=== PATIENT | male | born 1965 | race Caucasian/White ===

== ENCOUNTER 2023-01-21 17:49 | Inpatient (IN) | payer OTHER, SELFPAY ==
--- NOTE | ~2023-01-21 | CT_ITS ---
EXAMINATION: CT HEAD WITHOUT CONTRAST CLINICAL INFORMATION: ECT w/u. History of head trauma/TBI. COMPARISON: None. TECHNIQUE: Contiguous axial imaging was performed from the skull base to vertex without intravenous administration of contrast. This CT examination was performed using dose optimization techniques as appropriate, variously including the following: *Automated exposure control *Adjustment of mA and/or kV according to patient size (this includes techniques or standardized protocols for targeted exams where dose is matched to indication/reason for exam; i.e. extremities or head) *Use of iterative reconstruction technique DLP: 733 mGy-cm. FINDINGS: There is no intracranial hemorrhage, extra-axial collection, mass effect, or territorial infarction. The ventricles are normal in size without hydrocephalus. Mild nonspecific hypoattenuation is seen within the cerebral white matter. No significant encephalomalacia is seen. There is moderate paranasal sinus mucosal thickening. The mastoid air cells are clear. CT/CT head/brain wo IV con IMPRESSION: No acute intracranial abnormality. Mild nonspecific hypoattenuation in the cerebral white matter.
--- NOTE | ~2023-01-21 | XR_ITS ---
EXAMINATION: XR CHEST CLINICAL INFORMATION: Hypoxia. COMPARISON: None available. TECHNIQUE: 2 views of the chest were obtained. FINDINGS: There is some diminished vascularity seen about the apices which may be related to some degree of emphysematous change. There is a density seen overlying the posterior aspect of the left 7th rib. This is of uncertain significance and it is difficult to tell whether it lies within a rib or within the lung. CT or oblique views of the chest could further evaluate this if clinically indicated. Heart normal size. No evidence of pulmonary edema. No pleural effusion is appreciated. There is calcification of the anterior longitudinal ligament within the lower thoracic spine. XR/XR chest 2V IMPRESSION: No acute parenchymal disease. Question left lung density as described above.
[2023-01-21 18:00] VITALS: BP 132/90; PULSE 108; RESP 18; TEMP 36.4; O2SAT 99
--- NOTE | 2023-01-21 18:53 | HO.PM.IMCN ---
History of Present Illness Data of Consult Service Date: 01/21/23 Primary Care Provider: Benedict Santana MD [facility] Reason for consult: Admission H&P Pt is a 57-year-old male with a PMH significant for COPD, HTN, TBI, bipolar disorder, PTSD, and multiple concussions who is seen for psych admission history and physical. Patient was admitted to [facility] for the past 7 days and noted there to be hypertensive, started on amlodipine 10 mg. Patient currently has no acute medical complaints. Denies chest pain/pressure, palpitations. No shortness of breath, cough. Denies headache, changes to vision. No fever, chills, nausea, vomiting, abdominal pain. No changes to bowel or bladder habits. Review of Systems Review of Systems: Patient has no acute complaints Yes all other systems are reviewed and are negative [facility] Medical History (Updated 01/23/23 @ 00:51 by Nicholas Ruff) Alcohol use disorder TBI (traumatic brain injury) Social History Household Members: None Housing: Homeless Do you presently have visiting nurse or other home services: No Patient Tobacco Use Status: Current everyday Tobacco user Tobacco use type: Cigarette Cigarette Packs Per Day: 1.5 Cigarettes Per Day: 30.0 Smoked in Last 30 Days: Yes Patient Interested in Nicotine Replacement: Yes Patient Given Instructions on How to Stop Smoking: No Second Hand Smoke Exposure: No Use of substances other than those prescribed or required for medical reasons: Yes Substance Use Type: Crack/Cocaine and Marijuana Substance Use Frequency: Occasionally Last Used Substance: Days (ago) Last Used Substance Other:: 7 days Currently Displaying Signs/Symptoms of Drug Intoxication Withdrawal: No Any prior treatment program specific to substance use: No Have you been hit, kicked, punched, or otherwise hurt by someone within the past year? If so, by whom?: No Do you feel safe in your current relationship?: No Current Relationship Is there a partner from a previous relationship who is making you feel unsafe now?: No Are you made to feel afraid or neglected: No Spiritual Healthcare Practices: Pt denies Rastafari Healthcare Practices: Pt denies Cultural Healthcare Practices: Pt denies Advance Directives: No Advance Directives Information Provided: No Do you have thoughts of harming others: None Do you have a plan to hurt others: No Plan Recently lost weight without trying: No How much weight loss: Not applicable Eating poorly because of decreased appetite: No Nutrition screen score: 0 Nutrition Risks: No Nutritional Risk Poor oral hygiene: No Meds Allergies Allergy/AdvReac Type Severity Reaction Status Date / Time No Known Allergies Allergy Verified 01/21/23 17:56 Active Medications: Current Medications Acetaminophen (Acetaminophen 325 Mg Tablet) 650 mg PO Q6H PRN PRN Reason: Headache/Pain Mild Scale (1-3) Al Hydroxide/Mg Hydroxide (Magnesium Hydrox/Alum Hydrox 30 Ml Oral.Susp) 30 ml PO Q6H PRN PRN Reason: Heartburn/Nausea Hydroxyzine HCl (Hydroxyzine Hcl 25 Mg Tablet) 25 mg PO Q6H PRN PRN Reason: Anxiety Magnesium Hydroxide (Milk Of Magnesia 30 Ml Oral.Susp) 30 ml PO DAILY PRN PRN Reason: Constipation Nicotine Polacrilex (Nicotine Polacrilex 2 Mg Gum) 4 mg BUCCAL Q2H PRN PRN Reason: Nicotine Cravings Trazodone HCl (Trazodone Hcl 50 Mg Tablet) 50 mg PO BEDTIME MRX1 PRN PRN Reason: Insomnia Home Medications Medication Instructions Recorded Confirmed Last Taken Type albuterol sulfate 90 mcg/actuation 2 puff inhalation Q4H PRN dyspnea 01/21/23 01/21/23 Unknown History aerosol inhaler (Ventolin HFA) aripiprazole 10 mg tablet 1 tab PO BEDTIME 01/21/23 01/21/23 Unknown History budesonide 160 mcg-glycopyr 9 2 puff inhalation BID 01/21/23 01/21/23 Unknown History mcg-formot 4.8 mcg/actuation HFA inhaler (Breztri Aerosphere) hydroxyzine pamoate 50 mg capsule 1 cap PO Q6H PRN anxiety 01/21/23 01/21/23 Unknown History ibuprofen 800 mg tablet 1 tab PO TID PRN pain 01/21/23 01/21/23 Unknown History omeprazole 20 mg capsule,delayed 1 cap PO QAM 01/21/23 01/21/23 Unknown History release quetiapine 200 mg tablet 1 tab PO BEDTIME 01/21/23 01/21/23 Unknown History quetiapine 25 mg tablet 1 tab PO BID PRN insomnia 01/21/23 01/21/23 Unknown History sertraline 100 mg tablet 1 tab PO DAILY 01/21/23 01/21/23 Unknown History trazodone 50 mg tablet 1 tab PO BEDTIME insomnia 01/21/23 01/21/23 Unknown History Physical Exam Vital Signs and Narrative: General: AOx3, no acute distress Resp: CTA bilaterally CVS: S1, S2, RRR GI: +BS, NT, no distention Skin: No rash Neuro: Cranial nerves II-XII grossly intact. Motor grossly intact. Extremities: No edema Psych: Appropriate affect Results Labs 01/22/23 07:36 01/22/23 07:36 Assessment and Plan (1) Routine history and physical examination of adult: Status: Acute Plan Pt is a 57-year-old male with a PMH significant for COPD, HTN, TBI, bipolar disorder, PTSD, and multiple concussions who is seen for psych admission history and physical. Patient was admitted to [facility] for the past 7 days and noted there to be hypertensive, started on amlodipine 10 mg. Patient currently has no acute medical complaints. COPD Continue home inhaler prn HTN Continue amlodipine Thank you for allowing us participate in the care of this patient. Signing off at this time. Please let us know if there are any acute concerns or questions. Time Spent With Patient Time: Total time managing care of this patient today ____ minutes.
--- NOTE | 2023-01-21 19:26 | PC.ADMIT ---
Brody was admitted to [facility] at 1800 from [facility] on a CV for treatment of SI, bipolar I.?Precipitants of admission include intentional overdose on 60 tabs of 25 mg pills of seroquel along with drinking vodka. Per pt report ?I took the pills then called 911 and told them they had a chance, and then I started drinking?. Pt began laughing after stating this and said ?if i was meant to go I would have and if I didn?t then I wasn?t?. Patient endorses drinking ? gallon of vodka a day since late 2018 after passing of daughter? ?$8.95 a day since she . I don't buy the good stuff but it gets the job done?. Patient was medically admitted to [facility] for approximately a week. Patient received phenobarbital while there for alcohol withdrawal. Patient was closely monitored as well with EKGs q2 hours to monitor post Overdose. Prolonged QTC was noted, with the last being 471.? Patient reported recent stressors to include loss of his parents unexpectedly, recent homelessness and loss of daughter in 2018 by suicide. Patient reported that he has attempted suicide 4 times since his daughters . Reportedly he attempted to hang himself using a tree, but the branch broke. Declined to elaborate on other attempts. Reports multiple inpatient admissions, most recent including [facility] ?a few weeks ago?. During the admission interview pt is A & Ox4. Patients Mood is irritable with congruent Affect. Patient currently denies SI/HI/AH. Pt endorsed seeing ?shadows? occasionally. Patient reports that if he is discharged he does not know what would happen, but feels safe in the patient. Thought Process linear and organized. Reports ?whenever I go I always just go and sign myself out with a 3 day notice. I don?t want to do that this time?. Reported appetite and sleep have been appropriate. MOSS positive for cocaine and marijuana. Reported ?I will do a line here and there?. Endorsed ?taking a hit off a blunt every now and then. Can?t do it much because of my COPD?. Recently started on amlodipine at [facility] for high blood pressure. Upon arrival pt had BP of 132/90 and a HR of 108. Reported a Hx of seizures, but he reported the last one was greater than 7 years ago. Pt has COPD and reported that he uses his ventolin inhaler about every 4 hours. No acute distress noted or reported. 15 minute safety checks initiated. Pt declined flu vaccine. Reported to be a 1.5 pack a day cigarette smoker.
[2023-01-21] MEDS: Cyclobenzaprine HCl 5 MG TABLET PO (21:00)
[2023-01-21] MEDS: QUEtiapine Fumarate 200 MG TABLET PO (21:01)
[2023-01-21] MEDS: Ibuprofen 800 MG TABLET PO (21:01)
[2023-01-21] MEDS: hydrOXYzine HCL 50 MG TABLET PO (21:01)
[2023-01-21] MEDS: Albuterol Sulfate 90 MCG 8 GM INHALER 2 PUFF INHALE (21:14)
[2023-01-22 07:52] LABS: Basophils Percent Auto 0.6 % (0-2); Eosinophils Absolute Auto 0.3 X10*3/uL (0.0-0.4); Eosinophils Percent Auto 5.2 % (0-4); Hemoglobin 15.4 g/dl (14.0-18.0); Imm Gran Abs Auto 0.02 X10*3/uL (0.00-0.03); Imm Gran Pct Auto 0.3 % (0.0-0.4); Lymphocytes Absolute Auto 2.3 X10*3/uL (1.2-4.9); Lymphocytes Percent Auto 34.2 % (20-40); MANUAL DIFF FLAG NO; Mean Corpuscular HGB Conc 34.2 g/dl (31.0-36.0); Mean Corpuscular Hemoglobin 32.5 pg (27.0-33.0); Mean Corpuscular Volume 94.9 fL (80.0-98.0); Mean Platelet Volume 9.7 fL (9.4-12.4); Monocytes Absolute Auto 0.8 X10*3/uL (0.1-1.2); Monocytes Percent Auto 11.7 % (2-11); Neutrophils Absolute Auto 3.2 x10*3/uL (2.0-8.3); Platelet Count 184 X10*3/uL (160-400); Red Blood Count 4.74 X10*6/uL (4.60-5.80); Red Cell Distribution Width 13.2 % (11.0-16.0); White Blood Count 6.6 X10*3/uL (4.8-10.8)
[2023-01-22 08:18] LABS: Estimated Average Glucose 103 mg/dL; Hemoglobin A1c % 5.2 %
[2023-01-22 08:30] LABS: Alanine Aminotransferase 33 U/L (0-40); Albumin Level 4.1 g/dL (3.5-5.0); Alkaline Phosphatase 75 U/L (39-117); Anion Gap 11 (12-20); Aspartate Amino Transferase 21 U/L (5-37); Bilirubin Direct 0.2 mg/dL (0.0-0.5); Bilirubin Total 0.6 mg/dL (0.0-1.0); Blood Urea Nitrogen 17 mg/dL (9-16); Calcium 9.6 mg/dL (8.4-10.2); Carbon Dioxide 24 mmol/L (22-29); Chloride 111 mmol/L (96-108); Cholesterol 214 mg/dL; Estimated Glomerular Filt Rate > 60; Glucose Fasting 95 mg/dL (60-99); HDL Cholesterol 43 mg/dL; LDL Cholesterol Calculated 146 mg/dl; Sodium 142 mmol/L (135-145); Total Protein 6.6 g/dL (6.5-8.0); Triglycerides 126 mg/dL
[2023-01-22 08:59] LABS: Folate 14.2 ng/mL (> or = 4.0); Free T4 (Free Thyroxine) 0.84 ng/dL (0.71-1.85); Thyroid Stimulating Hormone 1.78 uIU/mL (0.32-4.0); Vitamin B12 366 pg/mL (200-900)
[2023-01-22 09:00] VITALS: BP 132/82; PULSE 90; TEMP 36.3; O2SAT 98
[2023-01-22] MEDS: Nicotine 21 MG PATCH.TD24 TRANSDERMA (09:44)
[2023-01-22] MEDS: Albuterol Sulfate 90 MCG 8 GM INHALER 2 PUFF INHALE ×2 (09:44→22:28)
[2023-01-22] MEDS: Omeprazole 20 MG CAPSULE.DR PO (09:44)
[2023-01-22] MEDS: Sertraline HCL 100 MG TABLET PO (09:44)
[2023-01-22] MEDS: Ibuprofen 800 MG TABLET PO ×2 (11:12→19:25)
[2023-01-22] MEDS: Cyclobenzaprine HCl 5 MG TABLET PO ×2 (11:13→18:52)
[2023-01-22] MEDS: hydrOXYzine HCL 50 MG TABLET PO (13:50)
--- NOTE | 2023-01-22 18:47 | HO.PSYADMNOT ---
HPI Date of Service: 01/22/23 Chief Complaint: Unspecified Bipolar D/O HPI Narrative: pt was admitted to [facility] after overdosing on 60 tabs of seroquel while intoxicated. he was in a public place, drank the alcohol and took the pills, and immediately called 911. he reported homelessness, lack of treaters, of his daughter by suicide several years ago, lack of social supports, lack of help from psych meds as stressors. he reports a history of bipolar disorder, talking of my vito, which he says he used to manage through excessive exercise when he was younger - working out, running marathons. he describes his manic episodes as lasting 3-4 days and those being followed by depressive periods that might last a week or two. he reports the most recent suicida attempt was his 6th in 16 weeks, that he was at [facility] twice in the past 6 weeks. he goes in, gets detoxed, discharges, starts drinking again and attempts to overdose, then goes back in the hospital. he states he still has SI and plans to and intends to kill himself after discharge. he has given up any confidence in medications. MD broaches ECT and educates him about it; he is open to receiving literature on the subject. he presents with a fair amount of braggadocio and [id number] attitude, challenging MD to discharge him. attempts are made to establish rapport through a non-directive approach and emphasizing that pt has the control and the power to make decisions and chart his course. hopefully, despite his continued insistence that he is going to kill himself, he also spoke positively about help from talking to others as well as an interest in finding a therapist at discharge. Past Psychiatric History: hosps: 8-9 SA: 8-9 SIB: denies no outpt ptoviders although reports long h/o mental healthcare and medications mgmt. reports being taken to group home as often as to the hospital when the police are called. Medical Evaluation Reviewed: Yes [facility] Medical History (Updated 01/23/23 @ 00:51 by Nicholas Ruff) Alcohol use disorder TBI (traumatic brain injury) Family History: daughter - completed suicide around [id number], reported Dx of bipolar disorder 5 sibs - no mental health concerns parents - no mental health concerns Social History: 5 kids, one daughter suicided in [id number] period. homeless, unemployed. history of incarceration. Substance History: alcohol - reports half gallon of vodka daily in the recent past cannabis - occasional cocaine - occasional denies use of opioids, stimulants, benzos, other. declines SA Tx. Trauma History: indicates in the affirmative but states that's all he'll say about it Diagnostics Vital Signs (24Hr): Vital Signs - 24 hr 01/22/23 09:00 Temperature 97.3 F Pulse Rate 90 Blood Pressure 132/82 Pulse Oximetry 98 Oxygen Delivery Method Room Air Labs 01/22/23 07:36 01/22/23 07:36 Labs: Laboratory Results - last 48 hr 01/22/23 01/22/23 01/22/23 07:36 07:36 07:36 WBC 6.6 RBC 4.74 Hgb 15.4 Hct 45.0 MCV 94.9 MCH 32.5 MCHC 34.2 RDW 13.2 Plt Count 184 MPV 9.7 Immature Gran % (Auto) 0.3 Neut % (Auto) 48.0 Lymph % (Auto) 34.2 [place] % (Auto) 11.7 H Eos % (Auto) 5.2 H Baso % (Auto) 0.6 Lymph # (Auto) 2.3 [place] # (Auto) 0.8 Eos # (Auto) 0.3 Baso # (Auto) 0.0 Abs Immat Gran (auto) 0.02 Absolute Neuts (auto) 3.2 Absolute Nucleated RBC 0.000 Nucleated RBC % (auto) 0.0 Sodium 142 Potassium 4.0 Chloride 111 H Carbon Dioxide 24 Anion Gap 11 L BUN 17 H Creatinine 0.91 Estim Creat Clear Calc TNP Estimated GFR > 60 Fasting Glucose 95 Estimat Average Glucose 103 Hemoglobin A1c % 5.2 Calcium 9.6 Total Bilirubin 0.6 Direct Bilirubin 0.2 AST 21 ALT 33 Alkaline Phosphatase 75 Total Protein 6.6 Albumin 4.1 Triglycerides 126 Cholesterol 214 LDL Cholesterol, Calc 146 HDL Cholesterol 43 Vitamin B12 366 Folate 14.2 TSH 1.78 Free T4 0.84 Meds/Allergies Meds Home Medications Medication Instructions Recorded Confirmed Type albuterol sulfate 90 mcg/actuation 2 puff inhalation Q4H PRN dyspnea 01/21/23 01/21/23 History aerosol inhaler (Ventolin HFA) aripiprazole 10 mg tablet 1 tab PO BEDTIME 01/21/23 01/21/23 History budesonide 160 mcg-glycopyr 9 2 puff inhalation BID 01/21/23 01/21/23 History mcg-formot 4.8 mcg/actuation HFA inhaler (Breztri Aerosphere) hydroxyzine pamoate 50 mg capsule 1 cap PO Q6H PRN anxiety 01/21/23 01/21/23 History ibuprofen 800 mg tablet 1 tab PO TID PRN pain 01/21/23 01/21/23 History omeprazole 20 mg capsule,delayed 1 cap PO QAM 01/21/23 01/21/23 History release quetiapine 200 mg tablet 1 tab PO BEDTIME 01/21/23 01/21/23 History quetiapine 25 mg tablet 1 tab PO BID PRN insomnia 01/21/23 01/21/23 History sertraline 100 mg tablet 1 tab PO DAILY 01/21/23 01/21/23 History trazodone 50 mg tablet 1 tab PO BEDTIME insomnia 01/21/23 01/21/23 History Allergies Allergies Allergy/AdvReac Type Severity Reaction Status Date / Time No Known Allergies Allergy Verified 01/21/23 17:56 Mental Status Exam Mental Status Exam Narrative: calm, cooperative. no PMA/PMR. voluble, boisterous. incr rate, amount, loudness of speech. thoughts linear to circumstantial. affect full range, hyper-intense, non-labile. mood i keep to myself. francis depressed, pissed i'm stuck in this place (he would prefer to discharge so he can go kill himself, per his report). endorses SI, denies HI/AVH. Assessment & Plan Assessment & Plan (1) COPD (chronic obstructive pulmonary disease): Status: Acute Code(s): J44.9 - Chronic obstructive pulmonary disease, unspecified (2) HTN (hypertension): Status: Acute Code(s): I10 - Essential (primary) hypertension (3) PTSD (post-traumatic stress disorder): Status: Acute Code(s): F43.10 - Post-traumatic stress disorder, unspecified (4) Alcohol use disorder: Status: Acute Code(s): F10.90 - Alcohol use, unspecified, uncomplicated (5) TBI (traumatic brain injury): Status: Acute Code(s): S06.9XAA - Unspecified intracranial injury with loss of consciousness status unknown, initial encounter Plan pt expressing lack of motivation for recovery and treatment, especially with medications. he was educated re ECT for Tx refractory depression. he is willing to receive further education on the subject and MD will discuss with him again tomorrow. build rapport, listen (pt identified h/o treaters' not listening to him as something which led to his disengagement). continue prior meds for now. increase seroquel at HS per pt request for insomnia. ativan per CIWA for alcohol withdrawal Patient educated on: diagnosis, medication risk/benefits, substance abuse and medical condition Reason for continued inpatient stay Substantial Risk for: harm to self, inability to function and rapid decompensation Statement Statement: I have reviewed the history and physical and performed a pertinent examination on my patient. No changes have occurred unless specified. If the History and Physical was not performed prior to admission, the Hospitalist's service will be consulted for completing the admission physical. Time Spent With Patient Time: Total time managing care of this patient today __55__ minutes.
[2023-01-22 20:25] VITALS: BP 128/85; PULSE 94; RESP 18; TEMP 36.5; O2SAT 96
[2023-01-22] MEDS: QUEtiapine Fumarate 300 MG TABLET PO (22:28)
[2023-01-23] MEDS: Nicotine 21 MG PATCH.TD24 TRANSDERMA (08:55)
[2023-01-23] MEDS: Cyclobenzaprine HCl 5 MG TABLET PO ×2 (08:55→13:45)
[2023-01-23] MEDS: Omeprazole 20 MG CAPSULE.DR PO (08:55)
[2023-01-23] MEDS: Ibuprofen 800 MG TABLET PO ×2 (08:55→20:21)
[2023-01-23] MEDS: Sertraline HCL 100 MG TABLET PO (08:55)
[2023-01-23 09:00] VITALS: BP 142/88; PULSE 96; TEMP 36; O2SAT 97
[2023-01-23] MEDS: hydrOXYzine HCL 50 MG TABLET PO (13:47)
--- NOTE | 2023-01-23 16:50 | P.PNPSI_ITS ---
Subjective Subjective Date of Service: 01/23/23 Reason For Visit: Unspecified Bipolar D/O Interim History: calm, cooperative. states he has had no change in his mod since yesterday. endorses SI. asks for HS seroquel to be reduced to 250, which is done. per staff, pleasant but flat and guarded. pacing the unit for exercise. taking meds, eating, sleeping. Mental Status Exam Mental Status Exam Narrative: calm, cooperative. no PMA/PMR. nml rate, amount, loudness of speech. thoughts linear. affect full range, normo-intense, non-labile. mood same. endorses SI, denies HI/AVH. Diagnostics Vital Signs (24Hr): Vital Signs - 24 hr 01/22/23 20:25 01/23/23 09:00 Temperature 97.7 F 96.8 F Pulse Rate 94 96 Respiratory Rate 18 Blood Pressure 128/85 142/88 H Pulse Oximetry 96 97 Oxygen Delivery Method Room Air Room Air Labs 01/22/23 07:36 01/22/23 07:36 Labs: Laboratory Results - last 48 hr 01/22/23 01/22/23 01/22/23 07:36 07:36 07:36 WBC 6.6 RBC 4.74 Hgb 15.4 Hct 45.0 MCV 94.9 MCH 32.5 MCHC 34.2 RDW 13.2 Plt Count 184 MPV 9.7 Immature Gran % (Auto) 0.3 Neut % (Auto) 48.0 Lymph % (Auto) 34.2 [place] % (Auto) 11.7 H Eos % (Auto) 5.2 H Baso % (Auto) 0.6 Lymph # (Auto) 2.3 [place] # (Auto) 0.8 Eos # (Auto) 0.3 Baso # (Auto) 0.0 Abs Immat Gran (auto) 0.02 Absolute Neuts (auto) 3.2 Absolute Nucleated RBC 0.000 Nucleated RBC % (auto) 0.0 Sodium 142 Potassium 4.0 Chloride 111 H Carbon Dioxide 24 Anion Gap 11 L BUN 17 H Creatinine 0.91 Estim Creat Clear Calc TNP Estimated GFR > 60 Fasting Glucose 95 Estimat Average Glucose 103 Hemoglobin A1c % 5.2 Calcium 9.6 Total Bilirubin 0.6 Direct Bilirubin 0.2 AST 21 ALT 33 Alkaline Phosphatase 75 Total Protein 6.6 Albumin 4.1 Triglycerides 126 Cholesterol 214 LDL Cholesterol, Calc 146 HDL Cholesterol 43 Vitamin B12 366 Folate 14.2 TSH 1.78 Free T4 0.84 Medications Medications Current Medications Al Hydroxide/Mg Hydroxide (Magnesium Hydrox/Alum Hydrox 30 Ml Oral.Susp) 30 ml PO Q6H PRN PRN Reason: Heartburn/Nausea Albuterol Sulfate (Albuterol Sulfate 90 Mcg 8 Gm Inhaler) 2 puff INHALE Q4H PRN PRN Reason: dyspnea Last Admin: 01/22/23 22:28 Dose: 2 puff Cyclobenzaprine HCl (Cyclobenzaprine Hcl 10 Mg Tablet) 10 mg PO TID PRN PRN Reason: back pain Hydroxyzine HCl (Hydroxyzine Hcl 50 Mg Tablet) 50 mg PO Q6H PRN PRN Reason: anxiety Last Admin: 01/23/23 13:47 Dose: 50 mg Ibuprofen (Ibuprofen 800 Mg Tablet) 800 mg PO Q8H PRN PRN Reason: mild pain (1-3) Last Admin: 01/23/23 08:55 Dose: 800 mg Magnesium Hydroxide (Milk Of Magnesia 30 Ml Oral.Susp) 30 ml PO DAILY PRN PRN Reason: Constipation Nicotine (Nicotine 21 Mg Patch.Td24) 21 mg TRANSDERMA DAILY [facility] Last Admin: 01/23/23 08:55 Dose: 21 mg Non-Formulary Medication (Ihazxyflyn-Puleccri-Brfzydhvlz [Breztri Aerosphere]) 2 puff INHALE BID [facility] Omeprazole (Omeprazole 20 Mg Capsule.Dr) 20 mg PO DAILY@0630 [facility] Last Admin: 01/23/23 08:55 Dose: 20 mg Quetiapine Fumarate (Quetiapine Fumarate 25 Mg Tablet) 25 mg PO BID PRN PRN Reason: insomnia Quetiapine Fumarate (Quetiapine Fumarate 50 Mg Tablet) 250 mg PO BEDTIME [facility] Sertraline HCl (Sertraline Hcl 100 Mg Tablet) 100 mg PO DAILY [facility] Last Admin: 01/23/23 08:55 Dose: 100 mg Trazodone HCl (Trazodone Hcl 50 Mg Tablet) 50 mg PO BEDTIME MRX1 PRN PRN Reason: Insomnia Trazodone HCl (Trazodone Hcl 50 Mg Tablet) 50 mg PO BEDTIME [facility] Last Admin: 01/22/23 22:29 Dose: Not Given Allergies Allergies Allergy/AdvReac Type Severity Reaction Status Date / Time No Known Allergies Allergy Verified 01/21/23 17:56 Assessment & Plan Assessment & Plan (1) Routine history and physical examination of adult: Status: Acute Code(s): Z00.00 - Encounter for general adult medical examination without abnormal findings (2) TBI (traumatic brain injury): Status: Acute Code(s): S06.9XAA - Unspecified intracranial injury with loss of consciousness status unknown, initial encounter (3) Alcohol use disorder: Status: Acute Code(s): F10.90 - Alcohol use, unspecified, uncomplicated (4) PTSD (post-traumatic stress disorder): Status: Acute Code(s): F43.10 - Post-traumatic stress disorder, unspecified Plan 01/22: pt expressing lack of motivation for recovery and treatment, especially with medications.? he was educated re ECT for Tx refractory depression.? he is willing to receive further education on the subject and MD will discuss with him again tomorrow. build rapport, listen (pt identified h/o treaters' not listening to him as something which led to his disengagement). continue prior meds for now.? increase seroquel at HS per pt request for insomnia. ativan per CIWA for alcohol withdrawal. 01/23: pt reports he received ECT education and is mulling it over. asks for HS seroquel to be decreased to 250, which is done. asks for flexeril to be increased to 10 TID PRN, which is done. reports no change in mood or SI. Reason for contiued inpatient stay Substantial Risk for: harm to self, inability to function and rapid decompensation Time Spent With Patient Time: Total time managing care of this patient today ____ minutes.
[2023-01-23 20:14] VITALS: BP 129/96; PULSE 83; RESP 18; TEMP 36.2; O2SAT 97
[2023-01-23] MEDS: traZODone HCL 50 MG TABLET PO (20:21)
[2023-01-23] MEDS: Cyclobenzaprine HCl 10 MG TABLET PO (20:21)
[2023-01-23] MEDS: Albuterol Sulfate 90 MCG 8 GM INHALER 2 PUFF INHALE (20:22)
[2023-01-24 06:00] VITALS: BP 138/96; PULSE 86; TEMP 36.2; O2SAT 98
[2023-01-24] MEDS: Cyclobenzaprine HCl 10 MG TABLET PO ×3 (09:16→22:10)
[2023-01-24] MEDS: Albuterol Sulfate 90 MCG 8 GM INHALER 2 PUFF INHALE ×2 (09:16→22:11)
[2023-01-24] MEDS: Omeprazole 20 MG CAPSULE.DR PO (09:17)
[2023-01-24] MEDS: Ibuprofen 800 MG TABLET PO ×2 (09:17→17:32)
[2023-01-24] MEDS: Sertraline HCL 100 MG TABLET PO (09:17)
[2023-01-24] MEDS: Nicotine 21 MG PATCH.TD24 TRANSDERMA (09:23)
[2023-01-24] MEDS: Sertraline HCL 50 MG TABLET PO (11:31)
--- NOTE | 2023-01-24 15:10 | HO.PSYCHPN ---
Subjective Subjective Date of Service: 01/24/23 Reason For Visit: Unspecified Bipolar D/O Interim History: calm, cooperative. pacing the halls. slept well last night. reports h/o several seizures in his life. c/o ongoing depression, asks to increase zoloft to 150 mg daily. agrees to DC trazodone for the sake of simplicity. looking forward to meeting with SW to discuss options. per staff, quiet, isolative, withdrawn. considering [facility] for aftercare. pleasant. Mental Status Exam Mental Status Exam Narrative: calm, cooperative. no PMA/PMR. nml rate, amount, loudness of speech. thoughts linear. affect full range, normo-intense, non-labile. mood same. endorses SI, denies HI/AVH. Diagnostics Vital Signs (24Hr): Vital Signs - 24 hr 01/23/23 20:14 01/24/23 06:00 Temperature 97.2 F 97.2 F Pulse Rate 83 86 Respiratory Rate 18 Blood Pressure 129/96 H 138/96 H Pulse Oximetry 97 98 Oxygen Delivery Method Room Air Room Air Labs 01/22/23 07:36 01/22/23 07:36 Medications Medications Current Medications Al Hydroxide/Mg Hydroxide (Magnesium Hydrox/Alum Hydrox 30 Ml Oral.Susp) 30 ml PO Q6H PRN PRN Reason: Heartburn/Nausea Albuterol Sulfate (Albuterol Sulfate 90 Mcg 8 Gm Inhaler) 2 puff INHALE Q4H PRN PRN Reason: dyspnea Last Admin: 01/24/23 09:16 Dose: 2 puff Cyclobenzaprine HCl (Cyclobenzaprine Hcl 10 Mg Tablet) 10 mg PO TID PRN PRN Reason: back pain Last Admin: 01/24/23 09:16 Dose: 10 mg Hydroxyzine HCl (Hydroxyzine Hcl 50 Mg Tablet) 50 mg PO Q6H PRN PRN Reason: anxiety Last Admin: 01/23/23 13:47 Dose: 50 mg Ibuprofen (Ibuprofen 800 Mg Tablet) 800 mg PO Q8H PRN PRN Reason: mild pain (1-3) Last Admin: 01/24/23 09:17 Dose: 800 mg Magnesium Hydroxide (Milk Of Magnesia 30 Ml Oral.Susp) 30 ml PO DAILY PRN PRN Reason: Constipation Nicotine (Nicotine 21 Mg Patch.Td24) 21 mg TRANSDERMA DAILY [facility] Last Admin: 01/24/23 09:23 Dose: 21 mg Non-Formulary Medication (Axpkzlfvbi-Wncioudb-Xtpqacbkvc [Breztri Aerosphere]) 2 puff INHALE BID [facility] Omeprazole (Omeprazole 20 Mg Capsule.Dr) 20 mg PO DAILY@0630 [facility] Last Admin: 01/24/23 09:17 Dose: 20 mg Quetiapine Fumarate (Quetiapine Fumarate 25 Mg Tablet) 25 mg PO BID PRN PRN Reason: insomnia Quetiapine Fumarate 200 mg/ (Quetiapine Fumarate 50 mg) 250 mg PO BEDTIME [facility] Last Admin: 01/23/23 20:29 Dose: 250 mg Sertraline HCl (Sertraline Hcl 50 Mg Tablet) 150 mg PO DAILY [facility] Trazodone HCl (Trazodone Hcl 50 Mg Tablet) 50 mg PO BEDTIME PRN PRN Reason: Insomnia Allergies Allergies Allergy/AdvReac Type Severity Reaction Status Date / Time No Known Allergies Allergy Verified 01/21/23 17:56 Assessment & Plan Assessment & Plan (1) Routine history and physical examination of adult: Status: Acute Code(s): Z00.00 - Encounter for general adult medical examination without abnormal findings (2) TBI (traumatic brain injury): Status: Acute Code(s): S06.9XAA - Unspecified intracranial injury with loss of consciousness status unknown, initial encounter (3) Alcohol use disorder: Status: Acute Code(s): F10.90 - Alcohol use, unspecified, uncomplicated (4) PTSD (post-traumatic stress disorder): Status: Acute Code(s): F43.10 - Post-traumatic stress disorder, unspecified Plan 01/22: pt expressing lack of motivation for recovery and treatment, especially with medications.? he was educated re ECT for Tx refractory depression.? he is willing to receive further education on the subject and MD will discuss with him again tomorrow. build rapport, listen (pt identified h/o treaters' not listening to him as something which led to his disengagement). continue prior meds for now.? increase seroquel at HS per pt request for insomnia. ativan per CIWA for alcohol withdrawal. 01/23: pt reports he received ECT education and is mulling it over. asks for HS seroquel to be decreased to 250, which is done. asks for flexeril to be increased to 10 TID PRN, which is done. reports no change in mood or SI. 01/24: no change in mood or SI per pt. however, he is making hopeful statements and was noted to have expressed an interest in therapy after discharge. increase zoloft to 150 mg daily per pt request. states ECT is not for him. Reason for contiued inpatient stay Substantial Risk for: harm to self, inability to function and rapid decompensation Time Spent With Patient Time: Total time managing care of this patient today __25__ minutes.
[2023-01-24 22:08] VITALS: BP 161/96; PULSE 69; RESP 18; TEMP 36.3; O2SAT 97
[2023-01-25 06:00] VITALS: BP 144/78; PULSE 74; RESP 18; TEMP 36.6; O2SAT 98
[2023-01-25] MEDS: Nicotine 21 MG PATCH.TD24 TRANSDERMA (09:15)
[2023-01-25] MEDS: Sertraline HCL 50 MG TABLET 150 MG PO (09:16)
[2023-01-25] MEDS: Omeprazole 20 MG CAPSULE.DR PO (09:16)
[2023-01-25] MEDS: Ibuprofen 800 MG TABLET PO ×2 (09:16→20:11)
[2023-01-25] MEDS: Cyclobenzaprine HCl 10 MG TABLET PO ×3 (09:16→20:10)
--- NOTE | 2023-01-25 13:49 | P.PNPSI_ITS ---
Subjective Subjective Date of Service: 01/25/23 Reason For Visit: Unspecified Bipolar D/O Interim History: Met with patient; discussed in team Patient reports he remains depressed. He has off and on suicidal thinking but says it has lessened. However he says he does not trust himself to remain safe off the unit; he shared he has had 5 attempts in the past 16 weeks.. Patient reports tolerating recent increase in Zoloft without side effects. Discussed diagnosis; Discussed ECT and patient ask questions and said he is more open to considering. Patient shared about his history and that his daughter committed suicide and that she had bipolar disorder. Patient reports history of migraine and would like Imitrex p.r.n.; ticket writer reviewed medication prescriptions and sees the patient is prescribed this medication which was ordered Mental Status Exam Mental Status Exam Narrative: calm, cooperative. no PMA/PMR. nml rate, amount, loudness of speech. thoughts linear. affect full range, normo-intense, non-labile. mood same. endorses SI, denies HI/AVH. Diagnostics Vital Signs (24Hr): Vital Signs - 24 hr 01/24/23 22:08 01/25/23 06:00 Temperature 97.4 F 97.8 F Pulse Rate 69 74 Respiratory Rate 18 18 Blood Pressure 161/96 H 144/78 H Pulse Oximetry 97 98 Oxygen Delivery Method Room Air Room Air Labs 01/22/23 07:36 01/22/23 07:36 Medications Medications Current Medications Al Hydroxide/Mg Hydroxide (Magnesium Hydrox/Alum Hydrox 30 Ml Oral.Susp) 30 ml PO Q6H PRN PRN Reason: Heartburn/Nausea Albuterol Sulfate (Albuterol Sulfate 90 Mcg 8 Gm Inhaler) 2 puff INHALE Q4H PRN PRN Reason: dyspnea Last Admin: 01/24/23 22:11 Dose: 2 puff Cyclobenzaprine HCl (Cyclobenzaprine Hcl 10 Mg Tablet) 10 mg PO TID PRN PRN Reason: back pain Last Admin: 01/25/23 09:16 Dose: 10 mg Hydroxyzine HCl (Hydroxyzine Hcl 50 Mg Tablet) 50 mg PO Q6H PRN PRN Reason: anxiety Last Admin: 01/23/23 13:47 Dose: 50 mg Ibuprofen (Ibuprofen 800 Mg Tablet) 800 mg PO Q8H PRN PRN Reason: mild pain (1-3) Last Admin: 01/25/23 09:16 Dose: 800 mg Magnesium Hydroxide (Milk Of Magnesia 30 Ml Oral.Susp) 30 ml PO DAILY PRN PRN Reason: Constipation Nicotine (Nicotine 21 Mg Patch.Td24) 21 mg TRANSDERMA DAILY [facility] Last Admin: 01/25/23 09:15 Dose: 21 mg Non-Formulary Medication (Yivrvijuiv-Uyzcjevg-Novesslegf [Breztri Aerosphere]) 2 puff INHALE BID [facility] Omeprazole (Omeprazole 20 Mg Capsule.Dr) 20 mg PO DAILY@0630 [facility] Last Admin: 01/25/23 09:16 Dose: 20 mg Quetiapine Fumarate (Quetiapine Fumarate 25 Mg Tablet) 25 mg PO BID PRN PRN Reason: insomnia Quetiapine Fumarate 200 mg/ (Quetiapine Fumarate 50 mg) 250 mg PO BEDTIME [facility] Last Admin: 01/24/23 22:09 Dose: 250 mg Sertraline HCl (Sertraline Hcl 50 Mg Tablet) 150 mg PO DAILY [facility] Last Admin: 01/25/23 09:16 Dose: 150 mg Trazodone HCl (Trazodone Hcl 50 Mg Tablet) 50 mg PO BEDTIME PRN PRN Reason: Insomnia Allergies Allergies Allergy/AdvReac Type Severity Reaction Status Date / Time No Known Allergies Allergy Verified 01/21/23 17:56 Assessment & Plan Assessment & Plan (1) Routine history and physical examination of adult: Status: Acute Code(s): Z00.00 - Encounter for general adult medical examination without abnormal findings (2) TBI (traumatic brain injury): Status: Acute Code(s): S06.9XAA - Unspecified intracranial injury with loss of consciousness status unknown, initial encounter (3) Alcohol use disorder: Status: Acute Code(s): F10.90 - Alcohol use, unspecified, uncomplicated (4) PTSD (post-traumatic stress disorder): Status: Acute Code(s): F43.10 - Post-traumatic stress disorder, unspecified Plan 01/22: pt expressing lack of motivation for recovery and treatment, especially with medications.? he was educated re ECT for Tx refractory depression.? he is willing to receive further education on the subject and MD will discuss with him again tomorrow. build rapport, listen (pt identified h/o treaters' not listening to him as something which led to his disengagement). continue prior meds for now.? increase seroquel at HS per pt request for insomnia. ativan per CIWA for alcohol withdrawal. 01/23: pt reports he received ECT education and is mulling it over. asks for HS seroquel to be decreased to 250, which is done. asks for flexeril to be increased to 10 TID PRN, which is done. reports no change in mood or SI. 01/24: no change in mood or SI per pt. however, he is making hopeful statements and was noted to have expressed an interest in therapy after discharge. increase zoloft to 150 mg daily per pt request. states ECT is not for him. 01/25 continue current treatment plan; patient still depressed with intermittent SI. Again discussed ECT and patient says he is more open to considering it. He will follow up with Dr. Ruff Patient educated on: diagnosis, medication risk/benefits, substance abuse and ECT Informed Consent: understands Reason for contiued inpatient stay Substantial Risk for: harm to self and rapid decompensation Time Spent With Patient Time: Total time managing care of this patient today ____ minutes.
[2023-01-25 20:56] VITALS: BP 153/99; PULSE 81; RESP 16; TEMP 36.6; O2SAT 97
[2023-01-25] MEDS: Albuterol Sulfate 90 MCG 8 GM INHALER 2 PUFF INHALE (22:16)
--- NOTE | 2023-01-26 | ECG_ITS ---
Test Reason : ect clearence Blood Pressure : / mmHG Vent. Rate : 069 BPM Atrial Rate : 069 BPM P-R Int : 202 ms QRS Dur : 098 ms QT Int : 418 ms P-R-T Axes : 060 -30 013 degrees QTc Int : 447 ms Normal sinus rhythm with sinus arrhythmia Left axis deviation Inferior infarct , age undetermined Abnormal ECG No previous ECGs available Referred By: Nicholas Ruff Electronically Signed By:JOSE M GUILLEN MD
[2023-01-26] MEDS: Omeprazole 20 MG CAPSULE.DR PO (08:28)
[2023-01-26] MEDS: Sertraline HCL 50 MG TABLET 150 MG PO (08:28)
[2023-01-26] MEDS: Nicotine 21 MG PATCH.TD24 TRANSDERMA (08:29)
[2023-01-26] MEDS: Albuterol Sulfate 90 MCG 8 GM INHALER 2 PUFF INHALE ×2 (08:37→22:32)
[2023-01-26] MEDS: Ibuprofen 800 MG TABLET PO ×2 (08:37→21:25)
[2023-01-26 09:10] VITALS: BP 119/72; PULSE 83; RESP 16; TEMP 36.4; O2SAT 94
--- NOTE | 2023-01-26 12:45 | P.PNPSI_ITS ---
Subjective Subjective Date of Service: 01/26/23 Reason For Visit: Unspecified Bipolar D/O Interim History: calm, cooperative. states nothing has changed between my ears. depression and SI continue. despite that assertion, he apparently has once again become more open to conversation about ECT. amenable to discuss with Dr. Dillard, have EKG, have exam by hospitalist. per staff, calm, attending groups. 4/10 anx/dep in the morning yesterday, no SI/HI. pacing ( exercising ). chatty. eves c/o anx/dep/ slept well. Mental Status Exam Mental Status Exam Narrative: calm, cooperative. no PMA/PMR. nml rate, amount, loudness of speech. thoughts linear. affect full range, normo-intense, non-labile. mood same. endorses SI, denies HI/AVH. Diagnostics Vital Signs (24Hr): Vital Signs - 24 hr 01/25/23 20:56 01/26/23 09:10 Temperature 97.9 F 97.5 F Pulse Rate 81 83 Respiratory Rate 16 16 Blood Pressure 153/99 H 119/72 Pulse Oximetry 97 94 Oxygen Delivery Method Room Air Room Air Labs 01/22/23 07:36 01/22/23 07:36 Medications Medications Current Medications Al Hydroxide/Mg Hydroxide (Magnesium Hydrox/Alum Hydrox 30 Ml Oral.Susp) 30 ml PO Q6H PRN PRN Reason: Heartburn/Nausea Albuterol Sulfate (Albuterol Sulfate 90 Mcg 8 Gm Inhaler) 2 puff INHALE Q4H PRN PRN Reason: dyspnea Last Admin: 01/26/23 08:37 Dose: 2 puff Cyclobenzaprine HCl (Cyclobenzaprine Hcl 10 Mg Tablet) 10 mg PO TID PRN PRN Reason: back pain Last Admin: 01/25/23 20:10 Dose: 10 mg Hydroxyzine HCl (Hydroxyzine Hcl 50 Mg Tablet) 50 mg PO Q6H PRN PRN Reason: anxiety Last Admin: 01/23/23 13:47 Dose: 50 mg Ibuprofen (Ibuprofen 800 Mg Tablet) 800 mg PO Q8H PRN PRN Reason: mild pain (1-3) Last Admin: 01/26/23 08:37 Dose: 800 mg Magnesium Hydroxide (Milk Of Magnesia 30 Ml Oral.Susp) 30 ml PO DAILY PRN PRN Reason: Constipation Nicotine (Nicotine 21 Mg Patch.Td24) 21 mg TRANSDERMA DAILY [facility] Last Admin: 01/26/23 08:29 Dose: 21 mg Non-Formulary Medication (Hlbhhorpdc-Fwycbjik-Ngsdpcuqfv [Breztri Aerosphere]) 2 puff INHALE BID [facility] Omeprazole (Omeprazole 20 Mg Capsule.Dr) 20 mg PO DAILY@0630 [facility] Last Admin: 01/26/23 08:28 Dose: 20 mg Quetiapine Fumarate (Quetiapine Fumarate 25 Mg Tablet) 25 mg PO BID PRN PRN Reason: insomnia Quetiapine Fumarate 200 mg/ (Quetiapine Fumarate 50 mg) 250 mg PO BEDTIME [facility] Last Admin: 01/25/23 22:15 Dose: 250 mg Sertraline HCl (Sertraline Hcl 50 Mg Tablet) 150 mg PO DAILY [facility] Last Admin: 01/26/23 08:28 Dose: 150 mg Sumatriptan Succinate (Sumatriptan Succinate 100 Mg Tablet) 100 mg PO DAILY PRN PRN Reason: Migraine Headache Trazodone HCl (Trazodone Hcl 50 Mg Tablet) 50 mg PO BEDTIME PRN PRN Reason: Insomnia Allergies Allergies Allergy/AdvReac Type Severity Reaction Status Date / Time No Known Allergies Allergy Verified 01/21/23 17:56 Assessment & Plan Assessment & Plan (1) Routine history and physical examination of adult: Status: Acute Code(s): Z00.00 - Encounter for general adult medical examination without abnormal findings (2) TBI (traumatic brain injury): Status: Acute Code(s): S06.9XAA - Unspecified intracranial injury with loss of consciousness status unknown, initial encounter (3) Alcohol use disorder: Status: Acute Code(s): F10.90 - Alcohol use, unspecified, uncomplicated (4) PTSD (post-traumatic stress disorder): Status: Acute Code(s): F43.10 - Post-traumatic stress disorder, unspecified Plan 01/22: pt expressing lack of motivation for recovery and treatment, especially with medications.? he was educated re ECT for Tx refractory depression.? he is willing to receive further education on the subject and MD will discuss with him again tomorrow. build rapport, listen (pt identified h/o treaters' not listening to him as something which led to his disengagement). continue prior meds for now.? increase seroquel at HS per pt request for insomnia. ativan per CIWA for alcohol withdrawal. 01/23: pt reports he received ECT education and is mulling it over. asks for HS seroquel to be decreased to 250, which is done. asks for flexeril to be increased to 10 TID PRN, which is done. reports no change in mood or SI. 01/24: no change in mood or SI per pt. however, he is making hopeful statements and was noted to have expressed an interest in therapy after discharge. increase zoloft to 150 mg daily per pt request. states ECT is not for him. 01/25 continue current treatment plan; patient still depressed with intermittent SI. Again discussed ECT and patient says he is more open to considering it. He will follow up with Dr. Ruff. 01/26: consults placed for chidi, hospitalist, and EKG in preparation for potential ECT. otherwise continue current mgmt. Reason for contiued inpatient stay Substantial Risk for: harm to self, inability to function and rapid decompensation Time Spent With Patient Time: Total time managing care of this patient today _25___ minutes.
[2023-01-26] MEDS: QUEtiapine Fumarate 25 MG TABLET PO (13:36)
[2023-01-26] MEDS: Cyclobenzaprine HCl 10 MG TABLET PO ×2 (13:36→21:26)
[2023-01-26 20:33] VITALS: BP 139/84; PULSE 74; RESP 16; TEMP 36.3; O2SAT 97
[2023-01-26] MEDS: traZODone HCL 50 MG TABLET PO (22:33)
[2023-01-27 08:08] VITALS: BP 143/86; PULSE 96; RESP 16; TEMP 36.4; O2SAT 97
[2023-01-27] MEDS: Albuterol Sulfate 90 MCG 8 GM INHALER 2 PUFF INHALE ×2 (08:19→22:22)
[2023-01-27] MEDS: Nicotine 21 MG PATCH.TD24 TRANSDERMA (08:19)
[2023-01-27] MEDS: Ibuprofen 800 MG TABLET PO ×2 (08:20→19:34)
[2023-01-27] MEDS: Omeprazole 20 MG CAPSULE.DR PO (08:20)
[2023-01-27] MEDS: Sertraline HCL 50 MG TABLET 150 MG PO (08:20)
[2023-01-27] MEDS: Cyclobenzaprine HCl 10 MG TABLET PO ×3 (08:21→19:33)
--- NOTE | 2023-01-27 10:35 | ECG_ITS ---
Test Reason : PRE ECT Blood Pressure : / mmHG Vent. Rate : 075 BPM Atrial Rate : 075 BPM P-R Int : 210 ms QRS Dur : 102 ms QT Int : 412 ms P-R-T Axes : 069 -30 030 degrees QTc Int : 460 ms Sinus rhythm with marked sinus arrhythmia with 1st degree A-V block Left axis deviation Inferior infarct (cited on or before 26-JAN-2023) Abnormal ECG When compared with ECG of 26-JAN-2023 14:06, No significant change was found Referred By: Archie Dillard Electronically Signed By:JOSE M GUILLEN MD
--- NOTE | 2023-01-27 15:54 | HO.PSYCHPN ---
Subjective Subjective Date of Service: 01/27/23 Reason For Visit: Unspecified Bipolar D/O Interim History: remains interested in ECT. stable. discussed with chidi as well as medical support specialist. per staff, dep/anx 6-7. attending groups, pacing the unit. racing thoughts. happy with his care here. sleeping 4-[address] ordered. Mental Status Exam Mental Status Exam Narrative: calm, cooperative. no PMA/PMR. nml rate, amount, loudness of speech. thoughts linear. affect full range, normo-intense, non-labile. mood same. endorses SI, denies HI/AVH. Diagnostics Vital Signs (24Hr): Vital Signs - 24 hr 01/26/23 20:33 01/27/23 08:08 Temperature 97.4 F 97.6 F Pulse Rate 74 96 Respiratory Rate 16 16 Blood Pressure 139/84 143/86 H Pulse Oximetry 97 97 Oxygen Delivery Method Room Air Room Air Labs 01/22/23 07:36 01/22/23 07:36 Medications Medications Current Medications Acetaminophen (Acetaminophen 325 Mg Tablet) 650 mg PO Q6H PRN PRN Reason: mild pain (1-3) Al Hydroxide/Mg Hydroxide (Magnesium Hydrox/Alum Hydrox 30 Ml Oral.Susp) 30 ml PO Q6H PRN PRN Reason: Heartburn/Nausea Albuterol Sulfate (Albuterol Sulfate 90 Mcg 8 Gm Inhaler) 2 puff INHALE Q4H PRN PRN Reason: dyspnea Last Admin: 01/27/23 08:19 Dose: 2 puff Cyclobenzaprine HCl (Cyclobenzaprine Hcl 10 Mg Tablet) 10 mg PO TID PRN PRN Reason: back pain Last Admin: 01/27/23 15:13 Dose: 10 mg Hydroxyzine HCl (Hydroxyzine Hcl 50 Mg Tablet) 50 mg PO Q6H PRN PRN Reason: anxiety Last Admin: 01/23/23 13:47 Dose: 50 mg Ibuprofen (Ibuprofen 800 Mg Tablet) 800 mg PO Q8H PRN PRN Reason: moderate pain (4-6) Magnesium Hydroxide (Milk Of Magnesia 30 Ml Oral.Susp) 30 ml PO DAILY PRN PRN Reason: Constipation Nicotine (Nicotine 21 Mg Patch.Td24) 21 mg TRANSDERMA DAILY [facility] Last Admin: 01/27/23 08:19 Dose: 21 mg Non-Formulary Medication (Dktvbifxqj-Hyctmbxa-Qaozumdmyw [Breztri Aerosphere]) 2 puff INHALE BID [facility] Omeprazole (Omeprazole 20 Mg Capsule.Dr) 20 mg PO DAILY@0630 [facility] Last Admin: 01/27/23 08:20 Dose: 20 mg Quetiapine Fumarate (Quetiapine Fumarate 25 Mg Tablet) 25 mg PO BID PRN PRN Reason: insomnia Last Admin: 01/26/23 13:36 Dose: 25 mg Quetiapine Fumarate 200 mg/ (Quetiapine Fumarate 50 mg) 250 mg PO BEDTIME [facility] Last Admin: 01/26/23 22:32 Dose: 250 mg Sertraline HCl (Sertraline Hcl 50 Mg Tablet) 150 mg PO DAILY [facility] Last Admin: 01/27/23 08:20 Dose: 150 mg Sumatriptan Succinate (Sumatriptan Succinate 100 Mg Tablet) 100 mg PO DAILY PRN PRN Reason: Migraine Headache Trazodone HCl (Trazodone Hcl 50 Mg Tablet) 50 mg PO BEDTIME PRN PRN Reason: Insomnia Last Admin: 01/26/23 22:33 Dose: 50 mg Allergies Allergies Allergy/AdvReac Type Severity Reaction Status Date / Time No Known Allergies Allergy Verified 01/21/23 17:56 Assessment & Plan Assessment & Plan (1) Routine history and physical examination of adult: Status: Acute Code(s): Z00.00 - Encounter for general adult medical examination without abnormal findings (2) TBI (traumatic brain injury): Status: Acute Code(s): S06.9XAA - Unspecified intracranial injury with loss of consciousness status unknown, initial encounter (3) Alcohol use disorder: Status: Acute Code(s): F10.90 - Alcohol use, unspecified, uncomplicated (4) PTSD (post-traumatic stress disorder): Status: Acute Code(s): F43.10 - Post-traumatic stress disorder, unspecified Plan 01/22: pt expressing lack of motivation for recovery and treatment, especially with medications.? he was educated re ECT for Tx refractory depression.? he is willing to receive further education on the subject and MD will discuss with him again tomorrow. build rapport, listen (pt identified h/o treaters' not listening to him as something which led to his disengagement). continue prior meds for now.? increase seroquel at HS per pt request for insomnia. ativan per CIWA for alcohol withdrawal. 01/23: pt reports he received ECT education and is mulling it over. asks for HS seroquel to be decreased to 250, which is done. asks for flexeril to be increased to 10 TID PRN, which is done. reports no change in mood or SI. 01/24: no change in mood or SI per pt. however, he is making hopeful statements and was noted to have expressed an interest in therapy after discharge. increase zoloft to 150 mg daily per pt request. states ECT is not for him. 01/25 continue current treatment plan; patient still depressed with intermittent SI. Again discussed ECT and patient says he is more open to considering it. He will follow up with Dr. Ruff. 01/26: consults placed for chidi, hospitalist, and EKG in preparation for potential ECT. otherwise continue current mgmt. 01/27: head CT ordered. awaiting consults from hospitalist and ECT provider. continue current mgmt. Reason for contiued inpatient stay Substantial Risk for: harm to self, inability to function and rapid decompensation Time Spent With Patient Time: Total time managing care of this patient today _35___ minutes.
--- NOTE | 2023-01-27 15:59 | P.CONHOSP_ITS ---
History of Present Illness Data of Consult Service Date: 01/27/23 Primary Care Provider: Benedict Santana MD [facility] Reason for consult: ECT Clearance Pt is a 57-year-old male with a PMH significant for COPD, HTN, TBI, bipolar disorder, PTSD, and multiple concussions who is seen by medical for ECT clearance. This will be patient's 1st ECT procedure. Pt has a history of TBI and a couple of seizures with the last being in 2017. Pt also has a hx of COPD, but not in acute exacerbation. Denies SOB. Patient denies a PMH of cerebral hemorrhage or stroke, CAD, space-occupying intracranial lesion, or bleeding or otherwise unstable vascular aneurysm, or problems with anesthesia. EKG negative for acute ischemia and prolonged QTc. Patient denies chest pain/pressure, SOB, dizziness or lightheadedness. No abdominal pain, hematochezia, melena. No fever, chills, nausea, vomiting. Denies headache, changes to vision. Patient received a CT of head earlier today, results pending, psychiatry to f/u with results. Review of Systems Review of Systems: Denies chest pain/pressure, palpitations No SOB, dizziness or lightheadedness No abdominal pain, hematochezia, melena No fever, chills, nausea, vomiting Denies headache, changes to vision. Yes all other systems are reviewed and are negative [facility] Medical History Alcohol use disorder TBI (traumatic brain injury) Social History Household Members: None Housing: Homeless Do you presently have visiting nurse or other home services: No Patient Tobacco Use Status: Current everyday Tobacco user Tobacco use type: Cigarette Cigarette Packs Per Day: 1.5 Cigarettes Per Day: 30.0 Smoked in Last 30 Days: Yes Patient Interested in Nicotine Replacement: Yes Patient Given Instructions on How to Stop Smoking: No Second Hand Smoke Exposure: No Use of substances other than those prescribed or required for medical reasons: Yes Substance Use Type: Crack/Cocaine and Marijuana Substance Use Frequency: Occasionally Last Used Substance: Days (ago) Last Used Substance Other:: 7 days Currently Displaying Signs/Symptoms of Drug Intoxication Withdrawal: No Any prior treatment program specific to substance use: No Have you been hit, kicked, punched, or otherwise hurt by someone within the past year? If so, by whom?: No Do you feel safe in your current relationship?: No Current Relationship Is there a partner from a previous relationship who is making you feel unsafe now?: No Are you made to feel afraid or neglected: No Spiritual Healthcare Practices: Pt denies Druze Healthcare Practices: Pt denies Cultural Healthcare Practices: Pt denies Advance Directives: No Advance Directives Information Provided: No Do you have thoughts of harming others: None Do you have a plan to hurt others: No Plan Recently lost weight without trying: No How much weight loss: Not applicable Eating poorly because of decreased appetite: No Nutrition screen score: 0 Nutrition Risks: No Nutritional Risk Poor oral hygiene: No service: Yes Sexual orientation: Straight/Heterosexual Meds Allergies Allergy/AdvReac Type Severity Reaction Status Date / Time No Known Allergies Allergy Verified 01/21/23 17:56 Active Medications: Current Medications Acetaminophen (Acetaminophen 325 Mg Tablet) 650 mg PO Q6H PRN PRN Reason: mild pain (1-3) Al Hydroxide/Mg Hydroxide (Magnesium Hydrox/Alum Hydrox 30 Ml Oral.Susp) 30 ml PO Q6H PRN PRN Reason: Heartburn/Nausea Albuterol Sulfate (Albuterol Sulfate 90 Mcg 8 Gm Inhaler) 2 puff INHALE Q4H PRN PRN Reason: dyspnea Last Admin: 01/27/23 08:19 Dose: 2 puff Cyclobenzaprine HCl (Cyclobenzaprine Hcl 10 Mg Tablet) 10 mg PO TID PRN PRN Reason: back pain Last Admin: 01/27/23 15:13 Dose: 10 mg Hydroxyzine HCl (Hydroxyzine Hcl 50 Mg Tablet) 50 mg PO Q6H PRN PRN Reason: anxiety Last Admin: 01/23/23 13:47 Dose: 50 mg Ibuprofen (Ibuprofen 800 Mg Tablet) 800 mg PO Q8H PRN PRN Reason: moderate pain (4-6) Magnesium Hydroxide (Milk Of Magnesia 30 Ml Oral.Susp) 30 ml PO DAILY PRN PRN Reason: Constipation Nicotine (Nicotine 21 Mg Patch.Td24) 21 mg TRANSDERMA DAILY SHREYA Last Admin: 01/27/23 08:19 Dose: 21 mg Non-Formulary Medication (Ykaeaaaxma-Aqgzsvep-Twncnfqmbj [Breztri Aerosphere]) 2 puff INHALE BID SHREYA Omeprazole (Omeprazole 20 Mg Capsule.Dr) 20 mg PO DAILY@0630 [facility] Last Admin: 01/27/23 08:20 Dose: 20 mg Quetiapine Fumarate (Quetiapine Fumarate 25 Mg Tablet) 25 mg PO BID PRN PRN Reason: insomnia Last Admin: 01/26/23 13:36 Dose: 25 mg Quetiapine Fumarate 200 mg/ (Quetiapine Fumarate 50 mg) 250 mg PO BEDTIME [facility] Last Admin: 01/26/23 22:32 Dose: 250 mg Sertraline HCl (Sertraline Hcl 50 Mg Tablet) 150 mg PO DAILY [facility] Last Admin: 01/27/23 08:20 Dose: 150 mg Sumatriptan Succinate (Sumatriptan Succinate 100 Mg Tablet) 100 mg PO DAILY PRN PRN Reason: Migraine Headache Trazodone HCl (Trazodone Hcl 50 Mg Tablet) 50 mg PO BEDTIME PRN PRN Reason: Insomnia Last Admin: 01/26/23 22:33 Dose: 50 mg Home Medications Medication Instructions Recorded Confirmed Last Taken Type albuterol sulfate 90 mcg/actuation 2 puff inhalation Q4H PRN dyspnea 01/21/23 01/21/23 Unknown History aerosol inhaler (Ventolin HFA) aripiprazole 10 mg tablet 1 tab PO BEDTIME 01/21/23 01/21/23 Unknown History budesonide 160 mcg-glycopyr 9 2 puff inhalation BID 01/21/23 01/21/23 Unknown History mcg-formot 4.8 mcg/actuation HFA inhaler (Breztri Aerosphere) hydroxyzine pamoate 50 mg capsule 1 cap PO Q6H PRN anxiety 01/21/23 01/21/23 Unknown History ibuprofen 800 mg tablet 1 tab PO TID PRN pain 01/21/23 01/21/23 Unknown History omeprazole 20 mg capsule,delayed 1 cap PO QAM 01/21/23 01/21/23 Unknown History release quetiapine 200 mg tablet 1 tab PO BEDTIME 01/21/23 01/21/23 Unknown History quetiapine 25 mg tablet 1 tab PO BID PRN insomnia 01/21/23 01/21/23 Unknown History sertraline 100 mg tablet 1 tab PO DAILY 01/21/23 01/21/23 Unknown History trazodone 50 mg tablet 1 tab PO BEDTIME insomnia 01/21/23 01/21/23 Unknown History Physical Exam Vital Signs and Narrative: Vital Signs: Last Vital Signs Temp 97.6 F 01/27/23 08:08 Pulse 96 01/27/23 08:08 Resp 16 01/27/23 08:08 BP 143/86 H 01/27/23 08:08 Pulse Ox 97 01/27/23 08:08 O2 Del Method 01/27/23 08:08 General: AOx3, no acute distress Resp: CTA bilaterally CVS: S1, S2, RRR GI: +BS, NT, no distention Skin: No rash Neuro: Cranial nerves II-XII grossly intact bilaterally. Motor grossly intact bilaterally Extremities: No edema Psych: Appropriate affect Results Labs 01/22/23 07:36 01/22/23 07:36 Assessment and Plan (1) Pre-op evaluation: Status: Acute Plan Pt is a 57-year-old male with a PMH significant for COPD, HTN, TBI, bipolar disorder, PTSD, and multiple concussions who is seen by medical for ECT clearance. ECT clearance CT of head not yet read, psychiatry to f/u with results There are no obvious medical contraindications to the planned procedure based on exam diagnostics, and pt history Thank you for allowing us to participate in the care of this patient. Sign off at this time. Please let us know if there are any acute questions or concerns. ? Time Spent With Patient Time: Total time managing care of this patient today ____ minutes.
[2023-01-27 18:00] VITALS: BP 135/85; PULSE 71; RESP 18; TEMP 36.3; O2SAT 96
[2023-01-27] MEDS: traZODone HCL 50 MG TABLET PO (22:23)
--- NOTE | 2023-01-27 22:59 | HO.ECTCONS ---
History of Present Illness General Data Date of Service: 01/27/23 Reason for consult: ECT evaluation Requesting provider: Nichoals Ruff History of Present Illness The patient is a 57-year-old male admitted to the psychiatric unit status post treatment for a significant Seroquel overdose. Patient has a history of bipolar disorder since adolescents unable to take lithium has had a particularly difficult time since the start of COVID. Patient has also been intermittently alcohol dependent he was sober he states for over 10 years but has been drinking daily excessively and has now been through detox. The patient has had a number of suicide attempts over the past number of weeks has been at [facility] on 2 occasions and [facility]. He has a clear history of vito and most recently has had next more extensive depressive episodes. He has been somewhat disconnected with his family another trigger has been homelessness lack of treating providers and of 1 of his daughters by suicide couple of years ago. Patient used to have [facility] providers. He has had trials of lithium Seroquel Abilify he was unable to fill in the prescribed past a prescription for Latuda Failed trial of sertraline Past Psychiatric History/Medication Trials: See above [facility] Medical History Alcohol use disorder TBI (traumatic brain injury) Narrative: Abnormalities noted on EKG Family History: daughter - completed suicide around [id number], reported Dx of bipolar disorder 5 sibs - no mental health concerns parents - no mental health concerns Social History: 5 kids, one daughter suicided in [id number] period. homeless, unemployed. history of incarceration. 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 he states He did have DM management for many years Substance History: History of alcohol dependence with periods of sobriety Trauma History: indicates in the affirmative but states that's all he'll say about it Meds/Allergies Meds Home Medications Medication Instructions Recorded Confirmed Type albuterol sulfate 90 mcg/actuation 2 puff inhalation Q4H PRN dyspnea 01/21/23 01/21/23 History aerosol inhaler (Ventolin HFA) aripiprazole 10 mg tablet 1 tab PO BEDTIME 01/21/23 01/21/23 History budesonide 160 mcg-glycopyr 9 2 puff inhalation BID 01/21/23 01/21/23 History mcg-formot 4.8 mcg/actuation HFA inhaler (Breztri Aerosphere) hydroxyzine pamoate 50 mg capsule 1 cap PO Q6H PRN anxiety 01/21/23 01/21/23 History ibuprofen 800 mg tablet 1 tab PO TID PRN pain 01/21/23 01/21/23 History omeprazole 20 mg capsule,delayed 1 cap PO QAM 01/21/23 01/21/23 History release quetiapine 200 mg tablet 1 tab PO BEDTIME 01/21/23 01/21/23 History quetiapine 25 mg tablet 1 tab PO BID PRN insomnia 01/21/23 01/21/23 History sertraline 100 mg tablet 1 tab PO DAILY 01/21/23 01/21/23 History trazodone 50 mg tablet 1 tab PO BEDTIME insomnia 01/21/23 01/21/23 History Allergies Allergies Allergy/AdvReac Type Severity Reaction Status Date / Time No Known Allergies Allergy Verified 01/21/23 17:56 Mental Status Exam Mental Status Exam Patient Appearance: Appropriate Patient Orientation: Person, Place, Time and Situation Level of Consciousness: Awake and Appropriate Patient Behavior: Appropriate Behavior Comments: Patient was engaged in the conversation curious asking questions Mood Description: Depressed and Blunted Affect Description: Appropriate and Constricted Patient Cognition Impaired: No Ability to Follow Directions: Good Speech Pattern: Clear Memory Description: Intact Hallucinations: None Delusions: Not Present Thought Process: Intact and Goal Oriented Thought Content: positive for Goal Oriented, positive for Preoccupation, positive for Suicidal Ideation (Denies in this setting) and negative for Homicidal Ideation Depressive Symptoms: Increased Anxiety, Increased Irritability, Hopelessness, Increased Fatigue, Loss of Energy and Difficulty Concentrating Judgement: Good Judgement and Insight: He is asking for help and asking for services able to take information regarding ECT literature reviewed handout given Assessment & Plan Assessment & Plan (1) PTSD (post-traumatic stress disorder): Status: Acute Code(s): F43.10 - Post-traumatic stress disorder, unspecified (2) Bipolar 1 disorder, depressed, severe: Status: Acute Code(s): F31.4 - Bipolar disorder, current episode depressed, severe, without psychotic features (3) Alcohol use disorder: Status: Acute Code(s): F10.90 - Alcohol use, unspecified, uncomplicated (4) HTN (hypertension): Status: Acute Code(s): I10 - Essential (primary) hypertension (5) COPD (chronic obstructive pulmonary disease): Status: Acute Code(s): J44.9 - Chronic obstructive pulmonary disease, unspecified Plan The patient has a history of severe bipolar depression complicated by alcohol use. Given suicidality status post recent overdose family history of impulsive suicidality ECT would be a reasonable choice at this time indication bipolar depression not responding to multiple hospitalizations with a commitment to sobriety would consider Vivitrol and given patient's lack of response to Seroquel would strongly urge a trial of Latuda. [place] would be significantly indicated in this situation however patient states he has had an allergic reaction the past an excellent medication for impulsive suicidality in the context of bipolar disorder. Medical consult reviewed and EKG reviewed with Cardiology they did not feel need for cardiology consult at this time patient with no acute cardiac symptoms no chest pain risks benefits alternatives reviewed patient with seem to be good ECT candidate but will need close follow-up head CT scan reviewed no acute process no areas of encephalomalacia or subdural EKG reviewed case reviewed with hospitalist service Total time managing care of this patient today __50__ minutes. Patient educated on: diagnosis, ECT and medical condition Informed Consent: understands
[2023-01-28 06:00] VITALS: BP 130/79; PULSE 88; RESP 20; TEMP 36.8; O2SAT 94
[2023-01-28] MEDS: Omeprazole 20 MG CAPSULE.DR PO (08:32)
[2023-01-28] MEDS: Nicotine 21 MG PATCH.TD24 TRANSDERMA (09:24)
[2023-01-28] MEDS: Cyclobenzaprine HCl 10 MG TABLET PO ×3 (09:25→19:37)
[2023-01-28] MEDS: Sertraline HCL 50 MG TABLET 150 MG PO (09:25)
[2023-01-28] MEDS: Ibuprofen 800 MG TABLET PO ×2 (09:26→19:38)
[2023-01-28] MEDS: Albuterol Sulfate 90 MCG 8 GM INHALER 2 PUFF INHALE ×2 (09:26→22:37)
[2023-01-28] MEDS: Acetaminophen 325 MG TABLET 650 MG PO (14:09)
[2023-01-28] MEDS: QUEtiapine Fumarate 25 MG TABLET PO (14:10)
--- NOTE | 2023-01-28 14:37 | P.PNPSI_ITS ---
Subjective Subjective Date of Service: 01/28/23 Reason For Visit: Unspecified Bipolar D/O Interim History: calm, cooperative. reviewed notes by chidi and hospitalist with pt, as well as head CT results. planning to start ECT tuesday. per staff, anx, dep, visible, pacing. head CT not concerning for ECT purposes. slept well. Mental Status Exam Mental Status Exam Narrative: calm, cooperative. no PMA/PMR. nml rate, amount, loudness of speech. thoughts linear. affect full range, normo-intense, non-labile. no SI/HI/AVH expressed. Diagnostics Vital Signs (24Hr): Vital Signs - 24 hr 01/27/23 18:00 01/28/23 06:00 Temperature 97.3 F 98.2 F Pulse Rate 71 88 Respiratory Rate 18 20 Blood Pressure 135/85 130/79 Pulse Oximetry 96 94 Oxygen Delivery Method Room Air Room Air Labs 01/22/23 07:36 01/22/23 07:36 Imaging Radiology Impressions: ITS Impressions Head CT 01/27/23 14:07 IMPRESSION: No acute intracranial abnormality. Mild nonspecific hypoattenuation in the cerebral white matter. Medications Medications Current Medications Acetaminophen (Acetaminophen 325 Mg Tablet) 650 mg PO Q6H PRN PRN Reason: mild pain (1-3) Last Admin: 01/28/23 14:09 Dose: 650 mg Al Hydroxide/Mg Hydroxide (Magnesium Hydrox/Alum Hydrox 30 Ml Oral.Susp) 30 ml PO Q6H PRN PRN Reason: Heartburn/Nausea Albuterol Sulfate (Albuterol Sulfate 90 Mcg 8 Gm Inhaler) 2 puff INHALE Q4H PRN PRN Reason: dyspnea Last Admin: 01/28/23 09:26 Dose: 2 puff Cyclobenzaprine HCl (Cyclobenzaprine Hcl 10 Mg Tablet) 10 mg PO TID PRN PRN Reason: back pain Last Admin: 01/28/23 14:09 Dose: 10 mg Hydroxyzine HCl (Hydroxyzine Hcl 50 Mg Tablet) 50 mg PO Q6H PRN PRN Reason: anxiety Last Admin: 01/23/23 13:47 Dose: 50 mg Ibuprofen (Ibuprofen 800 Mg Tablet) 800 mg PO Q8H PRN PRN Reason: moderate pain (4-6) Last Admin: 01/28/23 09:26 Dose: 800 mg Magnesium Hydroxide (Milk Of Magnesia 30 Ml Oral.Susp) 30 ml PO DAILY PRN PRN Reason: Constipation Nicotine (Nicotine 21 Mg Patch.Td24) 21 mg TRANSDERMA DAILY [facility] Last Admin: 01/28/23 09:24 Dose: 21 mg Non-Formulary Medication (Ksbebavolo-Vvsrfura-Mwvfobmowr [Breztri Aerosphere]) 2 puff INHALE BID [facility] Omeprazole (Omeprazole 20 Mg Capsule.Dr) 20 mg PO DAILY [facility] Quetiapine Fumarate (Quetiapine Fumarate 25 Mg Tablet) 25 mg PO BID PRN PRN Reason: insomnia Last Admin: 01/28/23 14:10 Dose: 25 mg Quetiapine Fumarate 200 mg/ (Quetiapine Fumarate 50 mg) 250 mg PO BEDTIME [facility] Last Admin: 01/27/23 22:23 Dose: 250 mg Sertraline HCl (Sertraline Hcl 50 Mg Tablet) 150 mg PO DAILY [facility] Last Admin: 01/28/23 09:25 Dose: 150 mg Sumatriptan Succinate (Sumatriptan Succinate 100 Mg Tablet) 100 mg PO DAILY PRN PRN Reason: Migraine Headache Trazodone HCl (Trazodone Hcl 50 Mg Tablet) 50 mg PO BEDTIME PRN PRN Reason: Insomnia Last Admin: 01/27/23 22:23 Dose: 50 mg Allergies Allergies Allergy/AdvReac Type Severity Reaction Status Date / Time No Known Allergies Allergy Verified 01/21/23 17:56 Assessment & Plan Assessment & Plan (1) PTSD (post-traumatic stress disorder): Status: Acute Code(s): F43.10 - Post-traumatic stress disorder, unspecified (2) Bipolar 1 disorder, depressed, severe: Status: Acute Code(s): F31.4 - Bipolar disorder, current episode depressed, severe, without psychotic features (3) Alcohol use disorder: Status: Acute Code(s): F10.90 - Alcohol use, unspecified, uncomplicated (4) HTN (hypertension): Status: Acute Code(s): I10 - Essential (primary) hypertension (5) COPD (chronic obstructive pulmonary disease): Status: Acute Code(s): J44.9 - Chronic obstructive pulmonary disease, unspecified Plan per chidi ECT consult: The patient has a history of severe bipolar depression complicated by alcohol use. Given suicidality status post recent overdose family history of impulsive suicidality ECT would be a reasonable choice at this time indication bipolar depression not responding to multiple hospitalizations with a commitment to sobriety would consider Vivitrol and given patient's lack of response to Seroquel would strongly urge a trial of Latuda. [place] would be significantly indicated in this situation however patient states he has had an allergic reaction the past an excellent medication for im pulsive suicidality in the context of bipolar disorder. Medical consult reviewed and EKG reviewed with Cardiology they did not feel need for cardiology consult at this time patient with no acute cardiac symptoms no chest pain risks benefits alternatives reviewed patient with seem to be good ECT candidate but will need close follow-up head CT scan reviewed no acute process no areas of encephalomalacia or subdural EKG reviewed case reviewed with hospitalist service Precis: 01/22: pt expressing lack of motivation for recovery and treatment, especially with medications.? he was educated re ECT for Tx refractory depression.? he is willing to receive further education on the subject and MD will discuss with him again tomorrow. build rapport, listen (pt identified h/o treaters' not listening to him as something which led to his disengagement). continue prior meds for now.? increase seroquel at HS per pt request for insomnia. ativan per [facility] for alcohol withdrawal. 01/23: pt reports he received ECT education and is mulling it over. asks for HS seroquel to be decreased to 250, which is done. asks for flexeril to be increased to 10 TID PRN, which is done. reports no change in mood or SI. 01/24: no change in mood or SI per pt.? however, he is making hopeful statements and was noted to have expressed an interest in therapy after discharge.? increase zoloft to 150 mg daily per pt request.? states ECT is not for him. 01/25 continue current treatment plan; patient still depressed with intermittent SI.? Again discussed ECT and patient says he is more open to considering it.? He will follow up with Dr. Ruff. 01/26: consults placed for chidi, hospitalist, and EKG in preparation for potential ECT.? otherwise continue current mgmt. 32: head CT ordered.? awaiting consults from hospitalist and ECT provider.? continue current mgmt. 33: cleared by medicine and chidi for ECT, to start tuesday. stable presentation. Reason for contiued inpatient stay Substantial Risk for: harm to self, inability to function and rapid decompensation Time Spent With Patient Time: Total time managing care of this patient today _25___ minutes.
[2023-01-28 14:59] LABS: COVID-19 Test Negative (Negative); IDNOW Serial# 16C4AD1C
[2023-01-28 22:34] VITALS: BP 160/95; PULSE 68; RESP 18; TEMP 36.1; O2SAT 96
[2023-01-28] MEDS: traZODone HCL 50 MG TABLET PO (22:36)
[2023-01-29] MEDS: Omeprazole 20 MG CAPSULE.DR PO (08:17)
[2023-01-29] MEDS: Albuterol Sulfate 90 MCG 8 GM INHALER 2 PUFF INHALE ×2 (08:17→22:50)
[2023-01-29] MEDS: Cyclobenzaprine HCl 10 MG TABLET PO ×3 (08:17→21:12)
[2023-01-29] MEDS: Lurasidone HCl 20 MG TABLET PO (08:17)
[2023-01-29] MEDS: Nicotine 21 MG PATCH.TD24 TRANSDERMA (08:17)
[2023-01-29] MEDS: Sertraline HCL 50 MG TABLET 150 MG PO (08:18)
[2023-01-29] MEDS: Ibuprofen 800 MG TABLET PO ×2 (08:18→21:12)
[2023-01-29 09:34] VITALS: BP 125/72; PULSE 84; RESP 18; TEMP 36.5; O2SAT 95
--- NOTE | 2023-01-29 13:01 | HO.PSYCHPN ---
Subjective Subjective Date of Service: 01/29/23 Reason For Visit: Unspecified Bipolar D/O Subjective Notes: Conditional Voluntary Interim History: Patient describes a long history of bipolar disorder with 1st hospitalization he thinks around 2005 to describes a history of 2 other significant suicide attempts be sides his recent Seroquel overdose. This includes an attempt by hanging in other significant overdose attempt. The patient had been in regular treatment up until the past couple years including with the [facility] and [facility]. He has had trials lithium which she states I caused a rash, Lamictal, Depakote which were not effective for the depressive symptoms. He had been involved with [facility] and the [facility] in the past for psychiatric care. Had recently failed trial of Seroquel and Abilify. His started on Latuda. He states he has been safe in this setting but fearful suicide if he were not in a safe setting Medication Compliance: Yes Attending Groups: Intermittent Review of Systems Acute medical concerns: No Medical Review of Systems: unchanged Mental Status Exam Mental Status Exam Patient Appearance: Well Grooomed Patient Orientation: Person, Place, Time and Situation Level of Consciousness: Awake and Appropriate Patient Behavior: Appropriate Mood Description: Depressed and Blunted Affect Description: Appropriate, Constricted and Sad Patient Cognition Impaired: No Ability to Follow Directions: Good Speech Pattern: Clear Memory Description: Intact Hallucinations: None Delusions: Not Present Thought Process: Intact and Goal Oriented Thought Content: positive for Goal Oriented, positive for Preoccupation, positive for Suicidal Ideation (Denies active SI in the setting) and negative for Homicidal Ideation Depressive Symptoms: Increased Anxiety, Increased Irritability, Hopelessness, Increased Fatigue, Loss of Energy and Difficulty Concentrating Judgement: Fair Judgement and Insight: Describes significant hopelessness helplessness he is asking for help Diagnostics Vital Signs (24Hr): Vital Signs - 24 hr 01/28/23 22:34 01/29/23 09:34 Temperature 97.0 F 97.7 F Pulse Rate 68 84 Respiratory Rate 18 18 Blood Pressure 160/95 H 125/72 Pulse Oximetry 96 95 Oxygen Delivery Method Room Air Room Air Labs 01/22/23 07:36 01/22/23 07:36 Labs: Laboratory Results - last 48 hr 01/28/23 14:10 COVID-19 ([facility]INDER) Negative COVID-19 Clin Com See Note Imaging Radiology Impressions: ITS Impressions Head CT 01/27/23 14:07 IMPRESSION: No acute intracranial abnormality. Mild nonspecific hypoattenuation in the cerebral white matter. Medications Medications Current Medications Acetaminophen (Acetaminophen 325 Mg Tablet) 650 mg PO Q6H PRN PRN Reason: mild pain (1-3) Last Admin: 01/28/23 14:09 Dose: 650 mg Al Hydroxide/Mg Hydroxide (Magnesium Hydrox/Alum Hydrox 30 Ml Oral.Susp) 30 ml PO Q6H PRN PRN Reason: Heartburn/Nausea Albuterol Sulfate (Albuterol Sulfate 90 Mcg 8 Gm Inhaler) 2 puff INHALE Q4H PRN PRN Reason: dyspnea Last Admin: 01/29/23 08:17 Dose: 2 puff Cyclobenzaprine HCl (Cyclobenzaprine Hcl 10 Mg Tablet) 10 mg PO TID PRN PRN Reason: back pain Last Admin: 01/29/23 08:17 Dose: 10 mg Hydroxyzine HCl (Hydroxyzine Hcl 50 Mg Tablet) 50 mg PO Q6H PRN PRN Reason: anxiety Last Admin: 01/23/23 13:47 Dose: 50 mg Ibuprofen (Ibuprofen 800 Mg Tablet) 800 mg PO Q8H PRN PRN Reason: moderate pain (4-6) Last Admin: 01/29/23 08:18 Dose: 800 mg Lurasidone HCl (Lurasidone Hcl 20 Mg Tablet) 20 mg PO DAILY [facility] Last Admin: 01/29/23 08:17 Dose: 20 mg Magnesium Hydroxide (Milk Of Magnesia 30 Ml Oral.Susp) 30 ml PO DAILY PRN PRN Reason: Constipation Nicotine (Nicotine 21 Mg Patch.Td24) 21 mg TRANSDERMA DAILY [facility] Last Admin: 01/29/23 08:17 Dose: 21 mg Non-Formulary Medication (Olpnqnapyq-Iaeqlubb-Dceachqkyt [Breztri Aerosphere]) 2 puff INHALE BID [facility] Omeprazole (Omeprazole 20 Mg Capsule.Dr) 20 mg PO DAILY [facility] Last Admin: 01/29/23 08:17 Dose: 20 mg Quetiapine Fumarate (Quetiapine Fumarate 25 Mg Tablet) 25 mg PO BID PRN PRN Reason: insomnia Last Admin: 01/28/23 14:10 Dose: 25 mg Quetiapine Fumarate 200 mg/ (Quetiapine Fumarate 50 mg) 250 mg PO BEDTIME [facility] Last Admin: 01/28/23 22:36 Dose: 250 mg Sertraline HCl (Sertraline Hcl 50 Mg Tablet) 150 mg PO DAILY [facility] Last Admin: 01/29/23 08:18 Dose: 150 mg Sumatriptan Succinate (Sumatriptan Succinate 100 Mg Tablet) 100 mg PO DAILY PRN PRN Reason: Migraine Headache Trazodone HCl (Trazodone Hcl 50 Mg Tablet) 50 mg PO BEDTIME PRN PRN Reason: Insomnia Last Admin: 01/28/23 22:36 Dose: 50 mg Allergies Allergies Allergy/AdvReac Type Severity Reaction Status Date / Time No Known Allergies Allergy Verified 01/21/23 17:56 Assessment & Plan Assessment & Plan (1) PTSD (post-traumatic stress disorder): Status: Acute Code(s): F43.10 - Post-traumatic stress disorder, unspecified (2) Bipolar 1 disorder, depressed, severe: Status: Acute Code(s): F31.4 - Bipolar disorder, current episode depressed, severe, without psychotic features (3) Alcohol use disorder: Status: Acute Code(s): F10.90 - Alcohol use, unspecified, uncomplicated (4) HTN (hypertension): Status: Acute Code(s): I10 - Essential (primary) hypertension (5) COPD (chronic obstructive pulmonary disease): Status: Acute Code(s): J44.9 - Chronic obstructive pulmonary disease, unspecified Plan per chidi ECT consult: The patient has a history of severe bipolar depression complicated by alcohol use. Given suicidality status post recent overdose family history of impulsive suicidality ECT would be a reasonable choice at this time indication bipolar depression not responding to multiple hospitalizations with a commitment to sobriety would consider Vivitrol and given patient's lack of response to Seroquel would strongly urge a trial of Latuda. [place] would be significantly indicated in this situation however patient states he has had an allergic reaction the past an excellent medication for impulsive suicidality in the context of bipolar disorder. Medical consult reviewed and EKG reviewed with Cardiology they did not feel need for cardiology consult at this time patient with no acute cardiac symptoms no chest pain risks benefits alternatives reviewed patient with seem to be good ECT candidate but will need close follow-up head CT scan reviewed no acute process no areas of encephalomalacia or subdural EKG reviewed case reviewed with hospitalist service Precis: 01/22: pt expressing lack of motivation for recovery and treatment, especially with medications.? he was educated re ECT for Tx refractory depression.? he is willing to receive further education on the subject and MD will discuss with him again tomorrow. build rapport, listen (pt identified h/o treaters' not listening to him as something which led to his disengagement). continue prior meds for now.? increase seroquel at HS per pt request for insomnia. ativan per [facility] for alcohol withdrawal. 01/23: pt reports he received ECT education and is mulling it over. asks for HS seroquel to be decreased to 250, which is done. asks for flexeril to be increased to 10 TID PRN, which is done. reports no change in mood or SI. 01/24: no change in mood or SI per pt.? however, he is making hopeful statements and was noted to have expressed an interest in therapy after discharge.? increase zoloft to 150 mg daily per pt request.? states ECT is not for him. 01/25 continue current treatment plan; patient still depressed with intermittent SI.? Again discussed ECT and patient says he is more open to considering it.? He will follow up with Dr. Ruff. 01/26: consults placed for chidi, hospitalist, and EKG in preparation for potential ECT.? otherwise continue current mgmt. 01/27: head CT ordered.? awaiting consults from hospitalist and ECT provider.? continue current mgmt. 01/28: cleared by medicine and chidi for ECT, to start tuesday. stable presentation. 01/29/2023 Patient started on Latuda for bipolar depression. ECT currently hold would certainly be a treatment option given patient's multiple recent psychiatric hospitalizations and significant suicide attempt would consider naltrexone/Vivitrol Reason for contiued inpatient stay Substantial Risk for: harm to self Time Spent With Patient Time: Total time managing care of this patient today ____ minutes.
[2023-01-29] MEDS: Acetaminophen 325 MG TABLET 650 MG PO (14:31)
[2023-01-29] MEDS: QUEtiapine Fumarate 25 MG TABLET PO ×2 (14:31→22:50)
[2023-01-29 21:12] VITALS: BP 161/89; PULSE 64; RESP 18; TEMP 36.2; O2SAT 97
[2023-01-29] MEDS: traZODone HCL 50 MG TABLET PO (22:50)
[2023-01-30] MEDS: Nicotine 21 MG PATCH.TD24 TRANSDERMA (08:52)
[2023-01-30] MEDS: Acetaminophen 325 MG TABLET 650 MG PO ×2 (08:52→14:06)
[2023-01-30] MEDS: Sertraline HCL 50 MG TABLET 150 MG PO (08:53)
[2023-01-30] MEDS: Albuterol Sulfate 90 MCG 8 GM INHALER 2 PUFF INHALE ×2 (08:53→22:28)
[2023-01-30] MEDS: Omeprazole 20 MG CAPSULE.DR PO (08:53)
[2023-01-30] MEDS: Cyclobenzaprine HCl 10 MG TABLET PO ×3 (08:53→20:42)
[2023-01-30] MEDS: Lurasidone HCl 20 MG TABLET PO (08:53)
[2023-01-30 09:19] VITALS: BP 137/88; PULSE 98; RESP 18; TEMP 37.1; O2SAT 97
[2023-01-30] MEDS: SUMAtriptan succinate 100 MG TABLET PO (20:42)
[2023-01-30] MEDS: Ibuprofen 800 MG TABLET PO (20:43)
[2023-01-30 21:04] VITALS: BP 146/96; PULSE 71; RESP 16; TEMP 36.6; O2SAT 96
[2023-01-30] MEDS: traZODone HCL 50 MG TABLET PO (22:28)
[2023-01-30] MEDS: QUEtiapine Fumarate 25 MG TABLET PO (22:28)
--- NOTE | 2023-01-30 23:31 | P.PNPSI_ITS ---
Subjective Subjective Date of Service: 01/30/23 Reason For Visit: Unspecified Bipolar D/O Subjective Notes: Conditional Voluntary Healthcare Proxy: No Guardianship: No Interim History: Patient tolerating current medication trial aware that his insurance was not in favor of ECT at this time has started Latuda trial no complaints of side effects Medication Compliance: Yes Mental Status Exam Mental Status Exam Patient Appearance: Well Grooomed Patient Orientation: Person, Place, Time and Situation Level of Consciousness: Awake and Appropriate Patient Behavior: Appropriate Mood Description: Depressed and Blunted Affect Description: Appropriate, Constricted and Sad Patient Cognition Impaired: No Ability to Follow Directions: Good Speech Pattern: Clear Memory Description: Intact Hallucinations: None Delusions: Not Present Thought Process: Intact and Goal Oriented Thought Content: positive for Goal Oriented, positive for Preoccupation, positive for Suicidal Ideation (Denies active SI in the setting) and negative for Homicidal Ideation Depressive Symptoms: Increased Anxiety, Increased Irritability, Hopelessness, Increased Fatigue, Loss of Energy and Difficulty Concentrating Judgement: Fair Judgement and Insight: Describes significant hopelessness helplessness he is asking for help Diagnostics Vital Signs (24Hr): Vital Signs - 24 hr 01/30/23 09:19 01/30/23 21:04 Temperature 98.8 F 97.9 F Pulse Rate 98 71 Respiratory Rate 18 16 Blood Pressure 137/88 146/96 H Pulse Oximetry 97 96 Oxygen Delivery Method Room Air Room Air Labs 01/22/23 07:36 01/22/23 07:36 Imaging Radiology Impressions: ITS Impressions Head CT 01/27/23 14:07 IMPRESSION: No acute intracranial abnormality. Mild nonspecific hypoattenuation in the cerebral white matter. Medications Medications Current Medications Acetaminophen (Acetaminophen 325 Mg Tablet) 650 mg PO Q6H PRN PRN Reason: mild pain (1-3) Last Admin: 01/30/23 14:06 Dose: 650 mg Al Hydroxide/Mg Hydroxide (Magnesium Hydrox/Alum Hydrox 30 Ml Oral.Susp) 30 ml PO Q6H PRN PRN Reason: Heartburn/Nausea Albuterol Sulfate (Albuterol Sulfate 90 Mcg 8 Gm Inhaler) 2 puff INHALE Q4H PRN PRN Reason: dyspnea Last Admin: 01/30/23 22:28 Dose: 2 puff Cyclobenzaprine HCl (Cyclobenzaprine Hcl 10 Mg Tablet) 10 mg PO TID PRN PRN Reason: back pain Last Admin: 01/30/23 20:42 Dose: 10 mg Hydroxyzine HCl (Hydroxyzine Hcl 50 Mg Tablet) 50 mg PO Q6H PRN PRN Reason: anxiety Last Admin: 01/23/23 13:47 Dose: 50 mg Ibuprofen (Ibuprofen 800 Mg Tablet) 800 mg PO Q8H PRN PRN Reason: moderate pain (4-6) Last Admin: 01/30/23 20:43 Dose: 800 mg Lurasidone HCl (Lurasidone Hcl 20 Mg Tablet) 20 mg PO DAILY [facility] Last Admin: 01/30/23 08:53 Dose: 20 mg Magnesium Hydroxide (Milk Of Magnesia 30 Ml Oral.Susp) 30 ml PO DAILY PRN PRN Reason: Constipation Nicotine (Nicotine 21 Mg Patch.Td24) 21 mg TRANSDERMA DAILY [facility] Last Admin: 01/30/23 08:52 Dose: 21 mg Non-Formulary Medication (Xnaxrpypvs-Upjfjyrl-Gbpffilgjs [Breztri Aerosphere]) 2 puff INHALE BID [facility] Omeprazole (Omeprazole 20 Mg Capsule.Dr) 20 mg PO DAILY [facility] Last Admin: 01/30/23 08:53 Dose: 20 mg Quetiapine Fumarate (Quetiapine Fumarate 25 Mg Tablet) 25 mg PO BID PRN PRN Reason: insomnia Last Admin: 01/30/23 22:28 Dose: 25 mg Quetiapine Fumarate 200 mg/ (Quetiapine Fumarate 50 mg) 250 mg PO BEDTIME [facility] Last Admin: 01/30/23 22:27 Dose: 250 mg Sertraline HCl (Sertraline Hcl 50 Mg Tablet) 150 mg PO DAILY [facility] Last Admin: 01/30/23 08:53 Dose: 150 mg Sumatriptan Succinate (Sumatriptan Succinate 100 Mg Tablet) 100 mg PO DAILY PRN PRN Reason: Migraine Headache Last Admin: 01/30/23 20:42 Dose: 100 mg Trazodone HCl (Trazodone Hcl 50 Mg Tablet) 50 mg PO BEDTIME PRN PRN Reason: Insomnia Last Admin: 01/30/23 22:28 Dose: 50 mg Allergies Allergies Allergy/AdvReac Type Severity Reaction Status Date / Time No Known Allergies Allergy Verified 01/21/23 17:56 Assessment & Plan Assessment & Plan (1) PTSD (post-traumatic stress disorder): Status: Acute Code(s): F43.10 - Post-traumatic stress disorder, unspecified (2) Bipolar 1 disorder, depressed, severe: Status: Acute Code(s): F31.4 - Bipolar disorder, current episode depressed, severe, without psychotic features (3) Alcohol use disorder: Status: Acute Code(s): F10.90 - Alcohol use, unspecified, uncomplicated (4) HTN (hypertension): Status: Acute Code(s): I10 - Essential (primary) hypertension (5) COPD (chronic obstructive pulmonary disease): Status: Acute Code(s): J44.9 - Chronic obstructive pulmonary disease, unspecified Plan per chidi ECT consult: The patient has a history of severe bipolar de pression complicated by alcohol use. Given suicidality status post recent overdose family history of impulsive suicidality ECT would be a reasonable choice at this time indication bipolar depression not responding to multiple hospitalizations with a commitment to sobriety would consider Vivitrol and given patient's lack of response to Seroquel would strongly urge a trial of Latuda. [place] would be significantly indicated in this situation however patient states he has had an allergic reaction the past an excellent medication for impulsive suicidality in the context of bipolar disorder. Medical consult reviewed and EKG reviewed with Cardiology they did not feel need for cardiology consult at this time patient with no acute cardiac symptoms no chest pain risks benefits alternatives reviewed patient with seem to be good ECT candidate but will need close follow-up head CT scan reviewed no acute process no areas of encephalomalacia or subdural EKG reviewed case reviewed with hospitalist service Precis: 01/22: pt expressing lack of motivation for recovery and treatment, especially with medications.? he was educated re ECT for Tx refractory depression.? he is willing to receive further education on the subject and MD will discuss with him again tomorrow. build rapport, listen (pt identified h/o treaters' not listening to him as something which led to his disengagement). continue prior meds for now.? increase seroquel at HS per pt request for insomnia. ativan per [facility] for alcohol withdrawal. 01/23: pt reports he received ECT education and is mulling it over. asks for HS seroquel to be decreased to 250, which is done. asks for flexeril to be increased to 10 TID PRN, which is done. reports no change in mood or SI. 01/24: no change in mood or SI per pt.? however, he is making hopeful statements and was noted to have expressed an interest in therapy after discharge.? increase zoloft to 150 mg daily per pt request.? states ECT is not for him. 01/25 continue current treatment plan; patient still depressed with intermittent SI.? Again discussed ECT and patient says he is more open to considering it.? He will follow up with Dr. Ruff. 01/26: consults placed for chidi, hospitalist, and EKG in preparation for potential ECT.? otherwise continue current mgmt. 01/27: head CT ordered.? awaiting consults from hospitalist and ECT provider.? continue current mgmt. 01/28: cleared by medicine and chidi for ECT, to start tuesday. stable presentation. 01/29/2023 Patient started on Latuda for bipolar depression. ECT currently hold would certainly be a treatment option given patient's multiple recent psychiatric hospitalizations and significant suicide attempt would consider naltrexone/Vivitrol 01/30/2023 Continue Latuda monitor affects consideration of ECT patient does describe clear manic history would consider addiction consult with Josue Reason for contiued inpatient stay Substantial Risk for: harm to self Time Spent With Patient Time: Total time managing care of this patient today ____ minutes.
[2023-01-31 08:00] VITALS: BP 125/81; PULSE 77; TEMP 36.3; O2SAT 94
[2023-01-31] MEDS: Lurasidone HCl 20 MG TABLET PO (10:03)
[2023-01-31] MEDS: Sertraline HCL 50 MG TABLET 150 MG PO (10:03)
[2023-01-31] MEDS: Omeprazole 20 MG CAPSULE.DR PO (10:03)
[2023-01-31] MEDS: Cyclobenzaprine HCl 10 MG TABLET PO ×3 (10:05→20:16)
[2023-01-31] MEDS: Ibuprofen 800 MG TABLET PO ×2 (10:05→20:16)
[2023-01-31] MEDS: Nicotine 21 MG PATCH.TD24 TRANSDERMA (10:06)
[2023-01-31] MEDS: Albuterol Sulfate 90 MCG 8 GM INHALER 2 PUFF INHALE (10:07)
--- NOTE | 2023-01-31 14:36 | P.PNPSI_ITS ---
Subjective Subjective Date of Service: 01/31/23 Reason For Visit: Unspecified Bipolar D/O Interim History: calm, cooperative. informed ECT has been approved and he will start on tuesday. agreeable to increase latuda to 40 mg daily and schedule at HS. will plan to taper seroquel as latuda dosing increased. per staff, ECT canceled for this morning. pacing, listening to music. safe, pleasant. c/o insomnia 2/2 racing thoughts. taking flexeril, imitrex, ibuprofen. appeared to have slept through the NOC. Mental Status Exam Mental Status Exam Narrative: calm, cooperative. no PMA/PMR. nml rate, amount, loudness of speech. thoughts linear. affect constricted, normo-intense, non-labile. no SI/HI/AVH expressed. Diagnostics Vital Signs (24Hr): Vital Signs - 24 hr 01/30/23 21:04 01/31/23 08:00 Temperature 97.9 F 97.3 F Pulse Rate 71 77 Respiratory Rate 16 Blood Pressure 146/96 H 125/81 Pulse Oximetry 96 94 Oxygen Delivery Method Room Air Room Air Labs 01/22/23 07:36 01/22/23 07:36 Imaging Radiology Impressions: ITS Impressions Head CT 01/27/23 14:07 IMPRESSION: No acute intracranial abnormality. Mild nonspecific hypoattenuation in the cerebral white matter. Medications Medications Current Medications Acetaminophen (Acetaminophen 325 Mg Tablet) 650 mg PO Q6H PRN PRN Reason: mild pain (1-3) Last Admin: 01/30/23 14:06 Dose: 650 mg Al Hydroxide/Mg Hydroxide (Magnesium Hydrox/Alum Hydrox 30 Ml Oral.Susp) 30 ml PO Q6H PRN PRN Reason: Heartburn/Nausea Albuterol Sulfate (Albuterol Sulfate 90 Mcg 8 Gm Inhaler) 2 puff INHALE Q4H PRN PRN Reason: dyspnea Last Admin: 01/31/23 10:07 Dose: 2 puff Cyclobenzaprine HCl (Cyclobenzaprine Hcl 10 Mg Tablet) 10 mg PO TID PRN PRN Reason: back pain Last Admin: 01/31/23 10:05 Dose: 10 mg Hydroxyzine HCl (Hydroxyzine Hcl 50 Mg Tablet) 50 mg PO Q6H PRN PRN Reason: anxiety Last Admin: 01/23/23 13:47 Dose: 50 mg Ibuprofen (Ibuprofen 800 Mg Tablet) 800 mg PO Q8H PRN PRN Reason: moderate pain (4-6) Last Admin: 01/31/23 10:05 Dose: 800 mg Lurasidone HCl (Lurasidone Hcl 40 Mg Tablet) 40 mg PO BEDTIME [facility] Magnesium Hydroxide (Milk Of Magnesia 30 Ml Oral.Susp) 30 ml PO DAILY PRN PRN Reason: Constipation Nicotine (Nicotine 21 Mg Patch.Td24) 21 mg TRANSDERMA DAILY [facility] Last Admin: 01/31/23 10:06 Dose: 21 mg Non-Formulary Medication (Qiufgpnulp-Rewlnnel-Bgdwndbskv [Breztri Aerosphere]) 2 puff INHALE BID [facility] Omeprazole (Omeprazole 20 Mg Capsule.Dr) 20 mg PO DAILY [facility] Last Admin: 01/31/23 10:03 Dose: 20 mg Quetiapine Fumarate (Quetiapine Fumarate 25 Mg Tablet) 25 mg PO BID PRN PRN Reason: insomnia Last Admin: 01/30/23 22:28 Dose: 25 mg Quetiapine Fumarate 200 mg/ (Quetiapine Fumarate 50 mg) 250 mg PO BEDTIME [facility] Last Admin: 01/30/23 22:27 Dose: 250 mg Sertraline HCl (Sertraline Hcl 50 Mg Tablet) 150 mg PO DAILY [facility] Last Admin: 01/31/23 10:03 Dose: 150 mg Sumatriptan Succinate (Sumatriptan Succinate 100 Mg Tablet) 100 mg PO DAILY PRN PRN Reason: Migraine Headache Last Admin: 01/30/23 20:42 Dose: 100 mg Trazodone HCl (Trazodone Hcl 50 Mg Tablet) 50 mg PO BEDTIME PRN PRN Reason: Insomnia Last Admin: 01/30/23 22:28 Dose: 50 mg Allergies Allergies Allergy/AdvReac Type Severity Reaction Status Date / Time No Known Allergies Allergy Verified 01/21/23 17:56 Assessment & Plan Assessment & Plan (1) PTSD (post-traumatic stress disorder): Status: Acute Code(s): F43.10 - Post-traumatic stress disorder, unspecified (2) Bipolar 1 disorder, depressed, severe: Status: Acute Code(s): F31.4 - Bipolar disorder, current episode depressed, severe, without psychotic features (3) Alcohol use disorder: Status: Acute Code(s): F10.90 - Alcohol use, unspecified, uncomplicated (4) HTN (hypertension): Status: Acute Code(s): I10 - Essential (primary) hypertension (5) COPD (chronic obstructive pulmonary disease): Status: Acute Code(s): J44.9 - Chronic obstructive pulmonary disease, unspecified Plan per chidi ECT consult: The patient has a history of severe bipolar depression complicated by alcohol use. Given suicidality status post recent overdose family history of impulsive suicidality ECT would be a reasonable choice at this time indication bipolar depression not responding to multiple hospitalizations with a commitment to sobriety would consider Vivitrol and given patient's lack of response to Seroquel would strongly urge a trial of Latuda. [place] would be significantly indicated in this situation however patient states he has had an allergic reaction the past an excellent medication for impulsive suicidality in the context of bipolar disorder. Medical consult reviewed and EKG reviewed with Cardiology they did not feel need for cardiology consult at this time patient with no acute cardiac symptoms no chest pain risks benefits alternatives reviewed patient with seem to be good ECT candidate but will need close follow-up head CT scan reviewed no acute process no areas of encephalomalacia or subdural EKG reviewed case reviewed with hospitalist service Precis: 01/22: pt expressing lack of motivation for recovery and treatment, especially with medications.? he was educated re ECT for Tx refractory depression.? he is willing to receive further education on the subject and MD will discuss with him again tomorrow. build rapport, listen (pt identified h/o treaters' not listening to him as something which led to his disengagement). continue prior meds for now.? increase seroquel at HS per pt request for insomnia. ativan per [facility] for alcohol withdrawal. 01/23: pt reports he received ECT education and is mulling it over. asks for HS seroquel to be decreased to 250, which is done. asks for flexeril to be increased to 10 TID PRN, which is done. reports no change in mood or SI. 01/24: no change in mood or SI per pt.? however, he is making hopeful statements and was noted to have expressed an interest in therapy after discharge.? increase zoloft to 150 mg daily per pt request.? states ECT is not for him. 01/25 continue current treatment plan; patient still depressed with intermittent SI.? Again discussed ECT and patient says he is more open to considering it.? He will follow up with Dr. Ruff. 01/26: consults placed for chidi, hospitalist, and EKG in preparation for potential ECT.? otherwise continue current mgmt. 01/27: head CT ordered.? awaiting consults from hospitalist and ECT provider.? continue current mgmt. 01/28: cleared by medicine and chidi for ECT, to start tuesday. stable presentation. 01/29/2023 Patient started on Latuda for bipolar depression. ECT currently hold would certainly be a treatment option given patient's multiple recent psychiatric hospitalizations and significant suicide attempt would consider naltrexone/Vivitrol 01/30/2023 Continue Latuda monitor affects consideration of ECT patient does describe clear manic history would consider addiction consult with Vivitrol 01/31: increase latuda to 40 mg and change to HS. planning to taper seroquel, but insomnia continues, per report. ECT approved, now planning for wed. Reason for contiued inpatient stay Substantial Risk for: harm to self, inability to function and rapid dec ompensation Time Spent With Patient Time: Total time managing care of this patient today __25__ minutes.
[2023-01-31] MEDS: Acetaminophen 325 MG TABLET 650 MG PO (15:34)
[2023-01-31 20:20] VITALS: BP 146/90; PULSE 77; RESP 18; TEMP 36.2; O2SAT 95
[2023-01-31] MEDS: Lurasidone HCl 40 MG TABLET PO (22:33)
[2023-01-31] MEDS: hydrOXYzine HCL 50 MG TABLET PO (22:33)
[2023-01-31] MEDS: traZODone HCL 50 MG TABLET PO (22:34)
[2023-02-01 08:00] VITALS: BP 142/95; PULSE 85; RESP 18; TEMP 36.6; O2SAT 96
[2023-02-01] MEDS: Omeprazole 20 MG CAPSULE.DR PO (09:11)
[2023-02-01] MEDS: Cyclobenzaprine HCl 10 MG TABLET PO ×2 (09:12→16:58)
[2023-02-01] MEDS: Ibuprofen 800 MG TABLET PO ×2 (09:12→20:21)
[2023-02-01] MEDS: Sertraline HCL 50 MG TABLET 150 MG PO (09:13)
[2023-02-01] MEDS: Albuterol Sulfate 90 MCG 8 GM INHALER 2 PUFF INHALE ×2 (09:14→21:58)
[2023-02-01] MEDS: Nicotine 21 MG PATCH.TD24 TRANSDERMA (09:21)
[2023-02-01 10:34] VITALS: BP 138/90
--- NOTE | 2023-02-01 15:30 | P.PNPSI_ITS ---
Subjective Subjective Date of Service: 02/01/23 Reason For Visit: Unspecified Bipolar D/O Interim History: calm, cooperative. feeling things are going well, denies SI. planning for ECT tomorrow. has tried lidocaine patch without success. amenable to addiction consult. per staff, pleasant. sad re missing ECT yesterday. hopeful now. safe, no issues. Mental Status Exam Mental Status Exam Narrative: calm, cooperative. no PMA/PMR. nml rate, amount, loudness of speech. thoughts linear. affect constricted, normo-intense, non-labile. no SI. no HI/AVH expressed. Diagnostics Vital Signs (24Hr): Vital Signs - 24 hr 01/31/23 20:20 02/01/23 08:00 02/01/23 10:34 Temperature 97.2 F 97.8 F Pulse Rate 77 85 Respiratory Rate 18 18 Blood Pressure 146/90 H 142/95 H 138/90 H Pulse Oximetry 95 96 Oxygen Delivery Method Room Air Room Air Labs 01/22/23 07:36 01/22/23 07:36 Imaging Radiology Impressions: ITS Impressions Head CT 01/27/23 14:07 IMPRESSION: No acute intracranial abnormality. Mild nonspecific hypoattenuation in the cerebral white matter. Medications Medications Current Medications Acetaminophen (Acetaminophen 325 Mg Tablet) 650 mg PO Q6H PRN PRN Reason: mild pain (1-3) Last Admin: 01/31/23 15:34 Dose: 650 mg Al Hydroxide/Mg Hydroxide (Magnesium Hydrox/Alum Hydrox 30 Ml Oral.Susp) 30 ml PO Q6H PRN PRN Reason: Heartburn/Nausea Albuterol Sulfate (Albuterol Sulfate 90 Mcg 8 Gm Inhaler) 2 puff INHALE Q4H PRN PRN Reason: dyspnea Last Admin: 02/01/23 09:14 Dose: 2 puff Cyclobenzaprine HCl (Cyclobenzaprine Hcl 10 Mg Tablet) 10 mg PO TID PRN PRN Reason: back pain Last Admin: 02/01/23 09:12 Dose: 10 mg Hydroxyzine HCl (Hydroxyzine Hcl 50 Mg Tablet) 50 mg PO Q6H PRN PRN Reason: anxiety Last Admin: 01/31/23 22:33 Dose: 50 mg Ibuprofen (Ibuprofen 800 Mg Tablet) 800 mg PO Q8H PRN PRN Reason: moderate pain (4-6) Last Admin: 02/01/23 09:12 Dose: 800 mg Lurasidone HCl (Lurasidone Hcl 40 Mg Tablet) 40 mg PO BEDTIME [facility] Last Admin: 01/31/23 22:33 Dose: 40 mg Magnesium Hydroxide (Milk Of Magnesia 30 Ml Oral.Susp) 30 ml PO DAILY PRN PRN Reason: Constipation Nicotine (Nicotine 21 Mg Patch.Td24) 21 mg TRANSDERMA DAILY [facility] Last Admin: 02/01/23 09:21 Dose: 21 mg Non-Formulary Medication (Dqznlpjvzo-Sdytzhtp-Brqnmzswsb [Breztri Aerosphere]) 2 puff INHALE BID [facility] Omeprazole (Omeprazole 20 Mg Capsule.Dr) 20 mg PO DAILY [facility] Last Admin: 02/01/23 09:11 Dose: 20 mg Quetiapine Fumarate (Quetiapine Fumarate 200 Mg Tablet) 200 mg PO BEDTIME [facility] Quetiapine Fumarate (Quetiapine Fumarate 25 Mg Tablet) 25 mg PO BID PRN PRN Reason: insomnia Last Admin: 01/30/23 22:28 Dose: 25 mg Sertraline HCl (Sertraline Hcl 50 Mg Tablet) 150 mg PO DAILY [facility] Last Admin: 02/01/23 09:13 Dose: 150 mg Sumatriptan Succinate (Sumatriptan Succinate 100 Mg Tablet) 100 mg PO DAILY PRN PRN Reason: Migraine Headache Last Admin: 01/30/23 20:42 Dose: 100 mg Trazodone HCl (Trazodone Hcl 50 Mg Tablet) 50 mg PO BEDTIME PRN PRN Reason: Insomnia Last Admin: 01/31/23 22:34 Dose: 50 mg Allergies Allergies Allergy/AdvReac Type Severity Reaction Status Date / Time No Known Allergies Allergy Verified 01/21/23 17:56 Assessment & Plan Assessment & Plan (1) PTSD (post-traumatic stress disorder): Status: Acute Code(s): F43.10 - Post-traumatic stress disorder, unspecified (2) Bipolar 1 disorder, depressed, severe: Status: Acute Code(s): F31.4 - Bipolar disorder, current episode depressed, severe, without psychotic features (3) Alcohol use disorder: Status: Acute Code(s): F10.90 - Alcohol use, unspecified, uncomplicated (4) HTN (hypertension): Status: Acute Code(s): I10 - Essential (primary) hypertension (5) COPD (chronic obstructive pulmonary disease): Status: Acute Code(s): J44.9 - Chronic obstructive pulmonary disease, unspecified Plan per chidi ECT consult: The patient has a history of severe bipolar depression complicated by alcohol use. Given suicidality status post recent overdose family history of impulsive suicidality ECT would be a reasonable choice at this time indication bipolar depression not responding to multiple hospitalizations with a commitment to sobriety would consider Vivitrol and given patient's lack of response to Seroquel would strongly urge a trial of Latuda. [place] would be significantly indicated in this situation however patient states he has had an allergic reaction the past an excellent medication for impulsive suicidality in the context of bipolar disorder. Medical consult reviewed and EKG reviewed with Cardiology they did not feel need for cardiology consult at this time patient with no acute cardiac symptoms no chest pain risks benefits alternatives reviewed patient with seem to be good ECT candidate but will need close follow-up head CT scan reviewed no acute process no areas of encephalomalacia or subdural EKG reviewed case reviewed with hospitalist service Precis: 01/22: pt expressing lack of motivation for recovery and treatment, especially with medications.? he was educated re ECT for Tx refractory depression.? he is willing to receive further education on the subject and MD will discuss with him again tomorrow. build rapport, listen (pt identified h/o treaters' not listening to him as something which led to his disengagement). continue prior meds for now.? increase seroquel at HS per pt request for insomnia. ativan per [facility] for alcohol withdrawal. 01/23: pt reports he received ECT education and is mulling it over. asks for HS seroquel to be decreased to 250, which is done. asks for flexeril to be increased to 10 TID PRN, which is done. reports no change in mood or SI. 01/24: no change in mood or SI per pt.? however, he is making hopeful statements and was noted to have expressed an interest in therapy after discharge.? increase zoloft to 150 mg daily per pt request.? states ECT is not for him. 01/25 continue current treatment plan; patient still depressed with intermittent SI.? Again discussed ECT and patient says he is more open to considering it.? He will follow up with Dr. Ruff. 01/26: consults placed for chidi, hospitalist, and EKG in preparation for potential ECT.? otherwise continue current mgmt. 01/27: head CT ordered.? awaiting consults from hospitalist and ECT provider.? continue current mgmt. 01/28: cleared by medicine and chidi for ECT, to start tuesday. stable presentation. 01/29/2023 Patient started on Latuda for bipolar depression. ECT currently hold would certainly be a treatment option given patient's multiple recent psychiatric hospitalizations and significant suicide attempt would consider naltrexone /Vivitrol 01/30/2023 Continue Latuda monitor affects consideration of ECT patient does describe clear manic history would consider addiction consult with Vivitrol 01/31: increase latuda to 40 mg and change to HS. planning to taper seroquel, but insomnia continues, per report. ECT approved, now planning for . 02/01: decrease HS seroquel to 200 - pt states he slept well last night. otherwise no change in regimen ECT tomorrow. Reason for contiued inpatient stay Substantial Risk for: harm to self, inability to function and rapid deco mpensation Time Spent With Patient Time: Total time managing care of this patient today __25__ minutes.
[2023-02-01] MEDS: Acetaminophen 325 MG TABLET 650 MG PO (16:58)
[2023-02-01 20:00] VITALS: BP 156/92; PULSE 70; RESP 16; TEMP 36.6; O2SAT 98
[2023-02-01] MEDS: QUEtiapine Fumarate 200 MG TABLET PO (21:53)
[2023-02-01] MEDS: Lurasidone HCl 40 MG TABLET PO (21:53)
[2023-02-01] MEDS: hydrOXYzine HCL 50 MG TABLET PO (21:53)
[2023-02-01] MEDS: QUEtiapine Fumarate 25 MG TABLET PO (21:53)
[2023-02-01] MEDS: traZODone HCL 50 MG TABLET PO (21:54)
[2023-02-02] VITALS (11 sets, daily range): BP systolic 104–130; BP diastolic 70–108; PULSE 75–103; RESP 16–18; TEMP 36.3–36.7; O2SAT 94–97
--- NOTE | 2023-02-02 07:32 | MHC.SHP ---
Pre-Procedural Eval Section A Date of Service: 02/02/23 The patient is an INPATIENT: Yes Changes since office visit: Yes Changes in Medication and Yes Patient answered all questions; No Cold of Flu in the past 2 weeks and No New Medical Problems The History & Physical has been completed within 30 days and I have reviewed it.: Yes Section B Chief Complaint: Unspecified Bipolar D/O Allergies: Allergies Allergy/AdvReac Type Severity Reaction Status Date / Time lithium Allergy Rash Verified 02/02/23 07:00 Plan I have reviewed the history and physical and performed a pertinent physical examination on my patient. No changes have occurred unless specified. Time Spent With Patient Time: Total time managing care of this patient today ____ minutes.
--- NOTE | 2023-02-02 08:16 | HO.ANESPROP2 ---
[facility] Active Problems Active Problems: All Active Problems (Updated 01/28/23 @ 13:44 by Archie Dillard MD) Bipolar 1 disorder, depressed, severe (Acute) Pre-op evaluation (Acute) TBI (traumatic brain injury) (Acute) Alcohol use disorder (Acute) PTSD (post-traumatic stress disorder) (Acute) Routine history and physical examination of adult (Acute) COPD (chronic obstructive pulmonary disease) (Acute) HTN (hypertension) (Acute) Past Medical History Medical History Alcohol use disorder TBI (traumatic brain injury) Family History Family history of problems with anesthesia: No Surgical History History of Problems with Anesthesia: No Social History Social History Household Members: None Housing: Homeless Do you presently have visiting nurse or other home services: No Patient Tobacco Use Status: Current everyday Tobacco user Tobacco use type: Cigarette Cigarette Packs Per Day: 1.5 Cigarettes Per Day: 30.0 Smoked in Last 30 Days: Yes Patient Interested in Nicotine Replacement: Yes Patient Given Instructions on How to Stop Smoking: No Second Hand Smoke Exposure: No Use of substances other than those prescribed or required for medical reasons: Yes Substance Use Type: Crack/Cocaine and Marijuana Substance Use Frequency: Occasionally Last Used Substance: Days (ago) Last Used Substance Other:: 7 days Currently Displaying Signs/Symptoms of Drug Intoxication Withdrawal: No Any prior treatment program specific to substance use: No Have you been hit, kicked, punched, or otherwise hurt by someone within the past year? If so, by whom?: No Do you feel safe in your current relationship?: No Current Relationship Is there a partner from a previous relationship who is making you feel unsafe now?: No Are you made to feel afraid or neglected: No Spiritual Healthcare Practices: Pt denies Rastafarian Healthcare Practices: Pt denies Cultural Healthcare Practices: Pt denies Advance Directives: No Advance Directives Information Provided: No Do you have thoughts of harming others: None Do you have a plan to hurt others: No Plan Recently lost weight without trying: No How much weight loss: Not applicable Eating poorly because of decreased appetite: No Nutrition screen score: 0 Nutrition Risks: No Nutritional Risk Poor oral hygiene: No service: Yes Sexual orientation: Straight/Heterosexual Meds Allergies Allergy/AdvReac Type Severity Reaction Status Date / Time lithium Allergy Rash Verified 02/02/23 07:00 Active Medications: Current Medications Acetaminophen (Acetaminophen 325 Mg Tablet) 650 mg PO Q6H PRN PRN Reason: mild pain (1-3) Last Admin: 02/01/23 16:58 Dose: 650 mg Al Hydroxide/Mg Hydroxide (Magnesium Hydrox/Alum Hydrox 30 Ml Oral.Susp) 30 ml PO Q6H PRN PRN Reason: Heartburn/Nausea Albuterol Sulfate (Albuterol Sulfate 90 Mcg 8 Gm Inhaler) 2 puff INHALE Q4H PRN PRN Reason: dyspnea Last Admin: 02/01/23 21:58 Dose: 2 puff Cyclobenzaprine HCl (Cyclobenzaprine Hcl 10 Mg Tablet) 10 mg PO TID PRN PRN Reason: back pain Last Admin: 02/01/23 16:58 Dose: 10 mg Hydroxyzine HCl (Hydroxyzine Hcl 50 Mg Tablet) 50 mg PO Q6H PRN PRN Reason: anxiety Last Admin: 02/01/23 21:53 Dose: 50 mg Ibuprofen (Ibuprofen 800 Mg Tablet) 800 mg PO Q8H PRN PRN Reason: moderate pain (4-6) Last Admin: 02/01/23 20:21 Dose: 800 mg Lurasidone HCl (Lurasidone Hcl 40 Mg Tablet) 40 mg PO BEDTIME [facility] Last Admin: 02/01/23 21:53 Dose: 40 mg Magnesium Hydroxide (Milk Of Magnesia 30 Ml Oral.Susp) 30 ml PO DAILY PRN PRN Reason: Constipation Nicotine (Nicotine 21 Mg Patch.Td24) 21 mg TRANSDERMA DAILY [facility] [place] Last Admin: 02/01/23 09:21 Dose: 21 mg Non-Formulary Medication (Ytztznhvka-Yisewtpo-Amwoakyrdb [Breztri Aerosphere]) 2 puff INHALE BID [facility] Omeprazole (Omeprazole 20 Mg Capsule.Dr) 20 mg PO DAILY [facility] [place] Last Admin: 02/01/23 09:11 Dose: 20 mg Quetiapine Fumarate (Quetiapine Fumarate 200 Mg Tablet) 200 mg PO BEDTIME [facility] [place] Last Admin: 02/01/23 21:53 Dose: 200 mg Quetiapine Fumarate (Quetiapine Fumarate 25 Mg Tablet) 25 mg PO BID PRN PRN Reason: insomnia Last Admin: 02/01/23 21:53 Dose: 25 mg Sertraline HCl (Sertraline Hcl 50 Mg Tablet) 150 mg PO DAILY [facility] Last Admin: 02/01/23 09:13 Dose: 150 mg Sumatriptan Succinate (Sumatriptan Succinate 100 Mg Tablet) 100 mg PO DAILY PRN PRN Reason: Migraine Headache Last Admin: 01/30/23 20:42 Dose: 100 mg Trazodone HCl (Trazodone Hcl 50 Mg Tablet) 50 mg PO BEDTIME PRN PRN Reason: Insomnia Last Admin: 02/01/23 21:54 Dose: 50 mg Home Medications Medication Instructions Recorded Confirmed Last Taken Type albuterol sulfate 90 mcg/actuation 2 puff inhalation Q4H PRN dyspnea 01/21/23 01/21/23 Unknown History aerosol inhaler (Ventolin HFA) aripiprazole 10 mg tablet 1 tab PO BEDTIME 01/21/23 01/21/23 Unknown History budesonide 160 mcg-glycopyr 9 2 puff inhalation BID 01/21/23 01/21/23 Unknown History mcg-formot 4.8 mcg/actuation HFA inhaler (Breztri Aerosphere) hydroxyzine pamoate 50 mg capsule 1 cap PO Q6H PRN anxiety 01/21/23 01/21/23 Unknown History ibuprofen 800 mg tablet 1 tab PO TID PRN pain 01/21/23 01/21/23 Unknown History omeprazole 20 mg capsule,delayed 1 cap PO QAM 01/21/23 01/21/23 Unknown History release quetiapine 200 mg tablet 1 tab PO BEDTIME 01/21/23 01/21/23 Unknown History quetiapine 25 mg tablet 1 tab PO BID PRN insomnia 01/21/23 01/21/23 Unknown History sertraline 100 mg tablet 1 tab PO DAILY 01/21/23 01/21/23 Unknown History trazodone 50 mg tablet 1 tab PO BEDTIME insomnia 01/21/23 01/21/23 Unknown History Exam Exam Date and Time: February 02, [id number] Height,Weight and Vital Signs: Height 5 ft 10 in Weight 107.048 kg Last Vital Signs Temp 97.6 F 02/02/23 06:39 Pulse 79 02/02/23 06:39 Resp 18 02/02/23 06:39 BP 123/86 02/02/23 06:39 Pulse Ox 95 02/02/23 06:39 O2 Del Method 02/02/23 06:39 Pertinent Lab Results Pertinent Lab Results: Laboratory Tests 01/22/23 01/22/23 01/22/23 07:36 07:36 07:36 WBC 6.6 RBC 4.74 Hgb 15.4 Hct 45.0 MCV 94.9 MCH 32.5 MCHC 34.2 RDW 13.2 Plt Count 184 MPV 9.7 Immature Gran % (Auto) 0.3 Neut % (Auto) 48.0 Lymph % (Auto) 34.2 Mathews % (Auto) 11.7 H Eos % (Auto) 5.2 H Baso % (Auto) 0.6 Lymph # (Auto) 2.3 Mathews # (Auto) 0.8 Eos # (Auto) 0.3 Baso # (Auto) 0.0 Abs Immat Gran (auto) 0.02 Absolute Neuts (auto) 3.2 Absolute Nucleated RBC 0.000 Nucleated RBC % (auto) 0.0 Sodium 142 Potassium 4.0 Chloride 111 H Carbon Dioxide 24 Anion Gap 11 L BUN 17 H Creatinine 0.91 Estim Creat Clear Calc TNP Estimated GFR > 60 Fasting Glucose 95 Estimat Average Glucose 103 Hemoglobin A1c % 5.2 Calcium 9.6 Total Bilirubin 0.6 Direct Bilirubin 0.2 AST 21 ALT 33 Alkaline Phosphatase 75 Total Protein 6.6 Albumin 4.1 Triglycerides 126 Cholesterol 214 LDL Cholesterol, Calc 146 HDL Cholesterol 43 Vitamin B12 366 Folate 14.2 TSH 1.78 Free T4 0.84 COVID-19 (NARINDER) COVID-Tryouts Com 01/28/23 14:10 WBC RBC Hgb Hct MCV MCH MCHC RDW Plt Count MPV Immature Gran % (Auto) Neut % (Auto) Lymph % (Auto) Mathews % (Auto) Eos % (Auto) Baso % (Auto) Lymph # (Auto) Mathews # (Auto) Eos # (Auto) Baso # (Auto) Abs Immat Gran (auto) Absolute Neuts (auto) Absolute Nucleated RBC Nucleated RBC % (auto) Sodium Potassium Chloride Carbon Dioxide Anion Gap BUN Creatinine Estim Creat Clear Calc Estimated GFR Fasting Glucose Estimat Average Glucose Hemoglobin A1c % Calcium Total Bilirubin Direct Bilirubin AST ALT Alkaline Phosphatase Total Protein Albumin Triglycerides Cholesterol LDL Cholesterol, Calc HDL Cholesterol Vitamin B12 Folate TSH Free T4 COVID-19 (NARINDER) Negative COVID-19 Clin Com See Note Airway Mallampati Class: II TM Dist: >3cm Neck ROM: Full Heart: RRR Lungs: CTA Assessment and Plan Final Anesthetic Review Family History of Problems with Anesthesia: No History of Problems with Anesthesia: No ASA Class: III Final Preanesthetic Review: Meds/Allgs Chart Reviewed, Consent Obtained/Reviewed and Anes Risks/Benef Reviewed Patient Risk: Low Procedure Risk: Low Anesthetic Plan Anesthetic Plan: GA Disposition: Standard PACU
[2023-02-02] MEDS: LORazepam 2 MG/ML VIAL 1 MG IVPUSH (08:18)
--- NOTE | 2023-02-02 08:18 | HO.ECTPROC ---
ECT Procedure Note Diagnosis/Treatment Date of Service: 02/02/23 Diagnosis: Bipolar disorder Current Treatment Number: 1 Treatment: Series Interval Clinical Notes: pt gave informed consent depressed anxious hopeless helpless Time: Total time managing care of this patient today ____ minutes. ECT Settings Device: THYMATRON DGx Electrode Placement: Right Unilateral Program/Pulse Width: 0.25 Energy Percent: 100 Seizure Duration By EEG (in seconds): 27 Medications Administration General Anesthetic: Etomidate (16) Muscle Relaxant: Succinylcholine (100) Ancillary Medications Analgesics: Torodol - Pre ECT (30) Anti-emetics: Zofran - Pre ECT Miscillaneous Medications: Propofol (30) and Other (lorazepam 1mg post for agitation) Airway Management Airway Management: LMA (post procedure) and Bag Mask Ventilation Treatment Recommendations Electrode Placement: Right Unilateral Program/Pulse Width: 0.50 Energy Percent: 100 Notes: had period of desaturation needed lma inc succ 120 mg Pt Tolerated Procedure w/o Issue: No
[2023-02-02] MEDS: Nicotine 21 MG PATCH.TD24 TRANSDERMA (09:13)
[2023-02-02] MEDS: Albuterol Sulfate 90 MCG 8 GM INHALER 2 PUFF INHALE ×2 (09:13→22:21)
[2023-02-02] MEDS: Omeprazole 20 MG CAPSULE.DR PO (09:14)
[2023-02-02] MEDS: SUMAtriptan succinate 100 MG TABLET PO (09:14)
[2023-02-02] MEDS: Cyclobenzaprine HCl 10 MG TABLET PO ×3 (09:14→21:09)
[2023-02-02] MEDS: Sertraline HCL 50 MG TABLET 150 MG PO (09:14)
--- NOTE | 2023-02-02 09:46 | HO.POSTANES ---
Post Anesthesia Evaluation Post Anesthesia Evaluation Vital Signs: Vital Signs Temp Pulse Resp BP Pulse Ox O2 Del Method O2 Flow Rate 02/02/23 09:27 98.0 F 101 H 123/81 94 Room Air 02/02/23 09:26 98.0 F 101 H 18 123/81 94 02/02/23 08:57 97.6 F 94 18 112/76 95 Room Air 02/02/23 08:40 100 16 130/90 H 96 Room Air 02/02/23 08:35 96 17 109/73 97 Nasal Cannula with ETCO2 2 02/02/23 08:30 99 17 104/70 97 Nasal Cannula with ETCO2 2 02/02/23 08:25 97.3 F 103 H 16 127/108 H 97 Nasal Cannula with ETCO2 2 02/02/23 06:39 97.6 F 79 18 123/86 95 Room Air 02/02/23 06:16 97.8 F 98 122/77 02/02/23 06:00 97.8 F 98 16 122/77 97 Room Air Anesthesia: General Mental Status: Awake Pain Control: Satisfactory Nausea/Vomiting: None Hydration: Adequate Anesthesia-Related Issues: No Anes. Related Issues
[2023-02-02] MEDS: QUEtiapine Fumarate 25 MG TABLET PO ×2 (09:53→22:24)
--- NOTE | 2023-02-02 15:16 | P.PNPSI_ITS ---
Subjective Subjective Date of Service: 02/02/23 Reason For Visit: Unspecified Bipolar D/O Interim History: calm, cooperative. resting after ECT. feels it went well, describes process to MD. no complaints or requests. per staff, quiet, isolative. 10 anx, 6 dep. no SI. no AVH. slept well. ECT completed. Mental Status Exam Mental Status Exam Narrative: calm, cooperative. no PMA/PMR. nml rate, amount, loudness of speech. thoughts linear. affect constricted, normo-intense, non-labile. no SI. no HI/AVH expressed. Diagnostics Vital Signs (24Hr): Vital Signs - 24 hr 02/01/23 20:00 02/02/23 06:00 02/02/23 06:16 Temperature 98 F 97.8 F 97.8 F Pulse Rate 70 98 98 Respiratory Rate 16 16 Blood Pressure 156/92 H 122/77 122/77 Pulse Oximetry 98 97 Oxygen Delivery Method Room Air Room Air Oxygen Flow Rate 02/02/23 06:39 02/02/23 08:25 02/02/23 08:30 Temperature 97.6 F 97.3 F Pulse Rate 79 103 H 99 Respiratory Rate 18 16 17 Blood Pressure 123/86 127/108 H 104/70 Pulse Oximetry 95 97 97 Oxygen Delivery Method Room Air Nasal Cannula with ETCO2 Nasal Cannula with ETCO2 Oxygen Flow Rate 2 2 02/02/23 08:35 02/02/23 08:40 02/02/23 08:57 Temperature 97.6 F Pulse Rate 96 100 94 Respiratory Rate 17 16 18 Blood Pressure 109/73 130/90 H 112/76 Pulse Oximetry 97 96 95 Oxygen Delivery Method Nasal Cannula with ETCO2 Room Air Room Air Oxygen Flow Rate 2 02/02/23 09:26 02/02/23 09:27 Temperature 98.0 F 98.0 F Pulse Rate 101 H 101 H Respiratory Rate 18 Blood Pressure 123/81 123/81 Pulse Oximetry 94 94 Oxygen Delivery Method Room Air Oxygen Flow Rate Labs 01/22/23 07:36 01/22/23 07:36 Imaging Radiology Impressions: ITS Impressions Head CT 01/27/23 14:07 IMPRESSION: No acute intracranial abnormality. Mild nonspecific hypoattenuation in the cerebral white matter. Medications Medications Current Medications Acetaminophen (Acetaminophen 325 Mg Tablet) 650 mg PO Q6H PRN PRN Reason: mild pain (1-3) Last Admin: 02/01/23 16:58 Dose: 650 mg Al Hydroxide/Mg Hydroxide (Magnesium Hydrox/Alum Hydrox 30 Ml Oral.Susp) 30 ml PO Q6H PRN PRN Reason: Heartburn/Nausea Albuterol Sulfate (Albuterol Sulfate 90 Mcg 8 Gm Inhaler) 2 puff INHALE Q4H PRN PRN Reason: dyspnea Last Admin: 02/02/23 09:13 Dose: 2 puff Cyclobenzaprine HCl (Cyclobenzaprine Hcl 10 Mg Tablet) 10 mg PO TID PRN PRN Reason: back pain Last Admin: 02/02/23 09:14 Dose: 10 mg Hydroxyzine HCl (Hydroxyzine Hcl 50 Mg Tablet) 50 mg PO Q6H PRN PRN Reason: anxiety Last Admin: 02/01/23 21:53 Dose: 50 mg Ibuprofen (Ibuprofen 800 Mg Tablet) 800 mg PO Q8H PRN PRN Reason: moderate pain (4-6) Last Admin: 02/01/23 20:21 Dose: 800 mg Lurasidone HCl (Lurasidone Hcl 40 Mg Tablet) 40 mg PO BEDTIME [facility] Last Admin: 02/01/23 21:53 Dose: 40 mg Magnesium Hydroxide (Milk Of Magnesia 30 Ml Oral.Susp) 30 ml PO DAILY PRN PRN Reason: Constipation Nicotine (Nicotine 21 Mg Patch.Td24) 21 mg TRANSDERMA DAILY [facility] Last Admin: 02/02/23 09:13 Dose: 21 mg Non-Formulary Medication (Bauqewabnu-Lruefscf-Zxgxhyqicm [Breztri Aerosphere]) 2 puff INHALE BID [facility] Omeprazole (Omeprazole 20 Mg Capsule.Dr) 20 mg PO DAILY [facility] Last Admin: 02/02/23 09:14 Dose: 20 mg Quetiapine Fumarate (Quetiapine Fumarate 200 Mg Tablet) 200 mg PO BEDTIME [facility] Last Admin: 02/01/23 21:53 Dose: 200 mg Quetiapine Fumarate (Quetiapine Fumarate 25 Mg Tablet) 25 mg PO BID PRN PRN Reason: insomnia Last Admin: 02/02/23 09:53 Dose: 25 mg Sertraline HCl (Sertraline Hcl 50 Mg Tablet) 150 mg PO DAILY [facility] Last Admin: 02/02/23 09:14 Dose: 150 mg Sumatriptan Succinate (Sumatriptan Succinate 100 Mg Tablet) 100 mg PO DAILY PRN PRN Reason: Migraine Headache Last Admin: 02/02/23 09:14 Dose: 100 mg Trazodone HCl (Trazodone Hcl 50 Mg Tablet) 50 mg PO BEDTIME PRN PRN Reason: Insomnia Last Admin: 02/01/23 21:54 Dose: 50 mg Allergies Allergies Allergy/AdvReac Type Severity Reaction Status Date / Time lithium Allergy Rash Verified 02/02/23 07:00 Assessment & Plan Assessment & Plan (1) PTSD (post-traumatic stress disorder): Status: Acute Code(s): F43.10 - Post-traumatic stress disorder, unspecified (2) Bipolar 1 disorder, depressed, severe: Status: Acute Code(s): F31.4 - Bipolar disorder, current episode depressed, severe, without psychotic features (3) Alcohol use disorder: Status: Acute Code(s): F10.90 - Alcohol use, unspecified, uncomplicated (4) HTN (hypertension): Status: Acute Code(s): I10 - Essential (primary) hypertension (5) COPD (chronic obstructive pulmonary disease): Status: Acute Code(s): J44.9 - Chronic obstructive pulmonary disease, unspecified Plan per chidi ECT consult:? The patient has a history of severe bipolar depression complicated by alcohol use.? Given suicidality status post recent overdose family history of impulsive suicidality ECT would be a reasonable c hoice at this time indication bipolar depression not responding to multiple hospitalizations with a commitment to sobriety would consider Vivitrol and given patient's lack of response to Seroquel would strongly urge a trial of Latuda.? [place] would be significantly indicated in this situation however patient states he has had an allergic reaction the past an excellent medication for impulsive suicidality in the context of bipolar disorder.? Medical consult reviewed and EKG reviewed with Cardiology they did not feel need for cardiology consult at this time patient with no acute cardiac symptoms no chest pain risks benefits alternatives reviewed patient with seem to be good ECT candidate but will need close follow-up head CT scan reviewed no acute process no areas of encephalomalacia or subdural EKG reviewed case reviewed with hospitalist service Precis: 01/22: pt expressing lack of motivation for recovery and treatment, especially with medications.? he was educated re ECT for Tx refractory depression.? he is willing to receive further education on the subject and MD will discuss with him again tomorrow. build rapport, listen (pt identified h/o treaters' not listening to him as so mething which led to his disengagement). continue prior meds for now.? increase seroquel at HS per pt request for insomnia. ativan per [facility] for alcohol withdrawal. 01/23: pt reports he received ECT education and is mulling it over. asks for HS seroquel to be decreased to 250, which is done. asks for flexeril to be increased to 10 TID PRN, which is done. reports no change in mood or SI. 01/24: no change in mood or SI per pt.? however, he is making hopeful statements and was noted to have expressed an interest in therapy after discharge.? increase zoloft to 150 mg daily per pt request.? states ECT is not for him. 01/25 continue current treatment plan; patient still depressed with intermittent SI.? Again discussed ECT and patient says he is more open to considering it.? He will follow up with Dr. Ruff. 01/26: consults placed for chidi, hospitalist, and EKG in preparation for potential ECT.? otherwise continue current mgmt. 01/27: head CT ordered.? awaiting consults from hospitalist and ECT provider.? continue current mgmt. 01/28: cleared by medicine and chidi for ECT, to start tuesday.? stable presentation. 01/29/2023 Patient started on Latuda for bipolar depression.? ECT currently hold would certainly be a treatment option given patient's multiple recent psychiatric hospitalizations and significant suicide attempt would consider naltrexone/Vivitrol 01/30/2023 Continue Latuda monitor affects consideration of ECT patient does describe clear manic history would consider addiction consult with Vivitrol 01/31:? increase latuda to 40 mg and change to HS.? planning to taper seroquel, b ut insomnia continues, per report.? ECT approved, now planning for . 02/01:? decrease HS seroquel to 200 - pt states he slept well last night.? otherwise no change in regimen? ECT tomorrow. 02/02: ECT went well, no complaints. continue current mgmt. T/C increasing latuda and decreasing seroquel depending on how pt sleeps tonight. Reason for contiued inpatient stay Substantial Risk for: harm to self, inability to function and rapid d ecompensation Time Spent With Patient Time: Total time managing care of this patient today __25__ minutes.
[2023-02-02] MEDS: Acetaminophen 325 MG TABLET 650 MG PO (17:14)
[2023-02-02] MEDS: Ibuprofen 800 MG TABLET PO (21:09)
[2023-02-02] MEDS: Lurasidone HCl 40 MG TABLET PO (22:22)
[2023-02-02] MEDS: QUEtiapine Fumarate 200 MG TABLET PO (22:23)
[2023-02-02] MEDS: hydrOXYzine HCL 50 MG TABLET PO (22:24)
[2023-02-02] MEDS: traZODone HCL 50 MG TABLET PO (22:24)
[2023-02-03] MEDS: Nicotine 21 MG PATCH.TD24 TRANSDERMA (08:42)
[2023-02-03] MEDS: Cyclobenzaprine HCl 10 MG TABLET PO (08:43)
[2023-02-03] MEDS: Omeprazole 20 MG CAPSULE.DR PO (08:43)
[2023-02-03] MEDS: Acetaminophen 325 MG TABLET 650 MG PO (08:43)
[2023-02-03] MEDS: Sertraline HCL 50 MG TABLET 150 MG PO (08:43)
[2023-02-03] MEDS: Albuterol Sulfate 90 MCG 8 GM INHALER 2 PUFF INHALE ×2 (08:43→21:05)
[2023-02-03 09:21] VITALS: BP 108/70; PULSE 91; RESP 16; TEMP 36.7; O2SAT 97
[2023-02-03 09:49] VITALS: BMI 34.7
--- NOTE | 2023-02-03 12:43 | P.EN_ITS ---
Event Note Date of Service: 02/03/23 Event Note: Addiction consult Please see auditing coder note dated 02/03/23 Time Spent With Patient Time: Total time managing care of this patient today ____ minutes.
--- NOTE | 2023-02-03 12:43 | PM.EVENT ---
Event Note Date of Service: 02/03/23 Event Note: Addiction consult Please see tank truck operator note dated 02/03/23 Time Spent With Patient Time: Total time managing care of this patient today ____ minutes.
--- NOTE | 2023-02-03 14:06 | HO.PSYCHPN ---
Subjective Subjective Date of Service: 02/03/23 Reason For Visit: Unspecified Bipolar D/O Interim History: calm, cooperative. sleeping well past 2 nights. ready to taper seroquel and titrate latuda. planning for ECT tomorrow. no questions or complaints. per staff, pleasant, social. pacing. ECT went well yesterday. watching TV eves. meds and meals compliant. slept well. anx/dep continue, abated from admission. Mental Status Exam Mental Status Exam Narrative: calm, cooperative. no PMA/PMR. nml rate, amount, loudness of speech. thoughts linear. affect constricted, normo-intense, non-labile. no SI. no HI/AVH expressed. Diagnostics Vital Signs (24Hr): Vital Signs - 24 hr 02/02/23 20:15 02/03/23 09:21 Temperature 98.1 F Pulse Rate 75 91 Respiratory Rate 18 16 Blood Pressure 130/88 108/70 Pulse Oximetry 94 97 Oxygen Delivery Method Room Air Room Air BMI result Body Mass Index 34.7 Labs 01/22/23 07:36 01/22/23 07:36 Imaging Radiology Impressions: ITS Impressions Head CT 01/27/23 14:07 IMPRESSION: No acute intracranial abnormality. Mild nonspecific hypoattenuation in the cerebral white matter. Medications Medications Current Medications Acetaminophen (Acetaminophen 325 Mg Tablet) 650 mg PO Q6H PRN PRN Reason: mild pain (1-3) Last Admin: 02/03/23 08:43 Dose: 650 mg Al Hydroxide/Mg Hydroxide (Magnesium Hydrox/Alum Hydrox 30 Ml Oral.Susp) 30 ml PO Q6H PRN PRN Reason: Heartburn/Nausea Albuterol Sulfate (Albuterol Sulfate 90 Mcg 8 Gm Inhaler) 2 puff INHALE Q4H PRN PRN Reason: dyspnea Last Admin: 02/03/23 08:43 Dose: 2 puff Cyclobenzaprine HCl (Cyclobenzaprine Hcl 10 Mg Tablet) 10 mg PO TID PRN PRN Reason: back pain Last Admin: 02/03/23 08:43 Dose: 10 mg Hydroxyzine HCl (Hydroxyzine Hcl 50 Mg Tablet) 50 mg PO Q6H PRN PRN Reason: anxiety Last Admin: 02/02/23 22:24 Dose: 50 mg Ibuprofen (Ibuprofen 800 Mg Tablet) 800 mg PO Q8H PRN PRN Reason: moderate pain (4-6) Last Admin: 02/02/23 21:09 Dose: 800 mg Lurasidone HCl (Lurasidone Hcl 20 Mg Tablet) 60 mg PO BEDTIME [facility] Magnesium Hydroxide (Milk Of Magnesia 30 Ml Oral.Susp) 30 ml PO DAILY PRN PRN Reason: Constipation Nicotine (Nicotine 21 Mg Patch.Td24) 21 mg TRANSDERMA DAILY [facility] Last Admin: 02/03/23 08:42 Dose: 21 mg Non-Formulary Medication (Whuuihqlsr-Qrxzkhzd-Wuqugvnoay [Breztri Aerosphere]) 2 puff INHALE BID [facility] Omeprazole (Omeprazole 20 Mg Capsule.Dr) 20 mg PO DAILY [facility] Last Admin: 02/03/23 08:43 Dose: 20 mg Quetiapine Fumarate (Quetiapine Fumarate 50 Mg Tablet) 150 mg PO BEDTIME [facility] Quetiapine Fumarate (Quetiapine Fumarate 25 Mg Tablet) 25 mg PO BID PRN PRN Reason: insomnia Last Admin: 02/02/23 22:24 Dose: 25 mg Sertraline HCl (Sertraline Hcl 50 Mg Tablet) 150 mg PO DAILY [facility] Last Admin: 02/03/23 08:43 Dose: 150 mg Sumatriptan Succinate (Sumatriptan Succinate 100 Mg Tablet) 100 mg PO DAILY PRN PRN Reason: Migraine Headache Last Admin: 02/02/23 09:14 Dose: 100 mg Trazodone HCl (Trazodone Hcl 50 Mg Tablet) 50 mg PO BEDTIME PRN PRN Reason: Insomnia Last Admin: 02/02/23 22:24 Dose: 50 mg Allergies Allergies Allergy/AdvReac Type Severity Reaction Status Date / Time lithium Allergy Rash Verified 02/02/23 07:00 Assessment & Plan Assessment & Plan (1) PTSD (post-traumatic stress disorder): Status: Acute Code(s): F43.10 - Post-traumatic stress disorder, unspecified (2) Bipolar 1 disorder, depressed, severe: Status: Acute Code(s): F31.4 - Bipolar disorder, current episode depressed, severe, without psychotic features (3) Alcohol use disorder: Status: Acute Code(s): F10.90 - Alcohol use, unspecified, uncomplicated (4) HTN (hypertension): Status: Acute Code(s): I10 - Essential (primary) hypertension (5) COPD (chronic obstructive pulmonary disease): Status: Acute Code(s): J44.9 - Chronic obstructive pulmonary disease, unspecified Plan per chidi ECT consult:? The patient has a history of severe bipolar depression complicated by alcohol use.? Given suicidality status post recent overdose family history of impulsive suicidality ECT would be a reasonable choice at this time indication bipolar depression not responding to multiple hospitalizations with a commitment to sobriety would consider Vivitrol and given patient's lack of response to Seroquel would strongly urge a trial of Latuda.? [place] would be significantly indicated in this situation however patient states he has had an allergic reaction the past an excellent medication for impulsive suicidality in the context of bipolar disorder.? Medical consult reviewed and EKG reviewed with Cardiology they did not feel need for cardiology consult at this time patient with no acute cardiac symptoms no chest pain risks benefits alternatives reviewed patient with seem to be good ECT candidate but will need close follow-up head CT scan reviewed no acute process no areas of encephalomalacia or subdural EKG reviewed case reviewed with hospitalist service Precis: 01/22: pt expressing lack of motivation for recovery and treatment, especially with medications.? he was educated re ECT for Tx refractory depression.? he is willing to receive further education on the subject and MD will discuss with him again tomorrow. build rapport, listen (pt identified h/o treaters' not listening to him as something which led to his disengagement). continue prior meds for now.? increase seroquel at HS per pt request for insomnia. ativan per [facility] for alcohol withdrawal. 01/23: pt reports he received ECT education and is mulling it over. asks for HS seroquel to be decreased to 250, which is done. asks for flexeril to be increased to 10 TID PRN, which is done. reports no change in mood or SI. 01/24: no change in mood or SI per pt.? however, he is making hopeful statements and was noted to have expressed an interest in therapy after discharge.? increase zoloft to 150 mg daily per pt request.? states ECT is not for him. 01/25 continue current treatment plan; patient still depressed with intermittent SI.? Again discussed ECT and patient says he is more open to considering it.? He will follow up with Dr. Ruff. 01/26: consults placed for chidi, hospitalist, and EKG in preparation for potential ECT.? otherwise continue current mgmt. 01/27: head CT ordered.? awaiting consults from hospitalist and ECT provider.? continue current mgmt. 01/28: cleared by medicine and chidi for ECT, to start tuesday.? stable presentation. 01/29/2023 Patient started on Latuda for bipolar depression.? ECT currently hold would certainly be a treatment option given patient's multiple recent psychiatric hospitalizations and significant suicide attempt would consider naltrexone/Vivitrol 01/30/2023 Continue Latuda monitor affects consideration of ECT patient does describe clear manic history would consider addiction consult with Vivitrol 01/31:? increase latuda to 40 mg and change to HS.? planning to taper seroquel, but insomnia continues, per report.? ECT approved, now planning for . 02/01:? decrease HS seroquel to 200 - pt states he slept well last night.? otherwise no change in regimen? ECT tomorrow. 02/02: ECT went well, no complaints. continue current mgmt. T/C increasing latuda and decreasing seroquel depending on how pt sleeps tonight. 02/03: feeling relatively well. increase HS latuda to 60 mg, decrease HS seroquel to 150 mg. ECT tomorrow. Reason for contiued inpatient stay Substantial Risk for: harm to self, inability to function and rapid decompensation Time Spent With Patient Time: Total time managing care of this patient today ____ minutes.
--- NOTE | 2023-02-03 14:20 | MHC.RECOVRN ---
Met with pt after request from KATHRYN. Pt awake, alert, easily engages in conversation. Pt reports extensive hx alcohol use, most recently had been drinking 1/2 gallon vodka daily. Pt reports hx marijuana use, denies other substances. Pt began attending AA at age 14 and currently has a sponsor. Pt has utilized AA in the past to maintain recovery, the longest period being [id number]. Pt attributes family members passing away as a precursor to returning to alcohol use. Pt has been living with family members but after a disagreement has moved out. Pt reports prior to that having lived at a sober house in [place] x 10 years. Pt is very familiar with different levels of care and knows many people in the recovery community. Discussed MELISSA, pt declines and states If I can't do it with supportive people and AA, I can't do it. Pt believes [facility] is being unstably housed and is looking for information on how to receive a subsidy. Discussed [facility] and [facility]. Pt provided with [facility] phone number to call and inquire about their services. Pt is not interested in inpatient BG treatment or returning to sober living at this time. Pt denies other questions or concerns.
[2023-02-03] MEDS: Ibuprofen 800 MG TABLET PO (18:53)
[2023-02-03 20:58] VITALS: BP 133/91; PULSE 70; RESP 18; TEMP 36.3; O2SAT 94
[2023-02-03] MEDS: QUEtiapine Fumarate 50 MG TABLET 150 MG PO (21:04)
[2023-02-03] MEDS: QUEtiapine Fumarate 25 MG TABLET PO (21:04)
[2023-02-03] MEDS: Lurasidone HCl 20 MG TABLET 60 MG PO (21:04)
[2023-02-03] MEDS: traZODone HCL 50 MG TABLET PO (21:05)
[2023-02-03] MEDS: hydrOXYzine HCL 50 MG TABLET PO (21:05)
[2023-02-04] VITALS (11 sets, daily range): BP systolic 115–164; BP diastolic 71–108; PULSE 66–108; RESP 16–20; TEMP 35.8–36.9; O2SAT 94–99
--- NOTE | 2023-02-04 06:55 | P.CONAN_ITS ---
[facility] Active Problems Active Problems: All Active Problems (Updated 01/28/23 @ 13:44 by Archie Dillard MD) Bipolar 1 disorder, depressed, severe (Acute) Pre-op evaluation (Acute) TBI (traumatic brain injury) (Acute) Alcohol use disorder (Acute) PTSD (post-traumatic stress disorder) (Acute) Routine history and physical examination of adult (Acute) COPD (chronic obstructive pulmonary disease) (Acute) HTN (hypertension) (Acute) Past Medical History Medical History Alcohol use disorder TBI (traumatic brain injury) Family History Family history of problems with anesthesia: No Surgical History History of Problems with Anesthesia: No Social History Social History Household Members: None Housing: Homeless Do you presently have visiting nurse or other home services: No Patient Tobacco Use Status: Current everyday Tobacco user Tobacco use type: Cigarette Cigarette Packs Per Day: 1.5 Cigarettes Per Day: 30.0 Smoked in Last 30 Days: Yes Patient Interested in Nicotine Replacement: Yes Patient Given Instructions on How to Stop Smoking: No Second Hand Smoke Exposure: No Use of substances other than those prescribed or required for medical reasons: Yes Substance Use Type: Crack/Cocaine and Marijuana Substance Use Frequency: Occasionally Last Used Substance: Days (ago) Last Used Substance Other:: 7 days Currently Displaying Signs/Symptoms of Drug Intoxication Withdrawal: No Any prior treatment program specific to substance use: No Have you been hit, kicked, punched, or otherwise hurt by someone within the past year? If so, by whom?: No Do you feel safe in your current relationship?: No Current Relationship Is there a partner from a previous relationship who is making you feel unsafe now?: No Are you made to feel afraid or neglected: No Spiritual Healthcare Practices: Pt denies Latter-Day Healthcare Practices: Pt denies Cultural Healthcare Practices: Pt denies Advance Directives: No Advance Directives Information Provided: No Do you have thoughts of harming others: None Do you have a plan to hurt others: No Plan Recently lost weight without trying: No How much weight loss: Not applicable Eating poorly because of decreased appetite: No Nutrition screen score: 0 Nutrition Risks: No Nutritional Risk Poor oral hygiene: No service: Yes Sexual orientation: Straight/Heterosexual Meds Allergies Allergy/AdvReac Type Severity Reaction Status Date / Time lithium Allergy Rash Verified 02/02/23 07:00 Active Medications: Current Medications Acetaminophen (Acetaminophen 325 Mg Tablet) 650 mg PO Q6H PRN PRN Reason: mild pain (1-3) Last Admin: 02/03/23 08:43 Dose: 650 mg Al Hydroxide/Mg Hydroxide (Magnesium Hydrox/Alum Hydrox 30 Ml Oral.Susp) 30 ml PO Q6H PRN PRN Reason: Heartburn/Nausea Albuterol Sulfate (Albuterol Sulfate 90 Mcg 8 Gm Inhaler) 2 puff INHALE Q4H PRN PRN Reason: dyspnea Last Admin: 02/03/23 21:05 Dose: 2 puff Cyclobenzaprine HCl (Cyclobenzaprine Hcl 10 Mg Tablet) 10 mg PO TID PRN PRN Reason: back pain Last Admin: 02/03/23 08:43 Dose: 10 mg Hydroxyzine HCl (Hydroxyzine Hcl 50 Mg Tablet) 50 mg PO Q6H PRN PRN Reason: anxiety Last Admin: 02/03/23 21:05 Dose: 50 mg Lactated Ringer's (Lr) 1,000 mls @ 50 mls/hr IVCONT .Q20H [facility]RE[facility] Ibuprofen (Ibuprofen 800 Mg Tablet) 800 mg PO Q8H PRN PRN Reason: moderate pain (4-6) Last Admin: 02/03/23 18:53 Dose: 800 mg Lurasidone HCl (Lurasidone Hcl 20 Mg Tablet) 60 mg PO BEDTIME [facility] Last Admin: 02/03/23 21:04 Dose: 60 mg Magnesium Hydroxide (Milk Of Magnesia 30 Ml Oral.Susp) 30 ml PO DAILY PRN PRN Reason: Constipation Nicotine (Nicotine 21 Mg Patch.Td24) 21 mg TRANSDERMA DAILY [facility] Last Admin: 02/03/23 08:42 Dose: 21 mg Non-Formulary Medication (Slasbulnve-Kowisnpd-Vylijosoah [Breztri Aerosphere]) 2 puff INHALE BID [facility] Omeprazole (Omeprazole 20 Mg Capsule.Dr) 20 mg PO DAILY [facility] Last Admin: 02/03/23 08:43 Dose: 20 mg Quetiapine Fumarate (Quetiapine Fumarate 50 Mg Tablet) 150 mg PO BEDTIME [facility] Last Admin: 02/03/23 21:04 Dose: 150 mg Quetiapine Fumarate (Quetiapine Fumarate 25 Mg Tablet) 25 mg PO BID PRN PRN Reason: insomnia Last Admin: 02/03/23 21:04 Dose: 25 mg Sertraline HCl (Sertraline Hcl 50 Mg Tablet) 150 mg PO DAILY [facility] Last Admin: 02/03/23 08:43 Dose: 150 mg Sumatriptan Succinate (Sumatriptan Succinate 100 Mg Tablet) 100 mg PO DAILY PRN PRN Reason: Migraine Headache Last Admin: 02/02/23 09:14 Dose: 100 mg Trazodone HCl (Trazodone Hcl 50 Mg Tablet) 50 mg PO BEDTIME PRN PRN Reason: Insomnia Last Admin: 02/03/23 21:05 Dose: 50 mg Home Medications Medication Instructions Recorded Confirmed Last Taken Type albuterol sulfate 90 mcg/actuation 2 puff inhalation Q4H PRN dyspnea 01/21/23 01/21/23 Unknown History aerosol inhaler (Ventolin HFA) aripiprazole 10 mg tablet 1 tab PO BEDTIME 01/21/23 01/21/23 Unknown History budesonide 160 mcg-glycopyr 9 2 puff inhalation BID 01/21/23 01/21/23 Unknown History mcg-formot 4.8 mcg/actuation HFA inhaler (Breztri Aerosphere) hydroxyzine pamoate 50 mg capsule 1 cap PO Q6H PRN anxiety 01/21/23 01/21/23 Unknown History ibuprofen 800 mg tablet 1 tab PO TID PRN pain 01/21/23 01/21/23 Unknown History omeprazole 20 mg capsule,delayed 1 cap PO QAM 01/21/23 01/21/23 Unknown History release quetiapine 200 mg tablet 1 tab PO BEDTIME 01/21/23 01/21/23 Unknown History quetiapine 25 mg tablet 1 tab PO BID PRN insomnia 01/21/23 01/21/23 Unknown History sertraline 100 mg tablet 1 tab PO DAILY 01/21/23 01/21/23 Unknown History trazodone 50 mg tablet 1 tab PO BEDTIME insomnia 01/21/23 01/21/23 Unknown History Exam Exam Date and Time: February 04, 2023 0656 Height,Weight and Vital Signs: Height 5 ft 10 in Weight 109.86 kg Last Vital Signs Temp 98.4 F 02/04/23 06:39 Pulse 75 02/04/23 06:39 Resp 16 02/04/23 06:39 BP 148/108 H 02/04/23 06:39 Pulse Ox 95 02/04/23 06:39 O2 Del Method 02/04/23 06:39 O2 Flow Rate 2 02/02/23 08:35 Pertinent Lab Results Pertinent Lab Results: Laboratory Tests 01/22/23 01/22/23 01/22/23 07:36 07:36 07:36 WBC 6.6 RBC 4.74 Hgb 15.4 Hct 45.0 MCV 94.9 MCH 32.5 MCHC 34.2 RDW 13.2 Plt Count 184 MPV 9.7 Immature Gran % (Auto) 0.3 Neut % (Auto) 48.0 Lymph % (Auto) 34.2 [place] % (Auto) 11.7 H Eos % (Auto) 5.2 H Baso % (Auto) 0.6 Lymph # (Auto) 2.3 [place] # (Auto) 0.8 Eos # (Auto) 0.3 Baso # (Auto) 0.0 Abs Immat Gran (auto) 0.02 Absolute Neuts (auto) 3.2 Absolute Nucleated RBC 0.000 Nucleated RBC % (auto) 0.0 Sodium 142 Potassium 4.0 Chloride 111 H Carbon Dioxide 24 Anion Gap 11 L BUN 17 H Creatinine 0.91 Estim Creat Clear Calc TNP Estimated GFR > 60 Fasting Glucose 95 Estimat Average Glucose 103 Hemoglobin A1c % 5.2 Calcium 9.6 Total Bilirubin 0.6 Direct Bilirubin 0.2 AST 21 ALT 33 Alkaline Phosphatase 75 Total Protein 6.6 Albumin 4.1 Triglycerides 126 Cholesterol 214 LDL Cholesterol, Calc 146 HDL Cholesterol 43 Vitamin B12 366 Folate 14.2 TSH 1.78 Free T4 0.84 COVID-19 ([facility]) COVID-19 Clin Com 01/28/23 14:10 WBC RBC Hgb Hct MCV MCH MCHC RDW Plt Count MPV Immature Gran % (Auto) Neut % (Auto) Lymph % (Auto) [place] % (Auto) Eos % (Auto) Baso % (Auto) Lymph # (Auto) [place] # (Auto) Eos # (Auto) Baso # (Auto) Abs Immat Gran (auto) Absolute Neuts (auto) Absolute Nucleated RBC Nucleated RBC % (auto) Sodium Potassium Chloride Carbon Dioxide Anion Gap BUN Creatinine Estim Creat Clear Calc Estimated GFR Fasting Glucose Estimat Average Glucose Hemoglobin A1c % Calcium Total Bilirubin Direct Bilirubin AST ALT Alkaline Phosphatase Total Protein Albumin Triglycerides Cholesterol LDL Cholesterol, Calc HDL Cholesterol Vitamin B12 Folate TSH Free T4 COVID-19 ([facility]INDER) Negative COVID-19 Clin Com See Note Airway Mallampati Class: II TM Dist: >3cm Neck ROM: Full Heart: rrr Lungs: cta Assessment and Plan Assessment Anesthesia Assessment: Anesthesia Plan Discussed and Chart Reviewed Final Anesthetic Review Family History of Problems with Anesthesia: No History of Problems with Anesthesia: No NPO: Yes ASA Class: III Final Preanesthetic Review: No Changes in Pt Med Stat, Meds/Allgs Chart Reviewed and Consent Obtained/Reviewed Patient Risk: Intermediate Procedure Risk: Intermediate Anesthetic Plan Anesthetic Plan: GA Disposition: Standard PACU
--- NOTE | 2023-02-04 07:47 | MHC.SHP ---
Pre-Procedural Eval Section A Date of Service: 02/04/23 The patient is an INPATIENT: Yes Changes since office visit: Yes Changes in Medication and Yes Patient answered all questions; No Cold of Flu in the past 2 weeks and No New Medical Problems The History & Physical has been completed within 30 days and I have reviewed it.: Yes Section B Chief Complaint: Unspecified Bipolar D/O Allergies: Allergies Allergy/AdvReac Type Severity Reaction Status Date / Time lithium Allergy Rash Verified 02/02/23 07:00 Plan I have reviewed the history and physical and performed a pertinent physical examination on my patient. No changes have occurred unless specified. Time Spent With Patient Time: Total time managing care of this patient today ____ minutes.
--- NOTE | 2023-02-04 07:48 | HO.ECTPROC ---
ECT Procedure Note Diagnosis/Treatment Date of Service: 02/04/23 Diagnosis: Bipolar disorder Previous ECT Date: 02/02/23 Current Treatment Number: 2 Treatment: Series Interval Clinical Notes: pt tolerated 1st treatment no complaints of side effects change to 0.5 pulse width Time: Total time managing care of this patient today ____ minutes. ECT Settings Device: THYMATRON DGx Electrode Placement: Right Unilateral Program/Pulse Width: 0.25 Energy Percent: 100 Seizure Duration By EEG (in seconds): 76 Medications Administration General Anesthetic: Etomidate (16) Muscle Relaxant: Succinylcholine (120) Ancillary Medications Analgesics: Torodol - Pre ECT (30) Anti-emetics: Zofran - Pre ECT Miscillaneous Medications: Propofol (30), Midazolam and Other (lorazepam 1mg post for agitation) Airway Management Airway Management: LMA (post procedure) Treatment Recommendations Electrode Placement: Right Unilateral Program/Pulse Width: 0.50 Energy Percent: 100 Notes: Patient did much better with LMA and increased succinylcholine 220 mg recommendation from anesthesia is to give glycopyrrolate pretreatment Pt Tolerated Procedure w/o Issue: No
[2023-02-04] MEDS: Albuterol Sulfate (0.083%) 2.5 MG/3 ML VIAL.NEB INHALE (08:33)
[2023-02-04] MEDS: Nicotine 21 MG PATCH.TD24 TRANSDERMA (09:14)
[2023-02-04] MEDS: Sertraline HCL 50 MG TABLET 150 MG PO (09:14)
[2023-02-04] MEDS: SUMAtriptan succinate 100 MG TABLET PO (09:14)
[2023-02-04] MEDS: Omeprazole 20 MG CAPSULE.DR PO (09:14)
[2023-02-04] MEDS: Cyclobenzaprine HCl 10 MG TABLET PO ×3 (09:19→20:08)
[2023-02-04] MEDS: Ibuprofen 800 MG TABLET PO ×2 (09:21→18:57)
--- NOTE | 2023-02-04 10:09 | PC.NURSE ---
Late entry 0900: Pt brought up post ECT from PACU. Alert, oriented x3, denies headache on arrival, denies dizziness or any other symptom except for chronic lower back pain.
--- NOTE | 2023-02-04 14:37 | HO.PSYCHPN ---
Subjective Subjective Date of Service: 02/04/23 Reason For Visit: Unspecified Bipolar D/O Interim History: calm, cooperative. hopeful about ECT. had second treatment today, it went well. not feeling remarkably different in mood. reports he is not thinking about SI here because it is safe but he's sure if he were to be out on the street again he would be thinking it. he likens it to smoking... no cigs here, he's not even thinking about it. but once he's out and cigs are being sold around him, he's going to be very tempted. per staff, low anx/dep. visible. listening to music. pacing. poor sleep. attending groups. denies sleep issues on eves. brighter. TV in eves. denies SI/HI. Mental Status Exam Mental Status Exam Narrative: calm, cooperative. no PMA/PMR. nml rate, amount, loudness of speech. thoughts linear. affect constricted, normo-intense, non-labile. no SI. no HI/AVH expressed. Diagnostics Vital Signs (24Hr): Vital Signs - 24 hr 02/03/23 20:58 02/04/23 06:39 02/04/23 06:20 Temperature 97.3 F 98.4 F 96.4 F L Pulse Rate 70 75 90 Respiratory Rate 18 16 18 Blood Pressure 133/91 H 148/108 H 125/84 Pulse Oximetry 94 95 96 Oxygen Delivery Method Room Air Room Air Oxygen Flow Rate 02/04/23 06:05 02/04/23 08:18 02/04/23 08:23 Temperature 96.4 F L 98.2 F Pulse Rate 90 108 H 104 H Respiratory Rate 18 19 18 Blood Pressure 125/84 164/81 H 136/82 Pulse Oximetry 96 95 96 Oxygen Delivery Method Room Air Nasal Cannula Nasal Cannula Oxygen Flow Rate 2 2 02/04/23 08:28 02/04/23 08:33 02/04/23 08:48 Temperature 98.2 F Pulse Rate 97 92 96 Respiratory Rate 18 18 18 Blood Pressure 115/89 122/71 136/82 Pulse Oximetry 95 99 96 Oxygen Delivery Method Nasal Cannula Aerosol Mask Room Air Oxygen Flow Rate 2 4 02/04/23 08:34 02/04/23 09:00 Temperature 97.9 F Pulse Rate 92 92 Respiratory Rate 16 20 Blood Pressure 136/86 Pulse Oximetry 96 Oxygen Delivery Method Room Air Oxygen Flow Rate BMI result Body Mass Index 34.7 Labs 01/22/23 07:36 01/22/23 07:36 Imaging Radiology Impressions: ITS Impressions Head CT 01/27/23 14:07 IMPRESSION: No acute intracranial abnormality. Mild nonspecific hypoattenuation in the cerebral white matter. Medications Medications Current Medications Acetaminophen (Acetaminophen 325 Mg Tablet) 650 mg PO Q6H PRN PRN Reason: mild pain (1-3) Last Admin: 02/03/23 08:43 Dose: 650 mg Al Hydroxide/Mg Hydroxide (Magnesium Hydrox/Alum Hydrox 30 Ml Oral.Susp) 30 ml PO Q6H PRN PRN Reason: Heartburn/Nausea Albuterol Sulfate (Albuterol Sulfate 90 Mcg 8 Gm Inhaler) 2 puff INHALE Q4H PRN PRN Reason: dyspnea Last Admin: 02/03/23 21:05 Dose: 2 puff Cyclobenzaprine HCl (Cyclobenzaprine Hcl 10 Mg Tablet) 10 mg PO TID PRN PRN Reason: back pain Last Admin: 02/04/23 09:19 Dose: 10 mg Hydroxyzine HCl (Hydroxyzine Hcl 50 Mg Tablet) 50 mg PO Q6H PRN PRN Reason: anxiety Last Admin: 02/03/23 21:05 Dose: 50 mg Ibuprofen (Ibuprofen 800 Mg Tablet) 800 mg PO Q8H PRN PRN Reason: moderate pain (4-6) Last Admin: 02/04/23 09:21 Dose: 800 mg Lurasidone HCl (Lurasidone Hcl 20 Mg Tablet) 60 mg PO BEDTIME [facility] Last Admin: 02/03/23 21:04 Dose: 60 mg Magnesium Hydroxide (Milk Of Magnesia 30 Ml Oral.Susp) 30 ml PO DAILY PRN PRN Reason: Constipation Nicotine (Nicotine 21 Mg Patch.Td24) 21 mg TRANSDERMA DAILY [facility] Last Admin: 02/04/23 09:14 Dose: 21 mg Non-Formulary Medication (Jqajoteaoz-Lzjpmhbj-Bkpyfhpcfn [Breztri Aerosphere]) 2 puff INHALE BID [facility] Omeprazole (Omeprazole 20 Mg Capsule.Dr) 20 mg PO DAILY [facility] Last Admin: 02/04/23 09:14 Dose: 20 mg Quetiapine Fumarate (Quetiapine Fumarate 50 Mg Tablet) 150 mg PO BEDTIME [facility] Last Admin: 02/03/23 21:04 Dose: 150 mg Quetiapine Fumarate (Quetiapine Fumarate 25 Mg Tablet) 25 mg PO BID PRN PRN Reason: insomnia Last Admin: 02/03/23 21:04 Dose: 25 mg Sertraline HCl (Sertraline Hcl 50 Mg Tablet) 150 mg PO DAILY [facility] Last Admin: 02/04/23 09:14 Dose: 150 mg Sumatriptan Succinate (Sumatriptan Succinate 100 Mg Tablet) 100 mg PO DAILY PRN PRN Reason: Migraine Headache Last Admin: 02/04/23 09:14 Dose: 100 mg Trazodone HCl (Trazodone Hcl 50 Mg Tablet) 50 mg PO BEDTIME PRN PRN Reason: Insomnia Last Admin: 02/03/23 21:05 Dose: 50 mg Allergies Allergies Allergy/AdvReac Type Severity Reaction Status Date / Time lithium Allergy Rash Verified 02/02/23 07:00 Assessment & Plan Assessment & Plan (1) PTSD (post-traumatic stress disorder): Status: Acute Code(s): F43.10 - Post-traumatic stress disorder, unspecified (2) Bipolar 1 disorder, depressed, severe: Status: Acute Code(s): F31.4 - Bipolar disorder, current episode depressed, severe, without psychotic features (3) Alcohol use disorder: Status: Acute Code(s): F10.90 - Alcohol use, unspecified, uncomplicated (4) HTN (hypertension): Status: Acute Code(s): I10 - Essential (primary) hypertension (5) COPD (chronic obstructive pulmonary disease): Status: Acute Code(s): J44.9 - Chronic obstructive pulmonary disease, unspecified Plan per chidi ECT consult:? The patient has a history of severe bipolar depression complicated by alcohol use.? Given suicidality status post recent overdose family history of impulsive suicidality ECT would be a reasonable choice at this time indication bipolar depression not responding to multiple hospitalizations with a commitment to sobriety would consider Vivitrol and given patient's lack of response to Seroquel would strongly urge a trial of Latuda.? [place] would be significantly indicated in this situation however patient states he has had an allergic reaction the past an excellent medication for impulsive suicidality in the context of bipolar disorder.? Medical consult reviewed and EKG reviewed with Cardiology they did not feel need for cardiology consult at this time patient with no acute cardiac symptoms no chest pain risks benefits alternatives reviewed patient with seem to be good ECT candidate but will need close follow-up head CT scan reviewed no acute process no areas of encephalomalacia or subdural EKG reviewed case reviewed with hospitalist service Precis: 01/22: pt expressing lack of motivation for recovery and treatment, especially with medications.? he was educated re ECT for Tx refractory depression.? he is willing to receive further education on the subject and MD will discuss with him again tomorrow. build rapport, listen (pt identified h/o treaters' not listening to him as something which led to his disengagement). continue prior meds for now.? increase seroquel at HS per pt request for insomnia. ativan per [facility] for alcohol withdrawal. 01/23: pt reports he received ECT education and is mulling it over. asks for HS seroquel to be decreased to 250, which is done. asks for flexeril to be increased to 10 TID PRN, which is done. reports no change in mood or SI. 01/24: no change in mood or SI per pt.? however, he is making hopeful statements and was noted to have expressed an interest in therapy after discharge.? increase zoloft to 150 mg daily per pt request.? states ECT is not for him. 01/25 continue current treatment plan; patient still depressed with intermittent SI.? Again discussed ECT and patient says he is more open to considering it.? He will follow up with Dr. Ruff. 01/26: consults placed for chidi, hospitalist, and EKG in preparation for potential ECT.? otherwise continue current mgmt. 01/27: head CT ordered.? awaiting consults from hospitalist and ECT provider.? continue current mgmt. 01/28: cleared by medicine and chidi for ECT, to start tuesday.? stable presentation. 01/29/2023 Patient started on Latuda for bipolar depression.? ECT currently hold would certainly be a treatment option given patient's multiple recent psychiatric hospitalizations and significant suicide attempt would consider naltrexone/Vivitrol 01/30/2023 Continue Latuda monitor affects consideration of ECT patient does describe clear manic history would consider addiction consult with Vivitrol 01/31:? increase latuda to 40 mg and change to HS.? planning to taper seroquel, but insomnia continues, per report.? ECT approved, now planning for . 02/01:? decrease HS seroquel to 200 - pt states he slept well last night.? otherwise no change in regimen? ECT tomorrow. 02/02: ECT went well, no complaints. continue current mgmt. T/C increasing latuda and decreasing seroquel depending on how pt sleeps tonight. 02/03: feeling relatively well. increase HS latuda to 60 mg, decrease HS seroquel to 150 mg. ECT tomorrow. 02/04: ECT went well, no complaints. discussing aftercare plans - halfway, [facility] services. no change to plan. ECT tuesday. Reason for contiued inpatient stay Substantial Risk for: inability to function and rapid decompensation Time Spent With Patient Time: Total time managing care of this patient today __25__ minutes.
[2023-02-04] MEDS: Acetaminophen 325 MG TABLET 650 MG PO ×2 (15:53→22:31)
[2023-02-04] MEDS: QUEtiapine Fumarate 50 MG TABLET 150 MG PO (22:30)
[2023-02-04] MEDS: Lurasidone HCl 20 MG TABLET 60 MG PO (22:30)
[2023-02-04] MEDS: QUEtiapine Fumarate 25 MG TABLET PO (22:31)
[2023-02-04] MEDS: traZODone HCL 50 MG TABLET PO (22:31)
[2023-02-04] MEDS: hydrOXYzine HCL 50 MG TABLET PO (22:32)
[2023-02-04] MEDS: Albuterol Sulfate 90 MCG 8 GM INHALER 2 PUFF INHALE (22:33)
[2023-02-05 09:04] VITALS: BP 133/86; PULSE 74; RESP 18; TEMP 36.5; O2SAT 94
[2023-02-05] MEDS: Omeprazole 20 MG CAPSULE.DR PO (09:06)
[2023-02-05] MEDS: Sertraline HCL 50 MG TABLET 150 MG PO (09:06)
[2023-02-05] MEDS: Nicotine 21 MG PATCH.TD24 TRANSDERMA (09:06)
[2023-02-05] MEDS: Cyclobenzaprine HCl 10 MG TABLET PO ×3 (09:12→20:34)
[2023-02-05] MEDS: Ibuprofen 800 MG TABLET PO ×2 (09:13→20:33)
[2023-02-05] MEDS: Albuterol Sulfate 90 MCG 8 GM INHALER 2 PUFF INHALE (10:01)
--- NOTE | 2023-02-05 10:54 | HO.PSYCHPN ---
Subjective Subjective Date of Service: 02/05/23 Reason For Visit: Unspecified Bipolar D/O Subjective Notes: Conditional Voluntary Healthcare Proxy: No Guardianship: No Medical Problems Affecting Mental Status: No Interim History: Patient was seen and discussed in rounds today. Records and plans were reviewed. He talked about his ECT treatment, 2 so far. He denies any problems or side effects from. No SI. No AVH. Eating and sleeping adequately. No changes were made today Medication Compliance: Yes Side effects from medications: No Attending Groups: Yes Review of Systems Review of Systems Yes all other systems are reviewed and are negative Diagnostics Vital Signs (24Hr): Vital Signs - 24 hr 02/04/23 18:00 02/05/23 09:04 Temperature 97.1 F 97.7 F Pulse Rate 66 74 Respiratory Rate 18 18 Blood Pressure 131/82 133/86 Pulse Oximetry 99 94 Oxygen Delivery Method Room Air Room Air BMI result Body Mass Index 34.7 Labs 01/22/23 07:36 01/22/23 07:36 Imaging Radiology Impressions: ITS Impressions Head CT 01/27/23 14:07 IMPRESSION: No acute intracranial abnormality. Mild nonspecific hypoattenuation in the cerebral white matter. Medications Medications Current Medications Acetaminophen (Acetaminophen 325 Mg Tablet) 650 mg PO Q6H PRN PRN Reason: mild pain (1-3) Last Admin: 02/04/23 22:31 Dose: 650 mg Al Hydroxide/Mg Hydroxide (Magnesium Hydrox/Alum Hydrox 30 Ml Oral.Susp) 30 ml PO Q6H PRN PRN Reason: Heartburn/Nausea Albuterol Sulfate (Albuterol Sulfate 90 Mcg 8 Gm Inhaler) 2 puff INHALE Q4H PRN PRN Reason: dyspnea Last Admin: 02/05/23 10:01 Dose: 2 puff Cyclobenzaprine HCl (Cyclobenzaprine Hcl 10 Mg Tablet) 10 mg PO TID PRN PRN Reason: back pain Last Admin: 02/05/23 09:12 Dose: 10 mg Hydroxyzine HCl (Hydroxyzine Hcl 50 Mg Tablet) 50 mg PO Q6H PRN PRN Reason: anxiety Last Admin: 02/04/23 22:32 Dose: 50 mg Ibuprofen (Ibuprofen 800 Mg Tablet) 800 mg PO Q8H PRN PRN Reason: moderate pain (4-6) Last Admin: 02/05/23 09:13 Dose: 800 mg Lurasidone HCl (Lurasidone Hcl 20 Mg Tablet) 60 mg PO BEDTIME [facility] Last Admin: 02/04/23 22:30 Dose: 60 mg Magnesium Hydroxide (Milk Of Magnesia 30 Ml Oral.Susp) 30 ml PO DAILY PRN PRN Reason: Constipation Nicotine (Nicotine 21 Mg Patch.Td24) 21 mg TRANSDERMA DAILY [facility] Last Admin: 02/05/23 09:06 Dose: 21 mg Non-Formulary Medication (Vgbhmeepbe-Tuhtyywo-Xftxpczmxc [Breztri Aerosphere]) 2 puff INHALE BID [facility] Omeprazole (Omeprazole 20 Mg Capsule.Dr) 20 mg PO DAILY [facility] Last Admin: 02/05/23 09:06 Dose: 20 mg Quetiapine Fumarate (Quetiapine Fumarate 50 Mg Tablet) 150 mg PO BEDTIME [facility] Last Admin: 02/04/23 22:30 Dose: 150 mg Quetiapine Fumarate (Quetiapine Fumarate 25 Mg Tablet) 25 mg PO BID PRN PRN Reason: insomnia Last Admin: 02/04/23 22:31 Dose: 25 mg Sertraline HCl (Sertraline Hcl 50 Mg Tablet) 150 mg PO DAILY [facility] Last Admin: 02/05/23 09:06 Dose: 150 mg Sumatriptan Succinate (Sumatriptan Succinate 100 Mg Tablet) 100 mg PO DAILY PRN PRN Reason: Migraine Headache Last Admin: 02/04/23 09:14 Dose: 100 mg Trazodone HCl (Trazodone Hcl 50 Mg Tablet) 50 mg PO BEDTIME PRN PRN Reason: Insomnia Last Admin: 02/04/23 22:31 Dose: 50 mg Allergies Allergies Allergy/AdvReac Type Severity Reaction Status Date / Time lithium Allergy Rash Verified 02/02/23 07:00 Assessment & Plan Assessment & Plan (1) PTSD (post-traumatic stress disorder): Status: Acute Code(s): F43.10 - Post-traumatic stress disorder, unspecified (2) Bipolar 1 disorder, depressed, severe: Status: Acute Code(s): F31.4 - Bipolar disorder, current episode depressed, severe, without psychotic features (3) Alcohol use disorder: Status: Acute Code(s): F10.90 - Alcohol use, unspecified, uncomplicated (4) HTN (hypertension): Status: Acute Code(s): I10 - Essential (primary) hypertension (5) COPD (chronic obstructive pulmonary disease): Status: Acute Code(s): J44.9 - Chronic obstructive pulmonary disease, unspecified Plan per chidi ECT consult:? The patient has a history of severe bipolar depression complicated by alcohol use.? Given suicidality status post recent overdose family history of impulsive suicidality ECT would be a reasonable choice at this time indication bipolar depression not responding to multiple hospitalizations with a commitment to sobriety would consider Vivitrol and given patient's lack of response to Seroquel would strongly urge a trial of Latuda.? [place] would be significantly indicated in this situation however patient states he has had an allergic reaction the past an excellent medication for impulsive suicidality in the context of bipolar disorder.? Medical consult reviewed and EKG reviewed with Cardiology they did not feel need for cardiology consult at this time patient with no acute cardiac symptoms no chest pain risks benefits alternatives reviewed patient with seem to be good ECT candidate but will need close follow-up head CT scan reviewed no acute process no areas of encephalomalacia or subdural EKG reviewed case reviewed with hospitalist service Precis: 01/22: pt expressing lack of motivation for recovery and treatment, especially with medications.? he was educated re ECT for Tx refractory depression.? he is willing to receive further education on the subject and MD will discuss with him again tomorrow. build rapport, listen (pt identified h/o treaters' not listening to him as something which led to his disengagement). continue prior meds for now.? increase seroquel at HS per pt request for insomnia. ativan per [facility] for alcohol withdrawal. 01/23: pt reports he received ECT education and is mulling it over. asks for HS seroquel to be decreased to 250, which is done. asks for flexeril to be increased to 10 TID PRN, which is done. reports no change in mood or SI. 01/24: no change in mood or SI per pt.? however, he is making hopeful statements and was noted to have expressed an interest in therapy after discharge.? increase zoloft to 150 mg daily per pt request.? states ECT is not for him. 01/25 continue current treatment plan; patient still depressed with intermittent SI.? Again discussed ECT and patient says he is more open to considering it.? He will follow up with Dr. Ruff. 01/26: consults placed for chidi, hospitalist, and EKG in preparation for potential ECT.? otherwise continue current mgmt. 01/27: head CT ordered.? awaiting consults from hospitalist and ECT provider.? continue current mgmt. 01/28: cleared by medicine and chidi for ECT, to start tuesday.? stable presentation. 01/29/2023 Patient started on Latuda for bipolar depression.? ECT currently hold would certainly be a treatment option given patient's multiple recent psychiatric hospitalizations and significant suicide attempt would consider naltrexone/Vivitrol 01/30/2023 Continue Latuda monitor affects consideration of ECT patient does describe clear manic history would consider addiction consult with Vivitrol 01/31:? increase latuda to 40 mg and change to HS.? planning to taper seroquel, but insomnia continues, per report.? ECT approved, now planning for . 02/01:? decrease HS seroquel to 200 - pt states he slept well last night.? otherwise no change in regimen? ECT tomorrow. 02/02: ECT went well, no complaints. continue current mgmt. T/C increasing latuda and decreasing seroquel depending on how pt sleeps tonight. 02/03: feeling relatively well. increase HS latuda to 60 mg, decrease HS seroquel to 150 mg. ECT tomorrow. 02/04: ECT went well, no complaints. discussing aftercare plans - assisted, H services. no change to plan. ECT tuesday. 02/05: Continue current regimen and plans. Continue ECT Patient educated on: ECT Reason for contiued inpatient stay Substantial Risk for: med/psych decompensation Time Spent With Patient Time: Total time managing care of this patient today ____ minutes.
[2023-02-05] MEDS: Acetaminophen 325 MG TABLET 650 MG PO (15:12)
[2023-02-05 20:19] VITALS: BP 138/92; PULSE 81; RESP 16; TEMP 36.6; O2SAT 97
[2023-02-05] MEDS: QUEtiapine Fumarate 50 MG TABLET 150 MG PO (20:32)
[2023-02-05] MEDS: Lurasidone HCl 20 MG TABLET 60 MG PO (20:33)
[2023-02-05] MEDS: QUEtiapine Fumarate 25 MG TABLET PO (20:34)
[2023-02-05] MEDS: hydrOXYzine HCL 50 MG TABLET PO (20:34)
[2023-02-05] MEDS: traZODone HCL 50 MG TABLET PO (20:34)
[2023-02-06 09:16] VITALS: BP 124/90; PULSE 90; RESP 20; TEMP 36.2; O2SAT 95
[2023-02-06] MEDS: Ibuprofen 800 MG TABLET PO ×2 (09:17→21:13)
[2023-02-06] MEDS: Cyclobenzaprine HCl 10 MG TABLET PO ×2 (09:17→15:38)
[2023-02-06] MEDS: Omeprazole 20 MG CAPSULE.DR PO (09:17)
[2023-02-06] MEDS: Sertraline HCL 50 MG TABLET 150 MG PO (09:17)
[2023-02-06] MEDS: Albuterol Sulfate 90 MCG 8 GM INHALER 2 PUFF INHALE ×2 (09:21→21:07)
[2023-02-06] MEDS: Nicotine 21 MG PATCH.TD24 TRANSDERMA (09:22)
--- NOTE | 2023-02-06 09:49 | HO.PSYCHPN ---
Subjective Subjective Date of Service: 02/06/23 Reason For Visit: Unspecified Bipolar D/O Subjective Notes: Conditional Voluntary Healthcare Proxy: No Guardianship: No Medical Problems Affecting Mental Status: No Interim History: Patient was seen and discussed in rounds today. Records and plans were reviewed. He has been stable and doing better. He feels the improvement and feels the ECT is helping. He continues to have anxiety of 5 and depression of 9/10. He is motivated and is hopeful about further treatment. No complaints or side effects. Eating and sleeping adequately. No changes were made today Medication Compliance: Yes Side effects from medications: No Attending Groups: Yes Review of Systems Review of Systems Yes all other systems are reviewed and are negative Diagnostics Vital Signs (24Hr): Vital Signs - 24 hr 02/05/23 09:04 02/05/23 20:19 02/06/23 09:16 Temperature 97.7 F 98 F 97.2 F Pulse Rate 74 81 90 Respiratory Rate 18 16 20 Blood Pressure 133/86 138/92 H 124/90 H Pulse Oximetry 94 97 95 Oxygen Delivery Method Room Air Room Air Room Air BMI result Body Mass Index 34.7 Labs 01/22/23 07:36 01/22/23 07:36 Imaging Radiology Impressions: ITS Impressions Head CT 01/27/23 14:07 IMPRESSION: No acute intracranial abnormality. Mild nonspecific hypoattenuation in the cerebral white matter. Medications Medications Current Medications Acetaminophen (Acetaminophen 325 Mg Tablet) 650 mg PO Q6H PRN PRN Reason: mild pain (1-3) Last Admin: 02/05/23 15:12 Dose: 650 mg Al Hydroxide/Mg Hydroxide (Magnesium Hydrox/Alum Hydrox 30 Ml Oral.Susp) 30 ml PO Q6H PRN PRN Reason: Heartburn/Nausea Albuterol Sulfate (Albuterol Sulfate 90 Mcg 8 Gm Inhaler) 2 puff INHALE Q4H PRN PRN Reason: dyspnea Last Admin: 02/06/23 09:21 Dose: 2 puff Cyclobenzaprine HCl (Cyclobenzaprine Hcl 10 Mg Tablet) 10 mg PO TID PRN PRN Reason: back pain Last Admin: 02/06/23 09:17 Dose: 10 mg Hydroxyzine HCl (Hydroxyzine Hcl 50 Mg Tablet) 50 mg PO Q6H PRN PRN Reason: anxiety Last Admin: 02/05/23 20:34 Dose: 50 mg Ibuprofen (Ibuprofen 800 Mg Tablet) 800 mg PO Q8H PRN PRN Reason: moderate pain (4-6) Last Admin: 02/06/23 09:17 Dose: 800 mg Lurasidone HCl (Lurasidone Hcl 20 Mg Tablet) 60 mg PO BEDTIME [facility] Last Admin: 02/05/23 20:33 Dose: 60 mg Magnesium Hydroxide (Milk Of Magnesia 30 Ml Oral.Susp) 30 ml PO DAILY PRN PRN Reason: Constipation Nicotine (Nicotine 21 Mg Patch.Td24) 21 mg TRANSDERMA DAILY [facility] Last Admin: 02/06/23 09:22 Dose: 21 mg Non-Formulary Medication (Slrnfebocz-Ishgpdsh-Uhegyxkdix [Breztri Aerosphere]) 2 puff INHALE BID [facility] Omeprazole (Omeprazole 20 Mg Capsule.Dr) 20 mg PO DAILY [facility] Last Admin: 02/06/23 09:17 Dose: 20 mg Quetiapine Fumarate (Quetiapine Fumarate 50 Mg Tablet) 150 mg PO BEDTIME [facility] Last Admin: 02/05/23 20:32 Dose: 150 mg Quetiapine Fumarate (Quetiapine Fumarate 25 Mg Tablet) 25 mg PO BID PRN PRN Reason: insomnia Last Admin: 02/05/23 20:34 Dose: 25 mg Sertraline HCl (Sertraline Hcl 50 Mg Tablet) 150 mg PO DAILY [facility] Last Admin: 02/06/23 09:17 Dose: 150 mg Sumatriptan Succinate (Sumatriptan Succinate 100 Mg Tablet) 100 mg PO DAILY PRN PRN Reason: Migraine Headache Last Admin: 02/04/23 09:14 Dose: 100 mg Trazodone HCl (Trazodone Hcl 50 Mg Tablet) 50 mg PO BEDTIME PRN PRN Reason: Insomnia Last Admin: 02/05/23 20:34 Dose: 50 mg Allergies Allergies Allergy/AdvReac Type Severity Reaction Status Date / Time lithium Allergy Rash Verified 02/02/23 07:00 Assessment & Plan Assessment & Plan (1) PTSD (post-traumatic stress disorder): Status: Acute Code(s): F43.10 - Post-traumatic stress disorder, unspecified (2) Bipolar 1 disorder, depressed, severe: Status: Acute Code(s): F31.4 - Bipolar disorder, current episode depressed, severe, without psychotic features (3) Alcohol use disorder: Status: Acute Code(s): F10.90 - Alcohol use, unspecified, uncomplicated (4) HTN (hypertension): Status: Acute Code(s): I10 - Essential (primary) hypertension (5) COPD (chronic obstructive pulmonary disease): Status: Acute Code(s): J44.9 - Chronic obstructive pulmonary disease, unspecified Plan per chidi ECT consult:? The patient has a history of severe bipolar depression complicated by alcohol use.? Given suicidality status post recent overdose family history of impulsive suicidality ECT would be a reasonable choice at this time indication bipolar depression not responding to multiple hospitalizations with a commitment to sobriety would consider Vivitrol and given patient's lack of response to Seroquel would strongly urge a trial of Latuda.? [place] would be significantly indicated in this situation however patient states he has had an allergic reaction the past an excellent medication for impulsive suicidality in the context of bipolar disorder.? Medical consult reviewed and EKG reviewed with Cardiology they did not feel need for cardiology consult at this time patient with no acute cardiac symptoms no chest pain risks benefits alternatives reviewed patient with seem to be good ECT candidate but will need close follow-up head CT scan reviewed no acute process no areas of encephalomalacia or subdural EKG reviewed case reviewed with hospitalist service Precis: 01/22: pt expressing lack of motivation for recovery and treatment, especially with medications.? he was educated re ECT for Tx refractory depression.? he is willing to receive further education on the subject and MD will discuss with him again tomorrow. build rapport, listen (pt identified h/o treaters' not listening to him as something which led to his disengagement). continue prior meds for now.? increase seroquel at HS per pt request for insomnia. ativan per [facility] for alcohol withdrawal. 01/23: pt reports he received ECT education and is mulling it over. asks for HS seroquel to be decreased to 250, which is done. asks for flexeril to be increased to 10 TID PRN, which is done. reports no change in mood or SI. 01/24: no change in mood or SI per pt.? however, he is making hopeful statements and was noted to have expressed an interest in therapy after discharge.? increase zoloft to 150 mg daily per pt request.? states ECT is not for him. 01/25 continue current treatment plan; patient still depressed with intermittent SI.? Again discussed ECT and patient says he is more open to considering it.? He will follow up with Dr. Ruff. 01/26: consults placed for chidi, hospitalist, and EKG in preparation for potential ECT.? otherwise continue current mgmt. 01/27: head CT ordered.? awaiting consults from hospitalist and ECT provider.? continue current mgmt. 01/28: cleared by medicine and chidi for ECT, to start tuesday.? stable presentation. 01/29/2023 Patient started on Latuda for bipolar depression.? ECT currently hold would certainly be a treatment option given patient's multiple recent psychiatric hospitalizations and significant suicide attempt would consider naltrexone/Vivitrol 01/30/2023 Continue Latuda monitor affects consideration of ECT patient does describe clear manic history would consider addiction consult with Vivitrol 01/31:? increase latuda to 40 mg and change to HS.? planning to taper seroquel, but insomnia continues, per report.? ECT approved, now planning for . 02/01:? decrease HS seroquel to 200 - pt states he slept well last night.? otherwise no change in regimen? ECT tomorrow. 02/02: ECT went well, no complaints. continue current mgmt. T/C increasing latuda and decreasing seroquel depending on how pt sleeps tonight. 02/03: feeling relatively well. increase HS latuda to 60 mg, decrease HS seroquel to 150 mg. ECT tomorrow. 02/04: ECT went well, no complaints. discussing [facility]care plans [facility], H services. no change to plan. ECT tuesday. 02/05: Continue current regimen and plans. Continue ECT Reason for contiued inpatient stay Substantial Risk for: med/psych decompensation Time Spent With Patient Time: Total time managing care of this patient today ____ minutes.
[2023-02-06] MEDS: Acetaminophen 325 MG TABLET 650 MG PO (15:38)
[2023-02-06 20:30] VITALS: BP 142/94; PULSE 68; RESP 18; TEMP 36.4; O2SAT 95
[2023-02-06] MEDS: Lurasidone HCl 20 MG TABLET 60 MG PO (21:08)
[2023-02-06] MEDS: QUEtiapine Fumarate 25 MG TABLET PO (21:08)
[2023-02-06] MEDS: hydrOXYzine HCL 50 MG TABLET PO (21:08)
[2023-02-06] MEDS: QUEtiapine Fumarate 50 MG TABLET 150 MG PO (21:08)
[2023-02-06] MEDS: traZODone HCL 50 MG TABLET PO (21:08)
[2023-02-07] VITALS (10 sets, daily range): BP systolic 130–159; BP diastolic 80–96; PULSE 0–108; RESP 14–19; TEMP 35.8–36.9; O2SAT 93–97
--- NOTE | 2023-02-07 06:58 | HO.ANESPROP2 ---
[facility] Active Problems Active Problems: All Active Problems (Updated 01/28/23 @ 13:44 by Archie Dillard MD) Bipolar 1 disorder, depressed, severe (Acute) Pre-op evaluation (Acute) TBI (traumatic brain injury) (Acute) Alcohol use disorder (Acute) PTSD (post-traumatic stress disorder) (Acute) Routine history and physical examination of adult (Acute) COPD (chronic obstructive pulmonary disease) (Acute) HTN (hypertension) (Acute) Past Medical History Medical History Alcohol use disorder TBI (traumatic brain injury) Family History Family history of problems with anesthesia: No Surgical History History of Problems with Anesthesia: No Social History Social History Household Members: None Housing: Homeless Do you presently have visiting nurse or other home services: No Patient Tobacco Use Status: Current everyday Tobacco user Tobacco use type: Cigarette Cigarette Packs Per Day: 1.5 Cigarettes Per Day: 30.0 Smoked in Last 30 Days: Yes Patient Interested in Nicotine Replacement: Yes Patient Given Instructions on How to Stop Smoking: No Second Hand Smoke Exposure: No Use of substances other than those prescribed or required for medical reasons: Yes Substance Use Type: Crack/Cocaine and Marijuana Substance Use Frequency: Occasionally Last Used Substance: Days (ago) Last Used Substance Other:: 7 days Currently Displaying Signs/Symptoms of Drug Intoxication Withdrawal: No Any prior treatment program specific to substance use: No Have you been hit, kicked, punched, or otherwise hurt by someone within the past year? If so, by whom?: No Do you feel safe in your current relationship?: No Current Relationship Is there a partner from a previous relationship who is making you feel unsafe now?: No Are you made to feel afraid or neglected: No Spiritual Healthcare Practices: Pt denies [facility] Healthcare Practices: Pt denies Cultural Healthcare Practices: Pt denies Advance Directives: No Advance Directives Information Provided: No Do you have thoughts of harming others: None Do you have a plan to hurt others: No Plan Recently lost weight without trying: No How much weight loss: Not applicable Eating poorly because of decreased appetite: No Nutrition screen score: 0 Nutrition Risks: No Nutritional Risk Poor oral hygiene: No service: Yes Sexual orientation: Straight/Heterosexual Meds Allergies Allergy/AdvReac Type Severity Reaction Status Date / Time lithium Allergy Rash Verified 02/02/23 07:00 Active Medications: Current Medications Acetaminophen (Acetaminophen 325 Mg Tablet) 650 mg PO Q6H PRN PRN Reason: mild pain (1-3) Last Admin: 02/06/23 15:38 Dose: 650 mg Al Hydroxide/Mg Hydroxide (Magnesium Hydrox/Alum Hydrox 30 Ml Oral.Susp) 30 ml PO Q6H PRN PRN Reason: Heartburn/Nausea Albuterol Sulfate (Albuterol Sulfate 90 Mcg 8 Gm Inhaler) 2 puff INHALE Q4H PRN PRN Reason: dyspnea Last Admin: 02/06/23 21:07 Dose: 2 puff Cyclobenzaprine HCl (Cyclobenzaprine Hcl 10 Mg Tablet) 10 mg PO TID PRN PRN Reason: back pain Last Admin: 02/06/23 15:38 Dose: 10 mg Hydroxyzine HCl (Hydroxyzine Hcl 50 Mg Tablet) 50 mg PO Q6H PRN PRN Reason: anxiety Last Admin: 02/06/23 21:08 Dose: 50 mg Lactated Ringer's (Lr) 1,000 mls @ 50 mls/hr IVCONT .Q20H SHREYA Ibuprofen (Ibuprofen 800 Mg Tablet) 800 mg PO Q8H PRN PRN Reason: moderate pain (4-6) Last Admin: 02/06/23 21:13 Dose: 800 mg Lurasidone HCl (Lurasidone Hcl 20 Mg Tablet) 60 mg PO BEDTIME [facility] Last Admin: 02/06/23 21:08 Dose: 60 mg Magnesium Hydroxide (Milk Of Magnesia 30 Ml Oral.Susp) 30 ml PO DAILY PRN PRN Reason: Constipation Nicotine (Nicotine 21 Mg Patch.Td24) 21 mg TRANSDERMA DAILY [facility] Last Admin: 02/06/23 09:22 Dose: 21 mg Non-Formulary Medication (Xwdfzedsst-Bgdlwswf-Gnznipehux [Breztri Aerosphere]) 2 puff INHALE BID [facility] Omeprazole (Omeprazole 20 Mg Capsule.Dr) 20 mg PO DAILY [facility] Last Admin: 02/06/23 09:17 Dose: 20 mg Quetiapine Fumarate (Quetiapine Fumarate 50 Mg Tablet) 150 mg PO BEDTIME [facility] Last Admin: 02/06/23 21:08 Dose: 150 mg Quetiapine Fumarate (Quetiapine Fumarate 25 Mg Tablet) 25 mg PO BID PRN PRN Reason: insomnia Last Admin: 02/06/23 21:08 Dose: 25 mg Sertraline HCl (Sertraline Hcl 50 Mg Tablet) 150 mg PO DAILY SHREYA Last Admin: 02/06/23 09:17 Dose: 150 mg Sumatriptan Succinate (Sumatriptan Succinate 100 Mg Tablet) 100 mg PO DAILY PRN PRN Reason: Migraine Headache Last Admin: 02/04/23 09:14 Dose: 100 mg Trazodone HCl (Trazodone Hcl 50 Mg Tablet) 50 mg PO BEDTIME PRN PRN Reason: Insomnia Last Admin: 02/06/23 21:08 Dose: 50 mg Home Medications Medication Instructions Recorded Confirmed Last Taken Type albuterol sulfate 90 mcg/actuation 2 puff inhalation Q4H PRN dyspnea 01/21/23 01/21/23 Unknown History aerosol inhaler (Ventolin HFA) aripiprazole 10 mg tablet 1 tab PO BEDTIME 01/21/23 01/21/23 Unknown History budesonide 160 mcg-glycopyr 9 2 puff inhalation BID 01/21/23 01/21/23 Unknown History mcg-formot 4.8 mcg/actuation HFA inhaler (Breztri Aerosphere) hydroxyzine pamoate 50 mg capsule 1 cap PO Q6H PRN anxiety 01/21/23 01/21/23 Unknown History ibuprofen 800 mg tablet 1 tab PO TID PRN pain 01/21/23 01/21/23 Unknown History omeprazole 20 mg capsule,delayed 1 cap PO QAM 01/21/23 01/21/23 Unknown History release quetiapine 200 mg tablet 1 tab PO BEDTIME 01/21/23 01/21/23 Unknown History quetiapine 25 mg tablet 1 tab PO BID PRN insomnia 01/21/23 01/21/23 Unknown History sertraline 100 mg tablet 1 tab PO DAILY 01/21/23 01/21/23 Unknown History trazodone 50 mg tablet 1 tab PO BEDTIME insomnia 01/21/23 01/21/23 Unknown History Exam Exam Date and Time: February 07, 2023 0658 Height,Weight and Vital Signs: Height 5 ft 10 in Weight 109.86 kg Last Vital Signs Temp 97.2 F 02/07/23 06:20 Pulse 92 02/07/23 06:20 Resp 18 02/07/23 06:20 BP 133/94 H 02/07/23 06:20 Pulse Ox 94 02/07/23 06:20 O2 Del Method 02/07/23 06:20 O2 Flow Rate 4 02/04/23 08:33 Pertinent Lab Results Pertinent Lab Results: Laboratory Tests 01/22/23 01/22/23 01/22/23 07:36 07:36 07:36 WBC 6.6 RBC 4.74 Hgb 15.4 Hct 45.0 MCV 94.9 MCH 32.5 MCHC 34.2 RDW 13.2 Plt Count 184 MPV 9.7 Immature Gran % (Auto) 0.3 Neut % (Auto) 48.0 Lymph % (Auto) 34.2 Mcmullen % (Auto) 11.7 H Eos % (Auto) 5.2 H Baso % (Auto) 0.6 Lymph # (Auto) 2.3 Mcmullen # (Auto) 0.8 Eos # (Auto) 0.3 Baso # (Auto) 0.0 Abs Immat Gran (auto) 0.02 Absolute Neuts (auto) 3.2 Absolute Nucleated RBC 0.000 Nucleated RBC % (auto) 0.0 Sodium 142 Potassium 4.0 Chloride 111 H Carbon Dioxide 24 Anion Gap 11 L BUN 17 H Creatinine 0.91 Estim Creat Clear Calc TNP Estimated GFR > 60 Fasting Glucose 95 Estimat Average Glucose 103 Hemoglobin A1c % 5.2 Calcium 9.6 Total Bilirubin 0.6 Direct Bilirubin 0.2 AST 21 ALT 33 Alkaline Phosphatase 75 Total Protein 6.6 Albumin 4.1 Triglycerides 126 Cholesterol 214 LDL Cholesterol, Calc 146 HDL Cholesterol 43 Vitamin B12 366 Folate 14.2 TSH 1.78 Free T4 0.84 COVID-19 ([facility]INDER) COVID-19 Clin Com 01/28/23 14:10 WBC RBC Hgb Hct MCV MCH MCHC RDW Plt Count MPV Immature Gran % (Auto) Neut % (Auto) Lymph % (Auto) Mcmullen % (Auto) Eos % (Auto) Baso % (Auto) Lymph # (Auto) Mcmullen # (Auto) Eos # (Auto) Baso # (Auto) Abs Immat Gran (auto) Absolute Neuts (auto) Absolute Nucleated RBC Nucleated RBC % (auto) Sodium Potassium Chloride Carbon Dioxide Anion Gap BUN Creatinine Estim Creat Clear Calc Estimated GFR Fasting Glucose Estimat Average Glucose Hemoglobin A1c % Calcium Total Bilirubin Direct Bilirubin AST ALT Alkaline Phosphatase Total Protein Albumin Triglycerides Cholesterol LDL Cholesterol, Calc HDL Cholesterol Vitamin B12 Folate TSH Free T4 COVID-19 (NARINDER) Negative COVID-19 Clin Com See Note Airway Mallampati Class: II TM Dist: >3cm Neck ROM: Full Heart: rrr Lungs: cta Assessment and Plan Assessment Anesthesia Assessment: Anesthesia Plan Discussed and Chart Reviewed Final Anesthetic Review Family History of Problems with Anesthesia: No History of Problems with Anesthesia: No NPO: Yes ASA Class: III Final Preanesthetic Review: No Changes in Pt Med Stat, Meds/Allgs Chart Reviewed and Consent Obtained/Reviewed Patient Risk: Intermediate Procedure Risk: Intermediate Anesthetic Plan Anesthetic Plan: GA Disposition: Standard PACU
--- NOTE | 2023-02-07 07:17 | MHC.SHP ---
Pre-Procedural Eval Section A Date of Service: 02/07/23 Changes since office visit: Yes Changes in Medication and Yes Patient answered all questions; No Cold of Flu in the past 2 weeks and No New Medical Problems The History & Physical has been completed within 30 days and I have reviewed it.: Yes Section B Chief Complaint: Unspecified Bipolar D/O Allergies: Allergies Allergy/AdvReac Type Severity Reaction Status Date / Time lithium Allergy Rash Verified 02/02/23 07:00 Plan I have reviewed the history and physical and performed a pertinent physical examination on my patient. No changes have occurred unless specified. Time Spent With Patient Time: Total time managing care of this patient today ____ minutes.
--- NOTE | 2023-02-07 07:49 | HO.ECTPROC ---
ECT Procedure Note Diagnosis/Treatment Date of Service: 02/07/23 Diagnosis: Bipolar disorder Previous ECT Date: 02/04/23 Current Treatment Number: 3 Treatment: Series Interval Clinical Notes: pt perhaps feeling somewhat better no gross cognitive side effects Time: Total time managing care of this patient today ____ minutes. ECT Settings Device: THYMATRON DGx Electrode Placement: Right Unilateral Program/Pulse Width: 0.25 Energy Percent: 100 Seizure Duration By EEG (in seconds): 78 Medications Administration General Anesthetic: Etomidate (16) Muscle Relaxant: Succinylcholine (120) Ancillary Medications Cardiovascular Medications: Glycopyrrolate (0.2 pre tx ) Miscillaneous Medications: Midazolam (2 mg) and Albuterol (had duoneb pre tx ) Airway Management Airway Management: LMA Treatment Recommendations No Changes Recommended: No change Notes: did better with glyco pre tx versed 2 mg post tx Pt Tolerated Procedure w/o Issue: Yes
[2023-02-07] MEDS: Nicotine 21 MG PATCH.TD24 TRANSDERMA (08:57)
[2023-02-07] MEDS: Albuterol Sulfate 90 MCG 8 GM INHALER 2 PUFF INHALE ×2 (08:58→22:13)
[2023-02-07] MEDS: Sertraline HCL 50 MG TABLET 150 MG PO (08:58)
[2023-02-07] MEDS: Ibuprofen 800 MG TABLET PO ×2 (08:59→22:14)
[2023-02-07] MEDS: Cyclobenzaprine HCl 10 MG TABLET PO ×3 (08:59→22:14)
[2023-02-07] MEDS: Omeprazole 20 MG CAPSULE.DR PO (08:59)
--- NOTE | 2023-02-07 14:51 | P.PNPSI_ITS ---
Subjective Subjective Date of Service: 02/07/23 Reason For Visit: Unspecified Bipolar D/O Interim History: calm, cooperative. ECT this morning went well. states he has been sleeping poorly, feeling OK but a bit tired today. sleeping about 4.5 hours, then up the rest of the night. amenable to increase trazodone to 150 mg QHS. per staff calm, pleasant. walking for exercise, listening to music. denies Sx. ECT this morning. restlessness last NOC. mtg with [facility] Mental Status Exam Mental Status Exam Narrative: calm, cooperative. no PMA/PMR. nml rate, amount, loudness of speech. thoughts linear. affect constricted, normo-intense, non-labile. no SI. no HI/AVH expre ssed. Diagnostics Vital Signs (24Hr): Vital Signs - 24 hr 02/06/23 20:30 02/07/23 06:05 02/07/23 06:11 Temperature 97.6 F 96.4 F L 96.4 F L Pulse Rate 68 88 88 Respiratory Rate 18 18 18 Blood Pressure 142/94 H 137/90 H 137/90 H Pulse Oximetry 95 94 94 Oxygen Delivery Method Room Air Room Air Oxygen Flow Rate 02/07/23 06:20 02/07/23 07:51 02/07/23 07:56 Temperature 97.2 F 97.5 F Pulse Rate 92 108 H 91 Respiratory Rate 18 16 18 Blood Pressure 133/94 H 140/96 H 142/90 H Pulse Oximetry 94 96 94 Oxygen Delivery Method Room Air Nasal Cannula Nasal Cannula Oxygen Flow Rate 2 2 02/07/23 08:01 02/07/23 08:06 02/07/23 08:21 Temperature 98.5 F Pulse Rate 91 0 L 89 Respiratory Rate 17 19 14 Blood Pressure 138/95 H 136/91 H 130/90 H Pulse Oximetry 95 93 97 Oxygen Delivery Method Nasal Cannula Room Air Room Air Oxygen Flow Rate 2 02/07/23 09:44 02/07/23 09:44 Temperature 98.1 F 98.1 F Pulse Rate 88 88 Respiratory Rate 18 18 Blood Pressure 149/80 H 149/80 H Pulse Oximetry 95 95 Oxygen Delivery Method Room Air Oxygen Flow Rate BMI result Body Mass Index 34.7 Labs 01/22/23 07:36 01/22/23 07:36 Imaging Radiology Impressions: ITS Impressions Head CT 01/27/23 14:07 IMPRESSION: No acute intracranial abnormality. Mild nonspecific hypoattenuation in the cerebral white matter. Medications Medications Current Medications Acetaminophen (Acetaminophen 325 Mg Tablet) 650 mg PO Q6H PRN PRN Reason: mild pain (1-3) Last Admin: 02/06/23 15:38 Dose: 650 mg Al Hydroxide/Mg Hydroxide (Magnesium Hydrox/Alum Hydrox 30 Ml Oral.Susp) 30 ml PO Q6H PRN PRN Reason: Heartburn/Nausea Albuterol Sulfate (Albuterol Sulfate 90 Mcg 8 Gm Inhaler) 2 puff INHALE Q4H PRN PRN Reason: dyspnea Last Admin: 02/07/23 08:58 Dose: 2 puff Cyclobenzaprine HCl (Cyclobenzaprine Hcl 10 Mg Tablet) 10 mg PO TID PRN PRN Reason: back pain Last Admin: 02/07/23 08:59 Dose: 10 mg Hydroxyzine HCl (Hydroxyzine Hcl 50 Mg Tablet) 50 mg PO Q6H PRN PRN Reason: anxiety Last Admin: 02/06/23 21:08 Dose: 50 mg Ibuprofen (Ibuprofen 800 Mg Tablet) 800 mg PO Q8H PRN PRN Reason: moderate pain (4-6) Last Admin: 02/07/23 08:59 Dose: 800 mg Lurasidone HCl (Lurasidone Hcl 20 Mg Tablet) 60 mg PO BEDTIME [facility] Last Admin: 02/06/23 21:08 Dose: 60 mg Magnesium Hydroxide (Milk Of Magnesia 30 Ml Oral.Susp) 30 ml PO DAILY PRN PRN Reason: Constipation Nicotine (Nicotine 21 Mg Patch.Td24) 21 mg TRANSDERMA DAILY [facility] Last Admin: 02/07/23 08:57 Dose: 21 mg Non-Formulary Medication (Qdhforycuy-Xyumzivw-Qkzrparyvn [Breztri Aerosphere]) 2 puff INHALE BID [facility] Omeprazole (Omeprazole 20 Mg Capsule.Dr) 20 mg PO DAILY [facility] Last Admin: 02/07/23 08:59 Dose: 20 mg Quetiapine Fumarate (Quetiapine Fumarate 50 Mg Tablet) 150 mg PO BEDTIME [facility] Last Admin: 02/06/23 21:08 Dose: 150 mg Quetiapine Fumarate (Quetiapine Fumarate 25 Mg Tablet) 25 mg PO BID PRN PRN Reason: insomnia Last Admin: 02/06/23 21:08 Dose: 25 mg Sertraline HCl (Sertraline Hcl 50 Mg Tablet) 150 mg PO DAILY SHREYA Last Admin: 02/07/23 08:58 Dose: 150 mg Sumatriptan Succinate (Sumatriptan Succinate 100 Mg Tablet) 100 mg PO DAILY PRN PRN Reason: Migraine Headache Last Admin: 02/04/23 09:14 Dose: 100 mg Trazodone HCl (Trazodone Hcl 50 Mg Tablet) 150 mg PO BEDTIME SHREYA Trazodone HCl (Trazodone Hcl 50 Mg Tablet) 50 mg PO BEDTIME PRN PRN Reason: Insomnia Last Admin: 02/06/23 21:08 Dose: 50 mg Allergies Allergies Allergy/AdvReac Type Severity Reaction Status Date / Time lithium Allergy Rash Verified 02/02/23 07:00 Assessment & Plan Assessment & Plan (1) PTSD (post-traumatic stress disorder): Status: Acute Code(s): F43.10 - Post-traumatic stress disorder, unspecified (2) Bipolar 1 disorder, depressed, severe: Status: Acute Code(s): F31.4 - Bipolar disorder, current episode depressed, severe, without psychotic features (3) Alcohol use disorder: Status: Acute Code(s): F10.90 - Alcohol use, unspecified, uncomplicated (4) HTN (hypertension): Status: Acute Code(s): I10 - Essential (primary) hypertension (5) COPD (chronic obstructive pulmonary disease): Status: Acute Code(s): J44.9 - Chronic obstructive pulmonary disease, unspecified Plan per chidi ECT consult:? The patient has a history of severe bipolar depression complicated by alcohol use.? Given suicidality status post recent overdose family history of impulsive suicidality ECT would be a reasonable choice at this time indication bipolar depression not responding to multiple hospitalizations with a commitment to sobriety would consider Vivitrol and given patient's lack of response to Seroquel would strongly urge a trial of Latuda.? [place] would be significantly indicated in this situation however patient states he has had an allergic reaction the past an excellent medication for impulsive suicidality in the context of bipolar disorder.? Medical consult reviewed and EKG reviewed with Cardiology they did not feel need for cardiology consult at this time patient with no acute cardiac symptoms no chest pain risks benefits alternatives reviewed patient with seem to be good ECT candidate but will need close follow-up head CT scan reviewed no acute process no areas of encephalomalacia or subdural EKG reviewed case reviewed with hospitalist service Precis: 01/22: pt expressing lack of motivation for recovery and treatment, especially with medications.? he was educated re ECT for Tx refractory depression.? he is willing to receive further education on the subject and MD will discuss with him again tomorrow. build rapport, listen (pt identified h/o treaters' not listening to him as something which led to his disengagement). continue prior meds for now.? increase seroquel at HS per pt request for insomnia. ativan per [facility] for alcohol withdrawal. 01/23: pt reports he received ECT education and is mulling it over. asks for HS seroquel to be decreased to 250, which is done. asks for flexeril to be increased to 10 TID PRN, which is done. reports no change in mood or SI. 01/24: no change in mood or SI per pt.? however, he is making hopeful statements and w as noted to have expressed an interest in therapy after discharge.? increase zoloft to 150 mg daily per pt request.? states ECT is not for him. 01/25 continue current treatment plan; patient still depressed with intermittent SI.? Again discussed ECT and patient says he is more open to considering it.? He will follow up with Dr. Ruff. 01/26: consults placed for chidi, hospitalist, and EKG in preparation for potential ECT.? otherwise continue current mgmt. 01/27: head CT ordered.? awaiting consults from hospitalist and ECT provider.? continue current mgmt. 01/28: cleared by medicine and chidi for ECT, to start tuesday.? stable presentation. 01/29/2023 Patient started on Latuda for bipolar depression.? ECT currently hold would certainly be a treatment option given patient's multiple recent psychiatric hospitalizations and significant suicide attempt would consider naltrexone/Vivitrol 01/30/2023 Continue Latuda monitor affects consideration of ECT patient does describe clear manic history would consider addiction consult with Vivitrol 01/31:? increase latuda to 40 mg and change to HS.? planning to taper seroquel, but insomnia continues, per report.? ECT approved, now planning for . 02/01:? decrease HS seroquel to 200 - pt states he slept well last night.? otherwise no change in regimen? ECT tomorrow. 02/02: ECT went well, no complaints. continue current mgmt. T/C increasing latuda and decreasing seroquel depending on how pt sleeps tonight. 02/03: feeling relatively well. increase HS latuda to 60 mg, decrease HS seroquel to 150 mg. ECT tomorrow. 02/04: ECT went well, no complaints. discussing aftercare plans - jail, [facility] services. no change to plan. ECT tuesday. 02/05: Continue current regimen and plans. Continue ECT. 02/07: schedule trazodone 100 mg QHS. increase methadone to 75 mg daily. unable to go to [facility] unable to identify a methadone clinic which could guest-dose him. looking into other CSSs, Reason for contiued inpatient stay Substantial Risk for: harm to self, inability to function and rapid decompensation Time Spent With Patient Time: Total time managing care of this patient today _20___ minutes.
[2023-02-07] MEDS: Acetaminophen 325 MG TABLET 650 MG PO (16:30)
[2023-02-07] MEDS: traZODone HCL 50 MG TABLET 150 MG PO (22:13)
[2023-02-07] MEDS: QUEtiapine Fumarate 50 MG TABLET 150 MG PO (22:13)
[2023-02-07] MEDS: hydrOXYzine HCL 50 MG TABLET PO (22:13)
[2023-02-07] MEDS: Lurasidone HCl 20 MG TABLET 60 MG PO (22:14)
[2023-02-08] MEDS: Sertraline HCL 50 MG TABLET 150 MG PO (08:50)
[2023-02-08] MEDS: Omeprazole 20 MG CAPSULE.DR PO (08:50)
[2023-02-08] MEDS: Nicotine 21 MG PATCH.TD24 TRANSDERMA (08:50)
[2023-02-08 08:57] VITALS: BP 132/73; PULSE 104; TEMP 36.2; O2SAT 95
[2023-02-08] MEDS: Ibuprofen 800 MG TABLET PO ×2 (09:02→18:27)
[2023-02-08] MEDS: Cyclobenzaprine HCl 10 MG TABLET PO ×3 (09:02→18:27)
[2023-02-08] MEDS: Albuterol Sulfate 90 MCG 8 GM INHALER 2 PUFF INHALE ×2 (10:00→20:37)
[2023-02-08] MEDS: Acetaminophen 325 MG TABLET 650 MG PO (13:59)
--- NOTE | 2023-02-08 16:11 | P.PNPSI_ITS ---
Subjective Subjective Date of Service: 02/08/23 Reason For Visit: Unspecified Bipolar D/O Interim History: calm, cooperative. discusses his work on dispo options, recent contacts with [employer]. took some time to get to sleep last night, but slept well after. will wait another night prior to continuing seroquel/latuda cross-taper. per staff, anxious and depressed. pleasant, appears brighter. ECT went well. DFA but was NOT up until 0300 last NOC. Mental Status Exam Mental Status Exam Narrative: calm, cooperative. no PMA/PMR. nml rate, amount, loudness of speech. thoughts linear. affect constricted, normo-intense, non-labile. no SI. no HI/AVH expressed. Diagnostics Vital Signs (24Hr): Vital Signs - 24 hr 02/07/23 20:55 02/08/23 08:57 Temperature 97.8 F 97.2 F Pulse Rate 61 104 H Respiratory Rate 18 Blood Pressure 159/84 H 132/73 Pulse Oximetry 96 95 Oxygen Delivery Method Room Air Room Air BMI result Body Mass Index 34.7 Labs 01/22/23 07:36 01/22/23 07:36 Imaging Radiology Impressions: ITS Impressions Head CT 01/27/23 14:07 IMPRESSION: No acute intracranial abnormality. Mild nonspecific hypoattenuation in the cerebral white matter. Medications Medications Current Medications Acetaminophen (Acetaminophen 325 Mg Tablet) 650 mg PO Q6H PRN PRN Reason: mild pain (1-3) Last Admin: 02/08/23 13:59 Dose: 650 mg Al Hydroxide/Mg Hydroxide (Magnesium Hydrox/Alum Hydrox 30 Ml Oral.Susp) 30 ml PO Q6H PRN PRN Reason: Heartburn/Nausea Albuterol Sulfate (Albuterol Sulfate 90 Mcg 8 Gm Inhaler) 2 puff INHALE Q4H PRN PRN Reason: dyspnea Last Admin: 02/08/23 10:00 Dose: 2 puff Cyclobenzaprine HCl (Cyclobenzaprine Hcl 10 Mg Tablet) 10 mg PO TID PRN PRN Reason: back pain Last Admin: 02/08/23 13:59 Dose: 10 mg Hydroxyzine HCl (Hydroxyzine Hcl 50 Mg Tablet) 50 mg PO Q6H PRN PRN Reason: anxiety Last Admin: 02/07/23 22:13 Dose: 50 mg Ibuprofen (Ibuprofen 800 Mg Tablet) 800 mg PO Q8H PRN PRN Reason: moderate pain (4-6) Last Admin: 02/08/23 09:02 Dose: 800 mg Lurasidone HCl (Lurasidone Hcl 20 Mg Tablet) 60 mg PO BEDTIME [facility] Last Admin: 02/07/23 22:14 Dose: 60 mg Magnesium Hydroxide (Milk Of Magnesia 30 Ml Oral.Susp) 30 ml PO DAILY PRN PRN Reason: Constipation Nicotine (Nicotine 21 Mg Patch.Td24) 21 mg TRANSDERMA DAILY [facility] Last Admin: 02/08/23 08:50 Dose: 21 mg Non-Formulary Medication (Qazbltfdqj-Mmytvyag-Tdothmifru [Breztri Aerosphere]) 2 puff INHALE BID [facility] Omeprazole (Omeprazole 20 Mg Capsule.Dr) 20 mg PO DAILY [facility] Last Admin: 02/08/23 08:50 Dose: 20 mg Quetiapine Fumarate (Quetiapine Fumarate 50 Mg Tablet) 150 mg PO BEDTIME [facility] Last Admin: 02/07/23 22:13 Dose: 150 mg Quetiapine Fumarate (Quetiapine Fumarate 25 Mg Tablet) 25 mg PO BID PRN PRN Reason: insomnia Last Admin: 02/06/23 21:08 Dose: 25 mg Sertraline HCl (Sertraline Hcl 50 Mg Tablet) 150 mg PO DAILY [facility] Last Admin: 02/08/23 08:50 Dose: 150 mg Sumatriptan Succinate (Sumatriptan Succinate 100 Mg Tablet) 100 mg PO DAILY PRN PRN Reason: Migraine Headache Last Admin: 02/04/23 09:14 Dose: 100 mg Trazodone HCl (Trazodone Hcl 50 Mg Tablet) 150 mg PO BEDTIME [facility] Last Admin: 02/07/23 22:13 Dose: 150 mg Trazodone HCl (Trazodone Hcl 50 Mg Tablet) 50 mg PO BEDTIME PRN PRN Reason: Insomnia Last Admin: 02/06/23 21:08 Dose: 50 mg Allergies Allergies Allergy/AdvReac Type Severity Reaction Status Date / Time lithium Allergy Rash Verified 02/02/23 07:00 Assessment & Plan Assessment & Plan (1) PTSD (post-traumatic stress disorder): Status: Acute Code(s): F43.10 - Post-traumatic stress disorder, unspecified (2) Bipolar 1 disorder, depressed, severe: Status: Acute Code(s): F31.4 - Bipolar disorder, current episode depressed, severe, without psychotic features (3) Alcohol use disorder: Status: Acute Code(s): F10.90 - Alcohol use, unspecified, uncomplicated (4) HTN (hypertension): Status: Acute Code(s): I10 - Essential (primary) hypertension (5) COPD (chronic obstructive pulmonary disease): Status: Acute Code(s): J44.9 - Chronic obstructive pulmonary disease, unspecified Plan per chidi ECT consult:? The patient has a history of severe bipolar depression complicated by alcohol use.? Given suicidality status post recent overdose family history of impulsive suicidality ECT would be a reasonable choice at this time indication bipolar depression not responding to multiple hospitalizations with a commitment to sobriety would consider Vivitrol and given patient's lack of response to Seroquel would strongly urge a trial of Latuda.? [place] would be significantly indicated in this situation however patient states he has had an allergic reaction the past an excellent medication for impulsive suicidality in the context of bipolar disorder.? Medical consult reviewed and EKG reviewed with Cardiology they did not feel need for cardiology consult at this time patient with no acute cardiac symptoms no chest pain risks benefits alternatives reviewed patient with seem to be good ECT candidate but will need close follow-up head CT scan reviewed no acute process no areas of encephalomalacia or subdural EKG reviewed case reviewed with hospitalist service Precis: 01/22: pt expressing lack of motivation for recovery and treatment, especially with medications.? he was educated re ECT for Tx refractory depression.? he is will ing to receive further education on the subject and MD will discuss with him again tomorrow. build rapport, listen (pt identified h/o treaters' not listening to him as something which led to his disengagement). continue prior meds for now.? increase seroquel at HS per pt request for insomnia. ativan per [facility] for alcohol withdrawal. 01/23: pt reports he received ECT education and is mulling it over. asks for HS seroquel to be decreased to 250, which is done. asks for flexeril to be increased to 10 TID PRN, which is done. reports no change in mood or SI. 01/24: no change in mood or SI per pt.? however, he is making hopeful statements and was noted to have expressed an interest in therapy after discharge.? increase zoloft to 150 mg daily per pt request.? states ECT is not for him. 01/25 continue current treatment plan; patient still depressed with intermittent SI.? Again discussed ECT and patient says he is more open to considering it.? He will follow up with Dr. Ruff. 01/26: consults placed for chidi, hospitalist, and EKG in preparation for potential ECT.? otherwise continue current mgmt. 01/27: head CT ordered.? awaiting consults from hospitalist and ECT provider.? continue current mgmt. 01/28: cleared by medicine and chidi for ECT, to start tuesday.? stable presentation. 01/29/2023 Patient started on Latuda for bipolar depression.? ECT currently hold would certainly be a treatment option given patient's multiple recent psychiatric hospitalizations and significant suicide attempt would consider naltrexone/Vivitrol 01/30/2023 Continue Latuda monitor affects consideration of ECT patient does describe clear manic history would consider addiction consult with Vivitrol 01/31:? increase latuda to 40 mg and change to HS.? planning to taper seroquel, but insomnia continues, per report.? ECT approved, now planning for . 02/01:? decrease HS seroquel to 200 - pt states he slept well last night.? otherwise no change in regimen? ECT tomorrow. 02/02: ECT went well, no complaints. continue current mgmt. T/C increasing latuda and decreasing seroquel depending on how pt sleeps tonight. 02/03: feeling relatively well. increase HS latuda to 60 mg, decrease HS seroquel to 150 mg. ECT tomorrow. 02/04: ECT went well, no complaints. discussing aftercare plans - penitentiary, [facility] services. no change to plan. ECT tuesday. 02/05: Continue current regimen and plans. Continue ECT. 02/07: schedule trazodone 100 mg QHS. increase methadone to 75 mg daily. [facility] unable to identify a methadone clinic which could guest-dose him. looking into other CSSs. 02/08: no change, anticipating ECT tomorrow. working on dispo plans, recently in touch with [facility]. Reason for contiued inpatient stay Substantial Risk for: harm to self, inability to function and rapid decompensation Time Spent With Patient Time: Total time managing care of this patient today __25__ minutes.
[2023-02-08] MEDS: QUEtiapine Fumarate 50 MG TABLET 150 MG PO (20:35)
[2023-02-08] MEDS: traZODone HCL 50 MG TABLET 150 MG PO (20:35)
[2023-02-08] MEDS: QUEtiapine Fumarate 25 MG TABLET PO (20:36)
[2023-02-08] MEDS: Lurasidone HCl 20 MG TABLET 60 MG PO (20:37)
[2023-02-08 20:38] VITALS: BP 123/87; PULSE 87; RESP 16; TEMP 36.5; O2SAT 95
[2023-02-09] VITALS (11 sets, daily range): BP systolic 99–164; BP diastolic 70–92; PULSE 62–116; RESP 14–19; TEMP 36.3–36.9; O2SAT 90–98
--- NOTE | 2023-02-09 07:02 | P.CONAN_ITS ---
[facility] Active Problems Active Problems: All Active Problems (Updated 01/28/23 @ 13:44 by Archie Dillard MD) Bipolar 1 disorder, depressed, severe (Acute) Pre-op evaluation (Acute) TBI (traumatic brain injury) (Acute) Alcohol use disorder (Acute) PTSD (post-traumatic stress disorder) (Acute) Routine history and physical examination of adult (Acute) COPD (chronic obstructive pulmonary disease) (Acute) HTN (hypertension) (Acute) Past Medical History Medical History Alcohol use disorder TBI (traumatic brain injury) Family History Family history of problems with anesthesia: No Surgical History History of Problems with Anesthesia: No Social History Social History Household Members: None Housing: Homeless Do you presently have visiting nurse or other home services: No Patient Tobacco Use Status: Current everyday Tobacco user Tobacco use type: Cigarette Cigarette Packs Per Day: 1.5 Cigarettes Per Day: 30.0 Smoked in Last 30 Days: Yes Patient Interested in Nicotine Replacement: Yes Patient Given Instructions on How to Stop Smoking: No Second Hand Smoke Exposure: No Use of substances other than those prescribed or required for medical reasons: Yes Substance Use Type: Crack/Cocaine and Marijuana Substance Use Frequency: Occasionally Last Used Substance: Days (ago) Last Used Substance Other:: 7 days Currently Displaying Signs/Symptoms of Drug Intoxication Withdrawal: No Any prior treatment program specific to substance use: No Have you been hit, kicked, punched, or otherwise hurt by someone within the past year? If so, by whom?: No Do you feel safe in your current relationship?: No Current Relationship Is there a partner from a previous relationship who is making you feel unsafe now?: No Are you made to feel afraid or neglected: No Spiritual Healthcare Practices: Pt denies [facility] Practices: Pt denies Cultural Healthcare Practices: Pt denies Advance Directives: No Advance Directives Information Provided: No Do you have thoughts of harming others: None Do you have a plan to hurt others: No Plan Recently lost weight without trying: No How much weight loss: Not applicable Eating poorly because of decreased appetite: No Nutrition screen score: 0 Nutrition Risks: No Nutritional Risk Poor oral hygiene: No service: Yes Sexual orientation: Straight/Heterosexual Meds Allergies Allergy/AdvReac Type Severity Reaction Status Date / Time lithium Allergy Rash Verified 02/02/23 07:00 Active Medications: Current Medications Acetaminophen (Acetaminophen 325 Mg Tablet) 650 mg PO Q6H PRN PRN Reason: mild pain (1-3) Last Admin: 02/08/23 13:59 Dose: 650 mg Al Hydroxide/Mg Hydroxide (Magnesium Hydrox/Alum Hydrox 30 Ml Oral.Susp) 30 ml PO Q6H PRN PRN Reason: Heartburn/Nausea Albuterol Sulfate (Albuterol Sulfate 90 Mcg 8 Gm Inhaler) 2 puff INHALE Q4H PRN PRN Reason: dyspnea Last Admin: 02/08/23 20:37 Dose: 2 puff Cyclobenzaprine HCl (Cyclobenzaprine Hcl 10 Mg Tablet) 10 mg PO TID PRN PRN Reason: back pain Last Admin: 02/08/23 18:27 Dose: 10 mg Hydroxyzine HCl (Hydroxyzine Hcl 50 Mg Tablet) 50 mg PO Q6H PRN PRN Reason: anxiety Last Admin: 02/07/23 22:13 Dose: 50 mg Lactated Ringer's (Lr) 1,000 mls @ 50 mls/hr IVCONT .Q20H [facility] Lactated Ringer's (Lr) 1,000 mls @ 50 mls/hr IVCONT .Q20H [facility] Ibuprofen (Ibuprofen 800 Mg Tablet) 800 mg PO Q8H PRN PRN Reason: moderate pain (4-6) Last Admin: 02/08/23 18:27 Dose: 800 mg Lurasidone HCl (Lurasidone Hcl 20 Mg Tablet) 60 mg PO BEDTIME [facility] Last Admin: 02/08/23 20:37 Dose: 60 mg Magnesium Hydroxide (Milk Of Magnesia 30 Ml Oral.Susp) 30 ml PO DAILY PRN PRN Reason: Constipation Nicotine (Nicotine 21 Mg Patch.Td24) 21 mg TRANSDERMA DAILY [facility] Last Admin: 02/08/23 08:50 Dose: 21 mg Non-Formulary Medication (Inueaqmgma-Zgfxmawk-Bffzygvwqq [Breztri Aerosphere]) 2 puff INHALE BID [facility] Omeprazole (Omeprazole 20 Mg Capsule.Dr) 20 mg PO DAILY [facility] Last Admin: 02/08/23 08:50 Dose: 20 mg Quetiapine Fumarate (Quetiapine Fumarate 50 Mg Tablet) 150 mg PO BEDTIME [facility] Last Admin: 02/08/23 20:35 Dose: 150 mg Quetiapine Fumarate (Quetiapine Fumarate 25 Mg Tablet) 25 mg PO BID PRN PRN Reason: insomnia Last Admin: 02/08/23 20:36 Dose: 25 mg Sertraline HCl (Sertraline Hcl 50 Mg Tablet) 150 mg PO DAILY [facility] Last Admin: 02/08/23 08:50 Dose: 150 mg Sumatriptan Succinate (Sumatriptan Succinate 100 Mg Tablet) 100 mg PO DAILY PRN PRN Reason: Migraine Headache Last Admin: 02/04/23 09:14 Dose: 100 mg Trazodone HCl (Trazodone Hcl 50 Mg Tablet) 150 mg PO BEDTIME [facility] Last Admin: 02/08/23 20:35 Dose: 150 mg Trazodone HCl (Trazodone Hcl 50 Mg Tablet) 50 mg PO BEDTIME PRN PRN Reason: Insomnia Last Admin: 02/06/23 21:08 Dose: 50 mg Home Medications Medication Instructions Recorded Confirmed Last Taken Type albuterol sulfate 90 mcg/actuation 2 puff inhalation Q4H PRN dyspnea 01/21/23 Unknown History aerosol inhaler (Ventolin HFA) aripiprazole 10 mg tablet 1 tab PO BEDTIME 01/21/23 01/21/23 Unknown History budesonide 160 mcg-glycopyr 9 2 puff inhalation BID 01/21/23 01/21/23 Unknown History mcg-formot 4.8 mcg/actuation HFA inhaler (Breztri Aerosphere) hydroxyzine pamoate 50 mg capsule 1 cap PO Q6H PRN anxiety 01/21/23 01/21/23 Unknown History ibuprofen 800 mg tablet 1 tab PO TID PRN pain 01/21/23 01/21/23 Unknown History omeprazole 20 mg capsule,delayed 1 cap PO QAM 01/21/23 01/21/23 Unknown History release quetiapine 200 mg tablet 1 tab PO BEDTIME 01/21/23 01/21/23 Unknown History quetiapine 25 mg tablet 1 tab PO BID PRN insomnia 01/21/23 01/21/23 Unknown History sertraline 100 mg tablet 1 tab PO DAILY 01/21/23 01/21/23 Unknown History trazodone 50 mg tablet 1 tab PO BEDTIME insomnia 01/21/23 01/21/23 Unknown History Exam Exam Date and Time: February 09, 2023 0702 Height,Weight and Vital Signs: Height 5 ft 10 in Weight 109.86 kg Last Vital Signs Temp 97.4 F 02/09/23 06:30 Pulse 62 02/09/23 06:44 Resp 18 02/09/23 06:44 BP 134/89 02/09/23 06:30 Pulse Ox 95 02/09/23 06:30 O2 Del Method 02/09/23 06:30 O2 Flow Rate 2 02/07/23 08:01 Pertinent Lab Results Pertinent Lab Results: Laboratory Tests 01/22/23 01/22/23 01/22/23 07:36 07:36 07:36 WBC 6.6 RBC 4.74 Hgb 15.4 Hct 45.0 MCV 94.9 MCH 32.5 MCHC 34.2 RDW 13.2 Plt Count 184 MPV 9.7 Immature Gran % (Auto) 0.3 Neut % (Auto) 48.0 Lymph % (Auto) 34.2 [place] % (Auto) 11.7 H Eos % (Auto) 5.2 H Baso % (Auto) 0.6 Lymph # (Auto) 2.3 [place] # (Auto) 0.8 Eos # (Auto) 0.3 Baso # (Auto) 0.0 Abs Immat Gran (auto) 0.02 Absolute Neuts (auto) 3.2 Absolute Nucleated RBC 0.000 Nucleated RBC % (auto) 0.0 Sodium 142 Potassium 4.0 Chloride 111 H Carbon Dioxide 24 Anion Gap 11 L BUN 17 H Creatinine 0.91 Estim Creat Clear Calc TNP Estimated GFR > 60 Fasting Glucose 95 Estimat Average Glucose 103 Hemoglobin A1c % 5.2 Calcium 9.6 Total Bilirubin 0.6 Direct Bilirubin 0.2 AST 21 ALT 33 Alkaline Phosphatase 75 Total Protein 6.6 Albumin 4.1 Triglycerides 126 Cholesterol 214 LDL Cholesterol, Calc 146 HDL Cholesterol 43 Vitamin B12 366 Folate 14.2 TSH 1.78 Free T4 0.84 COVID-19 ([facility]) COVID-19 Clin Com 01/28/23 14:10 WBC RBC Hgb Hct MCV MCH MCHC RDW Plt Count MPV Immature Gran % (Auto) Neut % (Auto) Lymph % (Auto) [place] % (Auto) Eos % (Auto) Baso % (Auto) Lymph # (Auto) [place] # (Auto) Eos # (Auto) Baso # (Auto) Abs Immat Gran (auto) Absolute Neuts (auto) Absolute Nucleated RBC Nucleated RBC % (auto) Sodium Potassium Chloride Carbon Dioxide Anion Gap BUN Creatinine Estim Creat Clear Calc Estimated GFR Fasting Glucose Estimat Average Glucose Hemoglobin A1c % Calcium Total Bilirubin Direct Bilirubin AST ALT Alkaline Phosphatase Total Protein Albumin Triglycerides Cholesterol LDL Cholesterol, Calc HDL Cholesterol Vitamin B12 Folate TSH Free T4 COVID-19 ([facility]ARINDER) Negative COVID-19 Clin Com See Note Airway Mallampati Class: III TM Dist: >3cm Neck ROM: Full Heart: rrr Lungs: receiving neb treatment slight wheeze left base Assessment and Plan Assessment Anesthesia Assessment: Anesthesia Plan Discussed and Chart Reviewed Final Anesthetic Review Family History of Problems with Anesthesia: No History of Problems with Anesthesia: No NPO: Yes ASA Class: III Final Preanesthetic Review: No Changes in Pt Med Stat, Meds/Allgs Chart Reviewed and Consent Obtained/Reviewed Patient Risk: Intermediate Procedure Risk: Intermediate Anesthetic Plan Anesthetic Plan: GA Disposition: Standard PACU
--- NOTE | 2023-02-09 07:44 | MHC.SHP ---
Pre-Procedural Eval Section A Date of Service: 02/09/23 The patient is an INPATIENT: Yes Changes since office visit: No Cold of Flu in the past 2 weeks, No New Medical Problems, No Changes in Medication and No Patient answered all questions The History & Physical has been completed within 30 days and I have reviewed it.: Yes Section B Chief Complaint: Unspecified Bipolar D/O Allergies: Allergies Allergy/AdvReac Type Severity Reaction Status Date / Time lithium Allergy Rash Verified 02/02/23 07:00 Plan I have reviewed the history and physical and performed a pertinent physical examination on my patient. No changes have occurred unless specified. Time Spent With Patient Time: Total time managing care of this patient today ____ minutes.
--- NOTE | 2023-02-09 07:44 | HO.ECTPROC ---
ECT Procedure Note Diagnosis/Treatment Date of Service: 02/09/23 Diagnosis: Bipolar disorder Previous ECT Date: 02/07/23 Current Treatment Number: 4 Treatment: Series Interval Clinical Notes: The patient reported some improvement of dysphoria, still depressive due to several losses and stressors but feeling hopeful. No side effects with previous ECT. Time: Total time managing care of this patient today _30___ minutes. ECT Settings Device: THYMATRON DGx Electrode Placement: Right Unilateral Program/Pulse Width: 0.25 Energy Percent: 100 Seizure Duration By EEG (in seconds): 97 By Motor Observation (in seconds): 25 Medications Administration General Anesthetic: Etomidate (16) Muscle Relaxant: Succinylcholine (120) Ancillary Medications Analgesics: Torodol - Pre ECT Anti-emetics: Zofran - Pre ECT Cardiovascular Medications: Glycopyrrolate (0.2 pre-ECT) Miscillaneous Medications: Midazolam (2 mg post ECT) Airway Management Airway Management: LMA Treatment Recommendations No Changes Recommended: No change Pt Tolerated Procedure w/o Issue: Yes
[2023-02-09] MEDS: Albuterol Sulfate 90 MCG 8 GM INHALER 2 PUFF INHALE ×2 (09:19→21:56)
[2023-02-09] MEDS: Ibuprofen 800 MG TABLET PO ×2 (09:20→22:00)
[2023-02-09] MEDS: Omeprazole 20 MG CAPSULE.DR PO (09:20)
[2023-02-09] MEDS: Nicotine 21 MG PATCH.TD24 TRANSDERMA (09:20)
[2023-02-09] MEDS: Sertraline HCL 50 MG TABLET 150 MG PO (09:20)
[2023-02-09] MEDS: SUMAtriptan succinate 100 MG TABLET PO (09:26)
--- NOTE | 2023-02-09 15:13 | HO.PSYCHPN ---
Subjective Subjective Date of Service: 02/09/23 Reason For Visit: Unspecified Bipolar D/O Interim History: calm, cooperative. ECT went well, no LANZA or cramps. optimistic, hopeful. agreeable to continue seroquel taper, going from 150 to 100 tonight. continue latuda 60 mg QHS. Mental Status Exam Mental Status Exam Narrative: calm, cooperative. no PMA/PMR. nml rate, amount, loudness of speech. thoughts linear. affect more flexible, normo-intense, non-labile. no SI. no HI/AVH expressed. Diagnostics Vital Signs (24Hr): Vital Signs - 24 hr 02/08/23 20:38 02/09/23 05:51 02/09/23 06:30 Temperature 97.7 F 97.4 F 97.4 F Pulse Rate 87 81 62 Respiratory Rate 16 16 18 Blood Pressure 123/87 99/70 134/89 Pulse Oximetry 95 94 95 Oxygen Delivery Method Room Air Room Air Oxygen Flow Rate 02/09/23 06:44 02/09/23 08:08 02/09/23 08:13 Temperature 97.5 F Pulse Rate 62 104 H 116 H Respiratory Rate 18 17 19 Blood Pressure 132/81 139/75 Pulse Oximetry 95 93 Oxygen Delivery Method Nasal Cannula Nasal Cannula Oxygen Flow Rate 2 2 02/09/23 08:18 02/09/23 08:23 02/09/23 08:38 Temperature 97.5 F Pulse Rate 113 H 111 H 103 H Respiratory Rate 14 19 18 Blood Pressure 133/80 143/83 H 113/74 Pulse Oximetry 96 90 L 95 Oxygen Delivery Method Nasal Cannula Room Air Room Air Oxygen Flow Rate 2 02/09/23 08:59 02/09/23 10:26 Temperature 98.5 F 98.1 F Pulse Rate 102 H 80 Respiratory Rate 18 18 Blood Pressure 138/92 H 138/92 H Pulse Oximetry 98 98 Oxygen Delivery Method Room Air Oxygen Flow Rate BMI result Body Mass Index 34.7 Labs 01/22/23 07:36 01/22/23 07:36 Imaging Radiology Impressions: ITS Impressions Head CT 01/27/23 14:07 IMPRESSION: No acute intracranial abnormality. Mild nonspecific hypoattenuation in the cerebral white matter. Medications Medications Current Medications Acetaminophen (Acetaminophen 325 Mg Tablet) 650 mg PO Q6H PRN PRN Reason: mild pain (1-3) Last Admin: 02/08/23 13:59 Dose: 650 mg Al Hydroxide/Mg Hydroxide (Magnesium Hydrox/Alum Hydrox 30 Ml Oral.Susp) 30 ml PO Q6H PRN PRN Reason: Heartburn/Nausea Albuterol Sulfate (Albuterol Sulfate 90 Mcg 8 Gm Inhaler) 2 puff INHALE Q4H PRN PRN Reason: dyspnea Last Admin: 02/09/23 09:19 Dose: 2 puff Cyclobenzaprine HCl (Cyclobenzaprine Hcl 10 Mg Tablet) 10 mg PO TID PRN PRN Reason: back pain Last Admin: 02/08/23 18:27 Dose: 10 mg Hydroxyzine HCl (Hydroxyzine Hcl 50 Mg Tablet) 50 mg PO Q6H PRN PRN Reason: anxiety Last Admin: 02/07/23 22:13 Dose: 50 mg Ibuprofen (Ibuprofen 800 Mg Tablet) 800 mg PO Q8H PRN PRN Reason: moderate pain (4-6) Last Admin: 02/09/23 09:20 Dose: 800 mg Lurasidone HCl (Lurasidone Hcl 20 Mg Tablet) 60 mg PO BEDTIME [facility] Last Admin: 02/08/23 20:37 Dose: 60 mg Magnesium Hydroxide (Milk Of Magnesia 30 Ml Oral.Susp) 30 ml PO DAILY PRN PRN Reason: Constipation Nicotine (Nicotine 21 Mg Patch.Td24) 21 mg TRANSDERMA DAILY [facility] Last Admin: 02/09/23 09:20 Dose: 21 mg Non-Formulary Medication (Wgckkcrjhh-Kmjksqwx-Misnjyfjrg [Breztri Aerosphere]) 2 puff INHALE BID [facility] Omeprazole (Omeprazole 20 Mg Capsule.Dr) 20 mg PO DAILY [facility] Last Admin: 02/09/23 09:20 Dose: 20 mg Quetiapine Fumarate (Quetiapine Fumarate 100 Mg Tablet) 100 mg PO BEDTIME [facility] Quetiapine Fumarate (Quetiapine Fumarate 25 Mg Tablet) 25 mg PO BID PRN PRN Reason: insomnia Last Admin: 02/08/23 20:36 Dose: 25 mg Sertraline HCl (Sertraline Hcl 50 Mg Tablet) 150 mg PO DAILY [facility] Last Admin: 02/09/23 09:20 Dose: 150 mg Sumatriptan Succinate (Sumatriptan Succinate 100 Mg Tablet) 100 mg PO DAILY PRN PRN Reason: Migraine Headache Last Admin: 03/15/23 09:26 Dose: 100 mg Trazodone HCl (Trazodone Hcl 50 Mg Tablet) 150 mg PO BEDTIME [facility] Last Admin: 02/08/23 20:35 Dose: 150 mg Trazodone HCl (Trazodone Hcl 50 Mg Tablet) 50 mg PO BEDTIME PRN PRN Reason: Insomnia Last Admin: 02/06/23 21:08 Dose: 50 mg Allergies Allergies Allergy/AdvReac Type Severity Reaction Status Date / Time lithium Allergy Rash Verified 02/02/23 07:00 Assessment & Plan Assessment & Plan (1) PTSD (post-traumatic stress disorder): Status: Acute Code(s): F43.10 - Post-traumatic stress disorder, unspecified (2) Bipolar 1 disorder, depressed, severe: Status: Acute Code(s): F31.4 - Bipolar disorder, current episode depressed, severe, without psychotic features (3) Alcohol use disorder: Status: Acute Code(s): F10.90 - Alcohol use, unspecified, uncomplicated (4) HTN (hypertension): Status: Acute Code(s): I10 - Essential (primary) hypertension (5) COPD (chronic obstructive pulmonary disease): Status: Acute Code(s): J44.9 - Chronic obstructive pulmonary disease, unspecified Plan per chidi ECT consult:? The patient has a history of severe bipolar depression complicated by alcohol use.? Given suicidality status post recent overdose family history of impulsive suicidality ECT would be a reasonable choice at this time indication bipolar depression not responding to multiple hospitalizations with a commitment to sobriety would consider Vivitrol and given patient's lack of response to Seroquel would strongly urge a trial of Latuda.? [place] would be significantly indicated in this situation however patient states he has had an allergic reaction the past an excellent medication for impulsive suicidality in the context of bipolar disorder.? Medical consult reviewed and EKG reviewed with Cardiology they did not feel need for cardiology consult at this time patient with no acute cardiac symptoms no chest pain risks benefits alternatives reviewed patient with seem to be good ECT candidate but will need close follow-up head CT scan reviewed no acute process no areas of encephalomalacia or subdural EKG reviewed case reviewed with hospitalist service Precis: 01/22: pt expressing lack of motivation for recovery and treatment, especially with medications.? he was educated re ECT for Tx refractory depression.? he is willing to receive further education on the subject and MD will discuss with him again tomorrow. build rapport, listen (pt identified h/o treaters' not listening to him as something which led to his disengagement). continue prior meds for now.? increase seroquel at HS per pt request for insomnia. ativan per CIWA for alcohol withdrawal. 01/23: pt reports he received ECT education and is mulling it over. asks for HS seroquel to be decreased to 250, which is done. asks for flexeril to be increased to 10 TID PRN, which is done. reports no change in mood or SI. 01/24: no change in mood or SI per pt.? however, he is making hopeful statements and was noted to have expressed an interest in therapy after discharge.? increase zoloft to 150 mg daily per pt request.? states ECT is not for him. 01/25 continue current treatment plan; patient still depressed with intermittent SI.? Again discussed ECT and patient says he is more open to considering it.? He will follow up with Dr. Ruff. 01/26: consults placed for chidi, hospitalist, and EKG in preparation for potential ECT.? otherwise continue current mgmt. 01/27: head CT ordered.? awaiting consults from hospitalist and ECT provider.? continue current mgmt. 01/28: cleared by medicine and chidi for ECT, to start tuesday.? stable presentation. 01/29/2023 Patient started on Latuda for bipolar depression.? ECT currently hold would certainly be a treatment option given patient's multiple recent psychiatric hospitalizations and significant suicide attempt would consider naltrexone/Vivitrol 01/30/2023 Continue Latuda monitor affects consideration of ECT patient does describe clear manic history would consider addiction consult with Vivitrol 01/31:? increase latuda to 40 mg and change to HS.? planning to taper seroquel, but insomnia continues, per report.? ECT approved, now planning for . 02/01:? decrease HS seroquel to 200 - pt states he slept well last night.? otherwise no change in regimen? ECT tomorrow. 02/02:? ECT went well, no complaints.? continue current mgmt.? T/C increasing latuda and decreasing seroquel depending on how pt sleeps tonight. 02/03:? feeling relatively well.? increase HS latuda to 60 mg, decrease HS seroquel to 150 mg.? ECT tomorrow. 02/04:? ECT went well, no complaints.? discussing aftercare plans - group home, [facility]H services.? no change to plan.? ECT tuesday. 02/05: Continue current regimen and plans.? Continue ECT. 02/07: schedule trazodone 100 mg QHS.? increase methadone to 75 mg daily.? [facility] unable to identify a methadone clinic which could guest-dose him.? looking into other CSSs. 02/08: no change, anticipating ECT tomorrow.? working on dispo plans, recently in touch with [employer]. 02/09: no side effects from ECT, mood remains improved. decrease HS seroquel to 100 mg, otherwise continue current mgmt. Reason for contiued inpatient stay Substantial Risk for: harm to self, inability to function and rapid decompensation Time Spent With Patient Time: Total time managing care of this patient today __20__ minutes.
[2023-02-09] MEDS: traZODone HCL 50 MG TABLET 150 MG PO (21:58)
[2023-02-09] MEDS: QUEtiapine Fumarate 100 MG TABLET PO (21:59)
[2023-02-09] MEDS: traZODone HCL 50 MG TABLET PO (21:59)
[2023-02-09] MEDS: Lurasidone HCl 20 MG TABLET 60 MG PO (21:59)
[2023-02-09] MEDS: QUEtiapine Fumarate 25 MG TABLET PO (22:00)
[2023-02-09] MEDS: hydrOXYzine HCL 50 MG TABLET PO (22:01)
[2023-02-09] MEDS: Cyclobenzaprine HCl 10 MG TABLET PO (22:01)
[2023-02-10 07:00] VITALS: BMI 35.1
[2023-02-10] MEDS: Albuterol Sulfate 90 MCG 8 GM INHALER 2 PUFF INHALE ×3 (08:37→20:34)
[2023-02-10] MEDS: Sertraline HCL 50 MG TABLET 150 MG PO (08:38)
[2023-02-10] MEDS: Omeprazole 20 MG CAPSULE.DR PO (08:38)
[2023-02-10] MEDS: Ibuprofen 800 MG TABLET PO ×2 (08:40→20:35)
[2023-02-10] MEDS: Cyclobenzaprine HCl 10 MG TABLET PO (08:40)
[2023-02-10] MEDS: Nicotine 21 MG PATCH.TD24 TRANSDERMA (09:02)
[2023-02-10 10:27] VITALS: BP 116/72; PULSE 104; RESP 20; TEMP 36.6; O2SAT 93
--- NOTE | 2023-02-10 13:45 | P.PNPSI_ITS ---
Subjective Subjective Date of Service: 02/10/23 Reason For Visit: Unspecified Bipolar D/O Interim History: calm, cooperative. no complaints. prefers to continue current regimen for tonight rather than decrease seroquel again. he took a lot of trazodone last night to be sure he fell asleep and he is a bit groggy this morning. ECT in the morning. per staff, sleeping, social. working on dispo plans with [employer]. Mental Status Exam Mental Status Exam Narrative: calm, cooperative. no PMA/PMR. nml rate, amount, loudness of speech. thoughts linear. affect more flexible, normo-intense, non-labile. no SI/HI/AVH expressed. Diagnostics Vital Signs (24Hr): Vital Signs - 24 hr 02/09/23 22:05 02/10/23 10:27 Temperature 97.6 F 97.8 F Pulse Rate 73 104 H Respiratory Rate 20 Blood Pressure 164/92 H 116/72 Pulse Oximetry 97 93 Oxygen Delivery Method Room Air Room Air BMI result Body Mass Index 35.1 Labs 01/22/23 07:36 01/22/23 07:36 Imaging Radiology Impressions: ITS Impressions Head CT 01/27/23 14:07 IMPRESSION: No acute intracranial abnormality. Mild nonspecific hypoattenuation in the cerebral white matter. Medications Medications Current Medications Acetaminophen (Acetaminophen 325 Mg Tablet) 650 mg PO Q6H PRN PRN Reason: mild pain (1-3) Last Admin: 02/08/23 13:59 Dose: 650 mg Al Hydroxide/Mg Hydroxide (Magnesium Hydrox/Alum Hydrox 30 Ml Oral.Susp) 30 ml PO Q6H PRN PRN Reason: Heartburn/Nausea Albuterol Sulfate (Albuterol Sulfate 90 Mcg 8 Gm Inhaler) 2 puff INHALE Q4H PRN PRN Reason: dyspnea Last Admin: 02/10/23 08:37 Dose: 2 puff Cyclobenzaprine HCl (Cyclobenzaprine Hcl 10 Mg Tablet) 10 mg PO TID PRN PRN Reason: back pain Last Admin: 02/10/23 08:40 Dose: 10 mg Hydroxyzine HCl (Hydroxyzine Hcl 50 Mg Tablet) 50 mg PO Q6H PRN PRN Reason: anxiety Last Admin: 02/09/23 22:01 Dose: 50 mg Ibuprofen (Ibuprofen 800 Mg Tablet) 800 mg PO Q8H PRN PRN Reason: moderate pain (4-6) Last Admin: 02/10/23 08:40 Dose: 800 mg Lurasidone HCl (Lurasidone Hcl 20 Mg Tablet) 60 mg PO BEDTIME [facility] Last Admin: 02/09/23 21:59 Dose: 60 mg Magnesium Hydroxide (Milk Of Magnesia 30 Ml Oral.Susp) 30 ml PO DAILY PRN PRN Reason: Constipation Nicotine (Nicotine 21 Mg Patch.Td24) 21 mg TRANSDERMA DAILY [facility] Last Admin: 02/10/23 09:02 Dose: 21 mg Non-Formulary Medication (Dythynogvt-Nlmcrbkh-Ahsxqihfgz [Breztri Aerosphere]) 2 puff INHALE BID [facility] Omeprazole (Omeprazole 20 Mg Capsule.Dr) 20 mg PO DAILY [facility] Last Admin: 02/10/23 08:38 Dose: 20 mg Quetiapine Fumarate (Quetiapine Fumarate 100 Mg Tablet) 100 mg PO BEDTIME [facility] Last Admin: 02/09/23 21:59 Dose: 100 mg Quetiapine Fumarate (Quetiapine Fumarate 25 Mg Tablet) 25 mg PO BID PRN PRN Reason: insomnia Last Admin: 02/09/23 22:00 Dose: 25 mg Sertraline HCl (Sertraline Hcl 50 Mg Tablet) 150 mg PO DAILY [facility] Last Admin: 02/10/23 08:38 Dose: 150 mg Sumatriptan Succinate (Sumatriptan Succinate 100 Mg Tablet) 100 mg PO DAILY PRN PRN Reason: Migraine Headache Last Admin: 02/09/23 09:26 Dose: 100 mg Trazodone HCl (Trazodone Hcl 50 Mg Tablet) 150 mg PO BEDTIME [facility] Last Admin: 02/09/23 21:58 Dose: 150 mg Trazodone HCl (Trazodone Hcl 50 Mg Tablet) 50 mg PO BEDTIME PRN PRN Reason: Insomnia Last Admin: 02/09/23 21:59 Dose: 50 mg Allergies Allergies Allergy/AdvReac Type Severity Reaction Status Date / Time lithium Allergy Rash Verified 02/02/23 07:00 Assessment & Plan Assessment & Plan (1) PTSD (post-traumatic stress disorder): Status: Acute Code(s): F43.10 - Post-traumatic stress disorder, unspecified (2) Bipolar 1 disorder, depressed, severe: Status: Acute Code(s): F31.4 - Bipolar disorder, current episode depressed, severe, without psychotic features (3) Alcohol use disorder: Status: Acute Code(s): F10.90 - Alcohol use, unspecified, uncomplicated (4) HTN (hypertension): Status: Acute Code(s): I10 - Essential (primary) hypertension (5) COPD (chronic obstructive pulmonary disease): Status: Acute Code(s): J44.9 - Chronic obstructive pulmonary disease, unspecified Plan per chidi ECT consult:? The patient has a history of severe bipolar depression complicated by alcohol use.? Given suicidality status post recent overdose family history of impulsive suicidality ECT would be a reasonable choice at this time indication bipolar depression not responding to multiple hospitalizations with a commitment to sobriety would consider Vivitrol and given patient's lack of response to Seroquel would strongly urge a trial of Latuda.? [place] would be significantly indicated in this situation however patient states he has had an allergic reaction the past an excellent medication for impulsive suicidality in the context of bipolar disorder.? Medical consult reviewed and EKG reviewed with Cardiology they did not feel need for cardiology consult at this time patient with no acute cardiac symptoms no chest pain risks benefits alternatives reviewed patient with seem to be good ECT candidate but will need close follow-up head CT scan reviewed no acute process no areas of encephalomalacia or subdural EKG reviewed case reviewed with hospitalist service Precis: 01/22: pt expressing lack of motivation for recovery and treatment, especially with medications.? he was educated re ECT for Tx refractory depression.? he is willing to receive further education on the subject and MD will discuss with him again tomorrow. build rapport, listen (pt identified h/o treaters' not listening to him as something which led to his disengagement). continue prior meds for now.? increase seroquel at HS per pt request for insomnia. ativan per CIWA for alcohol withdrawal. 01/23: pt reports he received ECT education and is mulling it over. asks for HS seroquel to be decreased to 250, which is done. asks for flexeril to be increased to 10 TID PRN, which is done. reports no change in mood or SI. 01/24: no change in mood or SI per pt.? however, he is making hopeful statements and was noted to have expressed an interest in therapy after discharge.? increase zoloft to 150 mg daily per pt request.? states ECT is not for him. 01/25 continue current treatment plan; patient still depressed with intermittent SI.? Again discussed ECT and patient says he is more open to considering it.? He will follow up with Dr. Ruff. 01/26: consults placed for chidi, hospitalist, and EKG in preparation for potential ECT.? otherwise continue current mgmt. 01/27: head CT ordered.? awaiting consults from hospitalist and ECT provider.? continue current mgmt. 01/28: cleared by medicine and chidi for ECT, to start tuesday.? stable presentation. 01/29/2023 Patient started on Latuda for bipolar depression.? ECT currently hold would certainly be a treatment option given patient's multiple recent psychiatric hospitalizations and significant suicide attempt would consider naltrexone/Vivitrol 01/30/2023 Continue Latuda monitor affects consideration of ECT patient does describe clear manic history would consider addiction consult with Vivitrol 01/31:? increase latuda to 40 mg and change to HS.? planning to taper seroquel, but insomnia continues, per report.? ECT approved, now planning for . 02/01:? decrease HS seroquel to 200 - pt states he slept well last night.? otherwise no change in regimen? ECT tomorrow. 02/02:? ECT went well, no complaints.? continue current mgmt.? T/C increasing l atuda and decreasing seroquel depending on how pt sleeps tonight. 02/03:? feeling relatively well.? increase HS latuda to 60 mg, decrease HS seroquel to 150 mg.? ECT tomorrow. 02/04:? ECT went well, no complaints.? discussing aftercare plans - fdc, [facility] services.? no change to plan.? ECT tuesday. 02/05: Continue current regimen and plans.? Continue ECT. 02/07: schedule trazodone 100 mg QHS.? increase methadone to 75 mg daily.? [facility] unable to identify a methadone clinic which could guest-dose him.? looking into other CSSs. 02/08: no change, anticipating ECT tomorrow.? working on dispo plans, recently in touch with [employer]. 02/09: no side effects from ECT, mood remains improved. decrease HS seroquel to 100 mg, otherwise continue current mgmt. 02/10: stable. continue current regimen through ECT tomorrow. planning to continue seroquel taper over w/e. Reason for contiued inpatient stay Substantial Risk for: inability to function and rapid decompensation Time Spent With Patient Time: Total time managing care of this patient today __25__ minutes.
[2023-02-10] MEDS: Lurasidone HCl 20 MG TABLET 60 MG PO (20:34)
[2023-02-10] MEDS: QUEtiapine Fumarate 25 MG TABLET PO (20:35)
[2023-02-10] MEDS: traZODone HCL 50 MG TABLET PO (20:35)
[2023-02-10] MEDS: traZODone HCL 50 MG TABLET 150 MG PO (20:35)
[2023-02-10] MEDS: QUEtiapine Fumarate 100 MG TABLET PO (20:36)
[2023-02-10 20:40] VITALS: BP 155/79; PULSE 77; TEMP 36.4; O2SAT 97
[2023-02-11] VITALS (10 sets, daily range): BP systolic 121–158; BP diastolic 81–95; PULSE 60–104; RESP 16–18; TEMP 36.2–37.3; O2SAT 90–96
[2023-02-11] MEDS: Albuterol Sulfate 90 MCG 8 GM INHALER 2 PUFF INHALE ×3 (05:49→22:31)
--- NOTE | 2023-02-11 06:32 | PC.NURSE ---
hx of Breztri inhaler. not available from [facility] pharmacy. utilizing inhaler prn albuterol frequently.
[2023-02-11] MEDS: Albuterol Sulfate (0.083%) 2.5 MG/3 ML VIAL.NEB INHALE (08:40)
[2023-02-11] MEDS: Lactated Ringers 1,000 ML 50 ML IVCONT (08:58)
--- NOTE | 2023-02-11 10:27 | MHC.SHP ---
Pre-Procedural Eval Section A Date of Service: 02/11/23 Changes since office visit: Yes Changes in Medication and Yes Patient answered all questions; No Cold of Flu in the past 2 weeks and No New Medical Problems The History & Physical has been completed within 30 days and I have reviewed it.: Yes Section B Chief Complaint: Unspecified Bipolar D/O Allergies: Allergies Allergy/AdvReac Type Severity Reaction Status Date / Time lithium Allergy Rash Verified 02/02/23 07:00 Plan I have reviewed the history and physical and performed a pertinent physical examination on my patient. No changes have occurred unless specified. Time Spent With Patient Time: Total time managing care of this patient today ____ minutes.
--- NOTE | 2023-02-11 10:28 | HO.ECTPROC ---
ECT Procedure Note Diagnosis/Treatment Date of Service: 02/11/23 Diagnosis: Bipolar disorder Previous ECT Date: 02/09/23 Current Treatment Number: 5 Treatment: Series Interval Clinical Notes: PT FEELING BETTER NO C/O SIDE EFFECTS Time: Total time managing care of this patient today ____ minutes. ECT Settings Device: THYMATRON DGx Program/Pulse Width: 0.25 Energy Percent: 80 Seizure Duration By EEG (in seconds): 49 Medications Administration General Anesthetic: Etomidate (16) and Propofol Muscle Relaxant: Succinylcholine (120) Ancillary Medications Analgesics: Torodol - Pre ECT Anti-emetics: Zofran - Pre ECT Cardiovascular Medications: Glycopyrrolate (0.2 PRETX ) Miscillaneous Medications: Propofol and Midazolam Airway Management Airway Management: LMA Treatment Recommendations No Changes Recommended: No change Notes: LMA REQUIRED UPDRAFT X2
--- NOTE | 2023-02-11 10:35 | P.CONAN_ITS ---
FORMERLY [facility], 1928–1983 Active Problems Active Problems: All Active Problems (Updated 01/28/23 @ 13:44 by Archie Dillard MD) Bipolar 1 disorder, depressed, severe (Acute) Pre-op evaluation (Acute) TBI (traumatic brain injury) (Acute) Alcohol use disorder (Acute) PTSD (post-traumatic stress disorder) (Acute) Routine history and physical examination of adult (Acute) COPD (chronic obstructive pulmonary disease) (Acute) HTN (hypertension) (Acute) Past Medical History Medical History Alcohol use disorder TBI (traumatic brain injury) Family History Family history of problems with anesthesia: No Surgical History History of Problems with Anesthesia: No Social History Social History Household Members: None Housing: Homeless Do you presently have visiting nurse or other home services: No Patient Tobacco Use Status: Current everyday Tobacco user Tobacco use type: Cigarette Cigarette Packs Per Day: 1.5 Cigarettes Per Day: 30.0 Smoked in Last 30 Days: Yes Patient Interested in Nicotine Replacement: Yes Patient Given Instructions on How to Stop Smoking: No Second Hand Smoke Exposure: No Use of substances other than those prescribed or required for medical reasons: Yes Substance Use Type: Crack/Cocaine and Marijuana Substance Use Frequency: Occasionally Last Used Substance: Days (ago) Last Used Substance Other:: 7 days Currently Displaying Signs/Symptoms of Drug Intoxication Withdrawal: No Any prior treatment program specific to substance use: No Have you been hit, kicked, punched, or otherwise hurt by someone within the past year? If so, by whom?: No Do you feel safe in your current relationship?: No Current Relationship Is there a partner from a previous relationship who is making you feel unsafe now?: No Are you made to feel afraid or neglected: No Spiritual Healthcare Practices: Pt denies L[employer] Day Healthcare Practices: Pt denies Cultural Healthcare Practices: Pt denies Advance Directives: No Advance Directives Information Provided: No Do you have thoughts of harming others: None Do you have a plan to hurt others: No Plan Recently lost weight without trying: No How much weight loss: Not applicable Eating poorly because of decreased appetite: No Nutrition screen score: 0 Nutrition Risks: No Nutritional Risk Poor oral hygiene: No service: Yes Sexual orientation: Straight/Heterosexual Meds Allergies Allergy/AdvReac Type Severity Reaction Status Date / Time lithium Allergy Rash Verified 02/02/23 07:00 Active Medications: Current Medications Acetaminophen (Acetaminophen 325 Mg Tablet) 650 mg PO Q6H PRN PRN Reason: mild pain (1-3) Last Admin: 02/08/23 13:59 Dose: 650 mg Al Hydroxide/Mg Hydroxide (Magnesium Hydrox/Alum Hydrox 30 Ml Oral.Susp) 30 ml PO Q6H PRN PRN Reason: Heartburn/Nausea Albuterol Sulfate (Albuterol Sulfate 90 Mcg 8 Gm Inhaler) 2 puff INHALE Q4H PRN PRN Reason: dyspnea Last Admin: 02/11/23 05:49 Dose: 2 puff Cyclobenzaprine HCl (Cyclobenzaprine Hcl 10 Mg Tablet) 10 mg PO TID PRN PRN Reason: back pain Last Admin: 02/10/23 08:40 Dose: 10 mg Hydroxyzine HCl (Hydroxyzine Hcl 50 Mg Tablet) 50 mg PO Q6H PRN PRN Reason: anxiety Last Admin: 02/09/23 22:01 Dose: 50 mg Lactated Ringer's (Lr) 1,000 mls @ 50 mls/hr IVCONT .Q20H SHREYA Last Admin: 02/11/23 08:58 Dose: 50 mls/hr Ibuprofen (Ibuprofen 800 Mg Tablet) 800 mg PO Q8H PRN PRN Reason: moderate pain (4-6) Last Admin: 02/10/23 20:35 Dose: 800 mg Lurasidone HCl (Lurasidone Hcl 20 Mg Tablet) 60 mg PO BEDTIME [facility] Last Admin: 02/10/23 20:34 Dose: 60 mg Magnesium Hydroxide (Milk Of Magnesia 30 Ml Oral.Susp) 30 ml PO DAILY PRN PRN Reason: Constipation Nicotine (Nicotine 21 Mg Patch.Td24) 21 mg TRANSDERMA DAILY [facility] Last Admin: 02/10/23 09:02 Dose: 21 mg Non-Formulary Medication (Onkcdtrybh-Ycfqrmuf-Rcjptntqlx [Breztri Aerosphere]) 2 puff INHALE BID [facility] Omeprazole (Omeprazole 20 Mg Capsule.Dr) 20 mg PO DAILY [facility] Last Admin: 02/10/23 08:38 Dose: 20 mg Quetiapine Fumarate (Quetiapine Fumarate 100 Mg Tablet) 100 mg PO BEDTIME [facility] Last Admin: 02/10/23 20:36 Dose: 100 mg Quetiapine Fumarate (Quetiapine Fumarate 25 Mg Tablet) 25 mg PO BID PRN PRN Reason: insomnia Last Admin: 02/10/23 20:35 Dose: 25 mg Sertraline HCl (Sertraline Hcl 50 Mg Tablet) 150 mg PO DAILY [facility]RE[facility] Last Admin: 02/10/23 08:38 Dose: 150 mg Sumatriptan Succinate (Sumatriptan Succinate 100 Mg Tablet) 100 mg PO DAILY PRN PRN Reason: Migraine Headache Last Admin: 02/09/23 09:26 Dose: 100 mg Trazodone HCl (Trazodone Hcl 50 Mg Tablet) 150 mg PO BEDTIME [facility] Last Admin: 02/10/23 20:35 Dose: 150 mg Trazodone HCl (Trazodone Hcl 50 Mg Tablet) 50 mg PO BEDTIME PRN PRN Reason: Insomnia Last Admin: 02/10/23 20:35 Dose: 50 mg Home Medications Medication Instructions Recorded Confirmed Last Taken Type albuterol sulfate 90 mcg/actuation 2 puff inhalation Q4H PRN dyspnea 01/21/23 01/21/23 Unknown History aerosol inhaler (Ventolin HFA) aripiprazole 10 mg tablet 1 tab PO BEDTIME 01/21/23 01/21/23 Unknown History budesonide 160 mcg-glycopyr 9 2 puff inhalation BID 01/21/23 01/21/23 Unknown History mcg-formot 4.8 mcg/actuation HFA inhaler (Breztri Aerosphere) hydroxyzine pamoate 50 mg capsule 1 cap PO Q6H PRN anxiety 01/21/23 01/21/23 Unknown History ibuprofen 800 mg tablet 1 tab PO TID PRN pain 01/21/23 01/21/23 Unknown History omeprazole 20 mg capsule,delayed 1 cap PO QAM 01/21/23 01/21/23 Unknown History release quetiapine 200 mg tablet 1 tab PO BEDTIME 01/21/23 01/21/23 Unknown History quetiapine 25 mg tablet 1 tab PO BID PRN insomnia 01/21/23 01/21/23 Unknown History sertraline 100 mg tablet 1 tab PO DAILY 01/21/23 01/21/23 Unknown History trazodone 50 mg tablet 1 tab PO BEDTIME insomnia 01/21/23 01/21/23 Unknown History Exam Exam Date and Time: February 11, 2023 1035 Height,Weight and Vital Signs: Height 5 ft 10 in Weight 111.097 kg Last Vital Signs Temp 97.2 F 02/11/23 05:54 Pulse 99 02/11/23 05:54 Resp 20 02/10/23 10:27 BP 137/95 H 02/11/23 05:54 Pulse Ox 93 02/11/23 05:54 O2 Del Method 02/10/23 20:40 O2 Flow Rate 2 02/09/23 08:18 Pertinent Lab Results Pertinent Lab Results: Laboratory Tests 01/22/23 01/22/23 01/22/23 07:36 07:36 07:36 WBC 6.6 RBC 4.74 Hgb 15.4 Hct 45.0 MCV 94.9 MCH 32.5 MCHC 34.2 RDW 13.2 Plt Count 184 MPV 9.7 Immature Gran % (Auto) 0.3 Neut % (Auto) 48.0 Lymph % (Auto) 34.2 [place] % (Auto) 11.7 H Eos % (Auto) 5.2 H Baso % (Auto) 0.6 Lymph # (Auto) 2.3 [place] # (Auto) 0.8 Eos # (Auto) 0.3 Baso # (Auto) 0.0 Abs Immat Gran (auto) 0.02 Absolute Neuts (auto) 3.2 Absolute Nucleated RBC 0.000 Nucleated RBC % (auto) 0.0 Sodium 142 Potassium 4.0 Chloride 111 H Carbon Dioxide 24 Anion Gap 11 L BUN 17 H Creatinine 0.91 Estim Creat Clear Calc TNP Estimated GFR > 60 Fasting Glucose 95 Estimat Average Glucose 103 Hemoglobin A1c % 5.2 Calcium 9.6 Total Bilirubin 0.6 Direct Bilirubin 0.2 AST 21 ALT 33 Alkaline Phosphatase 75 Total Protein 6.6 Albumin 4.1 Triglycerides 126 Cholesterol 214 LDL Cholesterol, Calc 146 HDL Cholesterol 43 Vitamin B12 366 Folate 14.2 TSH 1.78 Free T4 0.84 COVID-19 ([facility]) COVID-19 Clin Com 01/28/23 14:10 WBC RBC Hgb Hct MCV MCH MCHC RDW Plt Count MPV Immature Gran % (Auto) Neut % (Auto) Lymph % (Auto) [place] % (Auto) Eos % (Auto) Baso % (Auto) Lymph # (Auto) [place] # (Auto) Eos # (Auto) Baso # (Auto) Abs Immat Gran (auto) Absolute Neuts (auto) Absolute Nucleated RBC Nucleated RBC % (auto) Sodium Potassium Chloride Carbon Dioxide Anion Gap BUN Creatinine Estim Creat Clear Calc Estimated GFR Fasting Glucose Estimat Average Glucose Hemoglobin A1c % Calcium Total Bilirubin Direct Bilirubin AST ALT Alkaline Phosphatase Total Protein Albumin Triglycerides Cholesterol LDL Cholesterol, Calc HDL Cholesterol Vitamin B12 Folate TSH Free T4 COVID-19 ([facility]INDER) Negative COVID-19 Clin Com See Note Airway Mallampati Class: III TM Dist: >3cm Neck ROM: Full Heart: rrr Lungs: cta Assessment and Plan Assessment Anesthesia Assessment: Anesthesia Plan Discussed and Chart Reviewed Final Anesthetic Review Family History of Problems with Anesthesia: No History of Problems with Anesthesia: No NPO: Yes ASA Class: III Final Preanesthetic Review: No Changes in Pt Med Stat, Meds/Allgs Chart Reviewed and Consent Obtained/Reviewed Patient Risk: Intermediate Procedure Risk: Intermediate Anesthetic Plan Anesthetic Plan: GA Disposition: Standard PACU
[2023-02-11] MEDS: Nicotine 21 MG PATCH.TD24 TRANSDERMA (11:38)
[2023-02-11] MEDS: Omeprazole 20 MG CAPSULE.DR PO (11:39)
[2023-02-11] MEDS: Sertraline HCL 50 MG TABLET 150 MG PO (11:39)
--- NOTE | 2023-02-11 11:43 | PC.NURSE ---
Pt brought up post ECT from PACU. Alert, oriented x3, denies headache on arrival, denies dizziness, denies nausea or any other symptoms.
[2023-02-11] MEDS: SUMAtriptan succinate 100 MG TABLET PO (12:24)
[2023-02-11] MEDS: Ibuprofen 800 MG TABLET PO ×2 (12:25→22:34)
[2023-02-11] MEDS: Cyclobenzaprine HCl 10 MG TABLET PO ×2 (12:26→22:32)
--- NOTE | 2023-02-11 14:34 | P.PNPSI_ITS ---
Subjective Subjective Date of Service: 02/11/23 Reason For Visit: Unspecified Bipolar D/O Interim History: ECT went well, feels it is working, mood improving. working to devise aftercare plan. agrees to change latuda to the morning. will observe for w/e and see if sleep pattern changes at all. per staff, social, attending groups, safe. poor sleep 2/2 medications changes. Mental Status Exam Mental Status Exam Narrative: calm, cooperative. no PMA/PMR. nml rate, amount, loudness of speech. thoughts linear. affect more flexible, normo-intense, non-labile. no SI/HI/AVH expresse d. Diagnostics Vital Signs (24Hr): Vital Signs - 24 hr 02/10/23 20:40 02/11/23 05:54 02/11/23 11:12 Temperature 97.6 F 97.2 F Pulse Rate 77 99 103 H Respiratory Rate 16 Blood Pressure 155/79 H 137/95 H Pulse Oximetry 97 93 Oxygen Delivery Method Room Air Oxygen Flow Rate 02/11/23 11:05 02/11/23 11:10 02/11/23 11:15 Temperature 99.2 F Pulse Rate 103 H 104 H 101 H Respiratory Rate 16 16 18 Blood Pressure 158/87 H 143/85 H 127/84 Pulse Oximetry 96 96 96 Oxygen Delivery Method Nasal Cannula with ETCO2 Nasal Cannula with ETCO2 Nasal Cannula with ETCO2 Oxygen Flow Rate 3 3 3 02/11/23 11:20 02/11/23 11:35 02/11/23 11:37 Temperature 97.9 F Pulse Rate 100 100 101 H Respiratory Rate 18 18 18 Blood Pressure 136/91 H 121/81 142/90 H Pulse Oximetry 94 95 90 L Oxygen Delivery Method Room Air Room Air Room Air Oxygen Flow Rate 02/11/23 11:42 Temperature 97.9 F Pulse Rate 101 H Respiratory Rate 18 Blood Pressure 142/90 H Pulse Oximetry 90 L Oxygen Delivery Method Oxygen Flow Rate BMI result Body Mass Index 35.1 Labs 01/22/23 07:36 01/22/23 07:36 Imaging Radiology Impressions: ITS Impressions Head CT 01/27/23 14:07 IMPRESSION: No acute intracranial abnormality. Mild nonspecific hypoattenuation in the cerebral white matter. Medications Medications Current Medications Acetaminophen (Acetaminophen 325 Mg Tablet) 650 mg PO Q6H PRN PRN Reason: mild pain (1-3) Last Admin: 02/08/23 13:59 Dose: 650 mg Al Hydroxide/Mg Hydroxide (Magnesium Hydrox/Alum Hydrox 30 Ml Oral.Susp) 30 ml PO Q6H PRN PRN Reason: Heartburn/Nausea Albuterol Sulfate (Albuterol Sulfate 90 Mcg 8 Gm Inhaler) 2 puff INHALE Q4H PRN PRN Reason: dyspnea Last Admin: 02/11/23 05:49 Dose: 2 puff Cyclobenzaprine HCl (Cyclobenzaprine Hcl 10 Mg Tablet) 10 mg PO TID PRN PRN Reason: back pain Last Admin: 02/11/23 12:26 Dose: 10 mg Ibuprofen (Ibuprofen 800 Mg Tablet) 800 mg PO Q8H PRN PRN Reason: moderate pain (4-6) Last Admin: 02/11/23 12:25 Dose: 800 mg Lurasidone HCl (Lurasidone Hcl 20 Mg Tablet) 60 mg PO DAILY [facility] Magnesium Hydroxide (Milk Of Magnesia 30 Ml Oral.Susp) 30 ml PO DAILY PRN PRN Reason: Constipation Nicotine (Nicotine 21 Mg Patch.Td24) 21 mg TRANSDERMA DAILY [facility] Last Admin: 02/11/23 11:38 Dose: 21 mg Non-Formulary Medication (Qbokiiuesn-Somwhcsl-Bognsfjdts [Breztri Aerosphere]) 2 puff INHALE BID [facility] Omeprazole (Omeprazole 20 Mg Capsule.Dr) 20 mg PO DAILY [facility] Last Admin: 02/11/23 11:39 Dose: 20 mg Quetiapine Fumarate (Quetiapine Fumarate 100 Mg Tablet) 100 mg PO BEDTIME [facility] Last Admin: 02/10/23 20:36 Dose: 100 mg Quetiapine Fumarate (Quetiapine Fumarate 25 Mg Tablet) 25 mg PO BID PRN PRN Reason: insomnia Last Admin: 02/10/23 20:35 Dose: 25 mg Sertraline HCl (Sertraline Hcl 50 Mg Tablet) 150 mg PO DAILY [facility] Last Admin: 02/11/23 11:39 Dose: 150 mg Sumatriptan Succinate (Sumatriptan Succinate 100 Mg Tablet) 100 mg PO DAILY PRN PRN Reason: Migraine Headache Last Admin: 02/11/23 12:24 Dose: 100 mg Trazodone HCl (Trazodone Hcl 50 Mg Tablet) 150 mg PO BEDTIME [facility] Last Admin: 02/10/23 20:35 Dose: 150 mg Trazodone HCl (Trazodone Hcl 50 Mg Tablet) 50 mg PO BEDTIME PRN PRN Reason: Insomnia Last Admin: 02/10/23 20:35 Dose: 50 mg Allergies Allergies Allergy/AdvReac Type Severity Reaction Status Date / Time lithium Allergy Rash Verified 02/02/23 07:00 Assessment & Plan Assessment & Plan (1) PTSD (post-traumatic stress disorder): Status: Acute Code(s): F43.10 - Post-traumatic stress disorder, unspecified (2) Bipolar 1 disorder, depressed, severe: Status: Acute Code(s): F31.4 - Bipolar disorder, current episode depressed, severe, without psychotic features (3) Alcohol use disorder: Status: Acute Code(s): F10.90 - Alcohol use, unspecified, uncomplicated (4) HTN (hypertension): Status: Acute Code(s): I10 - Essential (primary) hypertension (5) COPD (chronic obstructive pulmonary disease): Status: Acute Code(s): J44.9 - Chronic obstructive pulmonary disease, unspecified Plan per chidi ECT consult:? The patient has a history of severe bipolar depression complicated by alcohol use.? Given suicidality status post recent overdose family history of impulsive suicidality ECT would be a reasonable choice at this time indication bipolar depression not responding to multiple hospitalizations with a commitment to sobriety would consider Vivitrol and given patient's lack of response to Seroquel would strongly urge a trial of Latuda.? Hansen would be significantly indicated in this situation however patient states he has had an allergic reaction the past an excellent medication for impulsive suicidality in the context of bipolar disorder.? Medical consult reviewed and EKG reviewed with Cardiology they did not feel need for cardiology consult at this time patient with no acute cardiac symptoms no chest pain risks benefits alternatives reviewed patient with seem to be good ECT candidate but will need close follow-up head CT scan reviewed no acute process no areas of encephalomalacia or subdural EKG reviewed case reviewed with hospitalist service Precis: 01/22: pt expressing lack of motivation for recovery and treatment, especially with medications.? he was educated re ECT for Tx refractory depression.? he is willing to receive further education on the subject and MD will discuss with him again tomorrow. build rapport, listen (pt identified h/o treaters' not listening to him as something which led to his disengagement). continue prior meds for now.? increase seroquel at HS per pt request for insomnia. ativan per [facility] for alcohol withdrawal. 01/23: pt reports he received ECT education and is mulling it over. asks for HS seroquel to be decreased to 250, which is done. asks for flexeril to be increased to 10 TID PRN, which is done. reports no change in mood or SI. 01/24: no change in mood or SI per pt.? however, he is making hopeful statements and was noted to have expressed an interest in therapy after discharge.? increase zoloft to 150 mg daily per pt request.? states ECT is not for him. 01/25 continue current treatment plan; patient still depressed with intermittent SI.? Again discussed ECT and patient says he is more open to considering it.? He will follow up with Dr. Ruff. 01/26: consults placed for chidi, hospitalist, and EKG in preparation for potential ECT.? otherwise continue current mgmt. 01/27: head CT ordered.? awaiting consults from hospitalist and ECT provider.? continue current mgmt. 01/28: cleared by medicine and chidi for ECT, to start tuesday.? stable presentation. 01/29/2023 Patient started on Latuda for bipolar depression.? ECT currently hold would certainly be a treatment option given patient's multiple recent psychiatric hospitalizations and significant suicide attempt would consider naltrex one/Vivitrol 01/30/2023 Continue Latuda monitor affects consideration of ECT patient does describe clear manic history would consider addiction consult with Vivitrol 01/31:? increase latuda to 40 mg and change to HS.? planning to taper seroquel, but insomnia continues, per report.? ECT approved, now planning for . 02/01:? decrease HS seroquel to 200 - pt states he slept well last night.? otherwise no change in regimen? ECT tomorrow. 02/02:? ECT went well, no complaints.? continue current mgmt.? T/C increasing latuda and decreasing seroquel depending on how pt sleeps tonight. 02/03:? feeling relatively well.? increase HS latuda to 60 mg, decrease HS seroquel to 150 mg.? ECT tomorrow. 02/04:? ECT went well, no complaints.? discussing aftercare plans - prison, [facility] services.? no change to plan.? ECT tuesday. 02/05: Continue current regimen and plans.? Continue ECT. 02/07: schedule trazodone 100 mg QHS.? increase methadone to 75 mg daily.? [facility] unable to identify a methadone clinic which could guest-dose him.? looking into other CSSs. 02/08: no change, anticipating ECT tomorrow.? working on dispo plans, recently in touch with [facility]. 02/09: no side effects from ECT, mood remains improved. decrease HS seroquel to 100 mg, otherwise continue current mgmt. 02/10: stable. continue current regimen through ECT tomorrow. planning to continue seroquel taper over w/e. 02/11: stable, ECT went well. continue seroquel as is and move latuda 60 mg QHS to the morning. per staff, SOB, using a lot of albuterol PRNs, getting nebs at ECT. was on breztri, which he reports worked like a charm, which is not on formulary and per pharmacy without any replacement here. pulmonary consult placed. ECT tuesday. Reason for contiued inpatient stay Substantial Risk for: inability to function and rapid decompensation Time Spent With Patient Time: Total time managing care of this patient today __35__ minutes.
--- NOTE | 2023-02-11 15:41 | P.CONPL_ITS ---
History of Present Illness History of Present Illness Consult date: 02/11/23 Requesting physician: Archie Dillard Chief complaint: Unspecified Bipolar D/O Narrative: 57-year-old gentleman with underlying history of COPD now hospitalized with psychiatric diagnosis, who also has had ECT earlier this admission and was noted to have episodes of desaturation, but still maintain normal oximetry on room air. Patient is supposed to use BrezTri, however 80s non from a lying history he was not using recently. Also denies active wheezing. Review of Systems Constitutional: Constitutional: Denies daytime sleepiness, Denies excessive sweating, Denies fatigue, Denies fever(s), Denies lethargy, Denies malaise, Denies night sweats, Denies snoring and Denies weight loss Eyes: Eyes: Denies blurry vision and Denies itchy eyes ENT: Denies nasal congestion, Denies post nasal drip, Denies sinus pain, Denies sinus pressure and Denies other ( Thrush) Cardiovascular: Cardiovascular: Denies chest pain, Denies pedal edema, Denies dyspnea, Denies orthopnea and Denies paroxysmal nocturnal dyspnea Respiratory: Respiratory: Denies cough, Denies hemoptysis, Denies excessive phlegm production, Denies dyspnea, Denies snoring and Denies wheezing Gastrointestinal: Gastrointestinal: Denies abdominal pain and Denies heartburn Musculoskeletal: Musculoskeletal: Denies myalgias, Denies arthralgias and Denies joint swelling Integumentary/Breasts: Skin/Breast: Denies rash Neurologic: Denies seizure-like activity Endocrine: Endocrine: Denies excessive sweating, Denies fatigue and Denies heat intolerance Hematologic/Lymphatic: Hematologic/Lymphatic: Denies easy bruising Allergic/Immunologic: Allergic/Immunologic: Denies itchy eyes, Denies seasonal rhinorrhea and Denies wheezing PMFSH Past Medical History Medical History Alcohol use disorder TBI (traumatic brain injury) Social History Social History Household Members: None Housing: Homeless Do you presently have visiting nurse or other home services: No Patient Tobacco Use Status: Current everyday Tobacco user Tobacco use type: Cigarette Cigarette Packs Per Day: 1.5 Cigarettes Per Day: 30.0 Smoked in Last 30 Days: Yes Patient Interested in Nicotine Replacement: Yes Patient Given Instructions on How to Stop Smoking: No Second Hand Smoke Exposure: No Use of substances other than those prescribed or required for medical reasons: Yes Substance Use Type: Crack/Cocaine and Marijuana Substance Use Frequency: Occasionally Last Used Substance: Days (ago) Last Used Substance Other:: 7 days Currently Displaying Signs/Symptoms of Drug Intoxication Withdrawal: No Any prior treatment program specific to substance use: No Have you been hit, kicked, punched, or otherwise hurt by someone within the past year? If so, by whom?: No Do you feel safe in your current relationship?: No Current Relationship Is there a partner from a previous relationship who is making you feel unsafe now?: No Are you made to feel afraid or neglected: No Spiritual Healthcare Practices: Pt denies Taoist Healthcare Practices: Pt denies Cultural Healthcare Practices: Pt denies Advance Directives: No Advance Directives Information Provided: No Do you have thoughts of harming others: None Do you have a plan to hurt others: No Plan Recently lost weight without trying: No How much weight loss: Not applicable Eating poorly because of decreased appetite: No Nutrition screen score: 0 Nutrition Risks: No Nutritional Risk Poor oral hygiene: No service: Yes Sexual orientation: Straight/Heterosexual Meds Allergies Allergy/AdvReac Type Severity Reaction Status Date / Time lithium Allergy Rash Verified 02/02/23 07:00 Active Medications: Current Medications Acetaminophen (Acetaminophen 325 Mg Tablet) 650 mg PO Q6H PRN PRN Reason: mild pain (1-3) Last Admin: 02/08/23 13:59 Dose: 650 mg Al Hydroxide/Mg Hydroxide (Magnesium Hydrox/Alum Hydrox 30 Ml Oral.Susp) 30 ml PO Q6H PRN PRN Reason: Heartburn/Nausea Albuterol Sulfate (Albuterol Sulfate 90 Mcg 8 Gm Inhaler) 2 puff INHALE Q4H PRN PRN Reason: dyspnea Last Admin: 02/11/23 05:49 Dose: 2 puff Cyclobenzaprine HCl (Cyclobenzaprine Hcl 10 Mg Tablet) 10 mg PO TID PRN PRN Reason: back pain Last Admin: 02/11/23 12:26 Dose: 10 mg Ibuprofen (Ibuprofen 800 Mg Tablet) 800 mg PO Q8H PRN PRN Reason: moderate pain (4-6) Last Admin: 02/11/23 12:25 Dose: 800 mg Lurasidone HCl (Lurasidone Hcl 20 Mg Tablet) 60 mg PO DAILY [facility] Magnesium Hydroxide (Milk Of Magnesia 30 Ml Oral.Susp) 30 ml PO DAILY PRN PRN Reason: Constipation Nicotine (Nicotine 21 Mg Patch.Td24) 21 mg TRANSDERMA DAILY [facility] Last Admin: 02/11/23 11:38 Dose: 21 mg Non-Formulary Medication (Dethrwjcyl-Tkrhdeei-Elwwgubpmp [Breztri Aerosphere]) 2 puff INHALE BID [facility] Omeprazole (Omeprazole 20 Mg Capsule.Dr) 20 mg PO DAILY [facility] Last Admin: 02/11/23 11:39 Dose: 20 mg Quetiapine Fumarate (Quetiapine Fumarate 100 Mg Tablet) 100 mg PO BEDTIME [facility] Last Admin: 02/10/23 20:36 Dose: 100 mg Quetiapine Fumarate (Quetiapine Fumarate 25 Mg Tablet) 25 mg PO BID PRN PRN Reason: insomnia Last Admin: 02/10/23 20:35 Dose: 25 mg Sertraline HCl (Sertraline Hcl 50 Mg Tablet) 150 mg PO DAILY [facility] Last Admin: 02/11/23 11:39 Dose: 150 mg Sumatriptan Succinate (Sumatriptan Succinate 100 Mg Tablet) 100 mg PO DAILY PRN PRN Reason: Migraine Headache Last Admin: 02/11/23 12:24 Dose: 100 mg Trazodone HCl (Trazodone Hcl 50 Mg Tablet) 150 mg PO BEDTIME [facility] Last Admin: 02/10/23 20:35 Dose: 150 mg Trazodone HCl (Trazodone Hcl 50 Mg Tablet) 50 mg PO BEDTIME PRN PRN Reason: Insomnia Last Admin: 02/10/23 20:35 Dose: 50 mg Home Medications Medication Instructions Recorded Confirmed Last Taken Type albuterol sulfate 90 mcg/actuation 2 puff inhalation Q4H PRN dyspnea 01/21/23 01/21/23 Unknown History aerosol inhaler (Ventolin HFA) aripiprazole 10 mg tablet 1 tab PO BEDTIME 01/21/23 01/21/23 Unknown History budesonide 160 mcg-glycopyr 9 2 puff inhalation BID 01/21/23 01/21/23 Unknown History mcg-formot 4.8 mcg/actuation HFA inhaler (Breztri Aerosphere) hydroxyzine pamoate 50 mg capsule 1 cap PO Q6H PRN anxiety 01/21/23 01/21/23 Unknown History ibuprofen 800 mg tablet 1 tab PO TID PRN pain 01/21/23 01/21/23 Unknown History omeprazole 20 mg capsule,delayed 1 cap PO QAM 01/21/23 01/21/23 Unknown History release quetiapine 200 mg tablet 1 tab PO BEDTIME 01/21/23 01/21/23 Unknown History quetiapine 25 mg tablet 1 tab PO BID PRN insomnia 01/21/23 01/21/23 Unknown History sertraline 100 mg tablet 1 tab PO DAILY 01/21/23 01/21/23 Unknown History trazodone 50 mg tablet 1 tab PO BEDTIME insomnia 01/21/23 01/21/23 Unknown History Physical Exam Vital Signs: Vital Signs: Last Vital Signs Temp 97.9 F 02/11/23 11:42 Pulse 101 H 02/11/23 11:42 Resp 18 02/11/23 11:42 BP 142/90 H 02/11/23 11:42 Pulse Ox 90 L 02/11/23 11:42 O2 Del Method 02/11/23 11:37 O2 Flow Rate 3 02/11/23 11:15 BMI result Body Mass Index 35.1 Const: General: no acute distress and alert Nutritional Appearance: not obese Orientation/consciousness: Other orientation findings ( oriented) HEENT: Head: Yes atraumatic Mouth: no other ( thrush) Throat: No postnasal drainage Eyes: General: appearance normal, both eyes and all related structures Sclerae: sclerae normal EOM: EOMs intact bilaterally Neck: Neck: Yes supple Lymphatic: no lymphadenopathy noted Resp: Effort & Inspection: normal respiratory effort and no use of accessory muscles Auscultation: clear to auscultation bilaterally Cardio: Rate: tachycardic Rhythm: regular rhythm Heart sounds: no g allops, no murmurs and no rubs GI: Palpation (GI): Soft to palpation and Other GI palpation findings present ( nontender) Skin: General skin exam: other ( warm) Rashes: no rashes Extrem: General: No clubbing, No cyanosis and No edema Results Laboratory Findings 01/22/23 07:36 01/22/23 07:36 Abnormal lab findings: Abnormal Labs 01/22/23 01/22/23 07:36 07:36 Day % (Auto) 11.7 H Eos % (Auto) 5.2 H Chloride 111 H Anion Gap 11 L BUN 17 H Assessment and Plan (1) COPD (chronic obstructive pulmonary disease): Status: Acute Plan Impression: 57-year-old gentleman hospitalized with psychiatric diagnosis with underlying COPD, noted to have some wheezing and mild desaturations with the ECT, currently not on bronchodilator. Chest x-ray is pending. Likely aspiration event with ECT. Recommendations: BrezTri is non-formulary, Changed to Breo. Will review x- ray as available. Likely resolved spirations with ECT. Time Spent With Patient Time: Total time managing care of this patient today ____ minutes. Procedures Date of Service Date of Service: 02/11/23
[2023-02-11] MEDS: Fluticasone/Vilanterol 200/25 BLST.W.DEV 1 PUFF INHALE (18:54)
[2023-02-11] MEDS: QUEtiapine Fumarate 100 MG TABLET PO (22:31)
[2023-02-11] MEDS: QUEtiapine Fumarate 25 MG TABLET PO (22:31)
[2023-02-11] MEDS: traZODone HCL 50 MG TABLET 150 MG PO (22:32)
[2023-02-11] MEDS: traZODone HCL 50 MG TABLET PO (22:32)
[2023-02-12 08:30] VITALS: BP 138/81; PULSE 94; RESP 18; TEMP 36.3; O2SAT 93
[2023-02-12] MEDS: Albuterol Sulfate 90 MCG 8 GM INHALER 2 PUFF INHALE ×2 (08:45→22:38)
[2023-02-12] MEDS: Nicotine 21 MG PATCH.TD24 TRANSDERMA (08:46)
[2023-02-12] MEDS: Fluticasone/Vilanterol 200/25 BLST.W.DEV 1 PUFF INHALE (08:46)
[2023-02-12] MEDS: Ibuprofen 800 MG TABLET PO ×2 (08:48→22:43)
[2023-02-12] MEDS: Cyclobenzaprine HCl 10 MG TABLET PO ×3 (08:49→22:40)
[2023-02-12] MEDS: Omeprazole 20 MG CAPSULE.DR PO (08:50)
[2023-02-12] MEDS: Sertraline HCL 50 MG TABLET 150 MG PO (08:50)
[2023-02-12] MEDS: Lurasidone HCl 20 MG TABLET 60 MG PO (09:12)
--- NOTE | 2023-02-12 12:48 | P.PNPSI_ITS ---
Subjective Subjective Date of Service: 02/12/23 Reason For Visit: Unspecified Bipolar D/O Subjective Notes: Conditional Voluntary Interim History: The nursing staff reported the patient slept well after 23:30, he has been cooperative and pleasant, fully compliant with treatment. On interview the patient denies new symptoms he states that he is feeling much better with ECT and he is looking for a discharge pretty soon. He states that he feels by far much better. Mental Status Exam Mental Status Exam Patient Appearance: Well Grooomed Patient Orientation: Person and Situation Level of Consciousness: Awake and Appropriate Patient Behavior: Appropriate Mood Description: Calm Affect Description: Constricted Patient Cognition Impaired: Yes Ability to Follow Directions: Good Speech Pattern: Clear Hallucinations: None Delusions: Not Present Thought Process: Linear Judgement: Fair Diagnostics Vital Signs (24Hr): Vital Signs - 24 hr 02/11/23 22:15 02/12/23 08:30 Temperature 97.8 F 97.4 F Pulse Rate 60 94 Respiratory Rate 18 18 Blood Pressure 146/92 H 138/81 Pulse Oximetry 94 93 Oxygen Delivery Method Room Air Room Air BMI result Body Mass Index 35.1 Labs 01/22/23 07:36 01/22/23 07:36 Imaging Radiology Impressions: [facility] Impressions Head CT 01/27/23 14:07 IMPRESSION: No acute intracranial abnormality. Mild nonspecific hypoattenuation in the cerebral white matter. Chest X-Ray 02/11/23 15:40 IMPRESSION: No acute parenchymal disease. Question left lung density as described above. Medications Medications Current Medications Acetaminophen (Acetaminophen 325 Mg Tablet) 650 mg PO Q6H PRN PRN Reason: mild pain (1-3) Last Admin: 02/08/23 13:59 Dose: 650 mg Al Hydroxide/Mg Hydroxide (Magnesium Hydrox/Alum Hydrox 30 Ml Oral.Susp) 30 ml PO Q6H PRN PRN Reason: Heartburn/Nausea Albuterol Sulfate (Albuterol Sulfate 90 Mcg 8 Gm Inhaler) 2 puff INHALE Q4H PRN PRN Reason: dyspnea Last Admin: 02/12/23 08:45 Dose: 2 puff Cyclobenzaprine HCl (Cyclobenzaprine Hcl 10 Mg Tablet) 10 mg PO TID PRN PRN Reason: back pain Last Admin: 02/12/23 08:49 Dose: 10 mg Fluticasone/Vilanterol (Fluticasone/Vilanterol 200/25 Blst.W.Dev) 1 puff INHALE RDAILY [facility] Last Admin: 02/12/23 08:46 Dose: 1 puff Ibuprofen (Ibuprofen 800 Mg Tablet) 800 mg PO Q8H PRN PRN Reason: moderate pain (4-6) Last Admin: 02/12/23 08:48 Dose: 800 mg Lurasidone HCl (Lurasidone Hcl 20 Mg Tablet) 60 mg PO DAILY [facility] [place] Last Admin: 02/12/23 09:12 Dose: 60 mg Magnesium Hydroxide (Milk Of Magnesia 30 Ml Oral.Susp) 30 ml PO DAILY PRN PRN Reason: Constipation Nicotine (Nicotine 21 Mg Patch.Td24) 21 mg TRANSDERMA DAILY [facility] [place] Last Admin: 02/12/23 08:46 Dose: 21 mg Omeprazole (Omeprazole 20 Mg Capsule.Dr) 20 mg PO DAILY [facility] [place] Last Admin: 02/12/23 08:50 Dose: 20 mg Quetiapine Fumarate (Quetiapine Fumarate 100 Mg Tablet) 100 mg PO BEDTIME [facility] [place] Last Admin: 02/11/23 22:31 Dose: 100 mg Quetiapine Fumarate (Quetiapine Fumarate 25 Mg Tablet) 25 mg PO BID PRN PRN Reason: insomnia Last Admin: 02/11/23 22:31 Dose: 25 mg Sertraline HCl (Sertraline Hcl 50 Mg Tablet) 150 mg PO DAILY [facility] [place] Last Admin: 02/12/23 08:50 Dose: 150 mg Sumatriptan Succinate (Sumatriptan Succinate 100 Mg Tablet) 100 mg PO DAILY PRN PRN Reason: Migraine Headache Last Admin: 02/11/23 12:24 Dose: 100 mg Trazodone HCl (Trazodone Hcl 50 Mg Tablet) 150 mg PO BEDTIME [facility] [place] Last Admin: 02/11/23 22:32 Dose: 150 mg Trazodone HCl (Trazodone Hcl 50 Mg Tablet) 50 mg PO BEDTIME PRN PRN Reason: Insomnia Last Admin: 02/11/23 22:32 Dose: 50 mg Allergies Allergies Allergy/AdvReac Type Severity Reaction Status Date / Time lithium Allergy Rash Verified 02/02/23 07:00 Assessment & Plan Assessment & Plan (1) COPD (chronic obstructive pulmonary disease): Status: Acute Code(s): J44.9 - Chronic obstructive pulmonary disease, unspecified Plan Impression: 57-year-old gentleman hospitalized with psychiatric diagnosis with underlying COPD, noted to have some wheezing and mild desaturations with the ECT, currently not on bronchodilator. Chest x-ray is pending. Likely aspiration event with ECT. Recommendations: BrezTri is non-formulary, Changed to Breo. Will review x- ray as available. Likely resolved spirations with ECT. Reason for contiued inpatient stay Substantial Risk for: inability to function, rapid decompensation and med/psych decompensation Time Spent With Patient Time: Total time managing care of this patient today ____ minutes.
[2023-02-12] MEDS: Acetaminophen 325 MG TABLET 650 MG PO (14:26)
[2023-02-12 22:30] VITALS: BP 162/94; PULSE 60; RESP 18; TEMP 36.2; O2SAT 96
[2023-02-12] MEDS: QUEtiapine Fumarate 100 MG TABLET PO (22:39)
[2023-02-12] MEDS: traZODone HCL 50 MG TABLET PO (22:40)
[2023-02-12] MEDS: QUEtiapine Fumarate 25 MG TABLET PO (22:40)
[2023-02-12] MEDS: traZODone HCL 50 MG TABLET 150 MG PO (22:40)
[2023-02-13 09:00] VITALS: BP 127/59; PULSE 97; RESP 18; TEMP 36.6; O2SAT 97
[2023-02-13] MEDS: Fluticasone/Vilanterol 200/25 BLST.W.DEV 1 PUFF INHALE (09:04)
[2023-02-13] MEDS: Sertraline HCL 50 MG TABLET 150 MG PO (09:05)
[2023-02-13] MEDS: Lurasidone HCl 20 MG TABLET 60 MG PO (09:05)
[2023-02-13] MEDS: Nicotine 21 MG PATCH.TD24 TRANSDERMA (09:05)
[2023-02-13] MEDS: Omeprazole 20 MG CAPSULE.DR PO (09:05)
[2023-02-13] MEDS: Ibuprofen 800 MG TABLET PO ×2 (09:10→15:48)
[2023-02-13] MEDS: Cyclobenzaprine HCl 10 MG TABLET PO ×2 (09:11→15:48)
--- NOTE | 2023-02-13 13:04 | HO.PSYCHPN ---
Subjective Subjective Date of Service: 02/13/23 Reason For Visit: Unspecified Bipolar D/O Subjective Notes: Conditional Voluntary Interim History: The nursing staff reported the patient feels much better, he denies depression. He had a meeting with [facility] and he was hopeful to get placement and work. He attended groups he slept well. On interview the patient was alert and oriented, he feels much better since his CT was started. Mental Status Exam Mental Status Exam Patient Appearance: Well Grooomed and Appropriate Patient Orientation: Person, Place, Time and Situation Level of Consciousness: Awake and Appropriate Patient Behavior: Appropriate Mood Description: Calm Affect Description: Constricted Patient Cognition Impaired: No Ability to Follow Directions: Good Speech Pattern: Clear Hallucinations: None Delusions: Not Present Thought Process: Linear Thought Content: positive for Circumstantial Judgement: Fair Diagnostics Vital Signs (24Hr): Vital Signs - 24 hr 02/12/23 22:30 02/13/23 09:00 Temperature 97.2 F 97.9 F Pulse Rate 60 97 Respiratory Rate 18 18 Blood Pressure 162/94 H 127/59 L Pulse Oximetry 96 97 Oxygen Delivery Method Room Air Room Air BMI result Body Mass Index 35.1 Labs 01/22/23 07:36 01/22/23 07:36 Imaging Radiology Impressions: ITS Impressions Head CT 01/27/23 14:07 IMPRESSION: No acute intracranial abnormality. Mild nonspecific hypoattenuation in the cerebral white matter. Chest X-Ray 02/11/23 15:40 IMPRESSION: No acute parenchymal disease. Question left lung density as described above. Medications Medications Current Medications Acetaminophen (Acetaminophen 325 Mg Tablet) 650 mg PO Q6H PRN PRN Reason: mild pain (1-3) Last Admin: 02/12/23 14:26 Dose: 650 mg Al Hydroxide/Mg Hydroxide (Magnesium Hydrox/Alum Hydrox 30 Ml Oral.Susp) 30 ml PO Q6H PRN PRN Reason: Heartburn/Nausea Albuterol Sulfate (Albuterol Sulfate 90 Mcg 8 Gm Inhaler) 2 puff INHALE Q4H PRN PRN Reason: dyspnea Last Admin: 02/12/23 22:38 Dose: 2 puff Cyclobenzaprine HCl (Cyclobenzaprine Hcl 10 Mg Tablet) 10 mg PO TID PRN PRN Reason: back pain Last Admin: 02/13/23 09:11 Dose: 10 mg Fluticasone/Vilanterol (Fluticasone/Vilanterol 200/25 Blst.W.Dev) 1 puff INHALE RDAILY [facility] Last Admin: 02/13/23 09:04 Dose: 1 puff Ibuprofen (Ibuprofen 800 Mg Tablet) 800 mg PO Q8H PRN PRN Reason: moderate pain (4-6) Last Admin: 02/13/23 09:10 Dose: 800 mg Lurasidone HCl (Lurasidone Hcl 20 Mg Tablet) 60 mg PO DAILY [facility] Last Admin: 02/13/23 09:05 Dose: 60 mg Magnesium Hydroxide (Milk Of Magnesia 30 Ml Oral.Susp) 30 ml PO DAILY PRN PRN Reason: Constipation Nicotine (Nicotine 21 Mg Patch.Td24) 21 mg TRANSDERMA DAILY [facility] Last Admin: 02/13/23 09:05 Dose: 21 mg Omeprazole (Omeprazole 20 Mg Capsule.Dr) 20 mg PO DAILY [facility] Last Admin: 02/13/23 09:05 Dose: 20 mg Quetiapine Fumarate (Quetiapine Fumarate 100 Mg Tablet) 100 mg PO BEDTIME [facility] Last Admin: 02/12/23 22:39 Dose: 100 mg Quetiapine Fumarate (Quetiapine Fumarate 25 Mg Tablet) 25 mg PO BID PRN PRN Reason: insomnia Last Admin: 02/12/23 22:40 Dose: 25 mg Sertraline HCl (Sertraline Hcl 50 Mg Tablet) 150 mg PO DAILY [facility] Last Admin: 02/13/23 09:05 Dose: 150 mg Sumatriptan Succinate (Sumatriptan Succinate 100 Mg Tablet) 100 mg PO DAILY PRN PRN Reason: Migraine Headache Last Admin: 02/11/23 12:24 Dose: 100 mg Trazodone HCl (Trazodone Hcl 50 Mg Tablet) 150 mg PO BEDTIME [facility] Last Admin: 02/12/23 22:40 Dose: 150 mg Trazodone HCl (Trazodone Hcl 50 Mg Tablet) 50 mg PO BEDTIME PRN PRN Reason: Insomnia Last Admin: 02/12/23 22:40 Dose: 50 mg Allergies Allergies Allergy/AdvReac Type Severity Reaction Status Date / Time lithium Allergy Rash Verified 02/02/23 07:00 Assessment & Plan Assessment & Plan (1) COPD (chronic obstructive pulmonary disease): Status: Acute Code(s): J44.9 - Chronic obstructive pulmonary disease, unspecified Plan Impression: 57-year-old gentleman hospitalized with psychiatric diagnosis with underlying COPD, noted to have some wheezing and mild desaturations with the ECT, currently not on bronchodilator. Chest x-ray is pending. Likely aspiration event with ECT. Recommendations: BrezTri is non-formulary, Changed to Breo. Will review x-ray as available. Likely resolved spirations with ECT. Reason for contiued inpatient stay Substantial Risk for: inability to function, rapid decompensation and med/psych decompensation Time Spent With Patient Time: Total time managing care of this patient today _20___ minutes.
[2023-02-13 17:47] VITALS: BP 144/90; PULSE 66; RESP 18; TEMP 36.6; O2SAT 96
[2023-02-13] MEDS: QUEtiapine Fumarate 25 MG TABLET PO (20:17)
[2023-02-13] MEDS: Acetaminophen 325 MG TABLET 650 MG PO (20:17)
[2023-02-13] MEDS: traZODone HCL 50 MG TABLET 150 MG PO (20:17)
[2023-02-13] MEDS: QUEtiapine Fumarate 100 MG TABLET PO (20:17)
[2023-02-13] MEDS: traZODone HCL 50 MG TABLET PO (20:23)
[2023-02-14] VITALS (9 sets, daily range): BP systolic 117–156; BP diastolic 77–107; PULSE 75–112; RESP 12–20; TEMP 36.2–36.6; O2SAT 94–97
--- NOTE | 2023-02-14 07:58 | HO.ANESPROP2 ---
[facility] Active Problems Active Problems: All Active Problems (Updated 01/28/23 @ 13:44 by Archie Dillard MD) Bipolar 1 disorder, depressed, severe (Acute) Pre-op evaluation (Acute) TBI (traumatic brain injury) (Acute) Alcohol use disorder (Acute) PTSD (post-traumatic stress disorder) (Acute) Routine history and physical examination of adult (Acute) COPD (chronic obstructive pulmonary disease) (Acute) HTN (hypertension) (Acute) Past Medical History Medical History Alcohol use disorder TBI (traumatic brain injury) Family History Family history of problems with anesthesia: No Surgical History History of Problems with Anesthesia: No Social History Social History Household Members: None Housing: Homeless Do you presently have visiting nurse or other home services: No Patient Tobacco Use Status: Current everyday Tobacco user Tobacco use type: Cigarette Cigarette Packs Per Day: 1.5 Cigarettes Per Day: 30.0 Smoked in Last 30 Days: Yes Patient Interested in Nicotine Replacement: Yes Patient Given Instructions on How to Stop Smoking: No Second Hand Smoke Exposure: No Use of substances other than those prescribed or required for medical reasons: Yes Substance Use Type: Crack/Cocaine and Marijuana Substance Use Frequency: Occasionally Last Used Substance: Days (ago) Last Used Substance Other:: 7 days Currently Displaying Signs/Symptoms of Drug Intoxication Withdrawal: No Any prior treatment program specific to substance use: No Have you been hit, kicked, punched, or otherwise hurt by someone within the past year? If so, by whom?: No Do you feel safe in your current relationship?: No Current Relationship Is there a partner from a previous relationship who is making you feel unsafe now?: No Are you made to feel afraid or neglected: No Spiritual Healthcare Practices: Pt denies [facility] Practices: Pt denies Cultural Healthcare Practices: Pt denies Advance Directives: No Advance Directives Information Provided: No Do you have thoughts of harming others: None Do you have a plan to hurt others: No Plan Recently lost weight without trying: No How much weight loss: Not applicable Eating poorly because of decreased appetite: No Nutrition screen score: 0 Nutrition Risks: No Nutritional Risk Poor oral hygiene: No service: Yes Sexual orientation: Straight/Heterosexual Meds Allergies Allergy/AdvReac Type Severity Reaction Status Date / Time lithium Allergy Rash Verified 02/02/23 07:00 Active Medications: Current Medications Acetaminophen (Acetaminophen 325 Mg Tablet) 650 mg PO Q6H PRN PRN Reason: mild pain (1-3) Last Admin: 02/13/23 20:17 Dose: 650 mg Al Hydroxide/Mg Hydroxide (Magnesium Hydrox/Alum Hydrox 30 Ml Oral.Susp) 30 ml PO Q6H PRN PRN Reason: Heartburn/Nausea Albuterol Sulfate (Albuterol Sulfate 90 Mcg 8 Gm Inhaler) 2 puff INHALE Q4H PRN PRN Reason: dyspnea Last Admin: 02/12/23 22:38 Dose: 2 puff Cyclobenzaprine HCl (Cyclobenzaprine Hcl 10 Mg Tablet) 10 mg PO TID PRN PRN Reason: back pain Last Admin: 02/13/23 15:48 Dose: 10 mg Fluticasone/Vilanterol (Fluticasone/Vilanterol 200/25 Blst.W.Dev) 1 puff INHALE RDAILY [facility] Last Admin: 02/13/23 09:04 Dose: 1 puff Ibuprofen (Ibuprofen 800 Mg Tablet) 800 mg PO Q8H PRN PRN Reason: moderate pain (4-6) Last Admin: 02/13/23 15:48 Dose: 800 mg Lurasidone HCl (Lurasidone Hcl 20 Mg Tablet) 60 mg PO DAILY [facility] Last Admin: 02/13/23 09:05 Dose: 60 mg Magnesium Hydroxide (Milk Of Magnesia 30 Ml Oral.Susp) 30 ml PO DAILY PRN PRN Reason: Constipation Nicotine (Nicotine 21 Mg Patch.Td24) 21 mg TRANSDERMA DAILY [facility] Last Admin: 02/13/23 09:05 Dose: 21 mg Omeprazole (Omeprazole 20 Mg Capsule.Dr) 20 mg PO DAILY [facility] Last Admin: 02/13/23 09:05 Dose: 20 mg Quetiapine Fumarate (Quetiapine Fumarate 100 Mg Tablet) 100 mg PO BEDTIME [facility] Last Admin: 02/13/23 20:17 Dose: 100 mg Quetiapine Fumarate (Quetiapine Fumarate 25 Mg Tablet) 25 mg PO BID PRN PRN Reason: insomnia Last Admin: 02/13/23 20:17 Dose: 25 mg Sertraline HCl (Sertraline Hcl 50 Mg Tablet) 150 mg PO DAILY [facility] Last Admin: 02/13/23 09:05 Dose: 150 mg Sumatriptan Succinate (Sumatriptan Succinate 100 Mg Tablet) 100 mg PO DAILY PRN PRN Reason: Migraine Headache Last Admin: 02/11/23 12:24 Dose: 100 mg Trazodone HCl (Trazodone Hcl 50 Mg Tablet) 150 mg PO BEDTIME SHREYA Last Admin: 02/13/23 20:17 Dose: 150 mg Trazodone HCl (Trazodone Hcl 50 Mg Tablet) 50 mg PO BEDTIME PRN PRN Reason: Insomnia Last Admin: 02/13/23 20:23 Dose: 50 mg Home Medications Medication Instructions Recorded Confirmed Last Taken Type albuterol sulfate 90 mcg/actuation 2 puff inhalation Q4H PRN dyspnea 01/21/23 01/21/23 Unknown History aerosol inhaler (Ventolin HFA) aripiprazole 10 mg tablet 1 tab PO BEDTIME 01/21/23 01/21/23 Unknown History budesonide 160 mcg-glycopyr 9 2 puff inhalation BID 01/21/23 01/21/23 Unknown History mcg-formot 4.8 mcg/actuation HFA inhaler (Breztri Aerosphere) hydroxyzine pamoate 50 mg capsule 1 cap PO Q6H PRN anxiety 01/21/23 01/21/23 Unknown History ibuprofen 800 mg tablet 1 tab PO TID PRN pain 01/21/23 01/21/23 Unknown History omeprazole 20 mg capsule,delayed 1 cap PO QAM 01/21/23 01/21/23 Unknown History release quetiapine 200 mg tablet 1 tab PO BEDTIME 01/21/23 01/21/23 Unknown History quetiapine 25 mg tablet 1 tab PO BID PRN insomnia 01/21/23 01/21/23 Unknown History sertraline 100 mg tablet 1 tab PO DAILY 01/21/23 01/21/23 Unknown History trazodone 50 mg tablet 1 tab PO BEDTIME insomnia 01/21/23 01/21/23 Unknown History Exam Exam Date and Time: February 14, 2023 075 Height,Weight and Vital Signs: Height 5 ft 10 in Weight 111.097 kg Last Vital Signs Temp 97.8 F 02/14/23 06:42 Pulse 81 02/14/23 06:42 Resp 18 02/14/23 06:42 BP 121/89 02/14/23 06:42 Pulse Ox 95 02/14/23 06:42 O2 Del Method 02/14/23 06:42 O2 Flow Rate 3 02/11/23 11:15 Pertinent Lab Results Pertinent Lab Results: Laboratory Tests 01/22/23 01/22/23 01/22/23 07:36 07:36 07:36 WBC 6.6 RBC 4.74 Hgb 15.4 Hct 45.0 MCV 94.9 MCH 32.5 MCHC 34.2 RDW 13.2 Plt Count 184 MPV 9.7 Immature Gran % (Auto) 0.3 Neut % (Auto) 48.0 Lymph % (Auto) 34.2 [place] % (Auto) 11.7 H Eos % (Auto) 5.2 H Baso % (Auto) 0.6 Lymph # (Auto) 2.3 [place] # (Auto) 0.8 Eos # (Auto) 0.3 Baso # (Auto) 0.0 Abs Immat Gran (auto) 0.02 Absolute Neuts (auto) 3.2 Absolute Nucleated RBC 0.000 Nucleated RBC % (auto) 0.0 Sodium 142 Potassium 4.0 Chloride 111 H Carbon Dioxide 24 Anion Gap 11 L BUN 17 H Creatinine 0.91 Estim Creat Clear Calc TNP Estimated GFR > 60 Fasting Glucose 95 Estimat Average Glucose 103 Hemoglobin A1c % 5.2 Calcium 9.6 Total Bilirubin 0.6 Direct Bilirubin 0.2 AST 21 ALT 33 Alkaline Phosphatase 75 Total Protein 6.6 Albumin 4.1 Triglycerides 126 Cholesterol 214 LDL Cholesterol, Calc 146 HDL Cholesterol 43 Vitamin B12 366 Folate 14.2 TSH 1.78 Free T4 0.84 COVID-19 ([facility]) COVID-19 Clin Com 01/28/23 14:10 WBC RBC Hgb Hct MCV MCH MCHC RDW Plt Count MPV Immature Gran % (Auto) Neut % (Auto) Lymph % (Auto) [place] % (Auto) Eos % (Auto) Baso % (Auto) Lymph # (Auto) [place] # (Auto) Eos # (Auto) Baso # (Auto) Abs Immat Gran (auto) Absolute Neuts (auto) Absolute Nucleated RBC Nucleated RBC % (auto) Sodium Potassium Chloride Carbon Dioxide Anion Gap BUN Creatinine Estim Creat Clear Calc Estimated GFR Fasting Glucose Estimat Average Glucose Hemoglobin A1c % Calcium Total Bilirubin Direct Bilirubin AST ALT Alkaline Phosphatase Total Protein Albumin Triglycerides Cholesterol LDL Cholesterol, Calc HDL Cholesterol Vitamin B12 Folate TSH Free T4 COVID-19 ([facility]ARINDER) Negative COVID-19 Clin Com See Note Airway Mallampati Class: III TM Dist: >3cm Neck ROM: Full Loose/Missing/Broken Teeth: No Heart: RRR Lungs: CTA Assessment and Plan Assessment Anesthesia Assessment: Anesthesia Plan Discussed and Chart Reviewed Final Anesthetic Review Family History of Problems with Anesthesia: No History of Problems with Anesthesia: No NPO: Yes ASA Class: III Final Preanesthetic Review: Meds/Allgs Chart Reviewed, Consent Obtained/Reviewed and Anes Risks/Benef Reviewed Patient Risk: Intermediate Procedure Risk: Intermediate Anesthetic Plan Anesthetic Plan: GA Disposition: Standard PACU
--- NOTE | 2023-02-14 08:09 | MHC.SHP ---
Pre-Procedural Eval Section A Date of Service: 02/14/23 The patient is an INPATIENT: Yes Changes since office visit: Yes Changes in Medication and Yes Patient answered all questions; No Cold of Flu in the past 2 weeks and No New Medical Problems The History & Physical has been completed within 30 days and I have reviewed it.: Yes Section B Chief Complaint: Unspecified Bipolar D/O Allergies: Allergies Allergy/AdvReac Type Severity Reaction Status Date / Time lithium Allergy Rash Verified 02/02/23 07:00 Plan I have reviewed the history and physical and performed a pertinent physical examination on my patient. No changes have occurred unless specified. Time Spent With Patient Time: Total time managing care of this patient today ____ minutes.
--- NOTE | 2023-02-14 08:10 | HO.ECTPROC ---
ECT Procedure Note Diagnosis/Treatment Date of Service: 02/14/23 Diagnosis: Bipolar disorder Previous ECT Date: 02/11/23 Current Treatment Number: 6 Treatment: Series Interval Clinical Notes: PT FEELING BETTER NO C/O SIDE EFFECTS breathing better was seen by pulmonary Time: Total time managing care of this patient today ____ minutes. ECT Settings Device: THYMATRON DGx Program/Pulse Width: 0.25 Energy Percent: 80 Seizure Duration By EEG (in seconds): 49 Medications Administration General Anesthetic: Etomidate (16) and Propofol Muscle Relaxant: Succinylcholine (120) Ancillary Medications Analgesics: Torodol - Pre ECT Anti-emetics: Zofran - Pre ECT Cardiovascular Medications: Glycopyrrolate (0.2 PRETX ) Miscillaneous Medications: Propofol and Midazolam Airway Management Airway Management: LMA Treatment Recommendations No Changes Recommended: No change Notes: LMA again used may require updraft but did better pulmonary buckner question of any ability to continue on maintenance schedule Pt Tolerated Procedure w/o Issue: Yes
[2023-02-14] MEDS: Nicotine 21 MG PATCH.TD24 TRANSDERMA (09:24)
[2023-02-14] MEDS: Cyclobenzaprine HCl 10 MG TABLET PO ×3 (09:24→21:55)
[2023-02-14] MEDS: Sertraline HCL 50 MG TABLET 150 MG PO (09:25)
[2023-02-14] MEDS: Omeprazole 20 MG CAPSULE.DR PO (09:25)
[2023-02-14] MEDS: Albuterol Sulfate 90 MCG 8 GM INHALER 2 PUFF INHALE (09:25)
[2023-02-14] MEDS: Ibuprofen 800 MG TABLET PO ×2 (09:25→21:56)
[2023-02-14] MEDS: Fluticasone/Vilanterol 200/25 BLST.W.DEV 1 PUFF INHALE (09:25)
[2023-02-14] MEDS: SUMAtriptan succinate 100 MG TABLET PO (09:34)
[2023-02-14] MEDS: Lurasidone HCl 20 MG TABLET 60 MG PO (09:35)
[2023-02-14] MEDS: Acetaminophen 325 MG TABLET 650 MG PO (14:27)
--- NOTE | 2023-02-14 14:30 | P.PNPSI_ITS ---
Subjective Subjective Date of Service: 02/14/23 Reason For Visit: Unspecified Bipolar D/O Interim History: calm, cooperative. continues to feel improved. ECT went well this morning. discussed with chidi weds being last Tx. planning for DC or tuesday. pt will pursue plans with [facility] contact and others with this in mind. agreeable to decrease seroquel to 50 QHS and increase trazodone to 200 QHS. slept well fri and sat, but not last night. may have been anticipation of ECT. per staff, feels ECT working. goal-oriented. sleeping better with meds. interested in left should derm F/U, s/p skin CA. Mental Status Exam Mental Status Exam Narrative: calm, cooperative. no PMA/PMR. nml rate, amount, loudness of speech. thoughts linear. affect more flexible, normo-intense, non-labile. no SI/HI/AVH expressed. Diagnostics Vital Signs (24Hr): Vital Signs - 24 hr 02/13/23 17:47 02/14/23 05:34 02/14/23 06:42 Temperature 97.8 F 97.2 F 97.8 F Pulse Rate 66 106 H 81 Respiratory Rate 18 18 18 Blood Pressure 144/90 H 135/90 H 121/89 Pulse Oximetry 96 94 95 Oxygen Delivery Method Room Air Room Air Room Air Oxygen Flow Rate 02/14/23 08:30 02/14/23 08:35 02/14/23 08:40 Temperature Pulse Rate 112 H 106 H 99 Respiratory Rate 17 16 16 Blood Pressure 152/107 H 148/104 H 156/99 H Pulse Oximetry 97 97 95 Oxygen Delivery Method Nasal Cannula with ETCO2 Nasal Cannula with ETCO2 Nasal Cannula with ETCO2 Oxygen Flow Rate 3 3 3 02/14/23 08:45 02/14/23 09:02 02/14/23 09:46 Temperature 97.8 F Pulse Rate 97 99 96 Respiratory Rate 12 18 20 Blood Pressure 132/86 117/77 Pulse Oximetry 95 94 Oxygen Delivery Method Room Air Room Air Oxygen Flow Rate BMI result Body Mass Index 35.1 Labs 01/22/23 07:36 01/22/23 07:36 Imaging Radiology Impressions: ITS Impressions Head CT 01/27/23 14:07 IMPRESSION: No acute intracranial abnormality. Mild nonspecific hypoattenuation in the cerebral white matter. Chest X-Ray 02/11/23 15:40 IMPRESSION: No acute parenchymal disease. Question left lung density as described above. Medications Medications Current Medications Acetaminophen (Acetaminophen 325 Mg Tablet) 650 mg PO Q6H PRN PRN Reason: mild pain (1-3) Last Admin: 02/14/23 14:27 Dose: 650 mg Al Hydroxide/Mg Hydroxide (Magnesium Hydrox/Alum Hydrox 30 Ml Oral.Susp) 30 ml PO Q6H PRN PRN Reason: Heartburn/Nausea Albuterol Sulfate (Albuterol Sulfate 90 Mcg 8 Gm Inhaler) 2 puff INHALE Q4H PRN PRN Reason: dyspnea Last Admin: 02/14/23 09:25 Dose: 2 puff Cyclobenzaprine HCl (Cyclobenzaprine Hcl 10 Mg Tablet) 10 mg PO TID PRN PRN Reason: back pain Last Admin: 02/14/23 14:26 Dose: 10 mg Fluticasone/Vilanterol (Fluticasone/Vilanterol 200/25 Blst.W.Dev) 1 puff INHALE RDAILY [facility] Last Admin: 02/14/23 09:25 Dose: 1 puff Ibuprofen (Ibuprofen 800 Mg Tablet) 800 mg PO Q8H PRN PRN Reason: moderate pain (4-6) Last Admin: 02/14/23 09:25 Dose: 800 mg Lurasidone HCl (Lurasidone Hcl 20 Mg Tablet) 60 mg PO DAILY [facility] Last Admin: 02/14/23 09:35 Dose: 60 mg Magnesium Hydroxide (Milk Of Magnesia 30 Ml Oral.Susp) 30 ml PO DAILY PRN PRN Reason: Constipation Nicotine (Nicotine 21 Mg Patch.Td24) 21 mg TRANSDERMA DAILY [facility] Last Admin: 02/14/23 09:24 Dose: 21 mg Omeprazole (Omeprazole 20 Mg Capsule.Dr) 20 mg PO DAILY [facility] Last Admin: 02/14/23 09:25 Dose: 20 mg Quetiapine Fumarate (Quetiapine Fumarate 50 Mg Tablet) 50 mg PO BEDTIME [facility] Quetiapine Fumarate (Quetiapine Fumarate 25 Mg Tablet) 25 mg PO BID PRN PRN Reason: insomnia Last Admin: 02/13/23 20:17 Dose: 25 mg Sertraline HCl (Sertraline Hcl 50 Mg Tablet) 150 mg PO DAILY [facility] Last Admin: 02/14/23 09:25 Dose: 150 mg Sumatriptan Succinate (Sumatriptan Succinate 100 Mg Tablet) 100 mg PO DAILY PRN PRN Reason: Migraine Headache Last Admin: 02/14/23 09:34 Dose: 100 mg Trazodone HCl (Trazodone Hcl 100 Mg Tablet) 200 mg PO BEDTIME SHREYA Trazodone HCl (Trazodone Hcl 50 Mg Tablet) 50 mg PO BEDTIME PRN PRN Reason: Insomnia Last Admin: 02/13/23 20:23 Dose: 50 mg Allergies Allergies Allergy/AdvReac Type Severity Reaction Status Date / Time lithium Allergy Rash Verified 02/02/23 07:00 Assessment & Plan Assessment & Plan (1) COPD (chronic obstructive pulmonary disease): Status: Acute Code(s): J44.9 - Chronic obstructive pulmonary disease, unspecified (2) Bipolar 1 disorder, depressed, severe: Status: Acute Code(s): F31.4 - Bipolar disorder, current episode depressed, severe, without psychotic features (3) TBI (traumatic brain injury): Status: Acute Code(s): S06.9XAA - Unspecified intracranial injury with loss of consciousness status unknown, initial encounter (4) Alcohol use disorder: Status: Acute Code(s): F10.90 - Alcohol use, unspecified, uncomplicated (5) PTSD (post-traumatic stress disorder): Status: Acute Code(s): F43.10 - Post-traumatic stress disorder, unspecified Plan per chidi ECT consult:? The patient has a history of severe bipolar depression complicated by alcohol use.? Given suicidality status post recent overdose family history of impulsive suicidality ECT would be a reasonable choice at this time indication bipolar depression not responding to multiple hospitalizations with a commitment to sobriety would consider Vivitrol and given patient's lack of response to Seroquel would strongly urge a trial of Latuda.? Hauser would be significantly indicated in this situation however patient states he has had an allergic reaction the past an excellent medication for impulsive suicidality in the context of bipolar disorder.? Medical consult reviewed and EKG reviewed with Cardiology they did not feel need for cardiology consult at this time patient with no acute cardiac symptoms no chest pain risks benefits alternatives reviewed patient with seem to be good ECT candidate but will need close follow-up head CT scan reviewed no acute process no areas of encephalomalacia or subdural EKG reviewed case reviewed with hospitalist service per pulm consult: 57-year-old gentleman hospitalized with psychiatric diagnosis with underlying COPD, noted to have some wheezing and mild desaturations with the ECT, currently not on bronchodilator. Chest x-ray is pending. Likely aspiration event with ECT. Recommendations: BrezTri is non-formulary, Changed to Breo. Will review x-ray as available. Likely resolved spirations with ECT. Precis: 01/22: pt expressing lack of motivation for recovery and treatment, especially with medications.? he was educated re ECT for Tx refractory depression.? he is willing to receive further education on the subject and MD will discuss with him again tomorrow. build rapport, listen (pt identified h/o treaters' not listening to him as something which led to his disengagement). continue prior meds for now.? increase seroquel at HS per pt request for insomnia. ativan per [facility] for alcohol withdrawal. 01/23: pt reports he received ECT education and is mulling it over. asks for HS seroquel to be decreased to 250, which is done. asks for flexeril to be increased to 10 TID PRN, which is done. reports no change in mood or SI. 01/24: no change in mood or SI per pt.? however, he is making hopeful statements and was noted to have expressed an interest in therapy after discharge.? increase zoloft to 150 mg daily per pt request.? states ECT is not for him. 01/25 continue current treatment plan; patient still depressed with intermittent SI.? Again discussed ECT and patient says he is more open to considering it.? He will follow up with Dr. Ruff. 01/26: consults placed for chidi, hospitalist, and EKG in preparation for potential ECT.? otherwise continue current mgmt. 01/27: head CT ordered.? awaiting consults from hospitalist and ECT provider.? continue current mgmt. 01/28: cleared by medicine and chidi for ECT, to start tuesday.? stable presentation. 01/29/2023 Patient started on Latuda for bipolar depression.? ECT currently hold would certainly be a treatment option given patient's multiple recent psychiatric hospitalizations and significant suicide attempt would consider naltrexone/Vivitrol 01/30/2023 Continue Latuda monitor affects consideration of ECT patient does describe clear manic history would consider addiction consult with Vivitrol 01/31:? increase latuda to 40 mg and change to HS.? planning to taper seroquel, but insomnia continues, per report.? ECT approved, now planning for . 02/01:? decrease HS seroquel to 200 - pt states he slept well last night.? othe rwise no change in regimen? ECT tomorrow. 02/02:? ECT went well, no complaints.? continue current mgmt.? T/C increasing latuda and decreasing seroquel depending on how pt sleeps tonight. 02/03:? feeling relatively well.? increase HS latuda to 60 mg, decrease HS seroquel to 150 mg.? ECT tomorrow. 02/04:? ECT went well, no complaints.? discussing aftercare plans - [facility], H services.? no change to plan.? ECT tuesday. 02/05: Continue current regimen and plans.? Continue ECT. 02/07: schedule trazodone 100 mg QHS.? increase methadone to 75 mg daily.? unable to go to [facility] [place] unable to identify a methadone clinic which could guest-dose him.? looking into other CSSs. 02/08: no change, anticipating ECT tomorrow.? working on dispo plans, recently in touch with [employer]. 02/09: no side effects from ECT, mood remains improved.? decrease HS seroquel to 100 mg, otherwise continue current mgmt. 02/10: stable.? continue current regimen through ECT tomorrow.? planning to continue seroquel taper over w/e. 02/11: stable, ECT went well.? continue seroquel as is and move latuda 60 mg QHS to the morning.? per staff, SOB, using a lot of albuterol PRNs, getting nebs at ECT.? was on breztri, which he reports worked like a charm, which is not on formulary and per pharmacy without any replacement here.? pulmonary consult placed.? ECT tuesday. 02/14: seen by pulm and placed on breo. ECT this morning went well. gains in mood sustained. per chidi, planning for final session . planning for DC or tuesday. active dispo planning. Reason for contiued inpatient stay Substantial Risk for: inability to function and rapid decompensation Time Spent With Patient Time: Total time managing care of this patient today __25__ minutes.
[2023-02-14] MEDS: traZODone HCL 100 MG TABLET 200 MG PO (21:55)
[2023-02-14] MEDS: QUEtiapine Fumarate 50 MG TABLET PO (21:56)
[2023-02-14] MEDS: QUEtiapine Fumarate 25 MG TABLET PO (21:57)
[2023-02-15] MEDS: Fluticasone/Vilanterol 200/25 BLST.W.DEV 1 PUFF INHALE (09:09)
[2023-02-15] MEDS: Albuterol Sulfate 90 MCG 8 GM INHALER 2 PUFF INHALE ×2 (09:09→21:00)
[2023-02-15] MEDS: Ibuprofen 800 MG TABLET PO ×2 (09:11→21:01)
[2023-02-15] MEDS: Lurasidone HCl 20 MG TABLET 60 MG PO (09:11)
[2023-02-15] MEDS: Sertraline HCL 50 MG TABLET 150 MG PO (09:12)
[2023-02-15] MEDS: Cyclobenzaprine HCl 10 MG TABLET PO (09:12)
[2023-02-15] MEDS: Omeprazole 20 MG CAPSULE.DR PO (09:13)
[2023-02-15] MEDS: Nicotine 21 MG PATCH.TD24 TRANSDERMA (09:14)
[2023-02-15 09:31] VITALS: BP 123/91; PULSE 99; RESP 20; TEMP 36.2; O2SAT 94
--- NOTE | 2023-02-15 14:57 | P.PNPSI_ITS ---
Subjective Subjective Date of Service: 02/15/23 Reason For Visit: Unspecified Bipolar D/O Interim History: calm, cooperative. planning to discharge after final ECT tomorrow. poor sleep 2/2 new and disruptive roommate last night. agreeable to continue current mgmt for tonight. per staff, feeling ready for DC. polite, pleasant. grateful. Medication Compliance: Yes Mental Status Exam Mental Status Exam Narrative: calm, cooperative. no PMA/PMR. nml rate, amount, loudness of speech. thoughts linear. affect more flexible, normo-intense, non-labile. no SI/HI/AVH expressed. Diagnostics Vital Signs (24Hr): Vital Signs - 24 hr 02/14/23 20:30 02/15/23 09:31 Temperature 97.9 F 97.2 F Pulse Rate 75 99 Respiratory Rate 18 20 Blood Pressure 136/80 123/91 H Pulse Oximetry 94 94 Oxygen Delivery Method Room Air Room Air BMI result Body Mass Index 35.1 Labs 01/22/23 07:36 01/22/23 07:36 Imaging Radiology Impressions: ITS Impressions Head CT 01/27/23 14:07 IMPRESSION: No acute intracranial abnormality. Mild nonspecific hypoattenuation in the cerebral white matter. Chest X-Ray 02/11/23 15:40 IMPRESSION: No acute parenchymal disease. Question left lung density as described above. Medications Medications Current Medications Acetaminophen (Acetaminophen 325 Mg Tablet) 650 mg PO Q6H PRN PRN Reason: mild pain (1-3) Last Admin: 02/14/23 14:27 Dose: 650 mg Al Hydroxide/Mg Hydroxide (Magnesium Hydrox/Alum Hydrox 30 Ml Oral.Susp) 30 ml PO Q6H PRN PRN Reason: Heartburn/Nausea Albuterol Sulfate (Albuterol Sulfate 90 Mcg 8 Gm Inhaler) 2 puff INHALE Q4H PRN PRN Reason: dyspnea Last Admin: 02/15/23 09:09 Dose: 2 puff Cyclobenzaprine HCl (Cyclobenzaprine Hcl 10 Mg Tablet) 10 mg PO TID PRN PRN Reason: back pain Last Admin: 02/15/23 09:12 Dose: 10 mg Fluticasone/Vilanterol (Fluticasone/Vilanterol 200/25 Blst.W.Dev) 1 puff INHALE RDAILY [facility] Last Admin: 02/15/23 09:09 Dose: 1 puff Ibuprofen (Ibuprofen 800 Mg Tablet) 800 mg PO Q8H PRN PRN Reason: moderate pain (4-6) Last Admin: 02/15/23 09:11 Dose: 800 mg Lurasidone HCl (Lurasidone Hcl 20 Mg Tablet) 60 mg PO DAILY [facility] Last Admin: 02/15/23 09:11 Dose: 60 mg Magnesium Hydroxide (Milk Of Magnesia 30 Ml Oral.Susp) 30 ml PO DAILY PRN PRN Reason: Constipation Nicotine (Nicotine 21 Mg Patch.Td24) 21 mg TRANSDERMA DAILY [facility] Last Admin: 02/15/23 09:14 Dose: 21 mg Omeprazole (Omeprazole 20 Mg Capsule.Dr) 20 mg PO DAILY [facility] Last Admin: 02/15/23 09:13 Dose: 20 mg Quetiapine Fumarate (Quetiapine Fumarate 50 Mg Tablet) 50 mg PO BEDTIME [facility] Last Admin: 02/14/23 21:56 Dose: 50 mg Quetiapine Fumarate (Quetiapine Fumarate 25 Mg Tablet) 25 mg PO BID PRN PRN Reason: insomnia Last Admin: 02/14/23 21:57 Dose: 25 mg Sertraline HCl (Sertraline Hcl 50 Mg Tablet) 150 mg PO DAILY [facility] Last Admin: 02/15/23 09:12 Dose: 150 mg Sumatriptan Succinate (Sumatriptan Succinate 100 Mg Tablet) 100 mg PO DAILY PRN PRN Reason: Migraine Headache Last Admin: 02/14/23 09:34 Dose: 100 mg Trazodone HCl (Trazodone Hcl 100 Mg Tablet) 200 mg PO BEDTIME [facility] Last Admin: 02/14/23 21:55 Dose: 200 mg Trazodone HCl (Trazodone Hcl 50 Mg Tablet) 50 mg PO BEDTIME PRN PRN Reason: Insomnia Last Admin: 02/13/23 20:23 Dose: 50 mg Allergies Allergies Allergy/AdvReac Type Severity Reaction Status Date / Time lithium Allergy Rash Verified 02/02/23 07:00 Assessment & Plan Assessment & Plan (1) COPD (chronic obstructive pulmonary disease): Status: Acute Code(s): J44.9 - Chronic obstructive pulmonary disease, unspecified (2) Bipolar 1 disorder, depressed, severe: Status: Acute Code(s): F31.4 - Bipolar disorder, current episode depressed, severe, without psychotic features (3) TBI (traumatic brain injury): Status: Acute Code(s): S06.9XAA - Unspecified intracranial injury with loss of consciousness status unknown, initial encounter (4) Alcohol use disorder: Status: Acute Code(s): F10.90 - Alcohol use, unspecified, uncomplicated (5) PTSD (post-traumatic stress disorder): Status: Acute Code(s): F43.10 - Post-traumatic stress disorder, unspecified Plan per chidi ECT consult:? The patient has a history of severe bipolar depression complicated by alcohol use.? Given suicidality status post recent overdose family history of impulsive suicidality ECT would be a reasonable choice at this time indication bipolar depression not responding to multiple hospitalizations with a commitment to sobriety would consider Vivitrol and given patient's lack of response to Seroquel would strongly urge a trial of Latuda.? [place] would be significantly indicated in this situation however patient states he has had an allergic reaction the past an excellent medication for impulsive suicidality in the context of bipolar disorder.? Medical consult reviewed and EKG reviewed with Cardiology they did not feel need for cardiology consult at this time patient with no acute cardiac symptoms no chest pain risks benefits alternatives reviewed patient with seem to be good ECT candidate but will need close follow-up head CT scan reviewed no acute process no areas of encephalomalacia or subdural EKG reviewed case reviewed with hospitalist service per pulm consult: 57-year-old gentleman hospitalized with psychiatric diagnosis with underlying COPD, noted to have some wheezing and mild desaturations with the ECT, currently not on bronchodilator. Chest x-ray is pending. Likely aspiration event with ECT. Recommendations: BrezTri is non-formulary, Changed to Breo. Will review x-ray as available. Likely resolved spirations with ECT. Precis: 01/22: pt expressing lack of motivation for recovery and treatment, especially with medications.? he was educated re ECT for Tx refractory depression.? he is willing to receive further education on the subject and MD will discuss with him again tomorrow. build rapport, listen (pt identified h/o treaters' not listening to him as something which led to his disengagement). continue prior meds for now.? increase seroquel at HS per pt request for insomnia. ativan per [facility] for alcohol withdrawal. 01/23: pt reports he received ECT education and is mulling it over. asks for HS seroquel to be decreased to 250, which is done. asks for flexeril to be increased to 10 TID PRN, which is done. reports no change in mood or SI. 01/24: no change in mood or SI per pt.? however, he is making hopeful statements and was noted to have expressed an interest in therapy after discharge.? increase zoloft to 150 mg daily per pt request.? states ECT is not for him. 01/25 continue current treatment plan; patient still depressed with intermittent SI.? Again discussed ECT and patient says he is more open to considering it.? He will follow up with Dr. Ruff. 01/26: consults placed for chidi, hospitalist, and EKG in preparation for potential ECT.? otherwise continue current mgmt. 01/27: head CT ordered.? awaiting consults from hospitalist and ECT provider.? continue current mgmt. 01/28: cleared by medicine and chidi for ECT, to start tuesday.? stable presentation. 01/29/2023 Patient started on Latuda for bipolar depression.? ECT currently hold would certainly be a treatment option given patient's multiple recent psychiatric hospitalizations and significant suicide attempt would consider naltrexone/Vivitrol 01/30/2023 Continue Latuda monitor affects consideration of ECT patient does describe clear manic history would consider addiction consult with Vivitrol 01/31:? increase latuda to 40 mg and change to HS.? planning to taper seroquel, but insomnia continues, per report.? ECT approved, now planning for . 02/01:? decrease HS seroquel to 200 - pt states he slept well last night.? otherwise no change in regimen? ECT tomorrow. 02/02:? ECT went well, no complaints.? continue current mgmt.? T/C increasing latuda and decreasing seroquel depending on how pt sleeps tonight. 02/03:? feeling relatively well.? increase HS latuda to 60 mg, decrease HS seroquel to 150 mg.? ECT tomorrow. 02/04:? ECT went well, no complaints.? discussing aftercare plans - [facility], H services.? no change to plan.? ECT tuesday. 02/05: Continue current regimen and plans.? Continue ECT. 02/07: schedule trazodone 100 mg QHS.? increase methadone to 75 mg daily.? unable to [facility] [place] [facility] unable to identify a methadone clinic which could guest-dose him.? looking into other CSSs. 02/08: no change, anticipating ECT tomorrow.? working on dispo plans, recently in touch with [facility]. 02/09: no side effects from ECT, mood remains improved.? decrease HS seroquel to 100 mg, otherwise continue current mgmt. 02/10: stable.? continue current regimen through ECT tomorrow.? planning to continue seroquel taper over w/e. 02/11: stable, ECT went well.? continue seroquel as is and move latuda 60 mg QHS to the morning.? per staff, SOB, using a lot of albuterol PRNs, getting nebs at ECT.? was on breztri, which he reports worked like a charm, which is not on formulary and per pharmacy without any replacement here.? pulmonary consult placed.? ECT tuesday. 02/14: seen by pulm and placed on breo. ECT this morning went well. gains in mood sustained. per chidi, planning for final session . planning for DC or tuesday. active dispo planning. 02/15: final ECT tomorrow, DC to respite bed. stable, improved. Reason for contiued inpatient stay Substantial Risk for: rapid decompensation Time Spent With Patient Time: Total time managing care of this patient today __25__ minutes.
[2023-02-15] MEDS: traZODone HCL 100 MG TABLET 200 MG PO (21:00)
[2023-02-15] MEDS: QUEtiapine Fumarate 50 MG TABLET PO (21:01)
[2023-02-15] MEDS: traZODone HCL 50 MG TABLET PO (21:01)
[2023-02-15] MEDS: QUEtiapine Fumarate 25 MG TABLET PO (21:02)
[2023-02-15 21:04] VITALS: BP 148/86; PULSE 86; TEMP 36.1; O2SAT 96
[2023-02-16] VITALS (10 sets, daily range): BP systolic 121–170; BP diastolic 75–112; PULSE 64–115; RESP 14–20; TEMP 36.3–36.9; O2SAT 92–97
--- NOTE | 2023-02-16 06:44 | P.CONAN_ITS ---
[facility] Active Problems Active Problems: All Active Problems (Updated 01/28/23 @ 13:44 by Archie Dillard MD) Bipolar 1 disorder, depressed, severe (Acute) Pre-op evaluation (Acute) TBI (traumatic brain injury) (Acute) Alcohol use disorder (Acute) PTSD (post-traumatic stress disorder) (Acute) Routine history and physical examination of adult (Acute) COPD (chronic obstructive pulmonary disease) (Acute) HTN (hypertension) (Acute) Past Medical History Medical History Alcohol use disorder TBI (traumatic brain injury) Family History Family history of problems with anesthesia: No Surgical History History of Problems with Anesthesia: No Social History Social History Household Members: None Housing: Homeless Do you presently have visiting nurse or other home services: No Patient Tobacco Use Status: Current everyday Tobacco user Tobacco use type: Cigarette Cigarette Packs Per Day: 1.5 Cigarettes Per Day: 30.0 Smoked in Last 30 Days: Yes Patient Interested in Nicotine Replacement: Yes Patient Given Instructions on How to Stop Smoking: No Second Hand Smoke Exposure: No Use of substances other than those prescribed or required for medical reasons: Yes Substance Use Type: Crack/Cocaine and Marijuana Substance Use Frequency: Occasionally Last Used Substance: Days (ago) Last Used Substance Other:: 7 days Currently Displaying Signs/Symptoms of Drug Intoxication Withdrawal: No Any prior treatment program specific to substance use: No Have you been hit, kicked, punched, or otherwise hurt by someone within the past year? If so, by whom?: No Do you feel safe in your current relationship?: No Current Relationship Is there a partner from a previous relationship who is making you feel unsafe now?: No Are you made to feel afraid or neglected: No Spiritual Healthcare Practices: Pt denies Anabaptism Healthcare Practices: Pt denies Cultural Healthcare Practices: Pt denies Advance Directives: No Advance Directives Information Provided: No Do you have thoughts of harming others: None Do you have a plan to hurt others: No Plan Recently lost weight without trying: No How much weight loss: Not applicable Eating poorly because of decreased appetite: No Nutrition screen score: 0 Nutrition Risks: No Nutritional Risk Poor oral hygiene: No service: Yes Sexual orientation: Straight/Heterosexual Meds Allergies Allergy/AdvReac Type Severity Reaction Status Date / Time lithium Allergy Rash Verified 02/02/23 07:00 Active Medications: Current Medications Acetaminophen (Acetaminophen 325 Mg Tablet) 650 mg PO Q6H PRN PRN Reason: mild pain (1-3) Last Admin: 02/14/23 14:27 Dose: 650 mg Al Hydroxide/Mg Hydroxide (Magnesium Hydrox/Alum Hydrox 30 Ml Oral.Susp) 30 ml PO Q6H PRN PRN Reason: Heartburn/Nausea Albuterol Sulfate (Albuterol Sulfate 90 Mcg 8 Gm Inhaler) 2 puff INHALE Q4H PRN PRN Reason: dyspnea Last Admin: 02/15/23 21:00 Dose: 2 puff Cyclobenzaprine HCl (Cyclobenzaprine Hcl 10 Mg Tablet) 10 mg PO TID PRN PRN Reason: back pain Last Admin: 02/15/23 09:12 Dose: 10 mg Fluticasone/Vilanterol (Fluticasone/Vilanterol 200/25 Blst.W.Dev) 1 puff INHALE RDAILY [facility] Last Admin: 02/15/23 09:09 Dose: 1 puff Lactated Ringer's (Lr) 1,000 mls @ 50 mls/hr IVCONT .Q20H SHREYA Ibuprofen (Ibuprofen 800 Mg Tablet) 800 mg PO Q8H PRN PRN Reason: moderate pain (4-6) Last Admin: 02/15/23 21:01 Dose: 800 mg Lurasidone HCl (Lurasidone Hcl 20 Mg Tablet) 60 mg PO DAILY [facility] Last Admin: 02/15/23 09:11 Dose: 60 mg Magnesium Hydroxide (Milk Of Magnesia 30 Ml Oral.Susp) 30 ml PO DAILY PRN PRN Reason: Constipation Nicotine (Nicotine 21 Mg Patch.Td24) 21 mg TRANSDERMA DAILY [facility] Last Admin: 02/15/23 09:14 Dose: 21 mg Omeprazole (Omeprazole 20 Mg Capsule.Dr) 20 mg PO DAILY [facility] Last Admin: 02/15/23 09:13 Dose: 20 mg Quetiapine Fumarate (Quetiapine Fumarate 50 Mg Tablet) 50 mg PO BEDTIME [facility] Last Admin: 02/15/23 21:01 Dose: 50 mg Quetiapine Fumarate (Quetiapine Fumarate 25 Mg Tablet) 25 mg PO BID PRN PRN Reason: insomnia Last Admin: 02/15/23 21:02 Dose: 25 mg Sertraline HCl (Sertraline Hcl 50 Mg Tablet) 150 mg PO DAILY [facility] Last Admin: 02/15/23 09:12 Dose: 150 mg Sumatriptan Succinate (Sumatriptan Succinate 100 Mg Tablet) 100 mg PO DAILY PRN PRN Reason: Migraine Headache Last Admin: 02/14/23 09:34 Dose: 100 mg Trazodone HCl (Trazodone Hcl 100 Mg Tablet) 200 mg PO BEDTIME [facility] Last Admin: 02/15/23 21:00 Dose: 200 mg Trazodone HCl (Trazodone Hcl 50 Mg Tablet) 50 mg PO BEDTIME PRN PRN Reason: Insomnia Last Admin: 02/15/23 21:01 Dose: 50 mg Home Medications Medication Instructions Recorded Confirmed Last Taken Type albuterol sulfate 90 mcg/actuation 2 puff inhalation Q4H PRN dyspnea 01/21/23 01/21/23 Unknown History aerosol inhaler (Ventolin HFA) aripiprazole 10 mg tablet 1 tab PO BEDTIME 01/21/23 01/21/23 Unknown History budesonide 160 mcg-glycopyr 9 2 puff inhalation BID 01/21/23 01/21/23 Unknown History mcg-formot 4.8 mcg/actuation HFA inhaler (Breztri Aerosphere) hydroxyzine pamoate 50 mg capsule 1 cap PO Q6H PRN anxiety 01/21/23 01/21/23 Unk nown History ibuprofen 800 mg tablet 1 tab PO TID PRN pain 01/21/23 01/21/23 Unknown History omeprazole 20 mg capsule,delayed 1 cap PO QAM 01/21/23 01/21/23 Unknown History release quetiapine 200 mg tablet 1 tab PO BEDTIME 01/21/23 01/21/23 Unknown History quetiapine 25 mg tablet 1 tab PO BID PRN insomnia 01/21/23 01/21/23 Unknown History sertraline 100 mg tablet 1 tab PO DAILY 01/21/23 01/21/23 Unknown History trazodone 50 mg tablet 1 tab PO BEDTIME insomnia 01/21/23 01/21/23 Unknown History Exam Exam Date and Time: February 16, 2023 0644 Height,Weight and Vital Signs: Height 5 ft 10 in Weight 111.097 kg Last Vital Signs Temp 97.8 F 02/16/23 05:50 Pulse 84 02/16/23 05:50 Resp 14 02/16/23 05:50 BP 137/75 02/16/23 05:50 Pulse Ox 95 02/16/23 05:50 O2 Del Method 02/15/23 21:04 O2 Flow Rate 3 02/14/23 08:40 Pertinent Lab Results Pertinent Lab Results: Laboratory Tests 01/22/23 01/22/23 01/22/23 07:36 07:36 07:36 WBC 6.6 RBC 4.74 Hgb 15.4 Hct 45.0 MCV 94.9 MCH 32.5 MCHC 34.2 RDW 13.2 Plt Count 184 MPV 9.7 Immature Gran % (Auto) 0.3 Neut % (Auto) 48.0 Lymph % (Auto) 34.2 [place] % (Auto) 11.7 H Eos % (Auto) 5.2 H Baso % (Auto) 0.6 Lymph # (Auto) 2.3 [place] # (Auto) 0.8 Eos # (Auto) 0.3 Baso # (Auto) 0.0 Abs Immat Gran (auto) 0.02 Absolute Neuts (auto) 3.2 Absolute Nucleated RBC 0.000 Nucleated RBC % (auto) 0.0 Sodium 142 Potassium 4.0 Chloride 111 H Carbon Dioxide 24 Anion Gap 11 L BUN 17 H Creatinine 0.91 Estim Creat Clear Calc TNP Estimated GFR > 60 Fasting Glucose 95 Estimat Average Glucose 103 Hemoglobin A1c % 5.2 Calcium 9.6 Total Bilirubin 0.6 Direct Bilirubin 0.2 AST 21 ALT 33 Alkaline Phosphatase 75 Total Protein 6.6 Albumin 4.1 Triglycerides 126 Cholesterol 214 LDL Cholesterol, Calc 146 HDL Cholesterol 43 Vitamin B12 366 Folate 14.2 TSH 1.78 Free T4 0.84 COVID-19 ([facility]ARINDER) COVID-19 Clin Com 01/28/23 14:10 WBC RBC Hgb Hct MCV MCH MCHC RDW Plt Count MPV Immature Gran % (Auto) Neut % (Auto) Lymph % (Auto) [place] % (Auto) Eos % (Auto) Baso % (Auto) Lymph # (Auto) [place] # (Auto) Eos # (Auto) Baso # (Auto) Abs Immat Gran (auto) Absolute Neuts (auto) Absolute Nucleated RBC Nucleated RBC % (auto) Sodium Potassium Chloride Carbon Dioxide Anion Gap BUN Creatinine Estim Creat Clear Calc Estimated GFR Fasting Glucose Estimat Average Glucose Hemoglobin A1c % Calcium Total Bilirubin Direct Bilirubin AST ALT Alkaline Phosphatase Total Protein Albumin Triglycerides Cholesterol LDL Cholesterol, Calc HDL Cholesterol Vitamin B12 Folate TSH Free T4 COVID-19 (NRAINDER) Negative COVID-19 Clin Com See Note Airway Mallampati Class: II TM Dist: >3cm Neck ROM: Full Heart: rrr Lungs: cta Assessment and Plan Assessment Anesthesia Assessment: Anesthesia Plan Discussed and Chart Reviewed Final Anesthetic Review Family History of Problems with Anesthesia: No History of Problems with Anesthesia: No NPO: Yes ASA Class: III Final Preanesthetic Review: No Changes in Pt Med Stat, Meds/Allgs Chart Reviewed and Consent Obtained/Reviewed Patient Risk: Intermediate Procedure Risk: Intermediate Anesthetic Plan Anesthetic Plan: GA Disposition: Standard PACU
--- NOTE | 2023-02-16 06:46 | P.CONAN_ITS ---
[facility] Active Problems Active Problems: All Active Problems (Updated 01/28/23 @ 13:44 by Archie Dillard MD) Bipolar 1 disorder, depressed, severe (Acute) Pre-op evaluation (Acute) TBI (traumatic brain injury) (Acute) Alcohol use disorder (Acute) PTSD (post-traumatic stress disorder) (Acute) Routine history and physical examination of adult (Acute) COPD (chronic obstructive pulmonary disease) (Acute) HTN (hypertension) (Acute) Past Medical History Medical History Alcohol use disorder TBI (traumatic brain injury) Family History Family history of problems with anesthesia: No Surgical History History of Problems with Anesthesia: No Social History Social History Household Members: None Housing: Homeless Do you presently have visiting nurse or other home services: No Patient Tobacco Use Status: Current everyday Tobacco user Tobacco use type: Cigarette Cigarette Packs Per Day: 1.5 Cigarettes Per Day: 30.0 Smoked in Last 30 Days: Yes Patient Interested in Nicotine Replacement: Yes Patient Given Instructions on How to Stop Smoking: No Second Hand Smoke Exposure: No Use of substances other than those prescribed or required for medical reasons: Yes Substance Use Type: Crack/Cocaine and Marijuana Substance Use Frequency: Occasionally Last Used Substance: Days (ago) Last Used Substance Other:: 7 days Currently Displaying Signs/Symptoms of Drug Intoxication Withdrawal: No Any prior treatment program specific to substance use: No Have you been hit, kicked, punched, or otherwise hurt by someone within the past year? If so, by whom?: No Do you feel safe in your current relationship?: No Current Relationship Is there a partner from a previous relationship who is making you feel unsafe now?: No Are you made to feel afraid or neglected: No Spiritual Healthcare Practices: Pt denies Buddhist Healthcare Practices: Pt denies Cultural Healthcare Practices: Pt denies Advance Directives: No Advance Directives Information Provided: No Do you have thoughts of harming others: None Do you have a plan to hurt others: No Plan Recently lost weight without trying: No How much weight loss: Not applicable Eating poorly because of decreased appetite: No Nutrition screen score: 0 Nutrition Risks: No Nutritional Risk Poor oral hygiene: No service: Yes Sexual orientation: Straight/Heterosexual Meds Allergies Allergy/AdvReac Type Severity Reaction Status Date / Time lithium Allergy Rash Verified 02/02/23 07:00 Active Medications: Current Medications Acetaminophen (Acetaminophen 325 Mg Tablet) 650 mg PO Q6H PRN PRN Reason: mild pain (1-3) Last Admin: 02/14/23 14:27 Dose: 650 mg Al Hydroxide/Mg Hydroxide (Magnesium Hydrox/Alum Hydrox 30 Ml Oral.Susp) 30 ml PO Q6H PRN PRN Reason: Heartburn/Nausea Albuterol Sulfate (Albuterol Sulfate 90 Mcg 8 Gm Inhaler) 2 puff INHALE Q4H PRN PRN Reason: dyspnea Last Admin: 02/15/23 21:00 Dose: 2 puff Cyclobenzaprine HCl (Cyclobenzaprine Hcl 10 Mg Tablet) 10 mg PO TID PRN PRN Reason: back pain Last Admin: 02/15/23 09:12 Dose: 10 mg Fluticasone/Vilanterol (Fluticasone/Vilanterol 200/25 Blst.W.Dev) 1 puff INHALE RDAILY [facility] Last Admin: 02/15/23 09:09 Dose: 1 puff Lactated Ringer's (Lr) 1,000 mls @ 50 mls/hr IVCONT .Q20H SHREYA Ibuprofen (Ibuprofen 800 Mg Tablet) 800 mg PO Q8H PRN PRN Reason: moderate pain (4-6) Last Admin: 02/15/23 21:01 Dose: 800 mg Lurasidone HCl (Lurasidone Hcl 20 Mg Tablet) 60 mg PO DAILY [facility] Last Admin: 02/15/23 09:11 Dose: 60 mg Magnesium Hydroxide (Milk Of Magnesia 30 Ml Oral.Susp) 30 ml PO DAILY PRN PRN Reason: Constipation Nicotine (Nicotine 21 Mg Patch.Td24) 21 mg TRANSDERMA DAILY [facility] Last Admin: 02/15/23 09:14 Dose: 21 mg Omeprazole (Omeprazole 20 Mg Capsule.Dr) 20 mg PO DAILY [facility] Last Admin: 02/15/23 09:13 Dose: 20 mg Quetiapine Fumarate (Quetiapine Fumarate 50 Mg Tablet) 50 mg PO BEDTIME [facility] Last Admin: 02/15/23 21:01 Dose: 50 mg Quetiapine Fumarate (Quetiapine Fumarate 25 Mg Tablet) 25 mg PO BID PRN PRN Reason: insomnia Last Admin: 02/15/23 21:02 Dose: 25 mg Sertraline HCl (Sertraline Hcl 50 Mg Tablet) 150 mg PO DAILY SHREYA Last Admin: 02/15/23 09:12 Dose: 150 mg Sumatriptan Succinate (Sumatriptan Succinate 100 Mg Tablet) 100 mg PO DAILY PRN PRN Reason: Migraine Headache Last Admin: 02/14/23 09:34 Dose: 100 mg Trazodone HCl (Trazodone Hcl 100 Mg Tablet) 200 mg PO BEDTIME SHREYA Last Admin: 02/15/23 21:00 Dose: 200 mg Trazodone HCl (Trazodone Hcl 50 Mg Tablet) 50 mg PO BEDTIME PRN PRN Reason: Insomnia Last Admin: 02/15/23 21:01 Dose: 50 mg Home Medications Medication Instructions Recorded Confirmed Last Taken Type albuterol sulfate 90 mcg/actuation 2 puff inhalation Q4H PRN dyspnea 01/21/23 01/21/23 Unknown History aerosol inhaler (Ventolin HFA) aripiprazole 10 mg tablet 1 tab PO BEDTIME 01/21/23 01/21/23 Unknown History budesonide 160 mcg-glycopyr 9 2 puff inhalation BID 01/21/23 01/21/23 Unknown History mcg-formot 4.8 mcg/actuation HFA inhaler (Breztri Aerosphere) hydroxyzine pamoate 50 mg capsule 1 cap PO Q6H PRN anxiety 01/21/23 01/21/23 Unk nown History ibuprofen 800 mg tablet 1 tab PO TID PRN pain 01/21/23 01/21/23 Unknown History omeprazole 20 mg capsule,delayed 1 cap PO QAM 01/21/23 01/21/23 Unknown History release quetiapine 200 mg tablet 1 tab PO BEDTIME 01/21/23 01/21/23 Unknown History quetiapine 25 mg tablet 1 tab PO BID PRN insomnia 01/21/23 01/21/23 Unknown History sertraline 100 mg tablet 1 tab PO DAILY 01/21/23 01/21/23 Unknown History trazodone 50 mg tablet 1 tab PO BEDTIME insomnia 01/21/23 01/21/23 Unknown History Exam Exam Date and Time: February 16, 2023 0646 Height,Weight and Vital Signs: Height 5 ft 10 in Weight 111.097 kg Last Vital Signs Temp 97.8 F 02/16/23 05:50 Pulse 84 02/16/23 05:50 Resp 14 02/16/23 05:50 BP 137/75 02/16/23 05:50 Pulse Ox 95 02/16/23 05:50 O2 Del Method 02/15/23 21:04 O2 Flow Rate 3 02/14/23 08:40 Pertinent Lab Results Pertinent Lab Results: Laboratory Tests 01/22/23 01/22/23 01/22/23 07:36 07:36 07:36 WBC 6.6 RBC 4.74 Hgb 15.4 Hct 45.0 MCV 94.9 MCH 32.5 MCHC 34.2 RDW 13.2 Plt Count 184 MPV 9.7 Immature Gran % (Auto) 0.3 Neut % (Auto) 48.0 Lymph % (Auto) 34.2 Coleman % (Auto) 11.7 H Eos % (Auto) 5.2 H Baso % (Auto) 0.6 Lymph # (Auto) 2.3 Coleman # (Auto) 0.8 Eos # (Auto) 0.3 Baso # (Auto) 0.0 Abs Immat Gran (auto) 0.02 Absolute Neuts (auto) 3.2 Absolute Nucleated RBC 0.000 Nucleated RBC % (auto) 0.0 Sodium 142 Potassium 4.0 Chloride 111 H Carbon Dioxide 24 Anion Gap 11 L BUN 17 H Creatinine 0.91 Estim Creat Clear Calc TNP Estimated GFR > 60 Fasting Glucose 95 Estimat Average Glucose 103 Hemoglobin A1c % 5.2 Calcium 9.6 Total Bilirubin 0.6 Direct Bilirubin 0.2 AST 21 ALT 33 Alkaline Phosphatase 75 Total Protein 6.6 Albumin 4.1 Triglycerides 126 Cholesterol 214 LDL Cholesterol, Calc 146 HDL Cholesterol 43 Vitamin B12 366 Folate 14.2 TSH 1.78 Free T4 0.84 COVID-19 ([facility]INDER) COVID-19 Clin Com 01/28/23 14:10 WBC RBC Hgb Hct MCV MCH MCHC RDW Plt Count MPV Immature Gran % (Auto) Neut % (Auto) Lymph % (Auto) Coleman % (Auto) Eos % (Auto) Baso % (Auto) Lymph # (Auto) Coleman # (Auto) Eos # (Auto) Baso # (Auto) Abs Immat Gran (auto) Absolute Neuts (auto) Absolute Nucleated RBC Nucleated RBC % (auto) Sodium Potassium Chloride Carbon Dioxide Anion Gap BUN Creatinine Estim Creat Clear Calc Estimated GFR Fasting Glucose Estimat Average Glucose Hemoglobin A1c % Calcium Total Bilirubin Direct Bilirubin AST ALT Alkaline Phosphatase Total Protein Albumin Triglycerides Cholesterol LDL Cholesterol, Calc HDL Cholesterol Vitamin B12 Folate TSH Free T4 COVID-19 (NARINDER) Negative COVID-19 Clin Com See Note Airway Mallampati Class: II TM Dist: >3cm Neck ROM: Full Heart: rrr Lungs: cta Assessment and Plan Assessment Anesthesia Assessment: Anesthesia Plan Discussed and Chart Reviewed Final Anesthetic Review Family History of Problems with Anesthesia: No History of Problems with Anesthesia: No NPO: Yes ASA Class: III Final Preanesthetic Review: No Changes in Pt Med Stat, Meds/Allgs Chart Reviewed and Consent Obtained/Reviewed Patient Risk: Intermediate Procedure Risk: Intermediate Anesthetic Plan Anesthetic Plan: GA Disposition: Standard PACU
--- NOTE | 2023-02-16 07:49 | MHC.SHP ---
Pre-Procedural Eval Section A Date of Service: 02/16/23 The patient is an INPATIENT: Yes Changes since office visit: No Cold of Flu in the past 2 weeks, No New Medical Problems, No Changes in Medication and No Patient answered all questions The History & Physical has been completed within 30 days and I have reviewed it.: Yes Section B Chief Complaint: Unspecified Bipolar D/O Allergies: Allergies Allergy/AdvReac Type Severity Reaction Status Date / Time lithium Allergy Rash Verified 02/02/23 07:00 Plan I have reviewed the history and physical and performed a pertinent physical examination on my patient. No changes have occurred unless specified. Time Spent With Patient Time: Total time managing care of this patient today ____ minutes.
--- NOTE | 2023-02-16 07:50 | HO.ECTPROC ---
ECT Procedure Note Diagnosis/Treatment Date of Service: 02/16/23 Diagnosis: Major Depressive Disorder Previous ECT Date: 02/14/23 Current Treatment Number: 7 Treatment: Series Interval Clinical Notes: The patient reported improvement of his depression, no side effects with previous ECT. Time: Total time managing care of this patient today __30__ minutes. ECT Settings Device: THYMATRON DGx Electrode Placement: Right Unilateral Program/Pulse Width: 0.25 Energy Percent: 80 Seizure Duration By EEG (in seconds): 82 By Motor Observation (in seconds): 35 Medications Administration General Anesthetic: Etomidate (16) Muscle Relaxant: Succinylcholine (120) Ancillary Medications Analgesics: Torodol - Pre ECT Anti-emetics: Zofran - Pre ECT Cardiovascular Medications: Glycopyrrolate (0.2 pre-ECT) Miscillaneous Medications: Propofol and Midazolam Airway Management Airway Management: LMA Treatment Recommendations Electrode Placement: Right Unilateral Program/Pulse Width: 0.25 Energy Percent: 70 Pt Tolerated Procedure w/o Issue: Yes
[2023-02-16] MEDS: Nicotine 21 MG PATCH.TD24 TRANSDERMA (09:12)
[2023-02-16] MEDS: Lurasidone HCl 20 MG TABLET 60 MG PO (09:14)
[2023-02-16] MEDS: Sertraline HCL 50 MG TABLET 150 MG PO (09:14)
[2023-02-16] MEDS: Omeprazole 20 MG CAPSULE.DR PO (09:15)
[2023-02-16] MEDS: Cyclobenzaprine HCl 10 MG TABLET PO ×2 (09:15→22:08)
[2023-02-16] MEDS: Ibuprofen 800 MG TABLET PO ×2 (09:16→22:08)
[2023-02-16] MEDS: Albuterol Sulfate 90 MCG 8 GM INHALER 2 PUFF INHALE ×2 (09:17→22:07)
[2023-02-16] MEDS: Fluticasone/Vilanterol 200/25 BLST.W.DEV 1 PUFF INHALE (09:17)
[2023-02-16] MEDS: SUMAtriptan succinate 100 MG TABLET PO (09:36)
--- NOTE | 2023-02-16 12:02 | P.DS_ITS ---
DS: Providers Provider Date of Service: 02/16/23 Date of admission: 01/21/23 17:49 Primary care physician: Benedict Santana MD Consults: 02/11/23 11:01 Consult to Pulmonology Routine Consulting Provider: [facility] Reason for consultation: PT DESAT X 2 HAD WHEEZING DESPITE PTRE TX ANESTHESIARECOMMENDS BETTER CONTR 02/11/23 13:53 Consult to Pulmonology Routine Consulting Provider: [facility] Reason for consultation: COPD, was on breztri, none here, decomping Has provider been notified: No DS: Diagnosis Discharge Diagnosis (1) COPD (chronic obstructive pulmonary disease): Status: Acute (2) Bipolar 1 disorder, depressed, severe: Status: Acute (3) TBI (traumatic brain injury): Status: Acute (4) Alcohol use disorder: Status: Acute (5) PTSD (post-traumatic stress disorder): Status: Acute DS: Medications Discharge Medications Home Medications: Previous Rx's Medication Instructions Recorded albuterol sulfate 90 mcg/actuation 2 puff inhalation Q4H PRN dyspnea 02/16/23 aerosol inhaler (Ventolin HFA) 30 days #8.5 grams cyclobenzaprine 10 mg tablet 10 mg PO TID PRN back pain 30 days 02/16/23 #90 tabs fluticasone furoate 200 1 ea inhalation RDAILY 30 days #1 02/16/23 mcg-vilanterol 25 mcg/dose inhaler inhalation powder (Breo Ellipta) ibuprofen 800 mg tablet 800 mg PO TID PRN pain 30 days #90 02/16/23 tabs lurasidone 20 mg tablet (Latuda) 60 mg PO DAILY 30 days #90 tabs 02/16/23 nicotine 21 mg/24 hr daily 21 mg transdermal DAILY 28 days 02/16/23 transdermal patch #28 ea omeprazole 20 mg capsule,delayed 20 mg PO QAM 30 days #30 caps 02/16/23 release quetiapine 25 mg tablet 25 mg PO BID PRN insomnia 30 days 02/16/23 #60 tabs sertraline 50 mg tablet 150 mg PO DAILY 30 days #90 tabs 02/16/23 sumatriptan succinate 100 mg tablet 100 mg PO DAILY PRN Migraine 02/16/23 Headache 30 days #30 tabs trazodone 100 mg tablet 200 mg PO BEDTIME 30 days #60 tabs 02/16/23 Mental Status Exam Mental Status Exam Narrative: calm, cooperative. no PMA/PMR. nml rate, amount, loudness of speech. thoughts linear. affect more flexible, normo-intense, non-labile. mood not great (due to feeling tired and having a LANZA). no SI/HI/AVH. Data Imaging Diagnostic Imaging Impressions Head CT 01/27/23 14:07 IMPRESSION: No acute intracranial abnormality. Mild nonspecific hypoattenuation in the cerebral white matter. Chest X-Ray 02/11/23 15:40 IMPRESSION: No acute parenchymal disease. Question left lung density as described above. DS: Summary Hospital Course Hospital Course: per 01/22 admission note: pt was admitted to [facility] medical floor after overdosing on 60 tabs of seroquel while intoxicated.? he was in a public place, drank the alcohol and took the pills, and immediately called 911.? he reported homelessness, lack of treaters, of his daughter by suicide several years ago, lack of social supports, lack of help from psych meds as stressors.? he reports a history of bipolar disorder, talking of my vito, which he says he used to manage through excessive exercise when he was younger - working out, running marathons.? he describes his manic episodes as lasting 3-4 days and those being followed by depressive periods that might last a week or two.? he reports the most recent suicida attempt was his 6th in 16 weeks, that he was at [facility] twice in the past 6 weeks.? he goes in, gets detoxed, discharges, starts drinking again and attempts to overdose, then goes back in the hospital.? he states he still has SI and plans to and intends to kill himself after discharge.? he has given up any confidence in medications.? MD broaches ECT and educates him about it; he is open to receiving literature on the subject.? he presents with a fair amount of braggadocio and [id number] attitude, challenging MD to discharge him.? attempts are made to establish rapport through a non-directive approach and emphasizing that pt has the control and the power to make decisions and chart his course.? hopefully, despite his continued insistence that he is going to kill himself, he also spoke positively about help from talking to others as well as an interest in finding a therapist at discharge. Past Psychiatric History: hosps: 8-9 SA: 8-9 SIB: denies no outpt ptoviders although reports long h/o mental healthcare and medications mgmt. reports being taken to senior care as often as to the hospital when the police are called. Medical Evaluation Reviewed: Yes PMFSH Medical History?(Updated 01/23/23 @ 00:51 by Nicholas Ruff) Alcohol use disorder TBI (traumatic brain injury) Family History: daughter - completed suicide around [id number], reported Dx of bipolar disorder 5 sibs - no mental health concerns parents - no mental health concerns Social History: 5 kids, one daughter suicided in [id number] period.? homeless, unemployed.? history of incarceration. Substance History: alcohol - reports half gallon of vodka daily in the recent past cannabis - occasional cocaine - occasional denies use of opioids, stimulants, benzos, other. declines SA Tx. Trauma History: indicates in the affirmative but states that's all he'll say about it Precis: per chidi ECT consult:? The patient has a history of severe bipolar depression complicated by alcohol use.? Given suicidality status post recent overdose family history of impulsive suicidality ECT would be a reasonable choice at this time indication bipolar depression not responding to multiple hospitalizations with a commitment to sobriety would consider Vivitrol and given patient's lack of response to Seroquel would strongly urge a trial of Latuda.? Fallon would be significantly indicated in this situation however patient states he has had an allergic reaction the past an excellent medication for impulsive suicidality in the context of bipolar disorder.? Medical consult reviewed and EKG reviewed with Cardiology they did not feel need for cardiology consult at this time patient with no acute cardiac symptoms no chest pain risks benefits alternatives reviewed patient with seem to be good ECT candidate but will need close follow-up head CT scan reviewed no acute process no areas of encephalomalacia or subdural EKG reviewed case reviewed with hospitalist service per pulm consult:? 57-year-old gentleman hospitalized with psychiatric diagnosis with underlying COPD, noted to have some wheezing and mild desaturations with the ECT, currently not on bronchodilator.? Chest x-ray is pending.? Likely aspiration event with ECT.? Recommendations: BrezTri is non-formulary,? Changed to Breo.? Will review x-ray as available.? Likely resolved spirations with ECT. 01/22: pt expressing lack of motivation for recovery and treatment, especially with medications.? he was educated re ECT for Tx refractory depression.? he is willing to receive further education on the subject and MD will discuss with him again tomorrow. build rapport, listen (pt identified h/o treaters' not listening to him as something which led to his disengagement). continue prior meds for now.? increase seroquel at HS per pt request for insomnia. ativan per CIWA for alcohol withdrawal. 01/23: pt reports he received ECT education and is mulling it over. asks for HS seroquel to be decreased to 250, which is done. asks for flexeril to be increased to 10 TID PRN, which is done. reports no change in mood or SI. 01/24: no change in mood or SI per pt.? however, he is making hopeful statements and was noted to have expressed an interest in therapy after discharge.? increase zoloft to 150 mg daily per pt request.? states ECT is not for him. 01/25 continue current treatment plan; patient still depressed with intermittent SI.? Again discussed ECT and patient says he is more open to considering it.? He will follow up with Dr. Ruff. 01/26: consults placed for chidi, hospitalist, and EKG in preparation for potential ECT.? otherwise continue current mgmt. 01/27: head CT ordered.? awaiting consults from hospitalist and ECT provider.? continue current mgmt. 01/28: cleared by medicine and chidi for ECT, to start tuesday.? stable presentation. 01/29/2023 Patient started on Latuda for bipolar depression.? ECT currently hold would certainly be a treatment option given patient's multiple recent psychiatric hospitalizations and significant suicide attempt would consider naltrexone/Vivitrol 01/30/2023 Continue Latuda monitor affects consideration of ECT patient does describe clear manic history would consider addiction consult with Vivitrol 01/31:? increase latuda to 40 mg and change to HS.? planning to taper seroquel, but insomnia continues, per report.? ECT approved, now planning for . 02/01:? decrease HS seroquel to 200 - pt states he slept well last night.? otherwise no change in regimen? ECT tomorrow. 02/02:? ECT went well, no complaints.? continue current mgmt.? T/C increasing latuda and decreasing seroquel depending on how pt sleeps tonight. 02/03:? feeling relatively well.? increase HS latuda to 60 mg, decrease HS seroquel to 150 mg.? ECT tomorrow. 02/04:? ECT went well, no complaints.? discussing aftercare plans - jail, [facility] services.? no change to plan.? ECT tuesday. 02/05: Continue current regimen and plans.? Continue ECT. 02/07: schedule trazodone 100 mg QHS.? increase methadone to 75 mg daily.? [facility] unable to identify a methadone clinic which could guest-dose him.? looking into other CSSs. 02/08: no change, anticipating ECT tomorrow.? working on dispo plans, recently in touch with [facility]. 02/09: no side effects from ECT, mood remains improved.? decrease HS seroquel to 100 mg, otherwise continue current mgmt. 02/10: stable.? continue current regimen through ECT tomorrow.? planning to continue seroquel taper over /e. 02/11: stable, ECT went well.? continue seroquel as is and move latuda 60 mg QHS to the morning.? per staff, SOB, using a lot of albuterol PRNs, getting nebs at ECT.? was on breztri, which he reports worked like a charm, which is not on formulary and per pharmacy without any replacement here.? pulmonary consult placed.? ECT tuesday. 02/14:? seen by pulm and placed on breo.? ECT this morning went well.? gains in mood sustained.? per chidi, planning for final session .? planning for DC or tuesday.? active dispo planning. 02/15:? final ECT tomorrow, DC to respite bed.? stable, improved. 02/16: final ECT completed, mild LANZA after. slept well; DC seroquel at HS. DC tomorrow to respite bed. much improved from admission. Time Spent with Patient Time attestation: Total time managing care of this patient today ____ minutes. Time spent: Greater than 30 minutes Discharge Plan Discharge Patient Disposition: Xfer to Respite Facility Discharge Diagnosis: Bipolar I Disorder, MRE Depressed, Severe Alcohol Use Disorder PTSD, Chronic Referrals: Benedict Santana MD [Primary Care Provider] - 1 Week Discharge Medications: New cyclobenzaprine 10 mg Tablet 10 mg PO TID PRN (Reason: back pain) 30 Days Qty: 90 0RF sumatriptan succinate 100 mg Tablet 100 mg PO DAILY PRN (Reason: Migraine Headache) 30 Days Qty: 30 0RF trazodone 100 mg Tablet 200 mg PO BEDTIME 30 Days Qty: 60 0RF nicotine 21 mg/24 hr Patch 24 Hour 21 mg transdermal DAILY 28 Days Qty: 28 0RF sertraline 50 mg Tablet 150 mg PO DAILY 30 Days Qty: 90 0RF lurasidone [Latuda] 20 mg Tablet 60 mg PO DAILY 30 Days Qty: 90 0RF fluticasone furoate-vilanterol [Breo Ellipta] 200-25 mcg/dose Blister With Device 1 ea inhalation RDAILY 30 Days Qty: 1 0RF Continued albuterol sulfate [Ventolin HFA] 90 mcg/actuation HFA aerosol inhaler 2 puff inhalation Q4H PRN (Reason: dyspnea) 30 Days Qty: 8.5 0RF Changed quetiapine 25 mg tablet 25 mg PO BID PRN (Reason: insomnia) 30 Days Qty: 60 0RF ibuprofen 800 mg tablet 800 mg PO TID PRN (Reason: pain) 30 Days Qty: 90 0RF omeprazole 20 mg capsule,delayed release(DR/EC) 20 mg PO QAM 30 Days Qty: 30 0RF Discontinued aripiprazole 10 mg tablet 1 tab PO BEDTIME trazodone 50 mg tablet 1 tab PO BEDTIME sertraline 100 mg tablet 1 tab PO DAILY quetiapine 200 mg tablet 1 tab PO BEDTIME hydroxyzine pamoate 50 mg capsule 1 cap PO Q6H PRN (Reason: anxiety) Breztri Aerosphere 160-9-4.8 mcg/actuation HFA aerosol inhaler 2 puff inhalation BID Discharge Orders: Discharge Order (Routine); Ordered 02/17/23 Ordered By: Nicholas Ruff Diet: Advance to usual diet Activity on Discharge: As tolerated Stand Alone Forms: Patient Portal Discharge page Care Plan Goals: remain safe, stable, and sober in the outpatient treatment setting Health Concerns: tobacco use hypertension Plan of Treatment: take medications as prescribed, attend appointments as scheduled Assessment: not at imminent risk of harm to self or others
--- NOTE | 2023-02-16 15:45 | PC.NURSE ---
Nurse to nurse completed with Heidi at [facility]. [phone].
[2023-02-16] MEDS: traZODone HCL 50 MG TABLET PO (22:08)
[2023-02-16] MEDS: QUEtiapine Fumarate 25 MG TABLET PO (22:08)
[2023-02-16] MEDS: traZODone HCL 100 MG TABLET 200 MG PO (22:08)
[2023-02-17 07:00] VITALS: BMI 35.3
[2023-02-17 08:56] LABS: COVID-19 Test Negative (Negative); IDNOW Serial# 08D9AD1C
[2023-02-17 09:15] VITALS: BP 154/91; PULSE 95; RESP 18; TEMP 36.6; O2SAT 94
[2023-02-17] MEDS: Sertraline HCL 50 MG TABLET 150 MG PO (09:20)
[2023-02-17] MEDS: Nicotine 21 MG PATCH.TD24 TRANSDERMA (09:20)
[2023-02-17] MEDS: Ibuprofen 800 MG TABLET PO (09:21)
[2023-02-17] MEDS: Lurasidone HCl 20 MG TABLET 60 MG PO (09:21)
[2023-02-17] MEDS: Cyclobenzaprine HCl 10 MG TABLET PO (09:22)
[2023-02-17] MEDS: Omeprazole 20 MG CAPSULE.DR PO (09:22)
[2023-02-17] MEDS: Fluticasone/Vilanterol 200/25 BLST.W.DEV 1 PUFF INHALE (09:37)
--- NOTE | 2023-02-17 10:04 | PC.NURSE ---
Patient alert, oriented x3. States he feels ready for discharge to respite today. Affect even, brighter. Denies SI/HI, denies AH/VH. Reviewed belongings, discharge instructions with pt, pt verbalized understanding, no concerns reported. Report given to [facility] at Respite, ESTRELLA testing completed and negative.
== END 2023-02-17 11:05 | DRG 753 ==
PROVIDERS: Anesthesiology; Psychiatry & Neurology Psychiatry; Admitting Provider Psychiatry & Neurology Psychiatry; PCP Internal Medicine; Visit Provider Psychiatry & Neurology Psychiatry
PROC: (CPT 90870; principal; 2023-02-02 07:30)
PROC: GZB4ZZZ Other Electroconvulsive Therapy (ICD-10-PCS; CPT 90870; principal; 2023-02-04 08:00)
DX: F31.4 Bipolar disorder, current episode depressed, severe, without psychotic features (principal); R45.851 Suicidal ideations; F17.210 Nicotine dependence, cigarettes, uncomplicated; I10 Essential (primary) hypertension; J44.9 Chronic obstructive pulmonary disease, unspecified; F43.10 Post-traumatic stress disorder, unspecified; Z20.822 Contact with and (suspected) exposure to COVID-19; Z59.02 Unsheltered homelessness; Z87.820 Personal history of traumatic brain injury; Z91.51 Personal history of suicidal behavior; Z71.6 Tobacco abuse counseling; Z79.51 Long term (current) use of inhaled steroids; Z79.899 Other long term (current) drug therapy
CPT/HCPCS: 36415; 70450; 71046; 80053; 80061; 80076; 82607; 82746; 83036; 84439; 84443; 85025; 87635; 90870; 93005; 94640; J0330; J1885; J2060; J2250; J2405

== ENCOUNTER 2024-06-28 14:55 | Inpatient (IN) | payer OTHER, SELFPAY ==
--- OUTSIDE RECORDS SUMMARY | 2024-06-28 14:58 | XMS_ITS | Continuity of Care Document ---
Author Organization [facility] Address [address] [place] [address]- Care Team Providers Care Window And Siding Craftsman Name Role Phone Benedict Santana MD Primary Care Physician Encounter [facility] Date(s): 02/23/24 - 03/24/24 [facility] [address] [place] [address]- Attending Physician: George López Admitting Physician: George López Referring Physician: AdmtrGeorge Allergies, Adverse Reactions, Alerts Substance Reaction Severity Status lithium Active Medications ARIPiprazole 10 mg oral tablet 10 mg, 1, tablet, By Mouth, Daily at bedtime, # 30 tablet, Refills 1, Tot. Refills 1, Maintenance, 10/26/22 8:13:00 EST, Route to Pharmacy Electronically, [facility]/pharmacy #[id number], Partial fill upon patient request if the prescription is for a schedule II o... Start Date: 10/26/22 Status: Ordered Breztri Aerosphere inhalation aerosol 2 puffs, Inhalation, 2 times a day, rinse mouth and throat after use, # 10.7 Gm, 0 Refills, Maintenance, 11/24/22 11:07:00 EST, Aerosol, Partial fill upon patient request if the prescription is for aschedule II opioid drug. Start Date: 11/24/22 Status: Ordered folic acid 1 mg oral tablet 1 mg, 1, tablet, By Mouth, Daily, # 30 tablet, Refills 0, Tot. Refills 0, Maintenance, 11/26/22 15:04:00 EST, Do Not Route, Partial fill upon patient request if the prescription is for a schedule II opioid drug. Start Date: 11/26/22 Status: Ordered Ibuprofen 800 mg, By Mouth, 3 times a day, prn, Refills 0, Maintenance, 02/19/19 13:27:39 EDT Start Date: 02/19/19 Status: Ordered multivitamin Multiple Vitamins oral tablet 1 tablet, By Mouth, Daily, # 21 tablet, 0 Refills, Maintenance, 11/26/22 15:05:00 EST, Tablet, Partial fill upon patient request if the prescription is for a schedule II opioid drug. Start Date: 11/26/22 Stop Date: 12/17/22 Status: Ordered Prilosec 20 mg oral enteric coated capsule 1 capsule = 20 mg, By Mouth, Daily, 0 Refills, Maintenance, 06/23/15 13:07:24 Start Date: 06/23/15 Status: Ordered Ventolin HFA 108 mcg/inh inhalation aerosol with adapter 2 puffs, Inhalation, Every 6 hours, PRN for wheezing, # 18 Gm, 0 Refills, Maintenance, 10/19/22 5:46:00 EST, Aerosol, Partial fill upon patient request if the prescription is for a schedule II opioiddrug. Start Date: 10/19/22 Status: Ordered Problem List Condition Confirmation Course Effective Dates Status Health St atus Informant Anxiety Confirmed Active Facet arthropathy, lumbar Confirmed Active Bipolar disorder Confirmed Active Chronic depression Confirmed Active Dyspnea on exertion Confirmed Active Obese class I Confirmed Active Encounter for screening colonoscopy Confirmed Active History of tobacco use Confirmed Active Social History Social History Type Response Smoking Status 10 or more cigarette s (1/2 pack or more)/day in last 30 days; Type: Cigarettes; Interested in cessation: Yes; Other: Has used Chantix and nicotine replacement; Tobacco use times per day: 1 pack per day; quit smoking for approx 10 years from age [age]; has quit off an on throughout the last 17 years; nothing longer than a year total; Number of years: 30; Total pack years: 30; Started at age: 13; entered on: 02/19/19 Sex Patient Care team information Care Team Personnel Name: Tomy Ritchie RN Position: [facility] RN Member Role: Primary Care Nurse Name: Lizet Weeks NP Position: [facility] - Associate Professional Provider Member Role: Lifetime Consulting Provider Address: Address: [address] [facility] [place] [address]- Name: Chelsea Whitney RN Position: [facility] RN Member Role: Primary Care Nurse Name: Benedict Santana MD Position: [facility] Outreach Member Role: PCP Address: Address: [address] [place] [address]- [place] Care Team Related Persons Name: GREG LOPEZ Address: [address] [place] [address] Name: SHAINA CERVANTES Address: [address] [place] [address]
--- OUTSIDE RECORDS SUMMARY | 2024-06-28 14:58 | XMS_ITS | Continuity of Care Document ---
Author Organization [facility] ter Address [address] [place] [address]- Care Team Providers Care Hand Frame Surgical Elastic Knitter Name Role Phone Benedict Santana MD Primary Care Physician [phone] [place]counter [facility] Date(s): 12/23/22 - 12/24/[address] [address]- Encounter Diagnosis Acute alcohol intoxication with alcoholism(Final) - 12/24/22 Discharge Disposition: Transfer to [facility] Facility Attending Physician: Latoya Griffin DO Admitting Physician: Latoya Griffin DO Referring Physician: Not on Staff, Referring MD Allergies, Adverse Reactions, Alerts Substance Reaction Severity Status lithium Active Immunizations Not Given Vaccine Date Status Refusal Reason influenza virus vaccine, inactivated 11/26/22 Not Given Patient Refuses influenza virus vaccine, inactivated 10/21/22 Not Given Patient Refuses Medications ARIPiprazole 10 mg oral tablet 10 mg, 1, tablet, By Mouth, Daily at bedtime, # 30 tablet, Refills 1, Tot. Refills 1, Maintenance, 10/26/22 8:13:00 EST, Route to Pharmacy Electronically, [facility]/pharmacy #[id number], Partial fill upon patient request if [...] 13:27:39 EDT Start Date: 02/19/19 Status: Ordered lidocaine 5% topical film 1 patch, Topically, Daily, # 30 patch, 0 Refills, Acute 11/02/23 14:59:00 EST, 11/26/22 14:59:00 EST, Patch, Partial fill upon patient request if the prescription is for a schedule II opioid drug. Start Date: 11/26/22 Stop Date: 11/02/23 Status: Ordered multivitamin Multiple Vitamins oral tablet [...] 06/23/15 13:07:24 Start Date: 06/23/15 Status: Ordered pyridoxine 50 mg oral tablet 50 mg, 1, tablet, By Mouth, Daily, # 30 tablet, Refills 0, Tot. Refills 0, Acute 11/14/23 15:05:00 EST, 11/26/22 15:04:00 EST, Do Not Route, Partial fill upon patient request if the prescription is for a schedule II opioid drug. Start Date: 11/26/22 Stop Date: 11/14/23 Status: Ordered SUMAtriptan 100 mg oral tablet 1 tablet = 100 mg, By Mouth, Daily, PRN for migraine headache, may repeat dose after 2 hours up to a maximum of 2, # 9 tablet, 1 Refills, Acute 03/12/23 8:46:00 EDT, 10/26/22 8:45:00 EST, Tablet, [facility]/pharmacy #[id number], Partial fill upon patient request i... Start Date: 10/26/22 Stop Date: 03/12/23 Status: Ordered thiamine 100 mg oral tablet 100 mg, 1, tablet, By Mouth, Daily, for 30 days, # 30 tablet, Refills 0, Tot. Refills 0, Acute 12/26/22 15:05:00 EST, 11/26/22 15:05:00 EST, Do Not Route, Partial fill upon patient request if the prescription is for a schedule II opioid drug. Start Date: 11/26/22 Stop Date: 12/26/22 Status: Ordered Ventolin HFA 108 mcg/inh inhalation [...] Active History of tobacco use Confirmed Active Vital Signs Most recent to oldest [Reference Range]: 1 2 3 Weight 109.3 kg (12/24/22 6:16 PM) 109.3 kg (12/24/22 4:51 PM) 109.3 kg (12/24/22 2:36 PM) Oxygen Saturation [94-100 %] 99 % (12/24/22 6:16 PM) 97 % (12/24/22 4:51 PM) 94 % (12/24/22 2:36 PM) Pulse Rate [55-90 bpm] 98 bpm *H* (12/24/22 6:16 PM) 107 bpm *H* (12/24/22 4:51 PM) 105 bpm *H* (12/24/22 2:36 PM) Blood Pressure [90-138/55-84 mm Hg] 155/103mm Hg *H* (12/24/22 6:16 PM) 147/101mm Hg *H* (12/24/22 4:51 PM) 144/97mm Hg *H* (12/24/22 2:36 PM) Respiratory Rate [16-30 br/min] 16 br/min (12/24/22 6:16 PM) 18 br/min (12/24/22 4:51 PM) 18 br/min (12/24/22 2:36 PM) Temperature [96.8-100.4 DegF] 97.9 DegF (12/24/22 6:16 PM) 98.7 DegF (12/24/22 4:51 PM) 98.6 DegF (12/24/22 2:36 PM) Mode of Delivery (Oxygen) Room air (12/24/22 6:16 PM) Room air (12/24/22 4:51 PM) Room air (12/24/22 2:36 PM) Blood pressure sites Arm, left (12/24/22 6:16 PM) Arm, left (12/24/22 4:51 PM) Arm, right (12/24/22 2:36 PM) Temperature Route Oral (12/24/22 6:16 PM) Oral (12/24/22 4:51 PM) Oral (12/24/22 2:36 PM) Social History Social History Type Response Smoking [...] at age: 13; entered on: 02/19/19 Sex Note * Latoya Griffin DO: PERFORM Event Display: Patient Education Leaflets Authored Date: [id number] Suicidal Thoughts (72-Hour Hold) ?? [id number] Suicidal Thoughts (72-Hour Hold) Your doctor has determined that your thoughts and actions suggest that you are suicidal. They have determined that there is a risk that you may try to harm yourself if you leave here. This is most often a sign of depression or excess anger at yourself or someone else. With your protection and well-being in mind, you have been placed on a legal 72-hour hold. This is so that you can be assessed by a psychiatrist. What is??a 72-hour hold? The law requires that you must be held for up to 72 hours for a psychiatric evaluation if a certified person such as a healthcare provider, , launch commander harbor police, or life science technical officer's deputy determines that you are: ??? A danger to yourself or others, or ??? Not able to care for yourself, or ??? Gravely disabled This hold is enforced even if you don't consent. ?? Follow-up care When you are released, follow up with your doctor or mental health provider for continued medical care. This is very important for your ongoing well-being. ?? Call or text [phone] Call or text [phone] if you have suicidal thoughts, a suicide plan, and the means to carry out the plan, or serious thoughts of hurting someone else. When you call or text [phone], you will be connected to trained crisis counselors at the Suicide Prevention Lifeline. An online chat option is also available. Lifeline is free and available 20/06. ?? When to seek medical advice Call your healthcare provider or emergency services right away if any of the following occur: ??? Symptoms gradually or suddenly return ??? Medicine side effects develop ??? Feeling very depressed, anxious or angry toward yourself or others ??? Feeling out of control ??? Feeling that you may try toharm yourself or someone else ??? Hearing voices that others don't hear ??? Seeing things that others don't see ??? Having extreme mood swings ??? Not able to sleep or eat for 3 days in a row ??? Family or friends are concerned about your well-being and behaviors and ask you to seek help ?? To learn more ??? National Suicide Prevention Lifeline at www.suicidepreventionlifeline.org or 831-121-HCVA (702-864-2174). If in crisis, call or text 988 ??? National [place] on Mental Illness at www.laquita.org cd235-025-1705 ??? Mental Health Jackie at www.gaha.org or 301 741.2170 ??? National Wild Horse of Mental Health at www.nimh.nih.gov or 389-164-2077 ?? Last Reviewed Date: 2022 ?? 1931-3927 The [employer]. All rights reserved. This information is not intended as a substitute for professional medical care. Always follow your healthcare professional's instructions. ?? Patient Care team information Care Team Personnel Name: Tomy Ritchie RN Position: [facility] RN Member Role: Primary Care Nurse Name: Lizet Weeks NP Position: [facility] Associate Professional Member Role: Lifetime Consulting Provider Address: Address: [address] [facility] [place] [address]- [place] Name: Chelsea Whitney RN Position: [facility] RN Member Role: Primary Care Nurse Name: Benedict Santana MD Position: [facility] Outreach Member Role: PCP Address: Address: [address] [place] [address]- [place] Name: Bridgette Castrejon RN Position: [facility] RN Member Role: Primary Care Nurse Name: *[facility], ED Attending Position: [facility] ED Attendings Patient Name: Latoya Griffin DO Position: [facility] ED Medicine MD Member Role: Admitting Physician Address: Address: [address] [facility] [place] [address]- [place] Name: Briana Wang RN Position: [facility] ED RN W/OE and Tasks Member Role: Patient Care Provider Name: José Miguel Eng Position: [facility] ED [facility] Member Role: Counselor Name: Rich Pal Position: [facility] ED [facility] Care Team Related Persons Name: GREG LOPEZ Address: [address] [place] [address] Name: SHAINA CERVANTES Address: [address] [place] [address]
--- OUTSIDE RECORDS SUMMARY | 2024-06-28 14:58 | XMS_ITS | Continuity of Care Document ---
Author Organization [facility] ter Address [address] [place] [address]- Care Team Providers Care Healthcare Administration Intern Name Role Phone Benedict Santana MD Primary Care Physician Encounter [facility] Date(s): 10/18/22 - 10/20/[address] [address]- Encounter Diagnosis Alcohol intoxication(Final) - 10/19/22 Suicidal ideation(Final) - 10/19/22 Discharge Disposition: Transfer to [facility] Facility Attending Physician: Cori Perez DO Admitting Physician: Coir Perez DO Referring Physician: Not on Staff, Referring MD Allergies, Adverse Reactions, Alerts Substance Reaction Severity Status lithium Active Medications ALBUTEROL SUL HFA 90 MCG INH ALBUTEROL SUL HFA 90 MCG INH, Inhalation, 0 Refills, Maintenance, prn, 02/19/19 13:28:16 EDT Start Date: 02/19/19 Status: Ordered Breo Ellipta 200 mcg-25 mcg/inh inhalation powder 1 puffs, Inhalation, Daily, INHALE 1 INHALER INTO THE LUNGS ONCE DAILY Start Date: 02/19/19 Status: Ordered cyclobenzaprine 10 mg oral tablet 10 mg, 1, tablet, By Mouth, prn, Refills 0, Maintenance, 02/19/19 13:27:08 EDT Start Date: 02/19/19 Status: Ordered docusate sodium 100 mg oral capsule 100 mg, 1, capsule, By Mouth, 2 times a day, # 14 capsule, Refills 0, Tot. Refills 0, Maintenance, 03/10/17 10:18:20, Print Requisition Start Date: 03/10/17 Stop Date: 03/17/17 Status: Ordered Ibuprofen 800 mg, By Mouth, prn, Refills 0, Maintenance, 02/19/19 13:27:39 EDT Start Date: 02/19/19 Status: Ordered Imitrex 50 mg oral tablet 1 tablet = 50 mg, By Mouth, Once, 0 Refills, Maintenance, 06/23/15 13:08:17 Start Date: 06/23/15 Status: Ordered KLONopin Tablet By Mouth, 2 times a day, 1.5mg, 0 Refills, Maintenance, 06/23/15 13:03:32 Start Date: 06/23/15 Status: Ordered LaMICtal 100 mg oral tablet 2 tablet = 200 mg, By Mouth, 2 times a day, Follow titration scheduled discussed with patient., # 120 tablet, 6 Refills, Maintenance, 01/27/16 9:06:57, Dose increase, 2 tablet By Mouth 2 times a day,x30 days,Instr:Follow titration scheduled discussed... Start Date: 01/27/16 Stop Date: 08/24/16 Status: Ordered Lipitor 20 mg oral tablet 1 tablet = 20 mg, By Mouth, Daily at bedtime, 0 Refills, Maintenance, 06/23/15 13:06:49 Start Date: 06/23/15 Status: Ordered Loratadine 10 mg, By Mouth, Daily, Refills 0, Maintenance, 02/19/19 13:25:16 EDT Start Date: 02/19/19 Status: Ordered Prilosec 20 mg oral enteric coated capsule 1 capsule = 20 mg, By Mouth, Daily, 0 Refills, Maintenance, 06/23/15 13:07:24 Start Date: 06/23/15 Status: Ordered Seroquel 100 mg oral tablet 1 tablet = 100 mg, By Mouth, 2 times a day, 0 Refills, Maintenance, 06/23/15 13:06:27 Start Date: 06/23/15 Status: Ordered SEROquel 300 mg oral tablet 2 tablet = 600 mg, By Mouth, Daily at bedtime, 0 Refills, Maintenance, 01/05/16 10:27:56 Start Date: 01/05/16 Status: Ordered Spiriva HandiHaler 18 mcg Inhalation Capsule 1 capsule = 18 mcg, Inhalation, Daily, # 90 capsule, 0 Refills, Maintenance, 02/19/19 13:25:44 EDT Start Date: 02/19/19 Status: Ordered SUMAtriptan 100 mg oral tablet TAKE 1 TABLET BY MOUTH ONCE NEEDED FOR MIGRAINE FOR UP TO 1 DOSE. Start Date: 10/19/22 Status: Ordered tiZANidine 2 mg oral tablet 2 mg, 1, tablet, By Mouth, 3 times a day, PRN, # 15 tablet, Refills 0, Tot. Refills 0, Maintenance,Spasm, 03/09/17 11:40:20, Print Requisition Start Date: 03/09/17 Stop Date: 03/14/17 Status: Ordered Ventolin HFA 108 mcg/inh inhalation [...] Active History of tobacco use Confirmed Active Results Radiology Reports * Exam Date Time Procedure Performing Provider Status 10/19/22 1:32 AM Chest 2 Views Frontal and Lat Jose Todd (Verified) Notes: (Chest 2 Views Frontal and Lat) Reason For Exam: Chest Pain;Other: RESULT: Chest 2 Views Frontal and Lat Chest 2 Views Frontal and Lat CLINICAL INDICATION: Chest pain. COMPARISON: Chest x-ray, 03/08/2017. FINDINGS: The cardiac silhouette is within normal limits. Aorta is mildly tortuous. Hilar contours are normal. The lungs are clear. There is no pleural effusion, pneumothorax, or evidence of CHF. No acute osseous abnormality is noted. Multilevel bridging anterior osteophytes are seen in the spine. IMPRESSION: No acute cardiopulmonary process. WSN: [id number] Ordering Physician: Francisca Valle Dictated By: Sheryl Mcghee MD Dictated Date/Time: 10/19/22 8:02 am Reviewed By: Sheryl Mcghee MD Signed By: Sheryl Mcghee MD Signed Date/Time: 10/19/22 8:02 am Transcribed By: ANTHONY Transcribed Date/Time: 10/19/22 8:01 am Vital Signs Most recent to oldest [Reference Range]: 1 2 3 Height 185.4 cm (10/19/22 6:29 PM) 185.4 cm (10/19/22 3:33 PM) 185.4 cm (10/18/22 11:39 PM) Weight 102.2 kg (10/19/22 6:29 PM) 102.2 kg (10/19/22 3:33 PM) 102.2 kg (10/18/22 11:39 PM) Oxygen Saturation [94-100 %] 96 % (10/20/22 3:16 PM) 96 % (10/20/22 8:49 AM) 94 % (10/20/22 6:38 AM) Pulse Rate [55-90 bpm] 82 bpm (10/20/22 3:16 PM) 95 bpm *H* (10/20/22 8:49 AM) 71 bpm (10/20/22 6:38 AM) Body Mass Index [18.5-24.99 kg/m2] 29.73 kg/m2 *H* (10/19/22 6:29 PM) 29.73 kg/m2 *H* (10/19/22 3:33 PM) Blood Pressure [90-138/55-84 mm Hg] 143/98mm Hg *H* (10/20/22 3:16 PM) 135/95mm Hg (10/20/22 8:49 AM) 124/68mm Hg (10/20/22 6:38 AM) Respiratory Rate [16-30 br/min] 18 br/min (10/20/22 3:16 PM) 18 br/min (10/20/22 8:49 AM) 18 br/min (10/20/22 6:38 AM) Temperature [96.8-100.4 DegF] 97.6 DegF (10/20/22 8:49 AM) 98 DegF (10/20/22 6:38 AM) 98 DegF (10/20/22 2:08 AM) Liters per Minute 0 L/min (10/19/22 6:29 PM) 0 L/min (10/19/22 3:33 PM) Mode of Delivery (Oxygen) Room air (10/20/22 3:16 PM) Room air (10/20/22 8:49 AM) Room air (10/20/22 6:38 AM) Blood pressure sites Arm, right (10/20/22 3:16 PM) Arm, right (10/20/22 8:49 AM) Arm, right (10/20/22 6:38 AM) Temperature Route Oral (10/20/22 8:49 AM) Oral (10/20/22 6:38 AM) Oral (10/20/22 2:08 AM) Dry Weight 102.2 kg (10/19/22 6:29 PM) 102.2 kg (10/19/22 3:33 PM) 102.2 kg (10/18/22 11:39 PM) Social History Social History Type Response [...] at age: 13; entered on: 02/19/19 Sex EKG study * Event Display: ECG 12-Lead Authored Date: Please click on pdf link to open report * Event Display: ECG 12-Lead Authored Date: Ventricular Rate: 107 BPM Atrial Rate: 107 BPM P-R Interval: 192 ms QRS Duration: 112 ms Q-T Interval: 364 ms QTC Calculation(Bazett): 485 ms P Mcgregor: 68 degrees R Mcgregor: -47 degrees T Mcgregor: 60 degrees Sinus tachycardia Left axis deviation Inferior infarct (cited on or before 13-SEP-2022) Abnormal ECG Confirmed by DEYSI MARQUEZ ([id number]) on 10/19/2022 12:11:00 PM [place]: DEYSI MARQUEZ Hospital Progress note * Cynthia Villa NP: PERFORM, SIGN, VERIFY Event Display: Progress Note Hospital Authored Date: Patient: BUBBA CERVANTES Age: 56 years Sex: Male : 1965 Associated Diagnoses: None Author: Cynthia Villa NP Findings Evaluation Performed extensive chart review and attempted to interview Bubba for psychiatric evaluation. Asleep on approach and unable to participate adequately in assessment. Has only been 16 hours since BALmeasured at 367 and since then he has received 4 administrations of phenobarbital 130 mg IV due to alcohol withdrawal symptoms. Will interview him in the morning when ethanol has cleared his system and he can participate more wholly in the evaluation process. In the meantime, have entered PRN medication orders: -Initiating Vistaril 50 mg PO q6h PRN anxiety -Initiating Trazodone 50 mg PO nightly PRN insomnia -Initiating Seroquel 50 mg PO q4h PRN agitation. Note * [facility]SP[facility]erscribe , CIS S: TRANSCRIBE Sheryl Mcghee MD: VERIFY Event Display: Result: Authored Date: Chest 2 Views Frontal and Lat CLINICAL INDICATION: Chest pain. COMPARISON: Chest x-ray, 03/08/2017. FINDINGS: The cardiac silhouette is within normal limits. Aorta is mildly tortuous. Hilar contours are normal. The lungs are clear. There is no pleural effusion, pneumothorax, or evidence of CHF. No acute osseous abnormality is noted. Multilevel bridging anterior osteophytes are seen in the spine. IMPRESSION: No acute cardiopulmonary process. WSN: [id number] Ordering Physician: Francisca Valle Dictated By: Sheryl Mcghee MD Dictated Date/Time: 10/19/22 8:02 am Reviewed By: Sheryl Mcghee MD Signed By: Sheryl Mcghee MD Signed Date/Time: 10/19/22 8:02 am Transcribed By: ANTHONY Transcribed Date/Time: 10/19/22 8:01 am Patient Care team information Care Team Personnel Name: Tomy Ritchie Position: [facility] RN Member Role: Primary Care Nurse Name: Benedict Santana MD Position: [facility] Outreach Member Role: PCP Address: Address: [address] [place] [address]- [place] Name: *[facility], ED Attending Position: [facility] ED Attendings Patient Name: Tatyana Flood MD Position: [facility] Resident Member Role: ED Attending Physician Address: Address: [address] [place] [address] [place] [address]- [place] Name: Marlin Herrera Position: [facility] ED [facility] Member Role: Top Lift Compresser Name: Idalmis Iqbal RN Position: [facility] ED RN W/OE and Tasks Member Role: Patient Care Provider Name: Cori Perez DO Position: [facility] ED Medicine MD Member Role: Admitting Physician Address: Address: [address] [place] [address]- Care Team Related Persons Name: GREG LOPEZ Address: home [address] [place] [address] Name: IDALMIS CERVANTES Address: home [address] [place] [address]
--- OUTSIDE RECORDS SUMMARY | 2024-06-28 14:58 | XMS_ITS | Continuity of Care Document ---
Author Organization [facility] ter Address [address] [place] [id number] Care Team Providers Care Senior Professional Services Consultant Name Role Phone Max LYNN, Benedict Vazquez Primary Care Physician Encounter [facility] Date(s): 11/24/22 - 11/26/[address] [id number] Discharge Disposition: Transfer to [facility] Facility Attending Physician: Muriel Reina MD Admitting Physician: Victoria Peterson MD Referring Physician: Not on Staff, Referring MD [...] 10/26/22 8:13:00 EST, Route to Pharmacy Electronically, [facility]/pharmacy #[id number], Partial fill upon patient request [...] opioid drug. Start Date: 11/24/22 Status: Ordered cyclobenzaprine 10 mg oral tablet 10 mg, Tablet, By Mouth, Once, RAMESH, 11/26/22 12:22:00 EST, Stop date 11/26/22 12:22:00 EST Start Date: 11/26/22 Stop Date: 11/26/22 Status: Completed folic acid 1 mg oral tablet 1 [...] 03/12/23 8:46:00 EDT, 10/26/22 8:45:00 EST, Tablet, [id number], Partial fill upon patient request i... [...] Exam Date Time Procedure Performing Provider Status 11/24/22 5:21 PM US Doppler Ext Lower Venous Bilat Irving Gaytan (Verified) Notes: (US Doppler Ext Lower Venous Bilat) Reason For Exam: Pain/Tenderness Extremities RESULT: US Doppler Ext Lower Venous Bilat US Doppler Ext Lower Venous Bilat HISTORY: Pain. Tenderness. COMPARISON: None IMAGING TECHNIQUE: Ultrasound of the veins from the groin through the calf was performed using grayscale, color, and spectral Doppler ultrasound assessing for complete compressibility and normal flowcharacteristics. FINDINGS: RIGHT LOWER EXTREMITY: Common femoral vein: Patent. No thrombosis. Femoral vein: Patent. No thrombosis. Popliteal vein: Patent. No thrombosis. Gastrocnemius veins: The visualized portions are patent without evidence of thrombosis. Peroneal veins: The visualized portions are patent without evidence of thrombosis. Posterior tibial veins: The visualized portions are patent without evidence of thrombosis. LEFT LOWER EXTREMITY: Common femoral vein: Patent. No thrombosis. Femoral vein: Patent. No thrombosis. Popliteal vein: Patent. No thrombosis. Gastrocnemius veins: The visualized portions are patent without evidence of thrombosis. Peroneal veins: The visualized portions are patent without evidence of thrombosis. Posterior tibial veins: The visualized portions are patent without evidence of thrombosis. ADDITIONAL FINDINGS: Right calf edema. IMPRESSION: No evidence of deep venous thrombosis. I have personally reviewed the images and I agree with this report. WSN: [id number] Ordering Physician: Jorge Alberto King Dictated By: Deep Preciado MD Dictated Date/Time: 11/24/22 5:28 pm Reviewed By: Agustín Floyd MD Signed By: Agustín Floyd MD Signed Date/Time: 11/24/22 5:33 pm Transcribed By: ANTHONY Transcribed Date/Time: 11/24/22 5:20 pm * Exam Date Time Procedure Performing Provider Status 11/24/22 4:53 PM Chest 2 Views Frontal and Lat SarahMiguel leslie; Ricardo (Verified) Notes: (Chest 2 Views Frontal and Lat) Reason For Exam: Cough RESULT: Chest 2 Views Frontal and Lat Chest 2 Views Frontal and Lat Reason: Cough; Clinical Question(s): Pneumonia COMPARISON: 10/19/2020 FINDINGS: LINES AND TUBES: None. LUNGS AND PLEURA: Interval development of vague ill-defined right midlung field opacities. Left lung is grossly clear. No pleural effusion. No pneumothorax. HEART, MEDIASTINUM AND EDISON: Heart is normal in size. Normal mediastinal and hilar contour. BONES AND SOFT TISSUES: No acute abnormality. IMPRESSION: Interval development of vague right midlung field interstitial opacities, nonspecific, may represent atelectasis versus developing infection/inflammation. Recommend CT chest for further evaluation. WSN: [id number] Ordering Physician: Jorge Alberto King Dictated By: Booker Rizvi MD Dictated Date/Time: 11/24/22 4:57 pm Reviewed By: Booker Rizvi MD Signed By: Booker Rizvi MD Signed Date/Time: 11/24/22 4:57 pm Transcribed By: ANTHONY Transcribed Date/Time: 11/24/22 4:56 pm Vital Signs Most recent to oldest [Reference Range]: 1 2 3 Height 186 cm (11/25/22 11:00 PM) 186 cm (11/25/22 8:02 PM) 186 cm (11/25/22 12:21 PM) Weight 109.3 kg (11/25/22 12:21 PM) Oxygen Saturation [94-100 %] 97 % (11/26/22 11:00 AM) 95 % (11/26/22 7:00 AM) 96 % (11/25/22 11:00 PM) Pulse Rate [55-90 bpm] 83 bpm (11/26/22 11:00 AM) 73 bpm (11/26/22 7:00 AM) 94 bpm *H* (11/25/22 11:00 PM) Body Mass Index [18.5-24.99 kg/m2] 31.59 kg/m2 *>HHI* (11/25/22 12:21 PM) Blood Pressure [90-138/55-84 mm Hg] 136/87mm Hg (11/26/22 11:00 AM) 164/106mm Hg *H* (11/26/22 7:00 AM) 110/66mm Hg (11/25/22 11:00 PM) Respiratory Rate [16-30 br/min] 18 br/min (11/26/22 12:37 PM) 18 br/min (11/26/22 11:00 AM) 18 br/min (11/26/22 7:00 AM) Temperature [96.8-100.4 DegF] 98.4 DegF (11/26/22 11:00 AM) 98.6 DegF (11/26/22 7:00 AM) 98.7 DegF (11/25/22 11:00 PM) Mode of Delivery (Oxygen) Room air (11/26/22 11:00 AM) Room air (11/26/22 7:00 AM) Room air (11/25/22 11:00 PM) Blood pressure sites Arm, right (11/26/22 11:00 AM) Arm, right (11/26/22 7:00 AM) Arm, right (11/25/22 11:00 PM) Temperature Route Oral (11/26/22 11:00 AM) Axillary (11/26/22 7:00 AM) Oral (11/25/22 11:00 PM) Dry Weight 109.3 kg (11/25/22 12:21 PM) Social History Social History Type Response [...] at age: 13; entered on: 02/19/19 Sex Admission evaluation note * Fernando LYNN, Jorge Alberto: PERFORM Event Display: Admission Note Authored Date: [id number] Patient: ??BUBBA CERVANTES ? Age:??56 Years?Sex:??Male?:??1965?? History of Present Illness 56 years old male with past medical history of bipolar disorder,??chronic alcoholism, major depression,??previous history of suicidal ideation??presents emergency department today due to suicidal ideation and feelings of alcohol withdrawal. ??As per ED note: Per the patient, he took 12 Flexeril pills earlier in the day in an effort to kill himself. ??States that he would like to be admitted to [facility], particularly the one at [facility] where he had previously been placed. ??Patient states his last drink was 1 hour prior to arrival, does feel as though he is withdrawing from alcohol..?? Before my evaluation patient was already got Ativan IV??and Flexeril. ??During my stanley luation patient is alert awake and oriented??though anxious??and has some??tremors in hands.?? He is feeling useless.?? He wants to harm himself??and does not want to be alive.?? Not sure about rehab.?? Having??cough lately??with??slight phlegm but??clear color.?? Complains of occasional right-sided chest pain??but no pain at this point.?? Denied any abdominal pain??or diarrhea or dysuria.?? Denied any nausea or vomiting.?? Also complained of??bilateral leg swelling lately??: right slightly more than left. Review of Systems A full review of systems was completed and is otherwise negative except as mentioned in history of present illness. ?? Objective Vital Signs?? Temperature: 98 DegF (11/24/22 14:15:00) Temperature Route: Oral (11/24/22 14:15:00) Pulse Rate:??100 bpm??High (11/24/22 19:57:00) Respiratory Rate: 18 br/min (11/24/22 19:57:00) Systolic Blood Pressure:??143 mm Hg??High (11/24/22 19:57:00) Diastolic Blood Pressure: 83 mm Hg (11/24/22 19:57:00) Blood pressure sites: Arm, left (11/24/22 14:15:00) Mean Arterial Pressure: 110 mm Hg (11/24/22 09:19:00) Pulse Pressure: 49 mm Hg (11/24/22 09:19:00) Oxygen Saturation: 95 % (11/24/22 14:15:00) Mode of Delivery (Oxygen): Room air (11/24/22 14:15:00) Early Warning Score: 5 (11/24/22 19:58:01) ? Physical Exam General:??alert, awake and orientedx3, no acute distress noted Psych:??anxious, cooperative Head:??Normocephalic, atraumatic neck:??supple, no JVD, no neck swelling, Eye:??PERRLA, EOMI, no pallor/icterus noted, vision grossly intact ENT:??No ear discharge/redness, no nasal discharge, moist oral mucosa Cardiovascular:??normal S1S2, no Murmur/Rub/Gallop noted Respiratory:??Clear to auscultation bilaterally Gastrointestinal:??Soft, nontender nondistended, no hepatosplenomegaly, ??tympanic on percussion, Bowel sound normoactive ENGINEERING AGENT:??CN2-12 grossly intact, motor- 5/5 in all extremities b/l, sensation grossly intact, reflexes 2+ b/l Extremities:??b/l 2+ pedal edema noted with right>left and right leg slightly erythematous but nontender, peripheral pulse 2+ b/l ?? Assessment/Plan 56 years old male with past medical history of bipolar disorder,??chronic alcoholism, major depression,??previous history of suicidal ideation??presents emergency department today due to suicidal ideation and feelings of alcohol withdrawal. ??As per ED note: Per the patient, he took 12 Flexeril pills earlier in the day in an effort to kill himself. ??States that he would like to be admitted to [facility], particularly the one at [facility] where he had previously been placed. ??Patient states his last drink was 1 hour prior to arrival, does feel as though he is withdrawing from alcohol..?? Before my evaluation patient was already got Ativan IV??and Flexeril. ??During my stanley luation patient is alert awake and oriented??though anxious??and has some??tremors in hands.?? He is feeling useless.?? He wants to harm himself??and does not want to be alive.?? Not sure about rehab.?? Having??cough lately??with??slight phlegm but??clear color.?? Complains of occasional right-sided chest pain??but no pain at this point.?? Denied any abdominal pain??or diarrhea or dysuria.?? Denied any nausea or vomiting.?? Also complained of??bilateral leg swelling lately??: right slightly more than left. ? Acute alcohol??intake with alcohol withdrawal Heavy alcohol dependence Suicidal ideation??with attempt Flexeril overdose Major depressive disorder Bipolar disorder ?? We will continue p.o. Ativan??based on CIWA score, patient already feeling better To continue??once to 1 for now??and suicidal precaution, psychiatric team consult requested So far EKG??unremarkable,??will repeat EKG in a.m.??in view of Flexeril overdose,??alert awake and oriented x3, continue seizure precaution for now Continue Abilify ?? Cough with occasional right-sided chest pain,??possible??community-acquired pneumonia COPD History reliability questionable, we will follow-up procalcitonin, if high??will start antibiotic Continue??albuterol??and Breo Ellipta??and Spiriva??initiate of home regimen ?? Bilateral leg swelling Ultrasound??Doppler ruled out DVT Echo as outpatient to rule out alcoholic cardiomyopathy ?? Hx of Migraine headache Continue sumatriptan as needed ?? DVT prophylaxis:??Pneumatic compression boots, encourage ambulation CODE STATUS: DNR/DNI, confirmed with patient on admission Med rec: Confirmed with patient on admission ?? (This document has been dictated using [employer] dictation software. Please do not hesitate to contact the author for clarification of any unintentional errors should it be needed.) ?? Histories Allergies Allergies ?(Active and Proposed Allergies Only) lithium? (Severity: Unknown severity, Onset: Unknown) ? Past Medical History/Problem List Active Problems??(8) Anxiety Bipolar disorder Chronic depression Dyspnea on exertion Encounter for screening colonoscopy Facet arthropathy, lumbar History of tobacco use Obese class I ? Past Surgical History Colonoscopy: 08/11/15 ? Social History Alcohol Details:??Use: Past. ??Frequency: Daily. ??Other: sober since 2012. Employment/School Details:??Status: Disabled. 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 ??Workplace hazards: Hazardous materials. Exercise Details:??Self assessment: Fair condition. ??Regular exercise: No. Home/Environment Details:??Living situation: Home/Independent. ??Lives with: Alone, has roommate. ??Other: hardwood floors; cleans frequently; washes sheets and towels once per week in hot water; no humidifier; baseboard heating; no hot tub; no birds or pets. Substance Abuse Details:??Use: Past. ??Type: Cocaine. ??Other: has not used since 2016 (per outside records). Tobacco Details:??Use: 10 or more cigarettes (1/2 pack or more)/day in last 30 days. ??Other: Has used Chantix and nicotine replacement. ??Type: Cigarettes. ??Tobacco use times per day: 1 pack per day; quit smoking for approx 10 years from age [age]; has quit off an on throughout the last 17 years; nothinglonger than a year total. ??30 Number of years:. ??Total pack years: 30. ??Started at age: 13 Years. ??Interested in cessation: Yes. Details:??Current every day smoker ? Family History Mother: COPD Father (): Diabetes mellitus type II; Parkinsons disease, secondary ? 11-SEP-2016 01:07:24& lt;$> ? Travel History Travel Outside [facility]: No ?? Medications Home Medications Albuterol (Ventolin HFA 108 mcg/inh inhalation aerosol with adapter)?2?puff(s)?Inhalation?Every 6 hours?as needed?for wheezing Aripiprazole (ARIPiprazole 10 mg oral tablet)?10?Milligram?1?tablet?By Mouth?Daily at bedtime budesonide/formoterol/glycopyrrolate (Breztri Aerosphere inhalation aerosol)?2?puff(s)?Inhalation?2 times a day?rinse mouth and throat after use Cyclobenzaprine (cyclobenzaprine 10 mg oral tablet)?10?Milligram?1?tablet?By Mouth?3 times a day?as needed?for spasm Ibuprofen?800?Milligram?By Mouth?3 times a day?prn Omeprazole (Prilosec 20 mg oral enteric coated capsule)?1?capsule?20?Milligram?By Mouth?Daily Sumatriptan (SUMAtriptan 100 mg oral tablet)?1?tab(s)?100?Milligram?By Mouth?Daily?as needed?for migraine headache?may repeat dose after 2 hours up to a maximum of 2 ? EKG study * Event Display: EKG Authored Date: * Event Display: ECG 12-Lead Authored Date: Please click on pdf link to open report * Event Display: ECG 12-Lead Authored Date: Ventricular Rate: 103 BPM Atrial Rate: 103 BPM P-R Interval: 194 ms QRS Duration: 90 ms Q-T Interval: 384 ms QTC Calculation(Bazett): 503 ms P [place]: 60 degrees R [place]: -25 degrees T [place]: 7 degrees Sinus tachycardia Inferior infarct , age undetermined Abnormal ECG When compared with ECG of 22-OCT-2022 14:29, No significant change was found Confirmed by ANDREEA VALENTINO ([id number]) on 11/25/2022 5:14:04 PM Malone: [facility]IC[facility] Progress note * Chris Sorensen RN: PERFORM, SIGN, VERIFY Event Display: [facility] Authored Date: Patient: BUBBA CERVANTES Age: 56 years Sex: Male : 1965 Associated Diagnoses: None Author: Chris Sorensen RN Findings Evaluation Behavioral Resource RN Note: Chart reviewed to evaluate use of Behavior Resource Tech ([employer] Targeting Supervisor). Ordered for SI. Continue BRT per psych consult evaluation. Thank you for ordering Suicide Precautions in [facility]. Once pt resumes regular diet, please order paper set up of meal trays. Please call Behavior Resource team at [phone] with questions/concerns. Please ensure that all 1:1's are getting a report of Patient at the beginning of shift, and that the 1:1 flow sheet is reviewed and signed by an RN each shift. This form reviews all safety precautions and items that need to be removed from the patient room. Please note: SUICIDE PRECAUTIONS - . [facility] policy states the following potentially harmful and easily concealed items should be removed from suicidal pts rooms: glass bottles or vases, razors, needles, metal rebolledo, knitting needles, wire hangers, any cord like object including belts, shoe laces, telephone cords, drawstring bags, any medical equipment not in use that contains a cord, potentially explosive items like perfumes or spray cans, matches, lighters, electrical devices including cell phones, plastic bags including trash bags in . -Medical equipment in use and needed for emergencies (for example suction kit in trach pt rooms) are exempt from these precautions -Please consult the list on reverse of The [employer] Targeting Supervisor Flow Sheet ??? RNs are required to sign off on ???Safe Environment Guidelines?? q shift -A note about phones: Suicidal patients have a right to make phone calls unless there is a clinicalreason to prohibit. Room phone can be provided with strict supervision but must be removed from room immediately after use. . * Radha Vila MD: MODIFY, PERFORM Event Display: Progress Note Hospital Authored Date: Patient: ??BUBBA CERVANTES ? Age:??56 Years?Sex:??Male?:??1965?? Subjective PMH: Bipolar disorder chronic alcoholism,??major depression, history of??SI Presents with SI and alcohol intoxication,??took 12 Flexeril Seeking help Hospital course:??Treatment for alcohol withdrawal??improving ?? Psychiatry saw the patient this admission, will need inpatient psychiatric??placement following medical clearance Symptoms of withdrawal have been improving. ??Has not been requiring lorazepam since??yesterday at 3 AM. ??CIWA scores ranged from 4-8 Patient denies nausea, vomiting, shortness of breath, chest pain headache today continues to have backpain number of social stressors would benefit from social work consult Review of Systems Negative unless otherwise noted above Objective Measurements?? Height: 186 cm (11/25/22) Weight: 109.3 kg (11/25/22) Dry Weight: 109.3 kg (11/25/22) Body Mass Index:??31.59 kg/m2??Critical (11/25/22) ? Vital Signs?? Temperature: 98.6 DegF (11/26/22 07:00:00) Temperature Route: Axillary (11/26/22 07:00:00) Pulse Rate: 73 bpm (11/26/22 07:00:00) Respiratory Rate: 18 br/min (11/26/22 07:00:00) Systolic Blood Pressure:??164 mm Hg??High (11/26/22 07:00:00) Diastolic Blood Pressure:??106 mm Hg??High (11/26/22 07:00:00) Blood pressure sites: Arm, right (11/26/22 07:00:00) Mean Arterial Pressure: 81 mm Hg (11/25/22 23:00:00) Pulse Pressure: 58 mm Hg (11/26/22 07:00:00) Oxygen Saturation: 95 % (11/26/22 07:00:00) Mode of Delivery (Oxygen): Room air (11/26/22 07:00:00) Early Warning Score: 2 (11/26/22 07:34:30) ? Precautions [employer] Targeting Supervisor Seizure Precautions ? Physical Exam General:??alert, awake and orientedx3, no acute distress noted Psych:??anxious, cooperative Head:??Normocephalic, atraumatic neck:??supple, no JVD, no neck swelling, Eye:??PERRLA, EOMI, no pallor/icterus noted, vision grossly intact ENT:??No ear discharge/redness, no nasal discharge, moist oral mucosa Cardiovascular:??normal S1S2, no Murmur/Rub/Gallop noted Respiratory:??Clear to auscultation bilaterally Gastrointestinal:??Soft, nontender nondistended, no hepatosplenomegaly, ??tympanic on percussion, Bowel sound normoactive ENGINEERING AGENT:??CN2-12 grossly intact, motor- 5/5 in all extremities b/l, sensation grossly intact, reflexes 2+ b/l Extremities:??b/l 2+ pedal edema noted with right>left and right leg slightly erythematous but nontender, peripheral pulse 2+ b/l ?? Vitals:??Less tachycardic this morning??90s overnight,??pressure elevated this morning 164/106 overnight??better controlled, satting 96% on room air Labs:??No new labs yet this morning, CBCs have been stable, patient has been hyponatremic and hypokalemic but??those are improving??will??follow up this morning's ??imaging:??CXR and US Doppler on admission no DVT and no pneumonia _ Inpatient Medications Medications (21) Active SCHEDULED: (11) Albuterol 0.083% Inhalation Solution (Albuterol 0.083% inhalation mario) ??2.5 mg 3 mL, BAND Nebulizer, 4 times a day Aripiprazole 10mg Tablet (ARIPiprazole 10 mg oral tablet) ??10 mg, By Mouth, Daily at bedtime Breo Ellipta 200 mcg / 25 mcg Inhaler (Breo Ellipta 200 mcg-25 mcg Inhaler) ??1 puffs, Inhalation, Daily Folic Acid 1 mg Tablet (Folic Acid Tablet) ??1 mg, By Mouth, Daily Influenza Quad (6mo - 64 yr) Fluzone 0.5mL (Influenza, Quadrivalent Vaccine (Fluzone Quad)) ??0.5 mL, Intramuscular, Once Multivitamin Tablet ??1 tablet, By Mouth, Daily NaCl 0.9% Flush 3ml (NaCL 0.9% Flush) ??3 mL, IV Push, Every 8 hours Nicotine 21 mg / 24 hour Patch (Nicotine Topical) ??21 mg, Topically, Daily Pantoprazole 20 mg EC Tablet (pantoprazole 20 mg oral delayed release tablet) ??20 mg, By Mouth, Daily Pyridoxine 50 mg Tablet (Pyridoxine Tablet) ??50 mg, By Mouth, Daily Remove Patch (Remove ??Patch) ??1 each, Topically, Daily CONTINUOUS: (0) PRN: (10) Acetaminophen 325 mg Tablet (Acetaminophen Tablet) ??650 mg, By Mouth, Every 4 hours Albuterol 0.083% Inhalation Solution (Albuterol 0.083% inhalation mario) ??2.5 mg 3 mL, BAND Nebulizer, Every 4 hours Lorazepam 1 mg Tablet (Ativan Tablet) ??1 mg, By Mouth, Every 2 hours Lorazepam 2 mg Tablet (Ativan Tablet) ??2 mg, By Mouth, Every 2 hours Lorazepam 2 mg Tablet (LORazepam 2 mg oral tablet) ??2 mg, By Mouth, Every hour Melatonin 3 mg Tablet (Melatonin Tablet) ??3 mg, By Mouth, Daily at bedtime NaCl 0.9% Flush 3ml (NaCL 0.9% Flush) ??3 mL, IV Push, Every 8 hours Polyethylene Glycol 17 Gm Powder (MiraLax Powder) ??17 Gm 1 pack/packet, By Mouth, Daily Senna 8.6 mg / Docusate 50 mg tablet (Docusate/Senna Tablet) ??1 tablet, By Mouth, 2 times a day Simethicone 80 mg Chewable Tablet (Simethicone Tablet) ??80 mg, Chew, 3 times a day ? Results Recent Labs BLOOD COUNT & DIFF WBC 6.8 k/mm3 ()?? 11/25/2022 03:42 RBC 4.35 m/mm3 (Low)?? 11/25/2022 03:42 Hgb 14.2 Gm/dL ()?? 11/25/2022 03:42 Hct 42.1 % ()?? 11/25/2022 03:42 MCV 96.8 femtoliters (High)?? 11/25/2022 03:42 MCH 32.6 pg ()?? 11/25/2022 03:42 MCHC 33.7 g/dL ()?? 11/25/2022 03:42 Platelet Count 197 k/mm3 ()?? 11/25/2022 03:42 RDW-SD 48.0 femtoliters (High)?? 11/25/2022 03:42 MPV 8.8 femtoliters (Low)?? 11/25/2022 03:42 Nucleated RBC (Automated) 0.0 #/100 WBC'S ()?? 11/25/2022 03:42 Abs. NRBC 0.0 k/mm3 ()?? 11/25/2022 03:42 ?? CHEM GENERAL Sodium 141 mmol/L ()?? 11/25/2022 03:42 Potassium 3.1 mmol/L (Low)?? 11/25/2022 03:42 Chloride 102 mmol/L ()?? 11/25/2022 03:42 Bicarbonate Level 28 mmol/L ()?? 11/25/2022 03:42 Anion Gap 11 ()?? 11/25/2022 03:42 Glucose Level 91 mg/dL ()?? 11/25/2022 03:42 BUN 9 mg/dL ()?? 11/25/2022 03:42 Creatinine-Blood 0.8 mg/dL ()?? 11/25/2022 03:42 Estimated GFR Creatinine 103 ML/MIN/1.73 M2 ()?? 11/25/2022 03:42 Calcium 8.3 mg/dL (Low)?? 11/25/2022 03:42 Magnesium 1.5 mg/dL (Low)?? 11/25/2022 03:42 ?? VIROLOGY COVID-19 PCR Specimen Source NASAL ()?? 11/25/2022 05:01 COVID-19 PCR Result NEGATIVE ()?? 11/25/2022 05:01 ? Assessment/Plan 56 years old male with past medical history of bipolar disorder, chronic alcoholism, major depression, previous history of suicidal ideation presents emergency department today due to suicidal ideation and feelings of alcohol withdrawal. ??SI attempt with??12??Flexeril pills. ??Requesting??inpatient detox/psychiatric eval.?? Patient's last drink was 11/23.?? Admitted to??medical floor for monitoring.?? Heart rate has been stable??and hemodynamics??have been stable. ??No history of severe??alcohol withdrawal. ??CIWA's??managed with Ativan on the floor. ??Has not required Ativan in over 24 hours.?Seen by psychiatry??this admission who recommended inpatient bed search. ??Patient is medically cleared and appropriate for bed search. ?? Acute alcohol intake with alcohol withdrawal Heavy alcohol dependence We will continue p.o. Ativan based on CIWA score, patient already feeling better No history of severe alcohol withdrawal, seizures, intubation or ICU level care LE swelling noted at the beginning of admission. ??DVT ruled out.?? Could consider echo outpatient for??cardiomyopathy related to alcohol use. ?? Plan - CIWA - Ativan for elevated CIWA per protocol - Seizure precautions - thiamine, MV, folate, pyroxidine ?? Suicidal ideation with attempt Flexeril overdose, 12 pills, half life 18 hours Major depressive disorder Bipolar disorder Seen by psych this admission,??deemed a inpatient bed search Patient reversed CODE STATUS this admission but kept at full given??active suicidal ideation??and last admission patient was full code medically cleared ?? Plan - Continue Abilify - patient cannot leave AMA - reach out to psychiatry when medically cleared - Constant navy fighter pilot - Suicide precautions ?? Electrolyte abnormalities; hypokalemia prolonged Qtc ECG with persistent QTc prolongation will replete K and Mg ?? Plan - repeat EKG in 1 week ?? Chronic medical conditions: migraine headaches: okay for sumatriptan??once??today despite Qtc back pain: flexeril at home, will dose once today, acetaminophen and ibuprofen, lidocaine patch COPD, no home oxygen: albuterol and Breo Ellipta and Spiriva?? GERD: pantoprazole tobacco use: nicotine patch ?? DVT prophylaxis: Pneumatic compression boots, encourage ambulation CODE STATUS:??FULL, not able to switch code status this admission with no MOLST in setting of suicide attempt Diet: Regular ?? Radha Vila MD MedPeds PGY2 Pager [phone] or Cortext ?? Case seen and discussed with Dr. Reina. ?? * Muriel Reina MD: PERFORM Event Display: Progress Note Hospital Authored Date: Attending Attestation:??I have seen and examined this patient on date of service. ??I have discussed the case and its management with the resident and agree with the findings and plan as documented in the resident???s note. * Flaco LYNN, Tray Diaz: PERFORM, MODIFY Event Display: Progress Note Hospital Authored Date: Patient: ??BUBBA CERVANTES ? Age:??56 Years?Sex:??Male?:??1965?? Subjective no acute issues withdrawal symptoms seem to be improving reports headache still with suicidal ideation ?? appreciate psych input - patient cannot leave AMA Review of Systems ?Constitutional: no fevers/chills ?Eyes: no pain, no vision changes ?ENT: no ear pain, no change in hearing ?Cardiovasc: no chest pain, no palpitations, no PND, no orthopnoea ?Resp: no cough, no sputum, no haemoptysis, no dyspnoea ?GI: no abdo pain, no vomiting, no diarrhoea ?? Objective Measurements?? Height: 186 cm (11/25/22) Weight: 109.3 kg (11/25/22) Dry Weight: 109.3 kg (11/25/22) Body Mass Index:??31.59 kg/m2??Critical (11/25/22) ? Vital Signs?? Temperature: 98.3 DegF (11/25/22 15:00:00) Temperature Route: Oral (11/25/22 15:00:00) Pulse Rate: 86 bpm (11/25/22 15:00:00) Respiratory Rate: 17 br/min (11/25/22 15:00:00) Systolic Blood Pressure: 135 mm Hg (11/25/22 15:00:00) Diastolic Blood Pressure:??91 mm Hg??High (11/25/22 15:00:00) Blood pressure sites: Arm, right (11/25/22 15:00:00) Mean Arterial Pressure: 126 mm Hg (11/25/22 12:21:00) Pulse Pressure: 44 mm Hg (11/25/22 15:00:00) Oxygen Saturation: 95 % (11/25/22 15:00:00) Mode of Delivery (Oxygen): Room air (11/25/22 15:00:00) Early Warning Score: 2 (11/25/22 17:52:02) ? Intake/Output? 11/24 03:32 11/25 07:00 11/24 07:00 11/23 07:00 11/22 07:00 ?? 11/25 19:32 11/25 19:32 11/25 06:59 11/24 06:59 11/23 06:59 Intake ?530 ?530 ?0 ?0 ?0 Output ?0 ?0 ?0 ?0 ?0 Net Total ?530 ?530 ?0 ?0 ?0 ? Physical Exam Gen: comfortable, well: HEENT: normocephalic, atraumatic, moist mucous membranes Chest: CTA, no wheeze/crackles CVS: no M/G/R, no JVD Abdo: soft, non-tender Ext: no oedema, no cyanosis or clubbing Neuro: A+Ox3. mild tremor Psych: WNL Assessment/Plan Assessment:??56 years old male with past medical history of bipolar disorder, chronic alcoholism, major depression, previous history of suicidal ideation presents emergency department today due to suicidal ideation and feelings of alcohol withdrawal. As per ED note: Per the patient, he took 12 Flexeril pills earlier in the day in an effort to kill himself. States that he would like to be admitted to a psychiatric hospital, particularly the one at [facility] where he had previously been placed. Patient states his last drink was 1 hour prior to arrival, does feel as though he is withdrawing from alcohol.. Before my evaluation patient was already got Ativan IV and Flexeril. During my evaluation patient is alert awake and oriented though anxious and has some tremors in hands. He is feeling useless. He wants to harm himself and does not want to be alive. Not sure about rehab. Having cough lately with slight phlegm but clear color. Complains of occasional right-sided chest pain but nopain at this point. Denied any abdominal pain or diarrhea or dysuria. Denied any nausea or vomiting. Also complained of bilateral leg swelling lately : right slightly more than left. ?? Acute alcohol intake with alcohol withdrawal ??Heavy alcohol dependence ??Suicidal ideation with attempt ??Flexeril overdose ??Major depressive disorder ??Bipolar disorder We will continue p.o. Ativan based on CIWA score, patient already feeling better ??To continue once to 1 for now and suicidal precaution, psychiatric team consult??appreciated ??ECG with persistent QTc prolongation - will repeat again tomorrow. will replete K and Mg ??Continue Abilify ??patient cannot leave AMA - reach out to psychiatry when medically cleared ?? Cough with occasional right-sided chest pain, possible community-acquired pneumonia COPD History reliability questionable, we will follow-up procalcitonin, if high will start antibiotic Continue albuterol and Breo Ellipta and Spiriva initiate of home regimen ?? Bilateral leg swelling ??Ultrasound Doppler ruled out DVT ??Echo as outpatient to rule out alcoholic cardiomyopathy ?? Hx of Migraine headache hold??sumatriptan??given QT??prolongation ?? DVT prophylaxis: Pneumatic compression boots, encourage ambulation ??CODE STATUS: DNR/DNI, confirmed with patient on admission ??Med rec: Confirmed with patient on admission ? Note * Deja Herrera RN: PERFORM Event Display: Discharge/Transfer Note Hospital Authored Date: [id number] Nursing Discharge Note Entered On: 11/26/2022 17:28 EST Performed On: 11/26/2022 17:27 EST by Deja Herrera RN Nursing Discharge Note 2 Discharge Time : 11/26/2022 17:00 EST Discharge Level of Care at Discharge : Psychiatric Facility/Unit Patient Left Unit Via : Ambulance Patient Accompanied Off Unit with : Ambulance/Chair Van Personnel Handover Given to Transport Personnel : Yes DC Instructions Provided & Signed by Pt : Yes Patient Understands D/C Instructions : Yes Patient Instructions Discharge Signed : Yes Did Pt have Specialty Bed or Wound Vac : No Deja Herrera RN - 11/26/2022 17:27 EST * Radha Vila MD: PERFORM Event Display: Discharge/Transfer Note Hospital Authored Date: [id number] Patient: ??BILLY, BUBBA ? Age:??56 Years?Sex:??Male?:??1965?? Patient Information Discharge Location: Primary Care Physician: Benedict Santana MD Admit Date/Time: 11/24/22 03:32 Discharge Disposition Discharge Disposition: [facility]hab??inpatient psychiatric placement Discharge Diagnosis Alcohol use disorder, moderate, dependence (F10.20) Suicide attempt (T14.91XA) Anxiety Bipolar disorder Chronic depression ?? _ Discharge Medications Albuterol (Ventolin HFA 108 mcg/inh inhalation aerosol with adapter)?2?puff(s)?Inhalation?Every 6 hours?as needed?for wheezing Aripiprazole (ARIPiprazole 10 mg oral tablet)?10?Milligram?1?tablet?By Mouth?Daily at bedtime budesonide/formoterol/glycopyrrolate (Breztri Aerosphere inhalation aerosol)?2?puff(s)?Inhalation?2 times a day?rinse mouth and throat after use Folic Acid (folic acid 1 mg oral tablet)?1?Milligram?1?tablet?By Mouth?Daily Ibuprofen?800?Milligram?By Mouth?3 times a day?prn Lidocaine Topical (lidocaine 5% topical film)?1 patch?Topically?Daily Multivitamin (multivitamin Multiple Vitamins oral tablet)?1?tab(s)?By Mouth?Daily?for 21?Days Omeprazole (Prilosec 20 mg oral enteric coated capsule)?1?capsule?20?Milligram?By Mouth?Daily Pyridoxine (pyridoxine 50 mg oral tablet)?50?Milligram?1?tablet?By Mouth?Daily Sumatriptan (SUMAtriptan 100 mg oral tablet)?1?tab(s)?100?Milligram?By Mouth?Daily?as needed?for migraine headache?may repeat dose after 2 hours up to a maximum of 2 Thiamine (thiamine 100 mg oral tablet)?100?Milligram?1?tablet?By Mouth?Daily?for 30?Days Medications Started Lidocaine patch Started thiamine, pyridoxine, folic acid??and multivitamin??in setting of alcohol use Medications Discontinued Holding home Flexeril as this is what patient use to overdose, can be continued by PCP or facility at their discretion Allergies Allergies ?(Active and Proposed Allergies Only) lithium? (Severity: Unknown severity, Onset: Unknown) ? PCP Follow-Up/Heads-Up Overdose attempt with Flexeril.?? Have stopped this on discharge but can consider??restarting outpatient if this is??the choice for chronic back pain management Patient with prolonged??QTC this admission to 500 on repeat. ??Recommend repeat EKG in??1 to 2 weeks Hypokalemia this admission. ??Recommended high potassium diet.?? Repeat BMP in 1 to 2 weeks or after discharge from [facility] Consider discussion about??DNR/DNI. ??Did not feel comfortable reversing full CODE STATUS in setting of a suicide but this was his wish this admission LE swelling noted at the beginning of admission. ??DVT ruled out.?? Consider outpatient echo Hospital Course ??56 years old male with past medical history of bipolar disorder, chronic alcoholism, major depression, previous history of suicidal ideation presents emergency department today due to suicidal ideation and feelings of alcohol withdrawal. ??SI attempt with??12??Flexeril pills. ??Requesting??inpatient detox/psychiatric eval.?? Patient's last drink was 11/23.?? Admitted to??medical floor for monitoring.?? Heart rate has been stable??and hemodynamics??have been stable. ??No history of severe??alcohol withdrawal. ??CIWA's??managed with Ativan on the floor. ??Has not required Ativan in over 24 hours.?Seen by psychiatry??this admission who recommended inpatient bed search. ??Patient is medically cleared and appropriate for bed search.?? Discharging to [facility] ?? Objective Acute alcohol intake with alcohol withdrawal Heavy alcohol dependence No history of severe alcohol withdrawal, seizures, intubation or ICU level care Not currently requiring any??treatment for??withdrawal??at the time of discharge ?? Recommendations -Dual diagnosis counseling -Continue thiamine, MV, folate, pyroxidine ?? Suicidal ideation with attempt Flexeril overdose, 12 pills, half life 18 hours Major depressive disorder Bipolar disorder Seen by psych this admission,??deemed a inpatient bed search Patient reversed CODE STATUS this admission but kept at full given??active suicidal ideation??and last admission patient was full code ?? Recommendations - Continue Abilify ?? Electrolyte abnormalities; hypokalemia prolonged Qtc ECG with persistent QTc prolongation will replete K and Mg ?? Recommendation - repeat EKG in 1 week??or after discharge -Repeat BMP in 1 week??or after discharge ?? Chronic medical conditions: migraine headaches: okay for sumatriptan??once??today despite Qtc. ??Do not use this regularly back pain: flexeril at home, but use to overdose. ??Will hold for now. ??Can restart at discretion of facility. ??Other supportive??measures:??Acetaminophen and ibuprofen. ??Trialing, lidocaine patch??will discharge??with this COPD, no home oxygen: albuterol and Breo Ellipta and Spiriva?? GERD: pantoprazole tobacco use: nicotine patch Measurements?? Height: 186 cm (11/25/22) Weight: 109.3 kg (11/25/22) Dry Weight: 109.3 kg (11/25/22) Body Mass Index:??31.59 kg/m2??Critical (11/25/22) ? Vital Signs?? Temperature: 98.4 DegF (11/26/22 11:00:00) Temperature Route: Oral (11/26/22 11:00:00) Pulse Rate: 83 bpm (11/26/22 11:00:00) Respiratory Rate: 18 br/min (11/26/22 12:37:00) Systolic Blood Pressure: 136 mm Hg (11/26/22 11:00:00) Diastolic Blood Pressure:??87 mm Hg??High (11/26/22 11:00:00) Blood pressure sites: Arm, right (11/26/22 11:00:00) Mean Arterial Pressure: 81 mm Hg (11/25/22 23:00:00) Pulse Pressure: 49 mm Hg (11/26/22 11:00:00) Oxygen Saturation: 97 % (11/26/22 11:00:00) Mode of Delivery (Oxygen): Room air (11/26/22 11:00:00) Early Warning Score: 0 (11/26/22 12:38:36) ? . Physical Exam See progress note for updated physical exam [facility] Psychiatry Patient Education Titles Alcohol Addiction?? Follow-Up Appointments Added Follow Up ?Time Frame ?Comments Max LYNN, Benedict Vazquez?3-5 day: call to discuss follow up visit?After discharge from[facility]call to discuss follow-up. Patient Instructions You are seen at [facility] for alcohol use and suicide attempt. ??You were monitored for??side effects of??Flexeril overdose. ??Your heart rate and blood pressure were??normal. ??While you were here wenoticed low potassium.?? You would benefit from??increasing potassium intake outside of the hospital.?? Can google potassium rich diet and it will suggest foods.?? Post Discharge Care Discharge ?11/26/22 15:02:00 EST Discharge Prescriptions ?None, ??11/26/22 15:02:00 EST Results Discharge Labs BLOOD COUNT & DIFF WBC 6.4 k/mm3 ()?? 11/26/2022 07:21 RBC 4.33 m/mm3 (Low)?? 11/26/2022 07:21 Hgb 14.6 Gm/dL ()?? 11/26/2022 07:21 Hct 42.2 % ()?? 11/26/2022 07:21 MCV 97.5 femtoliters (High)?? 11/26/2022 07:21 MCH 33.7 pg ()?? 11/26/2022 07:21 MCHC 34.6 g/dL ()?? 11/26/2022 07:21 Platelet Count 198 k/mm3 ()?? 11/26/2022 07:21 RDW-SD 48.6 femtoliters (High)?? 11/26/2022 07:21 MPV 9.5 femtoliters ()?? 11/26/2022 07:21 Nucleated RBC (Automated) 0.0 #/100 WBC'S ()?? 11/26/2022 07:21 Abs. NRBC 0.0 k/mm3 ()?? 11/26/2022 07:21 Abs. Neut 4.0 k/mm3 ()?? 11/23/2022 22:08 Abs. Lymph 2.3 k/mm3 ()?? 11/23/2022 22:08 Abs. Caswell 0.6 k/mm3 ()?? 11/23/2022 22:08 Abs. Eo 0.3 k/mm3 ()?? 11/23/2022 22:08 Abs. Baso 0.1 k/mm3 ()?? 11/23/2022 22:08 Neut % 55.2 % ()?? 11/23/2022 22:08 Lymph % 31.6 % ()?? 11/23/2022 22:08 Caswell % 8.1 % ()?? 11/23/2022 22:08 Eos % 3.6 % ()?? 11/23/2022 22:08 Baso % 0.8 % ()?? 11/23/2022 22:08 Imm Gran 0.7 % ()?? 11/23/2022 22:08 Abs. Imm Gran 0.1 k/mm3 ()?? 11/23/2022 22:08 ?? CHEM GENERAL Sodium 141 mmol/L ()?? 11/26/2022 07:21 Potassium 3.4 mmol/L (Low)?? 11/26/2022 07:21 Chloride 103 mmol/L ()?? 11/26/2022 07:21 Bicarbonate Level 26 mmol/L ()?? 11/26/2022 07:21 Anion Gap 12 ()?? 11/26/2022 07:21 Glucose Level 91 mg/dL ()?? 11/25/2022 03:42 BUN 8 mg/dL ()?? 11/26/2022 07:21 Creatinine-Blood 0.8 mg/dL ()?? 11/26/2022 07:21 Estimated GFR Creatinine 104 ML/MIN/1.73 M2 ()?? 11/26/2022 07:21 Calcium 8.3 mg/dL (Low)?? 11/25/2022 03:42 Calcium, Ionized pH Corrected 1.13 mmol/L ()?? 11/26/2022 07:21 Phosphorus 2.8 mg/dL ()?? 11/26/2022 07:21 Magnesium 1.9 mg/dL ()?? 11/26/2022 07:21 Protein, Total 7.3 Gm/dL ()?? 11/23/2022 22:08 Albumin 4.6 Gm/dL ()?? 11/23/2022 22:08 AG Ratio 1.7 ()?? 11/23/2022 22:08 Alkaline Phosphatase 113 units/L ()?? 11/23/2022 22:08 AST (SGOT) 56 units/L (High)?? 11/23/2022 22:08 ALT (SGPT) 56 units/L (High)?? 11/23/2022 22:08 Bilirubin, Total 0.3 mg/dL ()?? 11/23/2022 22:08 ?? MISC. CHEMISTRY Procalcitonin 0.09 ng/mL ()?? 11/23/2022 22:08 ? TOXICOLOGY/TDM Ethanol, Serum or Plasma 339 mg/dL (Abnormal)?? 11/23/2022 22:08 Salicylate Level <0.3 mg/dL (Low)?? 11/23/2022 22:08 Cocaine Metabolite Screen, Urine NONE DETECTED ()?? 11/24/2022 05:55 Opiate Screen, Urine NONE DETECTED ()?? 11/24/2022 05:55 Acetaminophen Level <5 mg/L (Low)?? 11/23/2022 22:08 ? VIROLOGY Influenza A PCR NEGATIVE ()?? 11/23/2022 22:07 Influenza B PCR NEGATIVE ()?? 11/23/2022 22:07 RSV PCR NEGATIVE ()?? 11/23/2022 22:07 COVID-19 PCR Specimen Source NASAL ()?? 11/25/2022 05:01 COVID-19 PCR Result NEGATIVE ()?? 11/25/2022 05:01 ? Imaging(s) ?Chest 2 Views Frontal and Lat ?? 11/24/2022 16:53??by Dmitri LYNN, Booker Kamara ?IMPRESSION: ?? Interval development of vague right midlung field interstitial opacities, nonspecific, may represent atelectasis versus developing infection/inflammation. Recommend CT chest for further evaluation. ?ECG 12-Lead ?? 11/24/2022 17:38??by Andreea Valentino MD ?Ventricular Rate: 103 BPM Atrial Rate: 103 BPM P-R Interval: 194 ms QRS Duration: 90 ms Q-T Interval: 384 ms QTC Calculation(Bazett): 503 ms P [place]: 60 degrees R [place]: -25 degrees T [place]: 7 degrees Sinus tachycardia Inferior infarct , age undetermined Abnormal ECG ?US Doppler Ext Lower Venous Bilat ?? 11/24/2022 17:21??by Agustín Floyd MD ?IMPRESSION: ?? No evidence of deep venous thrombosis. ? Consults(s) ?Consultation Note ?? 11/25/2022 15:57??by Bill LYNN, Gil Smith ?psychiatry ? 35 minutes spent on discharge ?? Radha Vila MD MedPeds PGY2 Pager [phone] or Cortext ?? Case seen and discussed with Dr. Reina. ?? * Muriel Reina MD: PERFORM Event Display: Discharge/Transfer Note Hospital Authored Date: [id number] Attending Attestation:??I have seen and examined this patient on date of discharge. ??I have discussed the case and its management with the resident and agree with the findings and plan as documentedin the resident???s note. * Deja Herrera RN: PERFORM Event Display: Patient Education/Instruction Authored Date: [id number] Inpatient Adult Discharge Instructions [address] [address] Name: BUBBA CERVANTES : 1965 Visit: 11/24/2022 03:32:00 Current Date: 11/26/2022 15:05 Account: [id number] Inpatient Adult Discharge Instructions We would like to thank you for allowing us to assist you with your healthcare needs. The following includes patient education materials and information regarding your injury/illness. Our entire staffstrives to provide an excellent experience for our patients and their families. PLEASE ENSURE YOU FOLLOW-UP PER THE INSTRUCTIONS BELOW! ?? YOUR OPINION IS IMPORTANT TO US! Please complete the survey you may receive by mail or email. Your feedback will be used to make improvements to the healthcare experiences of our patients and their families. Surveys are administered by [employer] ?? If further treatment with your primary care physician or another doctor is recommended, it is important for you to keep the appointment. Call your primary care physician or return to the Emergency Department immediately if your condition worsens, fails to improve, or new symptoms develop. If you need to find a doctor, you can call [facility] for a referral at [phone] or toll free at [phone] or log in to [email or web address].. ?? You can view and manage your care through the patient portal or by using a health care sree of your choosing. [employer] is a website that allows you to securely view your medical information including your hospital discharge summary, office visit summaries, medications and follow-up visits. You can also request appointments, renew medications, and request access to your medical information using a health care sree of your choosing, or just ask a question. You can enroll at [email or web address] or register during your next office visit. You have been discharged from [facility], Patient Care Unit: W4. If you have any questions regarding these instructions after you leave, please call us and we will be happy to assist you. [facility] Your Care Team Attending Physician Nuno LYNN, Muriel Consulting Providers Dario LYNN, Jessica; Bill LYNN, Gil Smith Discharging Providers Cadence LYNN, Radha Reason for Admission Suicidal ideation Your Diagnosis Alcohol use disorder, moderate, dependence Suicide attempt Tests Performed Below is a partial list of the tests performed during your hospitalization. You may have had other tests and procedures not included in this list. Please discuss all test results with your provider. ACETAMINOPHEN Alcohol Level Basic Metabolic Panel Blood Urea Nitrogen Calcium Ionized CBC CBC w/ Differential Cocaine Urine Screen Comprehensive Metabolic Panel COVID-19 (2019 Novel Coronavirus) PCR COVID-19, RSV, and Flu A/B, Rapid PCR Creatinine Magnesium Level Opiate Screen Urine Phosphorus Level PROCALCITONIN, SERUM SALICYLATE US Doppler Ext Lower Venous Bilat XR Chest 2 Views Frontal and Lat Primary Care Provider Benedict Santana MD Advance Directive Health Care Proxy on File No Patient refuses to discuss No qualifying data available. Discharge Vitals Temperature: 98.4 DegF Height: 186 cm Pulse Rate: 83 bpm Weight: 109.3 kg Respiratory Rate: 18 br/min Body Mass Index:??31.59 kg/m2??Critical Systolic Blood Pressure: 136 mm Hg Body surface area: 2.38 Diastolic Blood Pressure:??87 mm Hg??High ?? Oxygen Saturation: 97 % ?? Studies Pending All tests and labs ordered during this hospital stay have been completed unless listed below. Please discuss all pending results with your provider listed above in these instructions. ?? Electrolytes What to do next Instructions From Your Doctor You are seen at [facility] for alcohol use and suicide attempt. ??You were monitored for??side effects of??Flexeril overdose. ??Your heart rate and blood pressure were??normal. ??While you were here wenoticed low potassium.?? You would benefit from??increasing potassium intake outside of the hospital.?? Can google potassium rich diet and it will suggest foods.?? Discharge Orders You Need to Schedule the Following Appointments Follow Up with??Max LYNN, Benedict Vazquez When??Within 3-5 day: call to discuss follow up visit Why: After discharge from[facility]call to discuss follow-up. Where: ?? Discharge Medications BUBBA CERVANTES :1965 Visit Date:11/24/2022 Medications: Please continue your medications until treatment is completed or stopped by your provider. Medications not listed below should be discontinued. Discuss any questions related to medications with your provider. What How Much When Instructions Next Dose New Folic Acid (folic acid 1 mg oral tablet) 1 tab(s) Oral Daily Tomorrow morning 11/27 New Lidocaine Topical (lidocaine 5% topical film) 1 patch Topically Daily Tomorrow morning 11/27 New Multivitamin (multivitamin Multiple Vitamins oral tablet) 1 tab(s) Oral Daily Duration: 21 Days Tomorrow morning 11/27 New Pyridoxine (pyridoxine 50 mg oral tablet) 1 tab(s) Oral Daily Tomorrow morning 11/27 New Thiamine (thiamine 100 mg oral tablet) 1 tab(s) Oral Daily Duration: 30 Days Tomorrow morning 11/27 Unchanged Albuterol (Ventolin HFA 108 mcg/ inh inhalation aerosol with adapter) 2 puff(s) Inhalation Every 6 hours as needed for for wheezing As ordered Unchanged Aripiprazole (ARIPiprazole 10 mg oral tablet) 1 tab(s) Oral Daily at Bedtime Tonight 11/25 Unchanged budesonide/ formoterol/ glycopyrrolate (Breztri Aerosphere inhalation aerosol) 2 puff(s) Inhalation Twice a day rinse mouth and throat after use ?? as ordered Unchanged Ibuprofen 800 Milligram Oral 3 times a day prn ?? as ordered Unchanged Omeprazole (Prilosec 20 mg oral enteric coated capsule) 1 capsule Oral Daily Tomorrow morning 11/27 Unchanged Sumatriptan (SUMAtriptan 100 mg oral tablet) 1 tab(s) Oral Daily as needed for for migraine headache may repeat dose after 2 hours up to a maximum of 2 ?? as ordered ?? What How Much When Comments Stop Taking Cyclobenzaprine (cyclobenzaprine 10 mg oral tablet) 1 tab(s) Oral 3 times a day as needed for for spasm Test Results Below is a partial list of the most recent Laboratory test results done prior to this discharge. You may have had other tests and procedures not included in this list. Please discuss all test resultswith your provider. ACETAMINOPHEN (11/23/2022) ? ?Acetaminophen Level - <5 mg/L Alcohol Level (11/23/2022) ???Ethanol, Serum or Plasma - 339 mg/dL Basic Metabolic Panel (11/25/2022) ???Sodium - 141 mmol/L???Potassium - 3.1 mmol/L???Chloride - 102 mmol/L???Bicarbonate Level - 28 mmol/L???Anion Gap - 11???Glucose Level - 91 mg/dL???BUN - 9 mg/dL???Creatinine-Blood - 0.8 mg/dL???Estimated GFR Creatinine - 103 ML/MIN/1.73 M2???Calcium - 8.3 mg/dL Blood Urea Nitrogen (11/26/2022) ???BUN - 8 mg/dL Calcium Ionized (11/26/2022) ???Calcium, Ionized pH Corrected - 1.13 mmol/L CBC (11/26/2022) ???WBC - 6.4 k/mm3???RBC - 4.33 m/mm3???Hgb - 14.6 Gm/dL???Hct - 42.2 %???MCV - 97.5 femtoliters???MCH - 33.7 pg???MCHC - 34.6 g/dL???Platelet Count - 198 k/mm3???RDW-SD - 48.6 femtoliters???MPV - 9.5 femtoliters???Nucleated RBC (Automated) - 0.0 #/100 WBC'S???Abs. NRBC - 0.0 k/mm3 CBC w/ Differential (11/23/2022) ???WBC - 7.3 k/mm3???RBC - 4.75 m/mm3???Hgb - 15.8 Gm/dL???Hct - 46.1 %???MCV - 97.1 femtoliters???MCH - 33.3 pg???MCHC - 34.3 g/dL???Platelet Count - 238 k/mm3???RDW-SD - 49.9 femtoliters???MPV - 8.5 femtoliters???Nucleated RBC (Automated) - 0.0 #/100 WBC'S???Abs. NRBC - 0.0 k/mm3???Abs. Neut - 4.0 k/mm3???Abs. Lymph - 2.3 k/mm3???Abs. Caswell - 0.6 k/mm3???Abs. Eo - 0.3 k/mm3???Abs. Baso - 0.1 k/mm3???Neut % - 55.2 %???Lymph % - 31.6 %???Caswell % - 8.1 %???Eos % - 3.6 %???Baso % - 0.8 %???Imm Gran- 0.7 %???Abs. Imm Gran - 0.1 k/mm3 Cocaine Urine Screen (11/24/2022) ???Cocaine Metabolite Screen, Urine - NONE DETECTED Comprehensive Metabolic Panel (11/23/2022) ???Sodium - 148 mmol/L???Potassium - 3.4 mmol/L???Chloride - 104 mmol/L???Bicarbonate Level - 28 mmol/L???Anion Gap - 16???Glucose Level - 107 mg/dL???BUN - 7 mg/dL???Creatinine-Blood - 0.8 mg/dL???Estimated GFR Creatinine - 104 ML/MIN/1.73 M2???Calcium - 9.2 mg/dL???Protein, Total - 7.3 Gm/dL???Alb umin - 4.6 Gm/dL???AG Ratio - 1.7???Alkaline Phosphatase - 113 units/L???AST (SGOT) - 56 units/L???ALT (SGPT) - 56 units/L???Bilirubin, Total - 0.3 mg/dL COVID-19 (2019 Novel Coronavirus) PCR (11/25/2022) ???COVID-19 PCR Specimen Source - NASAL???COVID-19 PCR Result - NEGATIVE COVID-19, RSV, and Flu A/B, Rapid PCR (11/23/2022) ???Influenza A PCR - NEGATIVE???Influenza B PCR - NEGATIVE???RSV PCR - NEGATIVE???COVID-19 PCR Specimen Source - NASAL???COVID-19 PCR Result - NEGATIVE Creatinine (11/26/2022) ???Creatinine-Blood - 0.8 mg/dL???Estimated GFR Creatinine - 104 ML/MIN/1.73 M2 Magnesium Level (11/26/2022) ???Magnesium - 1.9 mg/dL Opiate Screen Urine (11/24/2022) ???Opiate Screen, Urine - NONE DETECTED Phosphorus Level (11/26/2022) ???Phosphorus - 2.8 mg/dL PROCALCITONIN, SERUM (11/23/2022) ???Procalcitonin - 0.09 ng/mL SALICYLATE (11/23/2022) ? ?Salicylate Level - <0.3 mg/dL Immunizations This Visit Not Given Vaccine Commentsinfluenza virus vaccine, inactivated Patient Refuses Allergies (NKA means No Known Allergies) lithium Problems Active Problems??(8) Anxiety?? Bipolar disorder?? Chronic depression?? Dyspnea on exertion?? Encounter for screening colonoscopy?? Facet arthropathy, lumbar?? History of tobacco use?? Obese class I?? Education Materials Below is the list of Educational Leaflet Providered with your Discharge Instructions. Alcohol Addiction?? Valuables and Belongings I fully understand and agree that [facility] accepts no responsibility for all my personal property including clothing, toilet articles, radios, jewelry, dentures, hearing aids, rings, money, or any other property that is in my possession or is brought to me after admission. I understand certain valuables may be placed in a hospital safe for a short period of time. I understand that the hospital is not liable for loss or damage due to accident, fire, or other natural occurrence while said property is in the safe. I accept full responsibility for any personal property that I keep with me, and will not hold the hospital responsible in case of loss or disappearance. I acknowledge that i have been encouraged to send valuables and belongings home. ?? Safe envelope number: [id number] Review of Valuable and Belonging List: With witness Date for Pt to Sign Valuables/Belongings: 11/25/22 19:02:00 ?? Other Discharge Information ? Pulmonary Rehab Status?? Pulmonary Rehab Discharge Status?? Respiratory Rate: 18 br/min ? Common Emergency Awareness Tips IS IT A STROKE? Act FAST and Check for these signs: FACE Does the face look uneven? ARM Does one arm drift down? SPEECH Does their speech sound strange? TIME Call at any sign of stroke ?? Heart Attack Signs Chest discomfort: Most heart attacks involve discomfort in the center of the chest and lasts more than a few minutes, or goes away and comes back. It can feel like uncomfortable pressure, squeezing, fullness or pain. Discomfort in upper body: Symptoms can include pain or discomfort in one or both arms, back, neck, jaw or stomach. Shortness of breath: With or without discomfort. Other signs: Breaking out in a cold sweat, nausea, or lightheaded. Remember, MINUTES DO MATTER. If you experience any of these heart attack warning signs, call to get immediate medical attention! ?? Smoking can increase your chances of developing chronic health problems and can cause harmful effects to other family members in your house. If you smoke, you are strongly encouraged to quit. Please call [facility] Link at [phone] or [phone] ([phone]) or log in to [email or web address] for referrals to smoking cessation programs. ?? The National Suicide Prevention Hotline is available 20/06 if you or someone you know needs to find a reason to keep living. By calling 8-595-558-[employer] (5665) you'll be connected to a skilled, trained counselor at a crisis center in your area. INPATIENT DISCHARGE INSTRUCTIONS SIGNATURE KO BUBBA CERVANTES Location:[facility] Registration Date and Time:11/24/2022 03:32 EST Primary Care Physician: Benedict Santana MD, I BUBBA CERVANTES, have received the above patient education materials/instructions and have verbalized understanding. If ambulance or transport services are being used I further acknowledge being given a choice of service. ?? If you need to contact me, please call me at this number: . Patient/Flow Nurse Name: Patient/Flow Nurse Signature: Relationship to Patient: Witness Name/Signature: Date: * Radha Vila MD: PERFORM Event Display: Patient Education Leaflets Authored Date: Alcohol Addiction ?? 53168 Alcohol Addiction How many times in the past year have you had 5 drinks in a day (men) or 4 drinks in a day (women)? Does your drinking harm yourself or others? Or has it led to other problems with your daily life? Ifso, you may be addicted to alcohol. You may have what's called an alcohol use disorder. Your healthcare provider may make this diagnosis if you have had at least 2 of these problems in a year: ??? You drink alcohol in larger amounts orfor a longer period than you planned. ??? You often want to cut down or control how much you drink.Or you have often failed to do so. ??? You spend a lot of time getting alcohol, using it, or recovering from its use. ??? You crave or have a strong desire or urge to drink. ??? Your drinking makes it hard for you to be responsible at work, school, or home. ??? You keep on drinking even though you have had problems in relationships or social settings because of it. ??? You give up or miss importan t social, work, or other activities because of your drinking. ??? You drink alcohol at times when it's not physically safe, such as drinking then driving. ??? You keep on drinking even though you know it has caused physical or emotional problems. ??? You need more and more alcohol to get the same effects. ??? You hide how much you drink from family and friends. ??? You have withdrawal symptoms oruse alcohol to prevent such symptoms. ??? You have a drink the first thing in the morning to get rid of a hangover or calm yourself. ?? Last Reviewed Date: 2022 ?? 4005-9108 [employer]. All rights reserved. This information is not intended as a substitute for professional medical care. Always follow your healthcare professional's instructions. ?? * BHSPowerscribe , CIS S: TRANSCRIBE Booker Rizvi MD: VERIFY Event Display: Result: Authored Date: [id number] Chest 2 Views Frontal and Lat Reason: Cough; Clinical Question(s): Pneumonia COMPARISON: 10/19/2020 FINDINGS: LINES AND TUBES: None. LUNGS AND PLEURA: Interval development of vague ill-defined right midlung field opacities. Left lung is grossly clear. No pleural effusion. No pneumothorax. HEART, MEDIASTINUM AND EDISON: Heart is normal in size. Normal mediastinal and hilar contour. BONES AND SOFT TISSUES: No acute abnormality. IMPRESSION: Interval development of vague right midlung field interstitial opacities, nonspecific, may represent atelectasis versus developing infection/inflammation. Recommend CT chest for further evaluation. WSN: [id number] Ordering Physician: Jorge Alberto King Dictated By: Booker Rizvi MD Dictated Date/Time: 11/24/22 4:57 pm Reviewed By: Booker Rizvi MD Signed By: Booker Rizvi MD Signed Date/Time: 11/24/22 4:57 pm Transcribed By: ANTHONY Transcribed Date/Time: 11/24/22 4:56 pm US.doppler Lower extremity vein - bilateral * DEVANSPowercolinrijosemanuel , NNEKA S: TRANSCRIBE Agustín Floyd MD: VERIFY Deep Preciado MD: SIGN Event Display: Result: Authored Date: [id number] US Doppler Ext Lower Venous Bilat HISTORY: Pain. Tenderness. COMPARISON: None IMAGING TECHNIQUE: Ultrasound of the veins from the groin through the calf was performed using grayscale, color, and spectral Doppler ultrasound assessing for complete compressibility and normal flowcharacteristics. FINDINGS: RIGHT LOWER EXTREMITY: Common femoral vein: Patent. No thrombosis. Femoral vein: Patent. No thrombosis. Popliteal vein: Patent. No thrombosis. Gastrocnemius veins: The visualized portions are patent without evidence of thrombosis. Peroneal veins: The visualized portions are patent without evidence of thrombosis. Posterior tibial veins: The visualized portions are patent without evidence of thrombosis. LEFT LOWER EXTREMITY: Common femoral vein: Patent. No thrombosis. Femoral vein: Patent. No thrombosis. Popliteal vein: Patent. No thrombosis. Gastrocnemius veins: The visualized portions are patent without evidence of thrombosis. Peroneal veins: The visualized portions are patent without evidence of thrombosis. Posterior tibial veins: The visualized portions are patent without evidence of thrombosis. ADDITIONAL FINDINGS: Right calf edema. IMPRESSION: No evidence of deep venous thrombosis. I have personally reviewed the images and I agree with this report. WSN: [id number] Ordering Physician: Jorge Alberto King Dictated By: Deep Preciado MD Dictated Date/Time: 11/24/22 5:28 pm Reviewed By: Agustín Floyd MD Signed By: Agustín Floyd MD Signed Date/Time: 11/24/22 5:33 pm Transcribed By: ANTHONY Transcribed Date/Time: 11/24/22 5:20 pm Patient Care team information Care Team Personnel Name: Tomy Ritchie Position: S RN Member Role: Primary Care Nurse Name: Lizet Weeks NP Position: [facility] Associate Professional Member Role: Lifetime Consulting Provider Address: Address: [address] [place] [address]-Adult [place], [place] [address] Name: Chelsea Whitney Position: S RN Member Role: Primary Care Nurse Name: Benedict Santana MD C Position: [facility] Outreach Member Role: PCP Address: Address: [address] [place] [address]- Name: Bridgette Castrejon RN Position: [facility] RN Member Role: Primary Care Nurse Name: Tj VALECNIA Attending Position: [facility] ED Medicine MD Name: Leora Hernández RN Position: [facility] ED RN W/OE and Tasks Member Role: Patient Care Provider Name: Shay Medina Position: [facility] ED [facility] Member Role: Beamer Operator Name: Lisa Castro Position: [facility] ED [facility] Member Role: Beamer Operator Care Team Related Persons Name: GREG LOPEZ Address: [address] [place] [address] Name: SHAINA CERVANTES Address: [address] [place] [address]
--- OUTSIDE RECORDS SUMMARY | 2024-06-28 14:58 | XMS_ITS | Continuity of Care Document ---
Author Organization [facility] ter Address [address] [place] [place] [address]- Care Team Providers Care Hot Plate Plywood Press Offbearer Name Role Phone Max LYNN, Benedict Vazquez Primary Care Physician Encounter [facility] Date(s): 09/13/22 - 09/13/[address] [address]- Encounter Diagnosis Alcohol intoxication(Final) - 09/13/22 Marijuana use(Final) - 09/13/22 Nausea(Final) - 09/13/22 Vomiting(Final) - 09/13/22 Diarrhea(Final) - 09/13/22 Discharge Disposition: A-D/C AMA Attending Physician: Gali Murcia MD Admitting Physician: Glai Murcia MD Referring Physician: Not on Staff, Referring [...] 13:25:44 EDT Start Date: 02/19/19 Status: Ordered tiZANidine 2 mg oral tablet 2 mg, 1, tablet, By Mouth, 3 times a day, PRN, # 15 tablet, Refills 0, Tot. Refills 0, Maintenance,Spasm, 03/09/17 11:40:20, Print Requisition Start Date: 03/09/17 Stop Date: 03/14/17 Status: Ordered Problem List Condition Confirmation Course Effective Dates Status Health St atus Informant Anxiety Confirmed Active Facet arthropathy, lumbar Confirmed Active Bipolar disorder Confirmed Active Chronic depression Confirmed Active Dyspnea on exertion Confirmed Active Encounter for screening colonoscopy Confirmed Active History of tobacco use Confirmed Active Vital Signs Most recent to oldest [Reference Range]: 1 2 Height 185.3 cm (09/13/22 6:13 PM) Weight 106.8 kg (09/13/22 6:13 PM) Oxygen Saturation [94-100 %] 97 % (09/13/22 7:27 PM) 92 % *L* (09/13/22 6:13 PM) Pulse Rate [55-90 bpm] 84 bpm (09/13/22 7:27 PM) 79 bpm (09/13/22 6:13 PM) Blood Pressure [90-138/55-84 mm Hg] 132/ 78mm Hg (09/13/22 6:13 PM) Respiratory Rate [16-30 br/min] 16 br/mi n (09/13/22 7:27 PM) 16 br/min (09/13/22 6:13 PM) Temperature [96.8-100.4 DegF] 97.8 DegF (09/13/22 8:26 PM) Mode of Delivery (Oxygen) Room air (09/13/22 7:27 PM) Room air (09/13/22 6:13 PM) Temperature Route Temporal (09/13/22 8:26 PM) Dry Weight 106.8 kg (09/13/22 6:13 PM) Social History Social History Type Response [...] on: 02/19/19 Sex Patient Care team information Personnel Name: Max LYNN, Benedict Vazquez Address: Address: [address] [place] [address]
--- OUTSIDE RECORDS SUMMARY | 2024-06-28 14:58 | XMS_ITS | Continuity of Care Document ---
Author Organization [facility] ed[facility] Address [address] [place] [address]- Care Team Providers Care Clarifier Name Role Phone Max LYNN, Benedict Vazquez Primary Care Physician [phone] Encounter [facility] ACCT R [id number] Date(s): 12/18/22 - 04/17/23 [facility] [address] [place] [id number] Attending Physician: Hector Velazquez MD Admitting Physician: Hector Velazquez MD Referring Physician: Gerry CARD PUNCHER, Rolando Malhotra Allergies, Adverse Reactions, Alerts Substance Reaction Severity [...] 8:13:00 EST, Route to Pharmacy Electronically, [facility]/pharmacy #[id number], Partial fill upon patient request if [...] Date: 11/26/22 Stop Date: 11/14/23 Status: Ordered Ventolin HFA 108 mcg/inh inhalation [...] Team Personnel Name: Tomy Ritchie RN Position: [facility] RN Member Role: Primary Care Nurse Name: Lizet Weeks NP Position: [facility] Associate Professional Member Role: Lifetime Consulting Provider Address: Address: [address] [place] [address]-[place] [address]- Name: Chelsea Whitney RN Position: [facility] RN Member Role: Primary Care Nurse Name: Benedict Santana MD Position: [facility] Outreach Member Role: PCP Address: Address: [address] [place] [address]- Care Team Related Persons Name: GREG LOPEZ Address: [address] [place] [address] Name: SHAINA CERVANTES Address: [address] [place] [address]
--- OUTSIDE RECORDS SUMMARY | 2024-06-28 14:58 | XMS_ITS | Continuity of Care Document ---
Author Organization [facility] Address [address] [place] [address]- Care Team Providers Care Disc Ruler Operator Name Role Phone Benedict Santana MD Primary Care Physician [phone] [place] [facility] Date(s): 01/26/24 - 03/24/24 [facility] [address] [place] [address]- Attending Physician: Cristin Calle MD Admitting Physician: Alva LYNN, Cristin Referring Physician: Benedict Santana MD Allergies, Adverse Reactions, Alerts Substance Reaction Severity Status lithium Active Medications ARIPiprazole 10 mg oral tablet 10 mg, 1, tablet, By Mouth, Daily at bedtime, # 30 tablet, Refills 1, Tot. Refills 1, Maintenance, 10/26/22 8:13:00 EST, Route to Pharmacy Electronically, [facility]/pharmacy #[id number], Partial fill upon patient request if the [...] Team Personnel Name: Tomy Ritchie RN Position: [facility] RN Member Role: Primary Care Nurse Name: Lizet Weeks NP Position: [facility] - Associate Professional Provider Member Role: Lifetime Consulting Provider Address: Address: [address] [place] [address] [place] [address]- Name: Chelsea Whitney RN Position: [facility] RN Member Role: Primary Care Nurse Name: Benedict Santana MD Position: [facility] Outreach Member Role: PCP Address: Address: [address] [place] [address]- Care Team Related Persons Name: GREG LOPEZ Address: [address] [place] [address] Name: SHAINA CERVANTES Address: [address] [place] [address]
--- OUTSIDE RECORDS SUMMARY | 2024-06-28 14:58 | XMS_ITS | Continuity of Care Document ---
Author Organization [facility] Pulmonary M edicine Address [address] [place] [address]- Care Team Providers Care Cuff Setter Name Role Phone Max LYNN, Benedict Vazquez Primary Care Physician [phone] [place] [facility] [place] [id number] Date(s): 03/18/23 - 04/17/23 [facility] [address] [place] [id number] Attending Physician: George López Admitting Physician: AdmtrGeorge Referring Physician: Admtr Ar8 Allergies, Adverse Reactions, Alerts Substance Reaction Severity [...] 10/26/22 8:13:00 EST, Route to Pharmacy Electronically, [facility]/pharmacy #[id number], Partial fill upon patient [...] Team Personnel Name: Tomy Ritchie RN Position: [facility] RN Member Role: Primary Care Nurse Name: Lizet Weeks NP Position: [facility] Associate Professional Member Role: Lifetime Consulting Provider Address: Address: [address] [place] [address] [place] [address]- Name: Chelsea Whitney RN Position: [facility] RN Member Role: Primary Care Nurse Name: Benedict Santana MD Position: [facility] Outreach Member Role: PCP Address: Address: [address] [place] [address]- Care Team Related Persons Name: GREG LOPEZ Address: [address] [place] [address] Name: SHAINA CERAVNTES Address: [address] [place] [address]
[2024-06-28 15:05] VITALS: BP 189/111; PULSE 106; RESP 14; TEMP 36.4; O2SAT 95
--- NOTE | 2024-06-28 16:07 | P.CONHOSP_ITS ---
History of Present Illness Data of Consult Service Date: 06/28/24 Primary Care Provider: Benedict Santana MD [facility] Reason for consult: Admission H&P Pt is a 58-year-old male with a PMH significant for?COPD, HTN, TBI, multiple concussions, sciatica, degenerative disc disease, PTSD, and bipolar disorder who is admitted to psychiatry unit for increasing depression with SI. Patient was initially brought into [facility] after calling N making suicidal statements about intentional overdose on home medications. Medical consult for admission H&P. ?Pt reports has been drinking at least a 0.5 gal of vodka daily with last drink at 18:00 yesterday evening. Reports tried stopping drinking earlier in the week, but patient became diaphoretic and tremulous, so started drinking again. Currently reports having increased anxiety, diaphoresis, and having a racing heart. Denies auditory or visual hallucinations. No nausea or vomiting. Denies chest pain/pressure. No shortness a breath or difficulty breathing. Also states that his ankles are swollen, which he reports occurs when he is drinking. States his back feels ?okay?. Denies diarrhea, fever, chills, or abdominal pain. No headache or acute vision loss. Vitals reviewed significant for tachycardia 106 and hypertension 189/111. Patient states his blood pressure is sometimes elevated when he 1st arrives at the hospital, but soon normalizes. Patient denies ever being on antihypertensives in the past. Review of Systems Review of Systems: Increased anxiety, diaphoresis Palpitations/racing heart Lower leg edema Denies auditory or visual hallucinations No nausea or vomiting Denies chest pain/pressure No abdominal pain Denies shortness of breath or difficulty breathing [facility] Medical History Pre-op evaluation Routine history and physical examination of adult Alcohol use disorder TBI (traumatic brain injury) Social History Household Members: None Housing: Apartment Do you presently have visiting nurse or other home services: Yes (unit control worker 1x weekly through [facility]) Patient Tobacco Use Status: Current everyday Tobacco user Tobacco use type: Cigarette Cigarette Packs Per Day: 1.5 Cigarettes Per Day: 20 Years Smoked: 48 Second Hand Smoke Exposure: No Substance Use Type: Crack/Cocaine and Marijuana service: Yes Sexual orientation: Straight/Heterosexual Meds Allergies Allergy/AdvReac Type Severity Reaction Status Date / Time lithium Allergy Rash Verified 02/02/23 07:00 Active Medications: Current Medications Acetaminophen (Acetaminophen 325 Mg Tablet) 650 mg PO Q6H PRN PRN Reason: Headache/Pain Mild Scale (1-3) Al Hydroxide/Mg Hydroxide (Magnesium Hydrox/Alum Hydrox 30 Ml Oral.Susp) 30 ml PO Q6H PRN PRN Reason: Heartburn/Nausea Folic Acid (Folic Acid 1 Mg Tablet) 1 mg PO DAILY SHREYA Hydroxyzine HCl (Hydroxyzine Hcl 25 Mg Tablet) 25 mg PO Q6H PRN PRN Reason: Anxiety Lorazepam (Lorazepam 1 Mg Tablet) 1 mg PO Q4H PRN PRN Reason: CIWA 6-11 Lorazepam (Lorazepam 1 Mg Tablet) 2 mg PO Q4H PRN PRN Reason: ciwa 11-16 Lorazepam (Lorazepam 1 Mg Tablet) 2 mg PO QID SHREYA Magnesium Hydroxide (Milk Of Magnesia 30 Ml Oral.Susp) 30 ml PO DAILY PRN PRN Reason: Constipation Multivitamins/Vitamin C (Multivitamin Tablet) 1 tab PO DAILY SHREYA Nicotine (Nicotine 21 Mg Patch.Td24) 21 mg TRANSDERMA DAILY PRN PRN Reason: nicotine cravings Nicotine Polacrilex (Nicotine Polacrilex 2 Mg Gum) 4 mg BUCCAL Q2H PRN PRN Reason: Nicotine Cravings Olanzapine (Olanzapine 5 Mg Tablet) 5 mg PO Q4H PRN PRN Reason: agitation Thiamine HCl (Thiamine Hcl 100 Mg Tablet) 100 mg PO DAILY SHREYA Trazodone HCl (Trazodone Hcl 50 Mg Tablet) 50 mg PO BEDTIME MRX1 PRN PRN Reason: Insomnia Home Medications ?Medication ?Instructions ?Recorded ?Confirmed ?Last Taken ?Type albuterol sulfate 90 mcg/actuation 2 puff inhalation Q6H PRN dyspnea 06/28/24 06/28/24 Unknown History aerosol inhaler (Ventolin HFA) Physical Exam Vital Signs and Narrative: Vital Signs: Last Vital Signs Temp 97.5 F 06/28/24 15:05 Pulse 106 H 06/28/24 15:05 Resp 14 06/28/24 15:05 BP 189/111 H 06/28/24 15:05 Pulse Ox 95 06/28/24 15:05 O2 Del Method Room Air 06/28/24 15:05 General: AOx3, no acute distress Resp: CTA bilaterally CVS: S1, S2, regular rhythm, tachycardic GI: +BS, NT, no distention Skin: Warm, dry Neuro: Cranial nerves II-XII grossly intact bilaterally. Motor grossly intact bilaterally. No tongue fasciculations. No significant upper extremity tremors. Extremities: 1+ bilateral pitting edema Assessment and Plan (1) Medical clearance for psychiatric admission: Status: Acute Plan Pt is a 58-year-old male with a PMH significant for?COPD, HTN, TBI, multiple concussions, sciatica, degenerative disc disease, PTSD, and bipolar disorder who is admitted to psychiatry unit for increasing depression with SI. Patient was initially brought into [facility] after calling N making suicidal statements about intentional overdose on home medications. Medical consult for admission H&P. Mood disorder Plan as per psychiatry HTN BP 189/111 at time of presentation Review of records indicate pt often hypertensive Previously on amlodipine 10 mg daily in 12/2022 However pt denies taking any antihypertensives Will monitor BP for now, resume amlodipine as warranted Alcohol use disorder Pt drinking up to 1/2 gallon of vodka daily At high risk of withdrawal Continue Ativan protocol for withdrawal Plan as per psychiatry COPD Not in acute exacerbation Pt smoking 1 pack daily Chronic lower back pain Tylenol or ibuprofen p.r.n. Migraine headaches Continue sumatriptan GERD PPI Thank you for allowing us to participate in the care of this patient. Signing off at this time. Please re-consult if any acute complaints or issues arise.
[2024-06-28] MEDS: LORazepam 1 MG TABLET 2 MG PO ×3 (16:15→20:33)
[2024-06-28 17:41] VITALS: BMI 32.4
--- NOTE | 2024-06-28 17:54 | PC.ADMIT ---
Mr. Brody Morgan (Ravi), a 58y.o. white male was admitted to room [facility]2 at 3pm. He initially presented at [facility] ER on 06/27/24 and reportedly was intoxicated and suicidal. While in their care, he was medicated with Ativan 2mg, Ativan 2mg. and Ativan 1mg until he was transferred via ambulance on a section 12 to [facility]. He arrived by stretcher. Skin/ safety check was done and was unremarkable. Vitals on admission at 3pm were [id number]/111, pulse ox 95%, scoring a 10 on CIWA at that time. CIWA is ordered q 4 hours. Medicated with Ativan 2mg x1 around 4pm and also on scheduled Ativan 4x day. Ravi denied suicidality, maintaining that he got into an argument with [facility] staff who, overreacted. He signed a CV upon admission, and also a 3 Day notice at 3:50pm. He reports that he was in a [facility] respite for 9 months and discharged in October 2023 and relapsed shortly thereafter. He reports drinking a half gallon of vodka daily, last drink 06/27/24 at 1800. Tox screen also positive for cocaine and cannabis. Per ER nurse to nurse, Ravi attempted suicide in 2012 via flexeril overdose and tying a noose. His daughter completed suicide in 2013 also. They also report a history of TBI which he later clarified to have been 5 concussions, most recent 6 years ago. Per report, he also has a history of incarceration, and a history of A&B and aggressiveness which he maintains has only occurred when severely intoxicated. Medically, he reports a history of COPD and hyperlipidemia. Per nursing communication from [facility], he is a difficult detox. Call provider with any questions or concerns regarding objective detox symptoms, oversedation or s/s of delirium. Med reconciliation not completed as pharmacy was closed at 5pm. (Louisa)
[2024-06-28 20:00] VITALS: BP 178/114; PULSE 92; RESP 18; TEMP 36.7; O2SAT 95
[2024-06-28] MEDS: hydrOXYzine HCL 25 MG TABLET PO (20:33)
[2024-06-28] MEDS: traZODone HCL 50 MG TABLET PO (20:33)
[2024-06-28] MEDS: LORazepam 1 MG TABLET PO (20:42)
[2024-06-29] VITALS (7 sets, daily range): BP systolic 129–178; BP diastolic 94–115; PULSE 93–105; RESP 14–18; TEMP 35.9–36.9; O2SAT 95–97
[2024-06-29] MEDS: LORazepam 1 MG TABLET PO ×3 (00:18→16:13)
[2024-06-29] MEDS: LORazepam 1 MG TABLET 2 MG PO ×4 (08:13→19:56)
[2024-06-29] MEDS: Multivitamin TABLET 1 TAB PO (08:13)
[2024-06-29] MEDS: Folic Acid 1 MG TABLET PO (08:13)
[2024-06-29] MEDS: Thiamine HCL 100 MG TABLET PO (08:13)
[2024-06-29 08:48] LABS: Estimated Average Glucose 100 mg/dL; Hemoglobin A1c % 5.1 % (<6.0)
[2024-06-29 08:58] LABS: Cholesterol 230 mg/dL (<200); HDL Cholesterol 97 mg/dL (>40); LDL Cholesterol Calculated 118 mg/dL (<100); Magnesium 1.6 mg/dL (1.6-2.6); Triglycerides 75 mg/dL (<150)
[2024-06-29 09:15] LABS: Free T4 (Free Thyroxine) 0.88 ng/dL (0.71-1.85); Thyroid Stimulating Hormone 3.09 uIU/mL (0.32-4.0)
[2024-06-29 09:26] LABS: Folate 5.4 ng/mL (> or = 4.0); Vitamin B12 429 pg/mL (200-900)
[2024-06-29] MEDS: Atorvastatin Calcium 40 MG TABLET PO (10:45)
[2024-06-29] MEDS: Omeprazole 20 MG CAPSULE.DR PO (10:45)
[2024-06-29] MEDS: Albuterol Sulfate 90 MCG 8 GM INHALER 2 PUFF INHALE (11:01)
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
[2024-06-29] MEDS: Ibuprofen 800 MG TABLET PO (16:13)
[2024-06-29] MEDS: traZODone HCL 50 MG TABLET PO (19:58)
[2024-06-30] MEDS: traZODone HCL 50 MG TABLET PO ×2 (00:31→21:40)
[2024-06-30] MEDS: hydrOXYzine HCL 25 MG TABLET PO (00:31)
[2024-06-30 00:34] VITALS: BP 155/103; PULSE 99; RESP 15; TEMP 36.4; O2SAT 95
[2024-06-30] MEDS: Albuterol Sulfate 90 MCG 8 GM INHALER 2 PUFF INHALE ×2 (00:37→09:01)
[2024-06-30 03:58] VITALS: BP 132/100; PULSE 102; RESP 14; TEMP 36.8; O2SAT 96
[2024-06-30] MEDS: Omeprazole 20 MG CAPSULE.DR PO (06:23)
[2024-06-30 08:00] VITALS: BP 154/88; PULSE 93; RESP 16; TEMP 36.4; O2SAT 95
[2024-06-30] MEDS: Atorvastatin Calcium 40 MG TABLET PO (08:52)
[2024-06-30] MEDS: Thiamine HCL 100 MG TABLET PO (08:52)
[2024-06-30] MEDS: LORazepam 1 MG TABLET 2 MG PO ×4 (08:52→21:40)
[2024-06-30] MEDS: Multivitamin TABLET 1 TAB PO (08:52)
[2024-06-30] MEDS: Folic Acid 1 MG TABLET PO (08:52)
--- NOTE | 2024-06-30 09:45 | HO.PSYCHPN ---
Subjective Subjective Date of Service: 06/30/24 Reason For Visit: Unspecified bipolar d/o alcohol use d/o Interim History: met with patient. Discussed with Nursing. Three day notice expires on Tuesday07/03/2024. Largely isolative. However was in the milieu today watching the Olympics. Some irritability, but did warm up during interview. Reports being here for discharge and remorseful around actions and comments when intoxicated . Reports mood is okay. Adamantly denies thoughts of self-harm, psychosis etc. . No withdrawals and we will review Ativan dosing and need for a taper or not tomorrow. Medication Compliance: Yes Side effects from medications: No Attending Groups: Intermittent Review of Systems Acute medical concerns: No Review of Systems Review of Systems Unremarkable Mental Status Exam Mental Status Exam Narrative: watching the [employer]. Hospital clothing. Some irritability, but this lessened. Organized. Largely euthymic. No SI. No HI. No agitation. No psychosis. Insight and judgment fair. No evidence of withdrawal Diagnostics Vital Signs (24Hr): Vital Signs - 24 hr 06/29/24 12:29 06/29/24 16:02 06/29/24 17:25 Temperature 98.4 F 98.2 F 97.5 F Pulse Rate 99 95 93 Respiratory Rate 14 14 16 Blood Pressure 129/94 H 155/105 H 165/103 H Pulse Oximetry 95 95 Oxygen Delivery Method Room Air Room Air 06/29/24 20:00 06/30/24 00:34 06/30/24 03:58 Temperature 97.6 F 97.6 F 98.2 F Pulse Rate 96 99 102 H Respiratory Rate 15 15 14 Blood Pressure 169/107 H 155/103 H 132/100 H Pulse Oximetry 96 95 96 Oxygen Delivery Method BMI result Body Mass Index 32.4 Labs Labs: Laboratory Results - last 48 hr 06/29/24 08:20 Estimat Average Glucose 100 Hemoglobin A1c % 5.1 Magnesium 1.6 Triglycerides 75 Cholesterol 230 H LDL Cholesterol, Calc 118 H HDL Cholesterol 97 Vitamin B12 429 Folate 5.4 TSH 3.09 Free T4 0.88 Medications Medications Current Medications Acetaminophen (Acetaminophen 325 Mg Tablet) 650 mg PO Q6H PRN PRN Reason: Headache/Pain Mild Scale (1-3) Al Hydroxide/Mg Hydroxide (Magnesium Hydrox/Alum Hydrox 30 Ml Oral.Susp) 30 ml PO Q6H PRN PRN Reason: Heartburn/Nausea Albuterol Sulfate (Albuterol Sulfate 90 Mcg 8 Gm Inhaler) 2 puff INHALE RQ6H PRN PRN Reason: Dyspnea Last Admin: 06/30/24 09:01 Dose: 2 puff Atorvastatin Calcium (Atorvastatin Calcium 40 Mg Tablet) 40 mg PO DAILY [facility] Last Admin: 06/30/24 08:52 Dose: 40 mg Cyclobenzaprine HCl (Cyclobenzaprine Hcl 10 Mg Tablet) 10 mg PO TID PRN PRN Reason: sciatic pain Fluticasone/Vilanterol (Fluticasone/Vilanterol 100/25 Blst.W.Dev) 1 puff INHALE RDAILY [facility] Last Admin: 06/30/24 09:06 Dose: Not Given Folic Acid (Folic Acid 1 Mg Tablet) 1 mg PO DAILY [facility] Last Admin: 06/30/24 08:52 Dose: 1 mg Hydroxyzine HCl (Hydroxyzine Hcl 25 Mg Tablet) 25 mg PO Q6H PRN PRN Reason: Anxiety Last Admin: 06/30/24 00:31 Dose: 25 mg Ibuprofen (Ibuprofen 800 Mg Tablet) 800 mg PO Q8H PRN PRN Reason: Pain, Mild (Pain Scale 1-3) Last Admin: 06/29/24 16:13 Dose: 800 mg Lorazepam (Lorazepam 1 Mg Tablet) 1 mg PO Q4H PRN PRN Reason: CIWA 6-11 Last Admin: 06/29/24 16:13 Dose: 1 mg Lorazepam (Lorazepam 1 Mg Tablet) 2 mg PO Q4H PRN PRN Reason: ciwa 11-16 Lorazepam (Lorazepam 1 Mg Tablet) 2 mg PO QID [facility] Last Admin: 06/30/24 08:52 Dose: 2 mg Magnesium Hydroxide (Milk Of Magnesia 30 Ml Oral.Susp) 30 ml PO DAILY PRN PRN Reason: Constipation Multivitamins/Vitamin C (Multivitamin Tablet) 1 tab PO DAILY [facility] Last Admin: 06/30/24 08:52 Dose: 1 tab Nicotine (Nicotine 21 Mg Patch.Td24) 21 mg TRANSDERMA DAILY PRN PRN Reason: nicotine cravings Nicotine Polacrilex (Nicotine Polacrilex 2 Mg Gum) 4 mg BUCCAL Q2H PRN PRN Reason: Nicotine Cravings Olanzapine (Olanzapine 5 Mg Tablet) 5 mg PO Q4H PRN PRN Reason: agitation Omeprazole (Omeprazole 20 Mg Capsule.Dr) 20 mg PO DAILY@0630 [facility] Last Admin: 06/30/24 06:23 Dose: 20 mg Sumatriptan Succinate (Sumatriptan Succinate 100 Mg Tablet) 100 mg PO DAILY PRN PRN Reason: migraine headache pain Thiamine HCl (Thiamine Hcl 100 Mg Tablet) 100 mg PO DAILY [facility] Last Admin: 06/30/24 08:52 Dose: 100 mg Trazodone HCl (Trazodone Hcl 50 Mg Tablet) 50 mg PO BEDTIME MRX1 PRN PRN Reason: Insomnia Last Admin: 06/30/24 00:31 Dose: 50 mg Allergies Allergies Allergy/AdvReac Type Severity Reaction Status Date / Time lithium Allergy Rash Verified 02/02/23 07:00 Assessment & Plan Assessment & Plan (1) PTSD (post-traumatic stress disorder): Status: Acute Code(s): F43.10 - Post-traumatic stress disorder, unspecified (2) Bipolar 1 disorder, depressed, severe: Status: Acute Code(s): F31.4 - Bipolar disorder, current episode depressed, severe, without psychotic features (3) TBI (traumatic brain injury): Status: Acute Code(s): S06.9XAA - Unspecified intracranial injury with loss of consciousness status unknown, initial encounter (4) Alcohol use disorder: Status: Acute Code(s): F10.90 - Alcohol use, unspecified, uncomplicated Plan Bipolar Disorder, PTSD, Alcohol Use Disorder, Severe, TBI Hx. Plan: Detox-Lorazepam, vitamins Re-establish psychotropic regime Collateral contact TDN if effect Aftercare planning-?return to residential care if he will consider. 06/30/2024: No changes to plan. Will review Ativan dosing and if the taper is needed or not tomorrow Reason for continued inpatient stay Substantial Risk for: rapid decompensation Time Spent With Patient Time: Total time managing care of this patient today ____ minutes.
[2024-06-30 12:23] VITALS: BP 144/84; PULSE 76; RESP 16
[2024-06-30] MEDS: Ibuprofen 800 MG TABLET PO (18:15)
[2024-06-30 20:00] VITALS: BP 163/106; PULSE 88; RESP 15; TEMP 37; O2SAT 94
[2024-06-30] MEDS: SUMAtriptan succinate 100 MG TABLET PO (21:40)
[2024-06-30] MEDS: amLODIPine Besylate 5 MG TABLET PO (21:40)
[2024-07-01] VITALS (7 sets, daily range): BP systolic 157–175; BP diastolic 90–115; PULSE 82–88; RESP 15–18; TEMP 36.4–36.7; O2SAT 97–98
[2024-07-01] MEDS: LORazepam 1 MG TABLET PO ×4 (04:15→21:19)
[2024-07-01] MEDS: hydrOXYzine HCL 25 MG TABLET PO (04:15)
[2024-07-01] MEDS: Omeprazole 20 MG CAPSULE.DR PO (07:21)
[2024-07-01] MEDS: LORazepam 1 MG TABLET 2 MG PO (08:12)
[2024-07-01] MEDS: Multivitamin TABLET 1 TAB PO (08:12)
[2024-07-01] MEDS: SUMAtriptan succinate 100 MG TABLET PO (08:12)
[2024-07-01] MEDS: amLODIPine Besylate 5 MG TABLET PO (08:12)
[2024-07-01] MEDS: Thiamine HCL 100 MG TABLET PO (08:12)
[2024-07-01] MEDS: Atorvastatin Calcium 40 MG TABLET PO (08:13)
[2024-07-01] MEDS: Folic Acid 1 MG TABLET PO (08:13)
[2024-07-01] MEDS: Albuterol Sulfate 90 MCG 8 GM INHALER 2 PUFF INHALE (08:16)
[2024-07-01] MEDS: Fluticasone/Vilanterol 100/25 BLST.W.DEV 1 PUFF INHALE (08:17)
--- NOTE | 2024-07-01 08:42 | P.PNPSI_ITS ---
Subjective Subjective Date of Service: 07/01/24 Reason For Visit: Unspecified bipolar d/o alcohol use d/o Interim History: met with patient. Discussed with Nursing. Three day notice expires on Tuesday07/03/2024. In the milieu today watching the Olympics. Some irritability, also has withdrawals (sweat, mild tremor, BP elevated) and reluctant to take ativan- took 1 mg at 4am, otherwise declining. Agreed to taper of 1mg tid today, then 1mg bid tomorrow. but did warm up during interview. Reports being here for discharge. Reports mood is okay. Adamantly denies thoughts of self-harm, psychosis etc. . Medication Compliance: Intermittent Side effects from medications: No Attending Groups: Intermittent Review of Systems Acute medical concerns: No Review of Systems Review of Systems withdrawals- sweat, tremor, mild Mental Status Exam Mental Status Exam Narrative: watching the [employer]. Hospital clothing. Some irritability, but this lessened. Organized. Largely euthymic. No SI. No HI. No agitation. No psychosis. Insight and judgment fair. Withdrawal- sweat, tremor, BP elavated Diagnostics Vital Signs (24Hr): Vital Signs - 24 hr 06/30/24 12:23 06/30/24 20:00 07/01/24 04:18 Temperature 98.6 F 97.6 F Pulse Rate 76 88 85 Respiratory Rate 16 15 15 Blood Pressure 144/84 H 163/106 H 157/99 H Pulse Oximetry 94 97 07/01/24 08:12 Temperature Pulse Rate Respiratory Rate Blood Pressure 165/115 H Pulse Oximetry BMI result Body Mass Index 32.4 Labs Labs: Laboratory Results - last 48 hr 06/29/24 08:20 Estimat Average Glucose 100 Hemoglobin A1c % 5.1 Magnesium 1.6 Triglycerides 75 Cholesterol 230 H LDL Cholesterol, Calc 118 H HDL Cholesterol 97 Vitamin B12 429 Folate 5.4 TSH 3.09 Free T4 0.88 Medications Medications Current Medications Acetaminophen (Acetaminophen 325 Mg Tablet) 650 mg PO Q6H PRN PRN Reason: Headache/Pain Mild Scale (1-3) Al Hydroxide/Mg Hydroxide (Magnesium Hydrox/Alum Hydrox 30 Ml Oral.Susp) 30 ml PO Q6H PRN PRN Reason: Heartburn/Nausea Albuterol Sulfate (Albuterol Sulfate 90 Mcg 8 Gm Inhaler) 2 puff INHALE RQ6H PRN PRN Reason: Dyspnea Last Admin: 07/01/24 08:16 Dose: 2 puff Amlodipine Besylate (Amlodipine Besylate 5 Mg Tablet) 5 mg PO DAILY [facility]; Protocol Last Admin: 07/01/24 08:12 Dose: 5 mg Atorvastatin Calcium (Atorvastatin Calcium 40 Mg Tablet) 40 mg PO DAILY [facility] Last Admin: 07/01/24 08:13 Dose: 40 mg Cyclobenzaprine HCl (Cyclobenzaprine Hcl 10 Mg Tablet) 10 mg PO TID PRN PRN Reason: sciatic pain Fluticasone/Vilanterol (Fluticasone/Vilanterol 100/25 Blst.W.Dev) 1 puff INHALE RDAILY [facility] Last Admin: 07/01/24 08:17 Dose: 1 puff Folic Acid (Folic Acid 1 Mg Tablet) 1 mg PO DAILY [facility] Last Admin: 07/01/24 08:13 Dose: 1 mg Hydroxyzine HCl (Hydroxyzine Hcl 25 Mg Tablet) 25 mg PO Q6H PRN PRN Reason: Anxiety Last Admin: 07/01/24 04:15 Dose: 25 mg Ibuprofen (Ibuprofen 800 Mg Tablet) 800 mg PO Q8H PRN PRN Reason: Pain, Mild (Pain Scale 1-3) Last Admin: 06/30/24 18:15 Dose: 800 mg Lorazepam (Lorazepam 1 Mg Tablet) 1 mg PO Q4H PRN PRN Reason: CIWA 6-11 Last Admin: 07/01/24 04:15 Dose: 1 mg Lorazepam (Lorazepam 1 Mg Tablet) 2 mg PO Q4H PRN PRN Reason: ciwa 11-16 Lorazepam (Lorazepam 1 Mg Tablet) 2 mg PO QID [facility] Last Admin: 07/01/24 08:12 Dose: 2 mg Magnesium Hydroxide (Milk Of Magnesia 30 Ml Oral.Susp) 30 ml PO DAILY PRN PRN Reason: Constipation Multivitamins/Vitamin C (Multivitamin Tablet) 1 tab PO DAILY [facility] Last Admin: 07/01/24 08:12 Dose: 1 tab Nicotine (Nicotine 21 Mg Patch.Td24) 21 mg TRANSDERMA DAILY PRN PRN Reason: nicotine cravings Nicotine Polacrilex (Nicotine Polacrilex 2 Mg Gum) 4 mg BUCCAL Q2H PRN PRN Reason: Nicotine Cravings Olanzapine (Olanzapine 5 Mg Tablet) 5 mg PO Q4H PRN PRN Reason: agitation Omeprazole (Omeprazole 20 Mg Capsule.Dr) 20 mg PO DAILY@0630 [facility] Last Admin: 07/01/24 07:21 Dose: 20 mg Sumatriptan Succinate (Sumatriptan Succinate 100 Mg Tablet) 100 mg PO DAILY PRN PRN Reason: migraine headache pain Last Admin: 07/01/24 08:12 Dose: 100 mg Thiamine HCl (Thiamine Hcl 100 Mg Tablet) 100 mg PO DAILY [facility] Last Admin: 07/01/24 08:12 Dose: 100 mg Trazodone HCl (Trazodone Hcl 50 Mg Tablet) 50 mg PO BEDTIME MRX1 PRN PRN Reason: Insomnia Last Admin: 06/30/24 21:40 Dose: 50 mg Allergies Allergies Allergy/AdvReac Type Severity Reaction Status Date / Time lithium Allergy Rash Verified 02/02/23 07:00 Assessment & Plan Assessment & Plan (1) PTSD (post-traumatic stress disorder): Status: Acute Code(s): F43.10 - Post-traumatic stress disorder, unspecified (2) Bipolar 1 disorder, depressed, severe: Status: Acute Code(s): F31.4 - Bipolar disorder, current episode depressed, severe, without psychotic features (3) TBI (traumatic brain injury): Status: Acute Code(s): S06.9XAA - Unspecified intracranial injury with loss of consciousness status unknown, initial encounter (4) Alcohol use disorder: Status: Acute Code(s): F10.90 - Alcohol use, unspecified, uncomplicated Plan Bipolar Disorder, PTSD, Alcohol Use Disorder, Severe, TBI Hx. Plan: Detox-Lorazepam, vitamins Re-establish psychotropic regime Collateral contact TDN if effect Aftercare planning-?return to residential care if he will consider. 06/30/2024: No changes to plan. Will review Ativan dosing and if the taper is needed or not tomorrow 07/01/24: withdrawals (sweat, mild tremor, BP elevated) and reluctant to take ativan- took 1 mg at 4am, otherwise declining. Agreed to taper of 1mg tid today, then 1mg bid tomorrow. Reason for continued inpatient stay Substantial Risk for: rapid decompensation Time Spent With Patient Time: Total time managing care of this patient today ____ minutes.
[2024-07-01] MEDS: Nicotine 21 MG PATCH.TD24 TRANSDERMA (11:34)
[2024-07-01] MEDS: traZODone HCL 50 MG TABLET PO (21:18)
[2024-07-01] MEDS: Ibuprofen 800 MG TABLET PO (21:18)
[2024-07-02] MEDS: Omeprazole 20 MG CAPSULE.DR PO (06:18)
[2024-07-02 08:14] VITALS: BP 166/119; PULSE 91; RESP 16; TEMP 36.4; O2SAT 97
[2024-07-02 08:22] VITALS: BP 166/119
[2024-07-02] MEDS: Thiamine HCL 100 MG TABLET PO (08:22)
[2024-07-02] MEDS: amLODIPine Besylate 10 MG TABLET PO (08:22)
[2024-07-02] MEDS: Atorvastatin Calcium 40 MG TABLET PO (08:23)
[2024-07-02] MEDS: Multivitamin TABLET 1 TAB PO (08:23)
[2024-07-02] MEDS: Folic Acid 1 MG TABLET PO (08:23)
--- NOTE | 2024-07-02 11:42 | MHC.RECOVRN ---
AUDIT-C Brief Intervention Pt had positive screen for unhealthy alcohol use on admission, subsequently met with t/w to discuss alcohol use and recovery supports/options. Pt voices concern regarding alcohol use and is aware that drinking at unhealthy levels is known to increase risk of alcohol related health problems. Pt reports 1/2 gallon vodka daily off and on since age 10. Pt reports he has had extended periods in recovery including 14 years, 5 years, and 1 year here and there. Pt states I know how to stop drinking. Pt reports he is successful with recovery when he is active in AA and helping other people. Pt reports his sponsor has been in recovery 39 years and also has a cousin who has been in recovery and is supportive. Pt reports he lives in [place] and has meetings within walking distance of his apartment. Pt reports he is not interested in other supports like IOP/PHP or [facility]. Pt expresses how alcohol use has impacted health, including negative impact on mental health. Discussed risk reduction strategies including drinking below the recommended limit. Provided pt with written resources including information on inpatient and outpatient treatment, [facility], harm reduction, and recovery coaching. Pt plans to speak with his sponsor and attend AA. Pt provided with t/w contact information if questions or concerns arise. Denies other questions or concerns at this time.
[2024-07-02 12:16] VITALS: BP 157/104; PULSE 86; RESP 16; TEMP 36.4; O2SAT 98
[2024-07-02 16:25] VITALS: BP 173/105; PULSE 90
--- NOTE | 2024-07-02 16:26 | P.PNPSI_ITS ---
Subjective Subjective Date of Service: 07/02/24 Reason For Visit: Unspecified bipolar d/o alcohol use d/o Subjective Notes: Conditional Voluntary and 3 Day Healthcare Proxy: No Guardianship: No Medical Problems Affecting Mental Status: No Interim History: Feels detox is completed. Refusing Lorazapam, Refuses taper, I am done. However HTN persists. Meds reviewed, adjusted. Clonidine x 1 for BP elevation. Plans discharge 07/03. Reports feeling improved. Review of admission with pt, detox process, severity of detox, and suggested pt not attempt to self detox in the future without medical supervision. Medication Compliance: Intermittent Side effects from medications: No Attending Groups: No Review of Systems Acute medical concerns: No Medical Review of Systems: unchanged Review of Systems Review of Systems HTN Mental Status Exam Mental Status Exam Patient Appearance: Appropriate Patient Orientation: Person, Place, Time and Situation Level of Consciousness: Alert Patient Behavior: Talkative and Good Eye Contact Mood Description: Flat Affect Description: Flat Patient Cognition Impaired: No Ability to Follow Directions: Good Speech Pattern: Spontaneous Speech Memory Description: Episodic Impaired Hallucinations: None Delusions: Not Present Thought Process: Goal Oriented Thought Content: positive for Goal Oriented and positive for Suicidal Ideation (denies) Judgement: Good Diagnostics Vital Signs (24Hr): Vital Signs - 24 hr 07/01/24 16:30 07/01/24 17:30 07/01/24 20:00 Temperature 98.0 F Pulse Rate 88 84 85 Respiratory Rate 18 Blood Pressure 164/100 H 168/90 H 163/94 H Pulse Oximetry 98 Oxygen Delivery Method Room Air 07/02/24 08:14 07/02/24 08:22 07/02/24 12:16 Temperature 97.6 F 97.6 F Pulse Rate 91 86 Respiratory Rate 16 16 Blood Pressure 166/119 H 166/119 H 157/104 H Pulse Oximetry 97 98 Oxygen Delivery Method Room Air Room Air BMI result Body Mass Index 32.4 Medications Medications Current Medications Acetaminophen (Acetaminophen 325 Mg Tablet) 650 mg PO Q6H PRN PRN Reason: Headache/Pain Mild Scale (1-3) Al Hydroxide/Mg Hydroxide (Magnesium Hydrox/Alum Hydrox 30 Ml Oral.Susp) 30 ml PO Q6H PRN PRN Reason: Heartburn/Nausea Albuterol Sulfate (Albuterol Sulfate 90 Mcg 8 Gm Inhaler) 2 puff INHALE RQ6H PRN PRN Reason: Dyspnea Last Admin: 07/01/24 08:16 Dose: 2 puff Amlodipine Besylate (Amlodipine Besylate 5 Mg Tablet) 15 mg PO DAILY [facility]; Protocol Atorvastatin Calcium (Atorvastatin Calcium 40 Mg Tablet) 40 mg PO DAILY [facility] Last Admin: 07/02/24 08:23 Dose: 40 mg Cyclobenzaprine HCl (Cyclobenzaprine Hcl 10 Mg Tablet) 10 mg PO TID PRN PRN Reason: sciatic pain Fluticasone/Vilanterol (Fluticasone/Vilanterol 100/25 Blst.W.Dev) 1 puff INHALE RDAILY [facility] Last Admin: 07/02/24 08:15 Dose: Not Given Folic Acid (Folic Acid 1 Mg Tablet) 1 mg PO DAILY [facility] Last Admin: 07/02/24 08:23 Dose: 1 mg Hydroxyzine HCl (Hydroxyzine Hcl 25 Mg Tablet) 25 mg PO Q6H PRN PRN Reason: Anxiety Last Admin: 07/01/24 04:15 Dose: 25 mg Ibuprofen (Ibuprofen 800 Mg Tablet) 800 mg PO Q8H PRN PRN Reason: Pain, Mild (Pain Scale 1-3) Last Admin: 07/01/24 21:18 Dose: 800 mg Lorazepam (Lorazepam 1 Mg Tablet) 1 mg PO Q4H PRN PRN Reason: CIWA 6-11 Last Admin: 07/01/24 04:15 Dose: 1 mg Lorazepam (Lorazepam 1 Mg Tablet) 2 mg PO Q4H PRN PRN Reason: ciwa 11-16 Lorazepam (Lorazepam 1 Mg Tablet) 1 mg PO BID [facility] Stop: 07/02/24 21:01 Last Admin: 07/02/24 08:28 Dose: Not Given Magnesium Hydroxide (Milk Of Magnesia 30 Ml Oral.Susp) 30 ml PO DAILY PRN PRN Reason: Constipation Multivitamins/Vitamin C (Multivitamin Tablet) 1 tab PO DAILY [facility] Last Admin: 07/02/24 08:23 Dose: 1 tab Nicotine (Nicotine 21 Mg Patch.Td24) 21 mg TRANSDERMA DAILY PRN PRN Reason: nicotine cravings Last Admin: 07/01/24 11:34 Dose: 21 mg Nicotine Polacrilex (Nicotine Polacrilex 2 Mg Gum) 4 mg BUCCAL Q2H PRN PRN Reason: Nicotine Cravings Olanzapine (Olanzapine 5 Mg Tablet) 5 mg PO Q4H PRN PRN Reason: agitation Omeprazole (Omeprazole 20 Mg Capsule.Dr) 20 mg PO DAILY@0630 [facility] Last Admin: 07/02/24 06:18 Dose: 20 mg Sumatriptan Succinate (Sumatriptan Succinate 100 Mg Tablet) 100 mg PO DAILY PRN PRN Reason: migraine headache pain Last Admin: 07/01/24 08:12 Dose: 100 mg Thiamine HCl (Thiamine Hcl 100 Mg Tablet) 100 mg PO DAILY [facility] Last Admin: 07/02/24 08:22 Dose: 100 mg Trazodone HCl (Trazodone Hcl 50 Mg Tablet) 50 mg PO BEDTIME MRX1 PRN PRN Reason: Insomnia Last Admin: 07/01/24 21:18 Dose: 50 mg Allergies Allergies Allergy/AdvReac Type Severity Reaction Status Date / Time lithium Allergy Rash Verified 02/02/23 07:00 Assessment & Plan Assessment & Plan (1) PTSD (post-traumatic stress disorder): Status: Acute Code(s): F43.10 - Post-traumatic stress disorder, unspecified (2) Bipolar 1 disorder, depressed, severe: Status: Acute Code(s): F31.4 - Bipolar disorder, current episode depressed, severe, without psychotic features (3) TBI (traumatic brain injury): Status: Acute Code(s): S06.9XAA - Unspecified intracranial injury with loss of consciousness status unknown, initial encounter (4) Alcohol use disorder: Status: Acute Code(s): F10.90 - Alcohol use, unspecified, uncomplicated Plan Bipolar Disorder, PTSD, Alcohol Use Disorder, Severe, TBI Hx. Plan: Detox-Lorazepam, vitamins Re-establish psychotropic regime Collateral contact TDN if effect Aftercare planning-?return to residential care if he will consider. 06/30/2024: No changes to plan. Will review Ativan dosing and if the taper is needed or not tomorrow 07/01/24: withdrawals (sweat, mild tremor, BP elevated) and reluctant to take ativan- took 1 mg at 4am, otherwise declining. Agreed to taper of 1mg tid today, then 1mg bid tomorrow. 07/02/24. Refuses further Ativan taper. BP remains high-clonidine x 1, amlodipine increased. Education provided on detox. Informed Consent: understands Reason for continued inpatient stay Substantial Risk for: rapid decompensation and med/psych decompensation Time Spent With Patient Time: Total time managing care of this patient today ____ minutes.
[2024-07-02] MEDS: Nicotine 21 MG PATCH.TD24 TRANSDERMA (17:09)
[2024-07-02 17:39] VITALS: BP 173/105
[2024-07-02] MEDS: cloNIDine HCL 0.1 MG TABLET PO (17:39)
[2024-07-02] MEDS: Cyclobenzaprine HCl 10 MG TABLET PO (19:17)
[2024-07-02] MEDS: Ibuprofen 800 MG TABLET PO (19:18)
[2024-07-02 20:00] VITALS: BP 160/97; PULSE 88; RESP 18; TEMP 36.6; O2SAT 98
[2024-07-02] MEDS: traZODone HCL 50 MG TABLET PO (20:39)
[2024-07-02] MEDS: LORazepam 1 MG TABLET PO (20:40)
[2024-07-03 00:27] VITALS: BP 164/100; PULSE 91; RESP 18; TEMP 36.7; O2SAT 97
[2024-07-03 08:00] VITALS: BP 172/100; PULSE 80; RESP 17; TEMP 36.2; O2SAT 98
[2024-07-03] MEDS: Thiamine HCL 100 MG TABLET PO (08:33)
[2024-07-03] MEDS: Omeprazole 20 MG CAPSULE.DR PO (08:33)
[2024-07-03] MEDS: Multivitamin TABLET 1 TAB PO (08:33)
[2024-07-03] MEDS: Folic Acid 1 MG TABLET PO (08:33)
[2024-07-03] MEDS: amLODIPine Besylate 5 MG TABLET 15 MG PO (08:33)
[2024-07-03] MEDS: Atorvastatin Calcium 40 MG TABLET PO (08:45)
[2024-07-03] MEDS: Albuterol Sulfate 90 MCG 8 GM INHALER 2 PUFF INHALE (10:39)
--- NOTE | 2024-07-03 15:50 | P.DS_ITS ---
DS: Providers Provider Date of Service: 07/03/24 Date of admission: 06/28/24 14:55 Date of discharge: 07/03/24 Primary care physician: Benedict Santana MD Admitting clinician: Olga Katz Attending physician on admission: Archie Dillard Consults: 06/28/24 15:27 Consult to Hospitalist Routine Comment: Consulting Provider: Hospitalist Reason For Exam: Transfer from [facility] 06/28/24 19:07 Addiction Medicine Routine Consulting Provider: Addiction Covering Reason for consultation: patient wants to stop drinking Has provider been notified: Yes Attending physician on discharge: Archie Dillard Discharging clinician: Olga Katz DS: Diagnosis Discharge Diagnosis (1) PTSD (post-traumatic stress disorder): Status: Acute (2) Bipolar 1 disorder, depressed, severe: Status: Acute (3) TBI (traumatic brain injury): Status: Acute (4) Alcohol use disorder: Status: Acute DS: Medications Discharge Medications Home Medications: Previous Rx's ?Medication ?Instructions ?Recorded ibuprofen 800 mg tablet 800 mg PO TID PRN pain 30 days #90 02/16/23 tabs albuterol sulfate 90 mcg/actuation 2 puff inhalation Q6H PRN dyspnea 07/02/24 aerosol inhaler (Ventolin HFA) #1 inhaler amlodipine 5 mg tablet 15 mg PO DAILY #90 tabs 07/02/24 atorvastatin 40 mg tablet 40 mg PO DAILY #30 tabs 07/02/24 fluticasone furoate 200 1 inh inhalation DAILY #30 inhalers 07/02/24 mcg-vilanterol 25 mcg/dose inhalation powder (Breo Ellipta) folic acid 1 mg tablet 1 mg PO DAILY #30 tabs 07/02/24 multivitamin (Daily-Artie tablet) 1 tab PO DAILY #30 tabs 07/02/24 omeprazole 20 mg capsule,delayed 20 mg PO QAM 30 days #30 caps 07/02/24 release sumatriptan succinate 100 mg tablet 100 mg PO DAILY PRN Migraine 07/02/24 Headache 30 days #15 tabs thiamine mononitrate (vit B1) 100 100 mg PO DAILY #30 tabs 07/02/24 mg tablet trazodone 50 mg tablet 50 mg PO BEDTIME MRX1 PRN Insomnia 07/02/24 #60 tabs Mental Status Exam Mental Status Exam Patient Appearance: Appropriate Patient Orientation: Person, Place, Time and Situation Level of Consciousness: Alert Patient Behavior: Talkative and Good Eye Contact Mood Description: Flat Affect Description: Flat Patient Cognition Impaired: No Ability to Follow Directions: Good Speech Pattern: Spontaneous Speech Memory Description: Episodic Impaired Hallucinations: None Delusions: Not Present Thought Process: Goal Oriented Thought Content: positive for Goal Oriented and positive for Suicidal Ideation (denies) Judgement: Good Data Data Completed and Pending Completed studies during hospitalization [Text1]: 06/29/24 08:20 Estimat Average Glucose 100 Hemoglobin A1c % 5.1 Magnesium 1.6 Triglycerides 75 Cholesterol 230 H LDL Cholesterol, Calc 118 H HDL Cholesterol 97 Vitamin B12 429 Folate 5.4 TSH 3.09 Free T4 0.88 DS: Summary Hospital Course Hospital Course: Admission to adult psychiatry for exacerbation of alcohol use disorder, PTSD, Bipolar Disorder. Hx of TBI per pt report. BAL 303, drinking 1/2 gallon daily. Verbalized SI to [facility] with plan. Angry upon admit, signed three day notice of intent. Encouraged to remain for detox, which was difficult and required high doses of lorazepam. Pt reports by history he has detoxed without event however this detox he felt significant sx. Pt able to complete detox without medical incident. He will return to AA and CHD providers. SI resolved. Pt educated regarding progression of illness and his need for medical care should he need to detox again. Consulted by addiction medicine to provide education as well. Status at Discharge Functional status at discharge: independent ambulation Overall status at discharge: patient is back to baseline Time Spent with Patient Time attestation: Total time managing care of this patient today ____ minutes. Time spent: Less than 30 minutes Discharge Plan Discharge Anticipated Discharge Date/Time: 07/03/24 12:00 Patient Disposition: Home, Self-Care Discharge Diagnosis: PTSD Bipolar Disorder Alcohol Use Disorder History of TBI Referrals: [facility] ([facility]): Petar Sauceda [Other] - 07/11/24 11:00 am (Hospital discharge appointment Initial Diagnostic evaluation for therapy services Appointment in office) [facility]): Desi Singh [Other] - 08/13/24 11:00 am (Initial Psychiatric evaluation for psychiatric medication management. Appointment in office.) Benedict Santana MD [Primary Care Provider] - 1 Week (office is aware waiting for a call back. If appointment not made by time of DC please call and schedule appointment to be seen in 1 week. office will call patient with in a week with an appointment.) Discharge Medications: New multivitamin [Daily-Artie] Tablet 1 tab PO DAILY Qty: 30 0RF trazodone 50 mg Tablet 50 mg PO BEDTIME MRX1 PRN (Reason: Insomnia) Qty: 60 0RF amlodipine 5 mg Tablet 15 mg PO DAILY Qty: 90 0RF Protocol: Hold for SBP< HOLD for SBP < : 90 folic acid 1 mg Tablet 1 mg PO DAILY Qty: 30 0RF thiamine mononitrate (vit B1) 100 mg Tablet 100 mg PO DAILY Qty: 30 0RF Continued ibuprofen 800 mg tablet 800 mg PO TID PRN (Reason: pain) 30 Days Qty: 90 0RF atorvastatin 40 mg Tablet 40 mg PO DAILY Qty: 30 0RF sumatriptan succinate 100 mg Tablet 100 mg PO DAILY PRN (Reason: Migraine Headache) 30 Days Qty: 15 0RF omeprazole 20 mg capsule,delayed release(DR/EC) 20 mg PO QAM 30 Days Qty: 30 0RF fluticasone furoate-vilanterol [Breo Ellipta] 200-25 mcg/dose Blister With Device 1 inh INHALATION DAILY Qty: 30 0RF Changed albuterol sulfate [Ventolin HFA] 90 mcg/actuation HFA aerosol inhaler 2 puff inhalation Q6H PRN (Reason: dyspnea) Qty: 1 0RF Discharge Orders: Discharge Order (Routine); Ordered 07/03/24 Ordered By: Olga Katz Diet: Advance to usual diet Activity on Discharge: As tolerated Stand Alone Forms: Patient Portal Discharge page, Community Support Print Language: Welsh Care Plan Goals: Abstinence from Alcohol Mood and Behavioral Stabilization Health Concerns: Abstinence from Alcohol Mood and Behavioral Stabilization Plan of Treatment: Attend scheduled appointments Reconnect with AA Take medications as directed Assessment: Discharge on a three day notice of intent No SI/HI/AH/VH, sx of psychosis or vito Discharge Date/Time: 07/03/24 10:58
== END 2024-07-03 10:58 | disposition home or self-care (01) | DRG 753 ==
PROVIDERS: Admitting Provider Clinical Nurse Specialist Psychiatric/Mental Health, Adult; PCP Internal Medicine; Visit Provider Clinical Nurse Specialist Psychiatric/Mental Health, Adult
DX: F31.4 Bipolar disorder, current episode depressed, severe, without psychotic features (principal); F10.20 Alcohol dependence, uncomplicated; F17.210 Nicotine dependence, cigarettes, uncomplicated; G43.909 Migraine, unspecified, not intractable, without status migrainosus; G89.29 Other chronic pain; M54.9 Dorsalgia, unspecified; J44.9 Chronic obstructive pulmonary disease, unspecified; Z71.6 Tobacco abuse counseling; Z87.820 Personal history of traumatic brain injury; Z79.51 Long term (current) use of inhaled steroids; Z79.899 Other long term (current) drug therapy
CPT/HCPCS: 36415; 80061; 82607; 82746; 83036; 83735; 84439; 84443

== ENCOUNTER → 2024-06-28 14:55 | Outpatient (BNV) | payer MEDICAID, SELFPAY | PROVIDERS: Admitting Provider Clinical Nurse Specialist Psychiatric/Mental Health, Adult; PCP Internal Medicine; Visit Provider Student in an Organized Health Care Education/Training Program | DX: Z00.8 Encounter for other general examination (principal) | CPT/HCPCS: 99222 ==

== ENCOUNTER → 2024-06-28 14:55 | Outpatient (BNV) | payer OTHER, SELFPAY | PROVIDERS: Admitting Provider Clinical Nurse Specialist Psychiatric/Mental Health, Adult; PCP Internal Medicine; Visit Provider Psychiatry & Neurology Psychiatry | DX: F31.4 Bipolar disorder, current episode depressed, severe, without psychotic features (principal); F43.11 Post-traumatic stress disorder, acute; F10.90 Alcohol use, unspecified, uncomplicated; S06.9XAD Unspecified intracranial injury with loss of consciousness status unknown, subsequent encounter | CPT/HCPCS: 99231; 99232 ==